=== PATIENT | male | born 1965 | race Caucasian/White ===

== ENCOUNTER 2016-11-16 10:47 | Inpatient (IN) | payer OTHER ==
[2016-11-16 11:33] VITALS: BMI 24.2
--- NOTE | 2016-11-16 14:17 | HP ---
COWS - Scale Resting Pulse: 0= OR 80 or Below Sweatin= Chills/Flushing Restless Observation: 3= Extraneous Movement Pupil Size: 2= Moderately Dilated Bone or Joint Aches: 4=Acute Joint/Muscle Pain Runny Nose/ Eye Tearin= Nasal Congestion GI Upset > 30mins: 1= Stomach Cramp Tremor Observation: 1= Tremor [place], Not Seen Yawning Observation: 1= 1-2x During Session Anxiety or Irritability: 2=Irritable/Anxious Goose Flesh Skin: 0=Smooth Skin COWS Score: 16 CIWA Score - CIWA Score Nausea/Vomitin Muscle Tremors: 3 Anxiety: 4-Mod. Anxious/Guarded Agitation: 3 Paroxysmal Sweats: 1-Minimal Palms Moist Orientation: 0-Oriented Tacttile Disturbances: 3-Moderate Itch/Numb/Burn Auditory Disturbances: 0-None Visual Disturbances: 0-None Headache: 0-None Present CIWA-Ar Total Score: 16 Admission ROS BHS - HPI Chief Complaint: DETOX TX FOR HEROIN,ALCOHOL AND COCAINE DEPENDENCE Allergies/Adverse Reactions: Allergies Allergy/AdvReac Type Severity Reaction Status Date / Time No Known Allergies Allergy Verified 11/16/16 12:56 History of Present Illness: 50 Y/O MALE WITH A HX OF HEROIN,COCAINE AND ALCOHOL DEPENDENCE SEEKING DETOX TX. Exam Limitations: No Limitations - Ebola screening Have you traveled outside of the country in the last 21 days: No Have you had contact with anyone from an Ebola affected area: No Have you been sick,other than usual withdrawal symptoms: No Do you have a fever: No - Review of Systems Constitutional: Chills, Loss of Appetite, Night Sweats, Changes in sleep, Unintentional Wgt. Loss EENT: reports: Blurred Vision (WEARS READING GLASSES), Tearing, Nose Congestion , Dental Problems (MISSING TEETH. FULL UPPER DENDTURES.) Respiratory: reports: No Symptoms reported Cardiac: reports: Lightheadedness GI: reports: Constipated, Diarrhea, Nausea, Poor Appetite, Poor Fluid Intake, Vomiting, Abdominal cramping : reports: Dysuria Musculoskeletal: reports: Back Pain, Joint Pain, Muscle Pain Integumentary: reports: Bruising (HEALED IVD INJ TRACKS.) Neuro: reports: Headache, Tremors, Unsteady Gait, Dizziness Endocrine: reports: No Symptoms Reported Hematology: reports: No Symptoms Reported Psychiatric: reports: Orientated x3, Anxious, Depressed (ON MEDS) Other Systems: Reviewed and Negative Patient History - Patient Medical History Hx Anemia: No Hx Asthma: No Hx Chronic Obstructive Pulmonary Disease (COPD): No Hx Cancer: No Hx Cardiac Disorders: No Hx Congestive Heart Failure: No Hx Hypertension: No Hx Hypercholesterolemia: No Hx Pacemaker: No HX Cerebrovascular Accident: No Hx Seizures: No Hx Dementia: No Hx Diabetes: No ("LOW BLOOD SUGAR") Hx Gastrointestinal Disorders: No Hx Liver Disease: No Hx Genitourinary Disorders: No Hx Sexually Transmitted Disorders: No (DENIES) Hx Renal Disease (ESRD): No Hx Thyroid Disease: No Hx Human Immunodeficiency Virus (HIV): No (NEGATIVE HX) Hx Hepatitis C: Yes (TREATED--"UNDETECTIVE") Hx Depression: Yes (ON MED) Hx Suicide Attempt: No (DENIES) Hx Bipolar Disorder: Yes Hx Schizophrenia: No - Patient Surgical History Past Surgical History: No Hx Neurologic Surgery: No Hx Cataract Extraction: No Hx Cardiac Surgery: No Hx Lung Surgery: No Hx Breast Surgery: No Hx Breast Biopsy: No Hx Abdominal Surgery: No Hx Appendectomy: No Hx Cholecystectomy: No Hx Genitourinary Surgery: No Hx Orthopedic Surgery: No Anesthesia Reaction: No - PPD History Previous Implant?: Yes Implanted On Prior [facility] Admission?: Yes Date: 02/24/15 Results: 0 mm PPD to be Administered?: Yes - Reproductive History Patient is a Female of Child Bearing Age (11 -55 yrs old): No (MALE) - Smoking Cessation Smoking history: Current every day smoker Have you smoked in the past 12 months: Yes Aproximately how many cigarettes per day: 10 Hx Chewing Tobacco Use: No Initiated information on smoking cessation: Yes 'Breaking Loose' booklet given: 11/16/16 - Substance & Tx. History Hx Alcohol Use: Yes (VODKA) Hx Substance Use: Yes (STREET METHADONE/HEROIN/COCAINE) Substance Use Type: Alcohol, Cocaine, Heroin, Opiates (STREET METHADONE) Hx Substance Use Treatment: Yes ([facility]-DETOX) - Substances Abused Heroin Route: Injection Frequency: Daily Amount used: 2 bags Age of first use: 13 Date of Last Use: 11/15/16 Cocaine Route: Injection Frequency: 1-3 times last 30 days Amount used: $30 Age of first use: 14 Date of Last Use: 11/05/16 Alcohol-vodka Route: Oral Frequency: 3-6 times per week Amount used: 4-5 shots(1 PT) Age of first use: 13 Date of Last Use: 11/14/16 street methadone Route: Oral Frequency: 1-3 times last 30 days Amount used: 20-30 mg. Age of first use: 49 Date of Last Use: 11/16/16 Family Disease History - Family Disease History Family History: Denies Admission Physical Exam [facility] - Vital Signs Vital Signs: Vital Signs - 24 hr 11/16/16 11:29 Temperature 96.2 F L Pulse Rate 65 Respiratory 18 Rate Blood Pressure 132/69 - Physical General Appearance: Yes: Moderate Distress, Irritable, Anxious HEENTM: Yes: EOMI, Normocephalic, DEYANIRA, Pharynx Normal Respiratory: Yes: Chest Non-Tender, Lungs Clear, Normal Breath Sounds, No Respiratory Distress Neck: Yes: Supple, Trachea in good position Breast: Yes: Breast Exam Deferred Cardiology: Yes: Regular Rhythm, Regular Rate, S1, S2 Abdominal: Yes: Normal Bowel Sounds, Non Tender, Soft Genitourinary: Yes: Other (N/C) Back: Yes: Within Normal Limits Musculoskeletal: Yes: full range of Motion, Gait Steady Extremities: Yes: Normal Range of Motion, Non-Tender 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: 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 ) Lymphatic: Yes: Within Normal Limits - Diagnostic (1) Hepatitis C Current Visit: Yes Status: Chronic Qualifiers: Viral hepatitis chronicity: unspecified Hepatic coma status: without hepatic coma Qualified Code(s): B19.20 - Unspecified viral hepatitis C without hepatic coma (2) Nicotine dependence Current Visit: Yes Status: Acute Qualifiers: Substance use status: in withdrawal (3) Abrasion, nose without infection Current Visit: No Status: Resolved (4) Rash of face Current Visit: No Status: Resolved (5) Alcohol dependence with uncomplicated withdrawal Current Visit: Yes Status: Acute (6) Opioid dependence with withdrawal Current Visit: Yes Status: Acute (7) Cocaine dependence, uncomplicated Current Visit: Yes Status: Acute Cleared for Admission [facility] - Detox or Rehab [facility] Level of Care: Medically Managed Detox Regimen/Protocol: Methadone/Librium BHS Breath Alcohol Content Breath Alcohol Content: 0 Urine Drug Screen - Results Drug Screen Negative: No Urine Drug Screen Results: SWAPNA-Cocaine, OPI-Opiates, MTD-Methadone
[2016-11-16] MEDS ORDERED: IBUPROFEN 400 MG TABLET (FP) PO PRN (14:45)
[2016-11-16] MEDS ORDERED: ACETAMINOPHEN 325 MG TABLET (FP) PO PRN (14:45)
[2016-11-16] MEDS ORDERED: LOPERAMIDE HCL 2 MG CAPSULE PO PRN (14:45)
[2016-11-16] MEDS ORDERED: MAG HYDROX/AL HYDROX/SIMETH 30 ML UNIT-DOSE CUP PO PRN (14:45)
[2016-11-16] MEDS ORDERED: MENTHOL/PHENOL 1 EACH UD MM PRN (14:45)
[2016-11-16] MEDS ORDERED: MAGNESIUM HYDROX 2400MG/30ML ORAL SUSPENSION 30 ML CUP PO PRN (14:45)
[2016-11-16] MEDS ORDERED: guaiFENesin/D-METHORPHAN HB 10 ML UNIT-DOSE CUPS PO PRN (14:45)
[2016-11-16] MEDS ORDERED: NICOTINE POLACRILEX 2 MG GUM BUC PRN (14:45)
[2016-11-16] MEDS ORDERED: P-EPHED 60MG/TRIPROLIDI 2.5MG TABLET PO PRN (14:45)
[2016-11-16] MEDS ORDERED: MAGNESIUM CITRATE 300 ML BOTTLE PO PRN (14:45)
[2016-11-16] MEDS ORDERED: METHADONE HCL 10 MG TABLET (FOR DETOX USE ONLY) PO ONE ×2 (15:52→23:00)
[2016-11-16] MEDS: NICOTINE 14 MG/24 HOURS TOPICAL PATCH TD SCH (16:07)
[2016-11-16] MEDS: chlordiazePOXIDE HCL 25 MG CAPSULE PO SCH ×2 (17:59→22:15)
[2016-11-16 18:39] LABS: URINE APPEARANCE CLEAR; URINE BILIRUBIN NEGATIVE (NEGATIVE); URINE BLOOD NEGATIVE (NEGATIVE); URINE COLOR YELLOW; URINE GLUCOSE (UA) NEGATIVE (NEGATIVE); URINE KETONE NEGATIVE (NEGATIVE); URINE LEUK ESTERASE NEGATIVE (NEGATIVE); URINE NITRITE NEGATIVE (NEGATIVE); URINE PROTEIN NEGATIVE (NEGATIVE); URINE UROBILINOGEN NEGATIVE E.U./dl (0.2-1.0)
[2016-11-16] MEDS: diphenhydrAMINE HCL 50 MG CAPSULE PO PRN (22:14)
[2016-11-16] MEDS: THIAMINE HCL 100 MG TABLET (FP) PO SCH (22:15)
[2016-11-17] MEDS: chlordiazePOXIDE HCL 25 MG CAPSULE PO SCH ×4 (05:50→22:14)
--- NOTE | 2016-11-17 08:57 | CONSULT ---
[facility] Psychiatric Consult - Data Date of interview: 11/17/16 Admission source: [facility] Identifying data: This is 50 years old male with history of Bipolar Disorder intoxiocated with: Alcohol, Cocaine, Opioids, Methadone and Nicotine Substance Abuse History: - Smoking Cessation. Smoking history: Current every day smoker. Have you smoked in the past 12 months: Yes. Aproximately how many cigarettes per day: 10. Hx Chewing Tobacco Use: No. Initiated information on smoking cessation: Yes. 'Breaking Loose' booklet given: 11/16/16. - Substance & Tx. History. Hx Alcohol Use: Yes (VODKA). Hx Substance Use: Yes (STREET METHADONE/HEROIN/COCAINE). Substance Use Type: Alcohol, Cocaine, Heroin, Opiates (STREET METHADONE). Hx Substance Use Treatment: Yes ([facility]DETOX). - Substances Abused. Heroin. Route: Injection. Frequency: Daily. Amount used: 2 bags. Age of first use: 13. Date of Last Use: 11/15/16. Cocaine. Route: Injection. Frequency: 1-3 times last 30 days. Amount used: $30. Age of first use: 14. Date of Last Use: 11/05/16. Alcohol-vodka. Route: Oral. Frequency: 3-6 times per week. Amount used: 4-5 shots(1 PT). Age of first use: 13. Date of Last Use: 11/14/16. street methadone. Route: Oral. Frequency: 1-3 times last 30 days. Amount used: 20-30 mg. Age of first use: 49. Date of Last Use: 11/16/16 Medical History: HepC+ Psychiatric History: Patient reports history of Bipoloar Disorder with most recent psychiatric admission on 2014 at [facility] reports currently taking: Remeron 30mg po qhs Physical/Sexual Abuse/Trauma History: Denies Additional Comment: Remeron 30mg po qhs Mental Status Exam - Mental Status Exam Alert and Oriented to: Person Cognitive Function: Fair Patient Appearance: Unkempt Mood: Sad Affect: Flat Patient Behavior: Sedated Speech Pattern: Delayed Voice Loudness: Mildly Soft/Quiet Thought Process: Circumstantial Thought Disorder: Being Controlled Hallucinations: Denies Suicidal Ideation: Denies Homicidal Ideation: Denies Insight/Judgement: Fair Sleep: Difficulty falling asleep Appetite: Fair Muscle strength/Tone: Mild Hypotonicity Gait/Station: Shuffling Additional Comments: Remeron 30mg po qhs Psychiatric Findings - Problem List ([place] 1, 2,3) (1) Alcohol dependence with uncomplicated withdrawal Current Visit: Yes Status: Acute (2) Cocaine dependence, uncomplicated Current Visit: Yes Status: Acute (3) Nicotine dependence Current Visit: Yes Status: Acute Qualifiers: Substance use status: in withdrawal (4) Opioid dependence with withdrawal Current Visit: Yes Status: Acute (5) Hepatitis C Current Visit: Yes Status: Chronic Qualifiers: Viral hepatitis chronicity: unspecified Hepatic coma status: without hepatic coma Qualified Code(s): B19.20 - Unspecified viral hepatitis C without hepatic coma (6) Bipolar II disorder Current Visit: No Status: Chronic (7) Drug-induced mood disorder Current Visit: Yes Status: Acute - Initial Treatment Plan Initial Treatment Plan: Remeron 30mg po qhs
[2016-11-17 09:58] LABS: MCH 30.9 pg (25.7-33.7); MCHC 33.3 g/dl (32.0-35.9); MEAN CELL VOLUME 92.9 fl (80-96); MEAN PLT VOLUME 8.3 fl (7.5-11.1); PLATELET COUNT 344 K/MM3 (134-434)
[2016-11-17] MEDS ORDERED: METHADONE HCL 10 MG TABLET (FOR DETOX USE ONLY) PO SCH (10:00)
[2016-11-17 10:02] LABS: ALBUMIN 3.9 g/dl (3.4-5.0); ANION GAP 4 (8-16); CO2 34 mmol/L (21-32); GLUCOSE,RANDOM 110 mg/dL (74-106)
[2016-11-17 10:06] LABS: ALK PHOS 100 U/L (45-117); BILIRUBIN,TOTAL 0.5 mg/dL (0.2-1.0); CALCIUM 9.5 mg/dL (8.5-10.1); CREATININE 0.7 mg/dL (0.7-1.3); SGOT/AST 28 U/L (15-37); SGPT/ALT 26 U/L (12-78)
[2016-11-17] MEDS: PRENATAL VITAMINS W/ FOLIC ACID TABLET (FP) PO SCH (10:15)
[2016-11-17] MEDS: NICOTINE 14 MG/24 HOURS TOPICAL PATCH TD SCH (10:16)
[2016-11-17 10:27] LABS: HIV 1 & 2 AB NEGATIVE; HIV 1 AGp24 NEGATIVE
--- NOTE | 2016-11-17 11:05 | PN ---
S CIWA - CIWA Score Nausea/Vomitin Muscle Tremors: 2 Anxiety: 3 Agitation: 3 Paroxysmal Sweats: 3 Orientation: 0-Oriented Tacttile Disturbances: 2-Mild Itch/Numbness/Burn Auditory Disturbances: 0-None Visual Disturbances: 0-None Headache: 0-None Present CIWA-Ar Total Score: 15 BHS COWS - Scale Resting Pulse: 0= [place] 80 or Below Sweatin=Flushed/Facial Moisture Restless Observation: 1= Difficult to Sit Still Pupil Size: 1= Pupils >than Normal Bone or Joint Aches: 2= Severe Diffuse Aches Runny Nose/ Eye Tearin= Nasal Congestion GI Upset > 30mins: 1= Stomach Cramp Tremor Observation of Outstretched Hands: 1= Tremor [place], Not Seen Yawning Observation: 0= None Anxiety or Irritability: 2=Irritable/Anxious Goose Flesh Skin: 0=Smooth Skin COWS Score: 11 S Progress Note (SOAP) Subjective: interrupted sleep, sweats, decreased appetite Objective: 11/17/16 11:03 Vital Signs Temperature 98.1 F 11/17/16 10:12 Pulse Rate 78 11/17/16 10:12 Respiratory Rate 18 11/17/16 10:12 Blood Pressure 122/57 11/17/16 10:12 O2 Sat by Pulse Oximetry (%) Laboratory Tests 11/16/16 11/16/16 11/17/16 06:00 17:45 06:00 WBC 7.0 D RBC 4.97 Hgb 15.4 Hct 46.2 MCV 92.9 MCHC 33.3 RDW 14.0 Plt Count 344 MPV 8.3 Sodium Potassium Chloride Carbon Dioxide Anion Gap BUN Creatinine Creat Clearance w eGFR Random Glucose Calcium Total Bilirubin AST ALT Alkaline Phosphatase Total Protein Albumin Urine Color Yellow Urine Appearance Clear Urine pH 5.0 Ur Specific [place] 1.025 Urine Protein Negative Urine Glucose (UA) Negative Urine Ketones Negative Urine Blood Negative Urine Nitrite Negative Urine Bilirubin Negative Urine Urobilinogen Negative Ur Leukocyte Esterase Negative HIV 1&2 Antibody Screen Negative HIV P24 Antigen Negative 11/17/16 06:00 WBC RBC Hgb Hct MCV MCHC RDW Plt Count MPV Sodium 137 Potassium 4.8 D Chloride 99 Carbon Dioxide 34 H D Anion Gap 4 L BUN 11 D Creatinine 0.7 Creat Clearance w eGFR > 60 Random Glucose 110 H Calcium 9.5 Total Bilirubin 0.5 D AST 28 ALT 26 Alkaline Phosphatase 100 Total Protein 7.0 Albumin 3.9 Urine Color Urine Appearance Urine pH Ur Specific [place] Urine Protein Urine Glucose (UA) Urine Ketones Urine Blood Urine Nitrite Urine Bilirubin Urine Urobilinogen Ur Leukocyte Esterase HIV 1&2 Antibody Screen HIV P24 Antigen pt aox3 in nad ambulating Assessment: 11/17/16 11:04 withdrawal sx;s Plan: cont. detox increase fluids ensure bid
--- NOTE | 2016-11-17 15:30 | EKG ---
Test Reason : Blood Pressure : / mmHG Vent. Rate : 062 BPM Atrial Rate : 062 BPM P-R Int : 132 ms QRS Dur : 090 ms QT Int : 416 ms P-R-T Axes : 021 083 075 degrees QTc Int : 422 ms POOR DATA QUALITY, INTERPRETATION MAY BE ADVERSELY AFFECTED NORMAL SINUS RHYTHM NORMAL ECG NO PREVIOUS ECGS AVAILABLE Confirmed by ADOLPH HOFFMAN MD ([id number]) on 11/17/2016 3:30:30 PM Referred By: Confirmed By:ADOLPH HOFFMAN MD
[2016-11-17] MEDS: MIRTAZAPINE 30 MG TABLET (FP) PO SCH (22:14)
[2016-11-17] MEDS: THIAMINE HCL 100 MG TABLET (FP) PO SCH (22:14)
[2016-11-17] MEDS: diphenhydrAMINE HCL 50 MG CAPSULE PO PRN (22:15)
[2016-11-18] MEDS: diphenhydrAMINE HCL 50 MG CAPSULE PO PRN ×2 (01:12→22:07)
[2016-11-18] MEDS: chlordiazePOXIDE HCL 25 MG CAPSULE PO PRN (01:13)
[2016-11-18] MEDS: hydrOXYzine PAMOATE 25 MG CAPSULE (FP) PO PRN (04:19)
[2016-11-18] MEDS: chlordiazePOXIDE HCL 25 MG CAPSULE PO SCH ×2 (05:56→09:59)
[2016-11-18] MEDS: PRENATAL VITAMINS W/ FOLIC ACID TABLET (FP) PO SCH (09:57)
[2016-11-18] MEDS: METHADONE HCL 5 MG TABLET (FOR DETOX USE ONLY) PO SCH (09:57)
--- NOTE | 2016-11-18 10:11 | PN ---
[facility] CIWA - CIWA Score Nausea/Vomitin-No Nausea/No Vomiting Muscle Tremors: 4-Moderate,w/Arms Extend Anxiety: 3 Agitation: 4-Moderately Restless Paroxysmal Sweats: 3 Orientation: 0-Oriented Tacttile Disturbances: 0-None Auditory Disturbances: 0-None Visual Disturbances: 0-None Headache: 0-None Present CIWA-Ar Total Score: 14 S COWS - Scale Resting Pulse: 1= [place] 81-100 Sweatin=Flushed/Facial Moisture Restless Observation: 1= Difficult to Sit Still Pupil Size: 0= Normal to Room Light Bone or Joint Aches: 2= Severe Diffuse Aches Runny Nose/ Eye Tearin= Nasal Congestion GI Upset > 30mins: 0= None Tremor Observation of Outstretched Hands: 2= Slight Tremor Visible Yawning Observation: 0= None Anxiety or Irritability: 2=Irritable/Anxious Goose Flesh Skin: 0=Smooth Skin COWS Score: 11 S Progress Note (SOAP) Subjective: sweats shakes interrupted sleep irritable agitation Objective: 11/18/16 10:09 Vital Signs Temperature 98.2 F 11/18/16 06:00 Pulse Rate 74 11/18/16 06:00 Respiratory Rate 16 11/18/16 06:00 Blood Pressure 90/62 11/18/16 06:00 O2 Sat by Pulse Oximetry (%) Laboratory Tests 11/16/16 11/16/16 11/16/16 06:00 06:00 17:45 WBC RBC Hgb Hct MCV MCHC RDW Plt Count MPV Sodium Potassium Chloride Carbon Dioxide Anion Gap BUN Creatinine Creat Clearance w eGFR Random Glucose Calcium Total Bilirubin AST ALT Alkaline Phosphatase Total Protein Albumin Urine Color Yellow Urine Appearance Clear Urine pH 5.0 Ur Specific [place] 1.025 Urine Protein Negative Urine Glucose (UA) Negative Urine Ketones Negative Urine Blood Negative Urine Nitrite Negative Urine Bilirubin Negative Urine Urobilinogen Negative Ur Leukocyte Esterase Negative RPR Titer Hepatitis C Antibody >11.0 H HIV 1&2 Antibody Screen Negative HIV P24 Antigen Negative 11/17/16 11/17/16 11/17/16 06:00 06:00 06:00 WBC 7.0 D RBC 4.97 Hgb 15.4 Hct 46.2 MCV 92.9 MCHC 33.3 RDW 14.0 Plt Count 344 MPV 8.3 Sodium 137 Potassium 4.8 D Chloride 99 Carbon Dioxide 34 H D Anion Gap 4 L BUN 11 D Creatinine 0.7 Creat Clearance w eGFR > 60 Random Glucose 110 H Calcium 9.5 Total Bilirubin 0.5 D AST 28 ALT 26 Alkaline Phosphatase 100 Total Protein 7.0 Albumin 3.9 Urine Color Urine Appearance Urine pH Ur Specific [place] Urine Protein Urine Glucose (UA) Urine Ketones Urine Blood Urine Nitrite Urine Bilirubin Urine Urobilinogen Ur Leukocyte Esterase RPR Titer Nonreactive Hepatitis C Antibody HIV 1&2 Antibody Screen HIV P24 Antigen awake/alert ambulating no acute distress Assessment: 11/18/16 10:14 withdrawal sx Plan: continue detox increase fluids
[2016-11-18] MEDS: NICOTINE 14 MG/24 HOURS TOPICAL PATCH TD SCH (11:00)
[2016-11-18] MEDS: chlordiazePOXIDE 5 MG CAPSULE PO SCH ×2 (18:00→22:06)
[2016-11-18] MEDS: THIAMINE HCL 100 MG TABLET (FP) PO SCH (22:06)
[2016-11-18] MEDS: MIRTAZAPINE 30 MG TABLET (FP) PO SCH (22:06)
[2016-11-19] MEDS: diphenhydrAMINE HCL 50 MG CAPSULE PO PRN ×2 (01:23→22:20)
[2016-11-19] MEDS: chlordiazePOXIDE HCL 25 MG CAPSULE PO PRN (01:25)
[2016-11-19] MEDS: chlordiazePOXIDE 5 MG CAPSULE PO SCH ×2 (05:46→10:42)
[2016-11-19] MEDS: METHADONE HCL 5 MG TABLET (FOR DETOX USE ONLY) PO SCH (10:41)
[2016-11-19] MEDS: PRENATAL VITAMINS W/ FOLIC ACID TABLET (FP) PO SCH (10:41)
[2016-11-19] MEDS: NICOTINE 14 MG/24 HOURS TOPICAL PATCH TD SCH (10:45)
--- NOTE | 2016-11-19 12:56 | PN ---
S Progress Note (SOAP) Subjective: ALERT,IRRITABLE,ANXIOUS,INTERRUPTED SLEEP, Objective: 11/19/16 12:54 11/19/16 12:55 Vital Signs Temperature 98.1 F 11/19/16 10:36 Pulse Rate 107 H 11/19/16 10:36 Respiratory Rate 18 11/19/16 10:36 Blood Pressure 120/64 11/19/16 10:36 O2 Sat by Pulse Oximetry (%) Assessment: 11/19/16 12:55 WITHDRAWAL SYMPTOM Plan: CONTINUE DETOX
[2016-11-19] MEDS: chlordiazePOXIDE HCL 10 MG CAPSULE PO SCH ×2 (18:23→22:20)
[2016-11-19] MEDS: THIAMINE HCL 100 MG TABLET (FP) PO SCH (22:19)
[2016-11-19] MEDS: MIRTAZAPINE 30 MG TABLET (FP) PO SCH (22:19)
[2016-11-20] MEDS: diphenhydrAMINE HCL 50 MG CAPSULE PO PRN (00:41)
[2016-11-20] MEDS: hydrOXYzine PAMOATE 25 MG CAPSULE (FP) PO PRN (01:40)
[2016-11-20] MEDS: chlordiazePOXIDE HCL 10 MG CAPSULE PO SCH (05:47)
[2016-11-20 09:58] VITALS: BP 99/58; PULSE 92; TEMP 97.7
[2016-11-20] MEDS ORDERED: METHADONE HCL 10 MG TABLET (FOR DETOX USE ONLY) PO SCH (10:00)
--- NOTE | 2016-11-20 10:07 | PN ---
S Progress Note (SOAP) Subjective: ALERT,NO COMPLAINT Objective: 11/20/16 10:06 Vital Signs Temperature 97.7 F 11/20/16 09:58 Pulse Rate 92 H 11/20/16 09:58 Respiratory Rate 18 11/20/16 09:58 Blood Pressure 99/58 11/20/16 09:58 O2 Sat by Pulse Oximetry (%) Assessment: 11/20/16 10:06 PATIENT IS STABLE FOR DISCHARGE Plan: DISCHARGE TODAY,FOLLOW UP WITH AFTER CARE PROGRAM ARRANGEMENT
--- NOTE | 2016-11-20 10:11 | DS ---
[facility] Detox Discharge Summary Admission Date: 11/16/16 Discharge Date: 11/27/16 - History Present History: Alcohol Dependence, Cocaine Dependence, Opioid Dependence Additional Comments: FOLLOW UP WITH AFTER CARE PROGRAM ARRANGEMENT Pertinent Past History: HEPATITIS C NICOTINE DEPENDENCE - Physical Exam Results Vital Signs: Vital Signs Temperature 97.7 F 11/20/16 09:58 Pulse Rate 92 H 11/20/16 09:58 Respiratory Rate 18 11/20/16 09:58 Blood Pressure 99/58 11/20/16 09:58 O2 Sat by Pulse Oximetry (%) Pertinent Admission Physical Exam Findings: WITHDRAWAL SYMPTOM - Treatment Hospital Course: Detox Protocol Followed, Detoxed Safely, Responded well, Discharged Condition Good Patient has Accepted a Rehab Referral to: DECLINED - Medication Discharge Medications: Ambulatory Orders Mirtazapine [Remeron -] 30 mg PO HS 02/22/15 Mirtazapine [Remeron -] 30 mg PO HS #30 tablet 11/17/16 - AMA Did Patient Leave Against Medical Advice: No
[2016-11-20] MEDS: NICOTINE 14 MG/24 HOURS TOPICAL PATCH TD SCH (10:53)
[2016-11-20] MEDS: PRENATAL VITAMINS W/ FOLIC ACID TABLET (FP) PO SCH (10:53)
[2016-11-21] MEDS ORDERED: METHADONE HCL 5 MG TABLET (FOR DETOX USE ONLY) PO SCH (06:00)
== END 2016-11-20 10:50 | disposition home or self-care (01) | DRG 773 ==
LOC: YASAS 10:47 → Y6N 14:09
PROVIDERS: ADMIT Internal Medicine Addiction Medicine; ATTEND Internal Medicine Addiction Medicine
PROC: HZ2ZZZZ Detoxification Services for Substance Abuse Treatment (ICD-10-PCS; principal; 2016-11-16)
DX: F11.23 Opioid dependence with withdrawal (principal); F10.230 Alcohol dependence with withdrawal, uncomplicated; F14.20 Cocaine dependence, uncomplicated; F17.210 Nicotine dependence, cigarettes, uncomplicated; F19.24 Other psychoactive substance dependence with psychoactive substance-induced mood disorder; F31.81 Bipolar II disorder; B19.20 Unspecified viral hepatitis C without hepatic coma; R21 Rash and other nonspecific skin eruption; S00.31XD Abrasion of nose, subsequent encounter; X58.XXXD Exposure to other specified factors, subsequent encounter
CPT/HCPCS: 36415; 80053; 81003; 85027; 86593; 87389; 87522; 93005; 93010

== ENCOUNTER 2016-12-30 11:04 | Inpatient (IN) | payer OTHER ==
[2016-12-30 11:40] VITALS: BMI 25.0
[2016-12-30] MEDS ORDERED: ACETAMINOPHEN 325 MG TABLET (FP) PO PRN (15:34)
[2016-12-30] MEDS ORDERED: MAG HYDROX/AL HYDROX/SIMETH 30 ML UNIT-DOSE CUP PO PRN (15:34)
[2016-12-30] MEDS ORDERED: MAGNESIUM CITRATE 300 ML BOTTLE PO PRN (15:34)
[2016-12-30] MEDS ORDERED: LOPERAMIDE HCL 2 MG CAPSULE PO PRN (15:34)
[2016-12-30] MEDS ORDERED: NICOTINE POLACRILEX 2 MG GUM BUC PRN (15:34)
[2016-12-30] MEDS ORDERED: MAGNESIUM HYDROX 2400MG/30ML ORAL SUSPENSION 30 ML CUP PO PRN (15:34)
[2016-12-30] MEDS ORDERED: IBUPROFEN 400 MG TABLET (FP) PO PRN (15:34)
[2016-12-30] MEDS ORDERED: MENTHOL/PHENOL 1 EACH UD MM PRN (15:34)
[2016-12-30] MEDS ORDERED: P-EPHED 60MG/TRIPROLIDI 2.5MG TABLET PO PRN (15:34)
[2016-12-30] MEDS ORDERED: guaiFENesin/D-METHORPHAN HB 10 ML UNIT-DOSE CUPS PO PRN (15:34)
[2016-12-30] MEDS ORDERED: chlordiazePOXIDE HCL 25 MG CAPSULE PO ONE (15:39)
[2016-12-30] MEDS ORDERED: METHADONE HCL 10 MG TABLET (FOR DETOX USE ONLY) PO ONE ×2 (15:39→23:00)
[2016-12-30] MEDS ORDERED: ALBUTEROL SO4 6.7 GM HFA INHALER IH PRN (15:41)
[2016-12-30] MEDS ORDERED: ONDANSETRON *ODT* 4 MG TABLET SL PRN (15:42)
[2016-12-30] MEDS: NICOTINE 21 MG/24 HOURS TOPICAL PATCH TD SCH (15:45)
--- NOTE | 2016-12-30 15:48 | HP ---
COWS - Scale Resting Pulse: 2= [place] 101-120 Sweatin=Flushed/Facial Moisture Restless Observation: 1= Difficult to Sit Still Pupil Size: 2= Moderately Dilated Bone or Joint Aches: 2= Severe Diffuse Aches Runny Nose/ Eye Tearin= Runny Nose/Eyes GI Upset > 30mins: 2= Nausea/Diarrhea Tremor Observation: 2= Slight Tremor Visible Yawning Observation: 1= 1-2x During Session Anxiety or Irritability: 2=Irritable/Anxious Goose Flesh Skin: 0=Smooth Skin COWS Score: 18 CIWA Score - CIWA Score Nausea/Vomitin Muscle Tremors: 4-Moderate,w/Arms Extend Anxiety: 4-Mod. Anxious/Guarded Agitation: 4-Moderately Restless Paroxysmal Sweats: 3 Orientation: 0-Oriented Tacttile Disturbances: 0-None Auditory Disturbances: 0-None Visual Disturbances: 0-None Headache: 0-None Present CIWA-Ar Total Score: 18 Admission ROS BHS - HPI Chief Complaint: Withdrawal sx. Allergies/Adverse Reactions: Allergies Allergy/AdvReac Type Severity Reaction Status Date / Time No Known Allergies Allergy Verified 12/30/16 13:15 History of Present Illness: 51 y/o man with a long hx. of drug and alcohol dependence is admitted for detox.Pt. has been in previous detox,denies significant period drug free. Exam Limitations: No Limitations - Ebola screening Have you traveled outside of the country in the last 21 days: No Have you had contact with anyone from an Ebola affected area: No Have you been sick,other than usual withdrawal symptoms: No Do you have a fever: No - Review of Systems Constitutional: Diaphoresis EENT: reports: Nose Congestion Respiratory: reports: No Symptoms reported Cardiac: reports: No Symptoms Reported GI: reports: Nausea, Abdominal cramping : reports: No Symptoms Reported Musculoskeletal: reports: Back Pain, Joint Pain, Muscle Pain Integumentary: reports: Sweating Neuro: reports: Tremors Endocrine: reports: No Symptoms Reported Hematology: reports: No Symptoms Reported Psychiatric: reports: No Sypmtoms Reported Other Systems: Reviewed and Negative Patient History - Patient Medical History Hx Anemia: No Hx Asthma: No Hx Chronic Obstructive Pulmonary Disease (COPD): No Hx Cancer: No Hx Cardiac Disorders: No Hx Congestive Heart Failure: No Hx Hypertension: No Hx Hypercholesterolemia: No Hx Pacemaker: No HX Cerebrovascular Accident: No Hx Seizures: No Hx Dementia: No Hx Diabetes: No Hx Gastrointestinal Disorders: No Hx Liver Disease: No Hx Genitourinary Disorders: No Hx Sexually Transmitted Disorders: No Hx Renal Disease (ESRD): No Hx Thyroid Disease: No Hx Human Immunodeficiency Virus (HIV): No (NEGATIVE HX) Hx Hepatitis C: Yes (TREATED--"UNDETECTABLE") Hx Depression: Yes Hx Suicide Attempt: No Hx Bipolar Disorder: Yes Hx Schizophrenia: No - Patient Surgical History Past Surgical History: No Hx Neurologic Surgery: No Hx Cataract Extraction: No Hx Cardiac Surgery: No Hx Lung Surgery: No Hx Breast Surgery: No Hx Breast Biopsy: No Hx Abdominal Surgery: No Hx Appendectomy: No Hx Cholecystectomy: No Hx Genitourinary Surgery: No Hx Section: No Hx Orthopedic Surgery: No Anesthesia Reaction: No - PPD History Previous Implant?: Yes Implanted On Prior R Admission?: Yes Date: 11/18/16 Results: 0 mm PPD to be Administered?: No - Smoking Cessation Smoking history: Current every day smoker Have you smoked in the past 12 months: Yes Aproximately how many cigarettes per day: 10 Hx Chewing Tobacco Use: No Initiated information on smoking cessation: Yes 'Breaking Loose' booklet given: 12/30/16 - Substance & Tx. History Hx Alcohol Use: Yes Hx Substance Use: Yes Substance Use Type: Alcohol, Heroin Hx Substance Use Treatment: Yes (detox) - Substances Abused Heroin Route: Injection Frequency: Daily Amount used: 15-20 bags Age of first use: 13 Date of Last Use: 12/30/16 Cocaine Route: Injection Frequency: Daily Amount used: $20-30 Age of first use: 13 Date of Last Use: 12/30/16 Alcohol-vodka Route: Oral Frequency: Daily Amount used: 2 pts. Age of first use: 13 Date of Last Use: 12/29/16 Family Disease History - Family Disease History Family Disease History: Other: Brother (Drug & Alcohol) Admission Physical Exam BHS - Vital Signs Vital Signs: Vital Signs - 24 hr 12/30/16 12/30/16 11:36 15:37 Temperature 95.8 F L 97.6 F Pulse Rate 103 H 111 H Respiratory 18 20 Rate Blood Pressure 116/74 110/67 - Physical General Appearance: Yes: Tremorous, Irritable, Sweating, Anxious HEENTM: Yes: Nasal Congestion, Rhinorrhea Respiratory: Yes: Chest Non-Tender, Lungs Clear, Normal Breath Sounds Neck: Yes: Supple Breast: Yes: Breast Exam Deferred Cardiology: Yes: Regular Rhythm, Regular Rate, S1, S2 Abdominal: Yes: Normal Bowel Sounds, Non Tender, Flat, Soft Genitourinary: Yes: Within Normal Limits Back: Yes: Within Normal Limits Musculoskeletal: Yes: Within Normal Limits Extremities: Yes: Tremors 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: Yes: Fully Oriented, Alert Integumentary: Yes: Diaphoresis Lymphatic: Yes: Within Normal Limits - Diagnostic (1) Alcohol dependence with uncomplicated withdrawal Current Visit: No Status: Acute (2) Cocaine dependence, uncomplicated Current Visit: No Status: Acute (3) Nicotine dependence Current Visit: No Status: Acute Qualifiers: Substance use status: in withdrawal (4) Opioid dependence with withdrawal Current Visit: No Status: Acute (5) Hepatitis C Current Visit: No Status: Chronic Qualifiers: Viral hepatitis chronicity: unspecified Hepatic coma status: without hepatic coma Qualified Code(s): B19.20 - Unspecified viral hepatitis C without hepatic coma Cleared for Admission [facility] - Detox or Rehab [facility] Level of Care: Medically Managed Detox Regimen/Protocol: Methadone/Librium [facility] Breath Alcohol Content Breath Alcohol Content: 0 Urine Drug Screen - Results Drug Screen Negative: No Urine Drug Screen Results: SWAPNA-Cocaine, OPI-Opiates
[2016-12-30] MEDS: chlordiazePOXIDE HCL 25 MG CAPSULE PO SCH ×2 (17:07→22:19)
[2016-12-30] MEDS: THIAMINE HCL 100 MG TABLET (FP) PO SCH (22:19)
[2016-12-30] MEDS: BACITRACIN 0.9 GM PACKET TP SCH (22:43)
[2016-12-30 23:13] LABS: URINE APPEARANCE CLEAR; URINE BILIRUBIN NEGATIVE (NEGATIVE); URINE BLOOD NEGATIVE (NEGATIVE); URINE COLOR YELLOW; URINE GLUCOSE (UA) NEGATIVE (NEGATIVE); URINE KETONE NEGATIVE (NEGATIVE); URINE LEUK ESTERASE NEGATIVE (NEGATIVE); URINE NITRITE NEGATIVE (NEGATIVE); URINE PROTEIN NEGATIVE (NEGATIVE); URINE UROBILINOGEN NEGATIVE E.U./dl (0.2-1.0)
[2016-12-30] MEDS: diphenhydrAMINE HCL 50 MG CAPSULE PO PRN (23:31)
[2016-12-31] MEDS: chlordiazePOXIDE HCL 25 MG CAPSULE PO PRN ×2 (00:52→13:38)
[2016-12-31] MEDS: diphenhydrAMINE HCL 50 MG CAPSULE PO PRN ×2 (00:53→22:20)
[2016-12-31] MEDS: chlordiazePOXIDE HCL 25 MG CAPSULE PO SCH ×4 (04:33→22:20)
[2016-12-31] MEDS ORDERED: METHADONE HCL 10 MG TABLET (FOR DETOX USE ONLY) PO SCH (10:00)
--- NOTE | 2016-12-31 10:26 | CONSULT ---
[facility] Psychiatric Consult - Data Date of interview: 12/31/16 Admission source: [facility] Identifying data: Readmission to [facility] for this 51 y/o Caucasin male seeking detox treatment,on ,for heroin,alcohol and cocaine dependence.Patient is ,a father of two,domiciled (lives with friends), unemployed and supported on Public Assistance. Substance Abuse History: - Smoking Cessation. Smoking history: Current every day smoker. Have you smoked in the past 12 months: Yes. Aproximately how many cigarettes per day: 10. Hx Chewing Tobacco Use: No. Initiated information on smoking cessation: Yes. 'Breaking Loose' booklet given: 12/30/16. - Substance & Tx. History. Hx Alcohol Use: Yes. Hx Substance Use: Yes. Substance Use Type : Alcohol, Heroin. Hx Substance Use Treatment: Yes (detox). - Substances Abused. Heroin. Route: Injection. Frequency: Daily. Amount used: 15-20 bags. Age of first use: 13. Date of Last Use: 12/30/16. Cocaine. Route: Injection. Frequency: Daily. Amount used: $20-30. Age of first use: 13. Date of Last Use: 12/30/16. Alcohol-vodka. Route: Oral. Frequency: Daily. Amount used: 2 pts. Age of first use: 13. Date of Last Use: 12/29/16. Confirmed by patient. Medical History: Hepatitis C. Psychiatric History: Diagnosed with Bipolar Disorder.Onset of psychiatric disturbances : early .History of multiple psychiatric hospitalizations, including one admission to [facility] (2013) for suicidal ideation/suicide attempt.Mr Thomas informs that he sees a psychiatrist at [facility] in the [place].Prescribed risperdal,remeron and clonazepam (doses not recalled).Patient is a poor and indifferent historian.He indicates that he last took his medications two days ago. Physical/Sexual Abuse/Trauma History: Patient denies. Additional Comment: Urine Drug Screen Results: SWAPNA-Cocaine, OPI-Opiates.Noted. Mental Status Exam - Mental Status Exam Alert and Oriented to: Time, Place, Person Cognitive Function: Good Patient Appearance: Unkempt, Disheveled Mood: Nervous, Withdrawn, Apprehensive Affect: Mood Congruent Patient Behavior: Fatigued, Cooperative (superficially cooperative) Speech Pattern: Clear Voice Loudness: Normal Thought Process: Goal Oriented Thought Disorder: Not Present Hallucinations: Denies Suicidal Ideation: Denies Homicidal Ideation: Denies Insight/Judgement: Poor Sleep: Poorly, Difficulty falling asleep Appetite: Good Muscle strength/Tone: Normal Gait/Station: Normal Psychiatric Findings - Problem List ([place] 1, 2,3) (1) Alcohol dependence with uncomplicated withdrawal Current Visit: Yes Status: Acute (2) Cocaine dependence, uncomplicated Current Visit: Yes Status: Acute (3) Opioid dependence with withdrawal Current Visit: Yes Status: Acute (4) Nicotine dependence Current Visit: Yes Status: Acute Qualifiers: Substance use status: in withdrawal (5) Drug-induced mood disorder Current Visit: Yes Status: Acute (6) Schizoaffective disorder Current Visit: Yes Status: Chronic Comment: Self-report. (7) Hepatitis C Current Visit: Yes Status: Chronic Qualifiers: Viral hepatitis chronicity: unspecified Hepatic coma status: without hepatic coma Qualified Code(s): B19.20 - Unspecified viral hepatitis C without hepatic coma (8) Insomnia Current Visit: Yes Status: Acute - Initial Treatment Plan Initial Treatment Plan: Psychoeducation.Detoxification.Review of pharmacy claims : unfilled script for remeron at [facility].Patient reports that he now gets scripts filled at a [facility]store in [facility].Will resume treatment with risperdal 1 mg po bid + remeron 30 mg po hs at patient's request.Side effects/benefits of both medications are discussed with the patient.Made aware of potential for sedation/hypotension (remeron), abnormal involuntary movements,EPS (dystonias,dyskinesias,akathisia,akinesia), endocrine complications (galactorrhea,gynecomastia,sexual impotence),metabolic syndrome,cardiac adverse events,NMS (neuroleptic malignant syndrome) from the utilization of risperidone.Patient is reporting good tolerability/no prior adverse effects from this combination.He is in agreement with this careplan.Observation.
[2016-12-31] MEDS: PRENATAL VITAMINS W/ FOLIC ACID TABLET (FP) PO SCH (10:29)
[2016-12-31] MEDS: BACITRACIN 0.9 GM PACKET TP SCH ×2 (10:30→22:19)
[2016-12-31] MEDS: NICOTINE 21 MG/24 HOURS TOPICAL PATCH TD SCH (10:30)
[2016-12-31 11:09] LABS: MCH 30.9 pg (25.7-33.7); MCHC 33.5 g/dl (32.0-35.9); MEAN CELL VOLUME 92.2 fl (80-96); PLATELET COUNT 310 K/MM3 (134-434); RDW 13.2 % (11.9-15.9); WHITE BLOOD COUNT 10.7 K/mm3 (4.0-10.0)
[2016-12-31 11:16] LABS: CALCIUM 9.2 mg/dL (8.5-10.1)
[2016-12-31 11:23] LABS: ALK PHOS 78 U/L (45-117); ANION GAP 11 (8-16); BILIRUBIN,TOTAL 1.3 mg/dL (0.2-1.0); CO2 26 mmol/L (21-32); COCKROFT - GAULT 96.56; CREATININE 0.9 mg/dL (0.7-1.3); GLUCOSE,RANDOM 101 mg/dL (74-106); SGOT/AST 114 U/L (15-37); SGPT/ALT 59 U/L (12-78); TOT PROT 7.2 g/dl (6.4-8.2)
--- NOTE | 2016-12-31 11:25 | EKG ---
Test Reason : Blood Pressure : / mmHG Vent. Rate : 098 BPM Atrial Rate : 098 BPM P-R Int : 160 ms QRS Dur : 088 ms QT Int : 354 ms P-R-T Axes : 049 089 068 degrees QTc Int : 451 ms POOR DATA QUALITY, INTERPRETATION MAY BE ADVERSELY AFFECTED NORMAL SINUS RHYTHM NORMAL ECG WHEN COMPARED WITH ECG OF 16-NOV-2016 15:14, VENT. RATE HAS INCREASED BY 36 BPM Confirmed by ADOLPH HOFFMAN MD ([id number]) on 12/31/2016 11:25:15 AM Referred By: Confirmed By:ADOLPH HOFFMAN MD
--- NOTE | 2016-12-31 16:00 | PN ---
S CIWA - CIWA Score Nausea/Vomitin-Mild Nausea/No Vomiting Muscle Tremors: 3 Anxiety: 3 Agitation: 2 Paroxysmal Sweats: 3 Orientation: 0-Oriented Tacttile Disturbances: 2-Mild Itch/Numbness/Burn Auditory Disturbances: 2-Mild Harshness/Frighten Visual Disturbances: 0-None Headache: 0-None Present CIWA-Ar Total Score: 16 BHS COWS - Scale Resting Pulse: 1= [place] 81-100 BHS Progress Note (SOAP) Subjective: Interrupted sleep, Tremors, Sweating, Body Aches, Diarrhea. Objective: PT. A & O X 3, OBSERVED AMBULATING ON UNIT. 12/31/16 15:59 Vital Signs Temperature 97.2 F L 12/31/16 13:46 Pulse Rate 82 12/31/16 13:46 Respiratory Rate 16 12/31/16 13:46 Blood Pressure 98/64 12/31/16 13:46 O2 Sat by Pulse Oximetry (%) Laboratory Last Values WBC 10.7 K/mm3 (4.0-10.0) H D 12/31/16 06:05 RBC 4.31 M/mm3 (4.00-5.60) 12/31/16 06:05 Hgb 13.3 GM/dL (11.7-16.9) D 12/31/16 06:05 Hct 39.8 % (35.4-49) 12/31/16 06:05 MCV 92.2 fl (80-96) 12/31/16 06:05 MCHC 33.5 g/dl (32.0-35.9) 12/31/16 06:05 RDW 13.2 % (11.9-15.9) 12/31/16 06:05 Plt Count 310 K/MM3 (134-434) 12/31/16 06:05 MPV 8.0 fl (7.5-11.1) 12/31/16 06:05 Sodium 138 mmol/L (136-145) 12/31/16 06:05 Potassium 3.7 mmol/L (3.5-5.1) D 12/31/16 06:05 Chloride 101 mmol/L (98-107) 12/31/16 06:05 Carbon Dioxide 26 mmol/L (21-32) D 12/31/16 06:05 Anion Gap 11 (8-16) 12/31/16 06:05 BUN 19 mg/dL (7-18) H D 12/31/16 06:05 Creatinine 0.9 mg/dL (0.7-1.3) D 12/31/16 06:05 Creat Clearance w eGFR > 60 (>60) 12/31/16 06:05 Random Glucose 101 mg/dL (74-106) 12/31/16 06:05 Calcium 9.2 mg/dL (8.5-10.1) 12/31/16 06:05 Total Bilirubin 1.3 mg/dL (0.2-1.0) H D 12/31/16 06:05 AST 114 U/L (15-37) H D 12/31/16 06:05 ALT 59 U/L (12-78) D 12/31/16 06:05 Alkaline Phosphatase 78 U/L (45-117) D 12/31/16 06:05 Total Protein 7.2 g/dl (6.4-8.2) 12/31/16 06:05 Albumin 4.0 g/dl (3.4-5.0) 12/31/16 06:05 Urine Color Yellow 12/30/16 14:00 Urine Appearance Clear 12/30/16 14:00 Urine pH 5.0 (5.0-8.0) 12/30/16 14:00 Ur Specific [place] 1.028 (1.001-1.035) 12/30/16 14:00 Urine Protein Negative (NEGATIVE) 12/30/16 14:00 Urine Glucose (UA) Negative (NEGATIVE) 12/30/16 14:00 Urine Ketones Negative (NEGATIVE) 12/30/16 14:00 Urine Blood Negative (NEGATIVE) 12/30/16 14:00 Urine Nitrite Negative (NEGATIVE) 12/30/16 14:00 Urine Bilirubin Negative (NEGATIVE) 12/30/16 14:00 Urine Urobilinogen Negative E.U./dl (0.2-1.0) 12/30/16 14:00 Ur Leukocyte Esterase Negative (NEGATIVE) 12/30/16 14:00 RPR Titer Nonreactive (NONREACTIVE) 12/31/16 06:05 LABS NOTED. Assessment: 12/31/16 16:00 WITHDRAWAL SYMPTOMS. Plan: CONTINUE DETOX. INCREASE PO FLUIDS. ADVISED PATIENT TO FOLLOW-UP WITH GRIEF COUNSELOR / REHAB MEDICAL PROVIDER AFTER DISCHARGE FROM DETOX FOR GENERAL MEDICAL ASSESSMENT AND FOR ABNORMAL ADMISSION LAB VALUES.
--- NOTE | 2016-12-31 16:02 | PN ---
BHS COWS - Scale Resting Pulse: 1= [place] 81-100 Sweatin= Chills/Flushing Restless Observation: 1= Difficult to Sit Still Pupil Size: 0= Normal to Room Light Bone or Joint Aches: 2= Severe Diffuse Aches Runny Nose/ Eye Tearin= Nasal Congestion GI Upset > 30mins: 2= Nausea/Diarrhea Tremor Observation of Outstretched Hands: 2= Slight Tremor Visible Yawning Observation: 1= 1-2x During Session Anxiety or Irritability: 2=Irritable/Anxious Goose Flesh Skin: 3=Piloerection COWS Score: 16
[2016-12-31] MEDS: THIAMINE HCL 100 MG TABLET (FP) PO SCH (22:19)
[2016-12-31] MEDS: MIRTAZAPINE 15 MG TABLET (FP) PO SCH (22:20)
[2016-12-31] MEDS: risperiDONE 1 MG TABLET (FP) PO SCH (22:20)
[2017-01-01] MEDS: chlordiazePOXIDE HCL 25 MG CAPSULE PO SCH ×2 (04:18→10:20)
[2017-01-01] MEDS: risperiDONE 1 MG TABLET (FP) PO SCH ×2 (10:20→22:31)
[2017-01-01] MEDS: BACITRACIN 0.9 GM PACKET TP SCH ×2 (10:20→22:31)
[2017-01-01] MEDS: PRENATAL VITAMINS W/ FOLIC ACID TABLET (FP) PO SCH (10:20)
[2017-01-01] MEDS: METHADONE HCL 5 MG TABLET (FOR DETOX USE ONLY) PO SCH (10:20)
[2017-01-01] MEDS: NICOTINE 21 MG/24 HOURS TOPICAL PATCH TD SCH (10:20)
--- NOTE | 2017-01-01 15:11 | PN ---
BHS Progress Note (SOAP) Subjective: Nausea, diarrhea, chills, sweating, interrupted sleep Objective: 01/01/17 15:10 Last Vital Signs Temp Pulse Resp BP Pulse Ox 97 F L 92 H 20 99/64 01/01/17 13:32 01/01/17 13:32 01/01/17 13:32 01/01/17 13:32 Laboratory Tests 12/30/16 12/31/16 12/31/16 14:00 06:05 06:05 WBC 10.7 H D RBC 4.31 Hgb 13.3 D Hct 39.8 MCV 92.2 MCHC 33.5 RDW 13.2 Plt Count 310 MPV 8.0 Sodium 138 Potassium 3.7 D Chloride 101 Carbon Dioxide 26 D Anion Gap 11 BUN 19 H D Creatinine 0.9 D Creat Clearance w eGFR > 60 Random Glucose 101 Calcium 9.2 Total Bilirubin 1.3 H D AST 114 H D ALT 59 D Alkaline Phosphatase 78 D Total Protein 7.2 Albumin 4.0 Urine Color Yellow Urine Appearance Clear Urine pH 5.0 Ur Specific [place] 1.028 Urine Protein Negative Urine Glucose (UA) Negative Urine Ketones Negative Urine Blood Negative Urine Nitrite Negative Urine Bilirubin Negative Urine Urobilinogen Negative Ur Leukocyte Esterase Negative RPR Titer 12/31/16 06:05 WBC RBC Hgb Hct MCV MCHC RDW Plt Count MPV Sodium Potassium Chloride Carbon Dioxide Anion Gap BUN Creatinine Creat Clearance w eGFR Random Glucose Calcium Total Bilirubin AST ALT Alkaline Phosphatase Total Protein Albumin Urine Color Urine Appearance Urine pH Ur Specific [place] Urine Protein Urine Glucose (UA) Urine Ketones Urine Blood Urine Nitrite Urine Bilirubin Urine Urobilinogen Ur Leukocyte Esterase RPR Titer Nonreactive Labs noted Assessment: 01/01/17 15:10 Withdrawal symptoms Plan: Continue detox
[2017-01-01] MEDS: chlordiazePOXIDE 5 MG CAPSULE PO SCH ×2 (17:05→22:31)
[2017-01-01] MEDS: THIAMINE HCL 100 MG TABLET (FP) PO SCH (22:31)
[2017-01-01] MEDS: diphenhydrAMINE HCL 50 MG CAPSULE PO PRN (22:31)
[2017-01-01] MEDS: MIRTAZAPINE 15 MG TABLET (FP) PO SCH (22:31)
[2017-01-02] MEDS: chlordiazePOXIDE HCL 25 MG CAPSULE PO PRN ×2 (03:03→15:14)
[2017-01-02] MEDS: hydrOXYzine PAMOATE 50 MG CAPSULE (FP) PO PRN (03:03)
[2017-01-02] MEDS: chlordiazePOXIDE 5 MG CAPSULE PO SCH ×2 (05:43→10:19)
[2017-01-02] MEDS: BACITRACIN 0.9 GM PACKET TP SCH ×2 (10:19→22:31)
[2017-01-02] MEDS: PRENATAL VITAMINS W/ FOLIC ACID TABLET (FP) PO SCH (10:19)
[2017-01-02] MEDS: NICOTINE 21 MG/24 HOURS TOPICAL PATCH TD SCH (10:20)
[2017-01-02] MEDS: METHADONE HCL 5 MG TABLET (FOR DETOX USE ONLY) PO SCH (10:20)
[2017-01-02] MEDS: risperiDONE 1 MG TABLET (FP) PO SCH ×2 (10:34→22:31)
--- NOTE | 2017-01-02 12:13 | PN ---
BHS Progress Note (SOAP) Subjective: SWeating,interrupted sleep,restless Objective: 01/02/17 12:11 Vital Signs - 8 hr 01/02/17 01/02/17 06:46 09:21 Temperature 96.1 F L 97.7 F Pulse Rate 86 91 H Respiratory 18 18 Rate Blood Pressure 106/70 108/69 Laboratory Tests 12/30/16 12/31/16 12/31/16 14:00 06:05 06:05 WBC 10.7 H D RBC 4.31 Hgb 13.3 D Hct 39.8 MCV 92.2 MCHC 33.5 RDW 13.2 Plt Count 310 MPV 8.0 Sodium 138 Potassium 3.7 D Chloride 101 Carbon Dioxide 26 D Anion Gap 11 BUN 19 H D Creatinine 0.9 D Creat Clearance w eGFR > 60 Random Glucose 101 Calcium 9.2 Total Bilirubin 1.3 H D AST 114 H D ALT 59 D Alkaline Phosphatase 78 D Total Protein 7.2 Albumin 4.0 Urine Color Yellow Urine Appearance Clear Urine pH 5.0 Ur Specific [place] 1.028 Urine Protein Negative Urine Glucose (UA) Negative Urine Ketones Negative Urine Blood Negative Urine Nitrite Negative Urine Bilirubin Negative Urine Urobilinogen Negative Ur Leukocyte Esterase Negative RPR Titer 12/31/16 06:05 WBC RBC Hgb Hct MCV MCHC RDW Plt Count MPV Sodium Potassium Chloride Carbon Dioxide Anion Gap BUN Creatinine Creat Clearance w eGFR Random Glucose Calcium Total Bilirubin AST ALT Alkaline Phosphatase Total Protein Albumin Urine Color Urine Appearance Urine pH Ur Specific [place] Urine Protein Urine Glucose (UA) Urine Ketones Urine Blood Urine Nitrite Urine Bilirubin Urine Urobilinogen Ur Leukocyte Esterase RPR Titer Nonreactive labs noted Assessment: 01/02/17 12:12 Withdrawal sx. Plan: Continue detox
[2017-01-02] MEDS: chlordiazePOXIDE HCL 10 MG CAPSULE PO SCH ×2 (18:01→22:32)
[2017-01-02] MEDS: THIAMINE HCL 100 MG TABLET (FP) PO SCH (22:31)
[2017-01-02] MEDS: diphenhydrAMINE HCL 50 MG CAPSULE PO PRN (22:31)
[2017-01-02] MEDS: MIRTAZAPINE 15 MG TABLET (FP) PO SCH (22:31)
[2017-01-03] MEDS: chlordiazePOXIDE HCL 10 MG CAPSULE PO SCH ×2 (05:40→10:20)
[2017-01-03] MEDS: PRENATAL VITAMINS W/ FOLIC ACID TABLET (FP) PO SCH (09:41)
[2017-01-03] MEDS: NICOTINE 21 MG/24 HOURS TOPICAL PATCH TD SCH (09:42)
[2017-01-03] MEDS: BACITRACIN 0.9 GM PACKET TP SCH ×2 (09:42→22:18)
[2017-01-03] MEDS: risperiDONE 1 MG TABLET (FP) PO SCH ×2 (09:42→22:19)
[2017-01-03] MEDS ORDERED: METHADONE HCL 10 MG TABLET (FOR DETOX USE ONLY) PO SCH (10:00)
--- NOTE | 2017-01-03 10:22 | PN ---
BHS Progress Note (SOAP) Subjective: DECREASED ANXIETY,SWEATS,TREMORS. Objective: 01/03/17 10:21 Vital Signs Temperature 98.1 F 01/03/17 09:56 Pulse Rate 106 H 01/03/17 09:56 Respiratory Rate 18 01/03/17 09:56 Blood Pressure 105/68 01/03/17 09:56 O2 Sat by Pulse Oximetry (%) Assessment: 01/03/17 10:21 DECREASED WITHDRAWAL SX Plan: CONTINUE DETOX
[2017-01-03] MEDS: hydrOXYzine PAMOATE 50 MG CAPSULE (FP) PO PRN (17:14)
[2017-01-03] MEDS: MIRTAZAPINE 15 MG TABLET (FP) PO SCH (22:19)
[2017-01-03] MEDS: diphenhydrAMINE HCL 50 MG CAPSULE PO PRN (22:19)
[2017-01-03] MEDS: THIAMINE HCL 100 MG TABLET (FP) PO SCH (22:19)
[2017-01-04] MEDS ORDERED: METHADONE HCL 5 MG TABLET (FOR DETOX USE ONLY) PO SCH (06:00)
[2017-01-04 06:40] VITALS: BP 122/79; PULSE 96; TEMP 96.1
--- NOTE | 2017-01-04 10:03 | DS ---
[facility] Detox Discharge Summary Admission Date: 12/30/16 Discharge Date: 01/04/17 - History Present History: Alcohol Dependence, Cocaine Dependence, Opioid Dependence Additional Comments: DETOX COMPLETED. D/C'D EARLIER IN THE MORNING. Pertinent Past History: HEP C - Physical Exam Results Vital Signs: Vital Signs Temperature 96.1 F L 01/04/17 06:40 Pulse Rate 96 H 01/04/17 06:40 Respiratory Rate 18 01/04/17 06:40 Blood Pressure 122/79 01/04/17 06:40 O2 Sat by Pulse Oximetry (%) Pertinent Admission Physical Exam Findings: WITHDRAWAL SX - Treatment Hospital Course: Detox Protocol Followed, Detoxed Safely, Responded well, Discharged Condition Good - Medication Discharge Medications: Ambulatory Orders Mirtazapine [Remeron -] 30 mg PO HS 02/22/15 Mirtazapine [Remeron -] 30 mg PO HS #30 tablet 12/31/16 Risperidone [Risperdal] 1 mg PO BID #30 tablet 12/31/16 - Diagnosis (1) Alcohol dependence with uncomplicated withdrawal Status: Acute (2) Cocaine dependence, uncomplicated Status: Acute (3) Nicotine dependence Status: Acute Qualifiers: Substance use status: in withdrawal (4) Opioid dependence with withdrawal Status: Acute (5) Hepatitis C Status: Chronic Qualifiers: Viral hepatitis chronicity: unspecified Hepatic coma status: without hepatic coma Qualified Code(s): B19.20 - Unspecified viral hepatitis C without hepatic coma (6) Drug-induced mood disorder Status: Acute (7) Insomnia Status: Acute (8) Schizoaffective disorder Status: Chronic - AMA Did Patient Leave Against Medical Advice: No
== END 2017-01-04 06:50 | disposition home or self-care (01) | DRG 773 ==
LOC: YASAS 11:04 → Y3N 13:56
PROVIDERS: ADMIT Internal Medicine; ATTEND Internal Medicine
PROC: HZ2ZZZZ Detoxification Services for Substance Abuse Treatment (ICD-10-PCS; principal; 2016-12-30)
DX: F11.23 Opioid dependence with withdrawal (principal); F10.230 Alcohol dependence with withdrawal, uncomplicated; F14.20 Cocaine dependence, uncomplicated; F17.210 Nicotine dependence, cigarettes, uncomplicated; F19.24 Other psychoactive substance dependence with psychoactive substance-induced mood disorder; F25.9 Schizoaffective disorder, unspecified; B19.20 Unspecified viral hepatitis C without hepatic coma; G47.00 Insomnia, unspecified
CPT/HCPCS: 36415; 80053; 81003; 85027; 86593; 93005; 93010; J2794

== ENCOUNTER 2017-01-11 13:05 | Inpatient (IN) | payer OTHER ==
[2017-01-11 15:24] VITALS: BMI 25.2
--- NOTE | 2017-01-11 17:29 | HP ---
[id number]: Allergies Allergy/AdvReac Type Severity Reaction Status Date / Time No Known Allergies Allergy Verified 01/11/17 17:15 History of Present Illness: 51 YEARS OLD MALE WITH LONG HISTORY OF ALCOHOL OPIOID NICOTINE DEPENDENCE, DENIES MEDICAL ISSUE HAS ANXIETY IS ADMITTED TO REHAB Exam Limitations: No Limitations - Ebola screening Have you traveled outside of the country in the last 21 days: No Have you had contact with anyone from an Ebola affected area: No Have you been sick,other than usual withdrawal symptoms: No Do you have a fever: No - Review of Systems Constitutional: Weight Stable EENT: reports: No Symptoms Reported Respiratory: reports: No Symptoms reported Cardiac: reports: No Symptoms Reported GI: reports: No Symptoms Reported : reports: No Symptoms Reported Musculoskeletal: reports: No Symptoms Reported Integumentary: reports: No Symptoms Reported Neuro: reports: No Symptoms reported Endocrine: reports: No Symptoms Reported Hematology: reports: No Symptoms Reported Psychiatric: reports: Judgement Intact, Orientated x3, Anxious Other Systems: Reviewed and Negative Patient History - Patient Medical History Hx Anemia: No Hx Asthma: No Hx Chronic Obstructive Pulmonary Disease (COPD): Yes Hx Cancer: No Hx Cardiac Disorders: No Hx Congestive Heart Failure: No Hx Hypertension: No Hx Hypercholesterolemia: No Hx Pacemaker: No HX Cerebrovascular Accident: No Hx Seizures: No Hx Dementia: No Hx Diabetes: No Hx Gastrointestinal Disorders: No Hx Liver Disease: No Hx Genitourinary Disorders: No Hx Sexually Transmitted Disorders: No Hx Renal Disease (ESRD): No Hx Thyroid Disease: No Hx Human Immunodeficiency Virus (HIV): No (NEGATIVE HX) Hx Hepatitis C: Yes (TREATED--"UNDETECTABLE") Hx Depression: No Hx Suicide Attempt: No Hx Bipolar Disorder: Yes Hx Schizophrenia: No - Patient Surgical History Past Surgical History: No Hx Neurologic Surgery: No Hx Cataract Extraction: No Hx Cardiac Surgery: No Hx Lung Surgery: No Hx Breast Surgery: No Hx Breast Biopsy: No Hx Abdominal Surgery: No Hx Appendectomy: No Hx Cholecystectomy: No Hx Genitourinary Surgery: No Hx Orthopedic Surgery: No - PPD History Previous Implant?: Yes Documented Results: Negative w/proof Implanted On Prior [facility] Admission?: Yes Date: 11/18/16 Results: 0 mm PPD to be Administered?: No - Smoking Cessation Smoking history: Current every day smoker Have you smoked in the past 12 months: Yes Aproximately how many cigarettes per day: 10 Cigars Per Day: 0 Hx Chewing Tobacco Use: No Initiated information on smoking cessation: Yes 'Breaking Loose' booklet given: 01/11/17 - Substance & Tx. History Hx Alcohol Use: Yes Hx Substance Use: Yes Substance Use Type: Alcohol, Opiates Hx Substance Use Treatment: Yes - Substances Abused Alcohol Route: Oral Frequency: Daily Amount used: 2 [place] Age of first use: 13 Date of Last Use: 12/28/16 Heroin Route: Injection Frequency: Daily Amount used: 3 BAGS Age of first use: 13 Date of Last Use: 12/28/16 Family Disease History - Family Disease History Family Disease History: CA: Father (), Mother (), Other: Brother (Drug & Alcohol) Admission Physical Exam S - Vital Signs Vital Signs: Vital Signs - 24 hr 01/11/17 15:22 Temperature 97.2 F L Pulse Rate 89 Respiratory 20 Rate Blood Pressure 119/75 - Physical General Appearance: Yes: Nourished, Appropriately Dressed HEENTM: Yes: Hearing grossly Normal, Normal ENT Inspection, Normocephalic, Normal Voice Respiratory: Yes: Chest Non-Tender, No Respiratory Distress, No Accessory Muscle Use, Hyperresonant, Inspiration Neck: Yes: Supple, Trachea in good position Breast: Yes: Breasts Symetrical Cardiology: Yes: Regular Rhythm, Regular Rate, S1, S2 Abdominal: Yes: Non Tender, Soft Genitourinary: Yes: Within Normal Limits Back: Yes: Normal Inspection Musculoskeletal: Yes: full range of Motion, Gait Steady Extremities: Yes: Normal Range of Motion, Non-Tender 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: Yes: Fully Oriented, Alert, Motor Strength 5/5, Normal Response Integumentary: Yes: Warm, Track M[place] (OLD) Lymphatic: Yes: Within Normal Limits - Diagnostic (1) Alcohol dependence with uncomplicated withdrawal Current Visit: Yes Status: Acute (2) Opioid dependence with withdrawal Current Visit: Yes Status: Acute (3) Bipolar II disorder Current Visit: Yes Status: Suspected (4) Hepatitis C Current Visit: Yes Status: Resolved Qualifiers: Viral hepatitis chronicity: unspecified Hepatic coma status: without hepatic coma Qualified Code(s): B19.20 - Unspecified viral hepatitis C without hepatic coma (5) COPD (chronic obstructive pulmonary disease) Current Visit: Yes Status: Chronic Qualifiers: COPD type: emphysema Emphysema type: other Qualified Code(s): J43.8 - Other emphysema Cleared for Admission [facility] - Detox or Rehab [facility] Level of Care: Observation Bed Detox Regimen/Protocol: Not Applicable Claeared for Rehab Admission: Yes [facility] Breath Alcohol Content Breath Alcohol Content: 0 Urine Drug Screen - Results Drug Screen Negative: No Urine Drug Screen Results: BZO-Benzodiazepines
[2017-01-11] MEDS ORDERED: guaiFENesin/D-METHORPHAN HB 10 ML UNIT-DOSE CUPS PO PRN (17:30)
[2017-01-11] MEDS ORDERED: ACETAMINOPHEN 325 MG TABLET (FP) PO PRN (17:30)
[2017-01-11] MEDS ORDERED: LOPERAMIDE HCL 2 MG CAPSULE PO PRN (17:30)
[2017-01-11] MEDS ORDERED: MENTHOL/PHENOL 1 EACH UD MM PRN (17:30)
[2017-01-11] MEDS ORDERED: P-EPHED 60MG/TRIPROLIDI 2.5MG TABLET PO PRN (17:30)
[2017-01-11] MEDS ORDERED: MAGNESIUM HYDROX 2400MG/30ML ORAL SUSPENSION 30 ML CUP PO PRN (17:30)
[2017-01-11] MEDS ORDERED: MAGNESIUM CITRATE 300 ML BOTTLE PO PRN (17:30)
[2017-01-11] MEDS ORDERED: ALBUTEROL SO4 6.7 GM HFA INHALER IH PRN (17:31)
[2017-01-11] MEDS: THIAMINE HCL 100 MG TABLET (FP) PO SCH (21:43)
[2017-01-11] MEDS: BUDESONIDE/FORMETEROL FUMARATE 80/4.5 mcg INHALER IH SCH (21:44)
[2017-01-11] MEDS: diphenhydrAMINE HCL 50 MG CAPSULE PO PRN (21:44)
[2017-01-12 03:02] LABS: URINE APPEARANCE CLEAR; URINE BILIRUBIN NEGATIVE (NEGATIVE); URINE BLOOD NEGATIVE (NEGATIVE); URINE COLOR COLORLESS; URINE GLUCOSE (UA) NEGATIVE (NEGATIVE); URINE KETONE NEGATIVE (NEGATIVE); URINE LEUK ESTERASE NEGATIVE (NEGATIVE); URINE NITRITE NEGATIVE (NEGATIVE); URINE PROTEIN NEGATIVE (NEGATIVE); URINE UROBILINOGEN NEGATIVE E.U./dl (0.2-1.0)
[2017-01-12] MEDS: BUDESONIDE/FORMETEROL FUMARATE 80/4.5 mcg INHALER IH SCH ×2 (10:49→21:55)
[2017-01-12] MEDS: NICOTINE 14 MG/24 HOURS TOPICAL PATCH TD SCH (10:49)
[2017-01-12] MEDS: PRENATAL VITAMINS W/ FOLIC ACID TABLET (FP) PO SCH (10:49)
--- NOTE | 2017-01-12 12:50 | EKG ---
Test Reason : Blood Pressure : / mmHG Vent. Rate : 091 BPM Atrial Rate : 091 BPM P-R Int : 146 ms QRS Dur : 090 ms QT Int : 374 ms P-R-T Axes : 029 100 073 degrees QTc Int : 460 ms NORMAL SINUS RHYTHM RIGHTWARD AXIS BORDERLINE ECG WHEN COMPARED WITH ECG OF 30-DEC-2016 14:55, NO SIGNIFICANT CHANGE WAS FOUND Confirmed by ADOLPH HOFFMAN MD ([id number]) on 01/12/2017 12:49:40 PM Referred By: Confirmed By:ADOLPH HOFFMAN MD
--- NOTE | 2017-01-12 14:34 | HP ---
Psychiatrist Admission - Data Date of interview: 01/12/17 Admission source: [facility] Identifying data: This is the first 5N inaptient rehabilitation admission for this 51 year old male father of 2, undomciled, unemployed and supported on PA. Medical History: Leonel Gupta Smokes cigarettes 10 a day. Psychiatric History: Patient was reluctant to provide information about his mental history, he reports that his psychiatric history will affect his aftercare. Then he admits he is currenlty on medications for bipolar disorder and sees the psychiatrist at [facility] in the [place]. Current medications: risperdal 1 mg po bid and remeron 30 mg po hs. He denies history of psychiatric hospitalizations, however as per medical record (psychiatric consult by ) patient was hospitalized several times in his life with last admission in 2013 at [facility]. Physical/Sexual Abuse/Trauma History: Denies history of abuse. Vital Signs: Vital Signs - 24 hr 01/11/17 01/12/17 01/12/17 15:22 00:30 03:30 Temperature 97.2 F L Pulse Rate 89 Respiratory 20 16 16 Rate Blood Pressure 119/75 01/12/17 06:42 Temperature 97.8 F Pulse Rate 86 Respiratory 16 Rate Blood Pressure 107/70 Allergies/Adverse Reactions: Allergies Allergy/AdvReac Type Severity Reaction Status Date / Time No Known Allergies Allergy Verified 01/11/17 17:15 Date of last physical exam: 01/11/17 Concur with the findings of this exam: Yes - Substance Abuse/Tx History Hx Alcohol Use: Yes (vodka 2 pints adily) Substance Use Type: Cocaine ($ 20-30), Heroin (7 bags daily) Hx Substance Use Treatment: Yes - Admission Criteria Previous failed treatment: Yes Poor recovery environment: Yes Comorbidities: Yes Lacks judgement: Yes Mental Status Exam - Mental Status Exam Alert and Oriented to: Time, Place, Person Cognitive Function: Fair Patient Appearance: Well Groomed Mood: Anxious Affect: Appropriate, Mood Congruent Patient Behavior: Guarded, Suspicious Speech Pattern: Clear Voice Loudness: Normal Thought Process: Goal Oriented Thought Disorder: Not Present Hallucinations: Denies Suicidal Ideation: Denies Homicidal Ideation: Denies Insight/Judgement: Fair Sleep: Fair Appetite: Fair Muscle strength/Tone: Normal Gait/Station: Normal Psychiatric Findings - Problem List ([place] 1, 2,3) (1) Nicotine dependence Current Visit: No Status: Acute Qualifiers: Substance use status: in withdrawal (2) Schizoaffective disorder Current Visit: No Status: Chronic Comment: Self-report. (3) Alcohol dependence in controlled environment Current Visit: Yes Status: Acute (4) Opioid dependence Current Visit: Yes Status: Acute (5) Cocaine dependence Current Visit: Yes Status: Acute - Initial Treatment Plan Initial Treatment Plan: continue current medicatiosn, monitor progress.
[2017-01-12] MEDS: THIAMINE HCL 100 MG TABLET (FP) PO SCH (21:42)
[2017-01-12] MEDS: MIRTAZAPINE 30 MG TABLET (FP) PO SCH (21:42)
[2017-01-12] MEDS: risperiDONE 1 MG TABLET (FP) PO SCH (21:42)
[2017-01-13] MEDS: PRENATAL VITAMINS W/ FOLIC ACID TABLET (FP) PO SCH (10:26)
[2017-01-13] MEDS: NICOTINE 14 MG/24 HOURS TOPICAL PATCH TD SCH (10:26)
[2017-01-13] MEDS: risperiDONE 1 MG TABLET (FP) PO SCH ×2 (10:26→21:45)
[2017-01-13] MEDS: BUDESONIDE/FORMETEROL FUMARATE 80/4.5 mcg INHALER IH SCH ×2 (10:27→21:46)
[2017-01-13] MEDS: hydrOXYzine PAMOATE 50 MG CAPSULE (FP) PO PRN (10:27)
[2017-01-13] MEDS ORDERED: COLLOIDAL OATMEAL 1 BAR EACH TP PRN (11:45)
[2017-01-13] MEDS: THIAMINE HCL 100 MG TABLET (FP) PO SCH (21:45)
[2017-01-13] MEDS: MIRTAZAPINE 30 MG TABLET (FP) PO SCH (21:46)
[2017-01-13] MEDS: diphenhydrAMINE HCL 50 MG CAPSULE PO PRN (21:47)
[2017-01-14] MEDS: NICOTINE 14 MG/24 HOURS TOPICAL PATCH TD SCH (10:37)
[2017-01-14] MEDS: PRENATAL VITAMINS W/ FOLIC ACID TABLET (FP) PO SCH (10:37)
[2017-01-14] MEDS: BUDESONIDE/FORMETEROL FUMARATE 80/4.5 mcg INHALER IH SCH ×2 (10:37→21:37)
[2017-01-14] MEDS: risperiDONE 1 MG TABLET (FP) PO SCH ×2 (10:37→21:37)
[2017-01-14] MEDS: hydrOXYzine PAMOATE 50 MG CAPSULE (FP) PO PRN ×2 (10:38→21:37)
[2017-01-14] MEDS: MIRTAZAPINE 30 MG TABLET (FP) PO SCH (21:37)
[2017-01-14] MEDS: THIAMINE HCL 100 MG TABLET (FP) PO SCH (21:37)
[2017-01-15] MEDS: PRENATAL VITAMINS W/ FOLIC ACID TABLET (FP) PO SCH (10:33)
[2017-01-15] MEDS: NICOTINE 14 MG/24 HOURS TOPICAL PATCH TD SCH (10:33)
[2017-01-15] MEDS: BUDESONIDE/FORMETEROL FUMARATE 80/4.5 mcg INHALER IH SCH ×2 (10:33→21:36)
[2017-01-15] MEDS: hydrOXYzine PAMOATE 50 MG CAPSULE (FP) PO PRN ×2 (10:33→21:37)
[2017-01-15] MEDS: risperiDONE 1 MG TABLET (FP) PO SCH ×2 (10:33→21:36)
[2017-01-15] MEDS: MIRTAZAPINE 30 MG TABLET (FP) PO SCH (21:36)
[2017-01-15] MEDS: THIAMINE HCL 100 MG TABLET (FP) PO SCH (21:36)
[2017-01-16] MEDS: risperiDONE 1 MG TABLET (FP) PO SCH (10:45)
[2017-01-16] MEDS: PRENATAL VITAMINS W/ FOLIC ACID TABLET (FP) PO SCH (10:45)
[2017-01-16] MEDS: hydrOXYzine PAMOATE 50 MG CAPSULE (FP) PO PRN (10:45)
[2017-01-16] MEDS: NICOTINE 14 MG/24 HOURS TOPICAL PATCH TD SCH (10:46)
[2017-01-16] MEDS: BUDESONIDE/FORMETEROL FUMARATE 80/4.5 mcg INHALER IH SCH ×2 (10:46→21:57)
[2017-01-16] MEDS ORDERED: LIDOCAINE 5% TOPICAL PATCH TP ONE (14:57)
--- NOTE | 2017-01-16 14:57 | PN ---
Psychiatric Progress Note Vital Signs: Vital Signs Period Temp Pulse Resp BP Sys/Hood Pulse Ox Last 24 Hr 98.2 F 84-97 16-18 125/80 Date of Session: 01/16/17 Chief Complaint:: "anxiety" HPI: Patient is addressing alcohol, cocaine, opioid, nicotine and dependence comorbid Schizoaffective disorder. ROS: WNL Current Medications: Active Medications Generic Name Dose Route Start Last Admin Trade Name Freq PRN Reason Stop Dose Admin Acetaminophen 650 mg 01/11/17 17:30 Tylenol - PO Q4H PRN PAIN Al Hydroxide/Mg Hydroxide 30 ml 01/11/17 17:30 Mylanta Oral Suspension - PO Q6H PRN DYSPEPSIA Albuterol Sulfate 2 puff 01/11/17 17:31 Ventolin Hfa Inhaler - IH Q4H PRN SHORT OF BREATH/WHEEZING Budesonide/Formoterol Fumarate 2 puff 01/11/17 22:00 01/16/17 10:46 Symbicort 80/4.5mcg - IH 2 puff BID SMITA Administration Colloidal Oatmeal 1 applic 01/13/17 11:45 Aveeno Soap - TP DAILY PRN HYGEINE Diphenhydramine HCl 50 mg 01/11/17 17:30 01/13/17 21:47 Benadryl - PO 50 mg HSMR1 PRN Administration INSOMNIA Eucalyptus/Menthol/Phenol/Sorbitol 1 each 01/11/17 17:30 Cepastat Lozenge - MM Q4H PRN SORE THROAT Gabapentin 100 mg 01/16/17 22:00 Neurontin - PO TID SMITA Guaifenesin 10 ml 01/11/17 17:30 Robitussin Dm - PO Q6H PRN COUGH Hydroxyzine Pamoate 50 mg 01/11/17 17:30 01/16/17 10:45 Vistaril - PO 50 mg Q4H PRN Administration AGITATION Ibuprofen 400 mg 01/11/17 17:30 Motrin - PO Q6H PRN SEVERE PAIN Loperamide HCl 4 mg 01/11/17 17:30 Imodium - PO Q6H PRN DIARRHEA Magnesium Citrate 300 ml 01/11/17 17:30 Citroma - PO Q48H PRN CONSTIPATION Magnesium Hydroxide 30 ml 01/11/17 17:30 Milk Of Magnesia - PO DAILY PRN CONSTIPATION Mirtazapine 30 mg 01/12/17 22:00 01/15/17 21:36 Remeron - PO 30 mg HS SMITA Administration Nicotine 14 mg 01/12/17 10:00 01/16/17 10:46 Nicoderm Patch - TD 14 mg DAILY SMITA Administration Nicotine Polacrilex 2 mg 01/11/17 17:30 Nicorette Gum - BC Q2H PRN NICOTINE REPLACEMENT RX Multivit/Folic Acid/Iron 1 tab 01/12/17 10:00 01/16/17 10:45 Vitamins (Sjr) - PO 1 tab DAILY SMITA Administration Pseudoephedrine/Triprolidine 1 combo 01/11/17 17:30 Actifed - PO TID PRN NASAL CONGESTION Risperidone 2 mg 01/16/17 22:00 Risperdal - PO HS SMITA Risperidone 1 mg 01/17/17 10:00 Risperdal - PO DAILY SMITA Thiamine HCl 100 mg 01/11/17 22:00 01/15/17 21:36 Vitamin B1 - PO 100 mg HS SMITA Administration Medication(s) Change(s): add Gabapentin 100 mg po tid, add Belsomra 10 mg po hs , increase Riaprdal 2 mg po hs , continue 1 mg po am Current Side Effect: No Lab tests ordered: No Lab tests reviewed: Yes Provider note:: Patient reports he is very anxious, restless and unable to sleep , mood swings, states was taking klonopin for anxiety, reviewed his past treatment (was on Zoloft, Zyprexa), discussed indications and propreties of Gabapentin and Belsomra, patient agreed to start medications, psychoeducation and supports provided, will continue to monitor progress. Total face to face time:: 30 Mental Status Exam - Mental Status Exam Alert and Oriented to: Time, Place, Person Cognitive Function: Grossly Intact Patient Appearance: Well Groomed Mood: Sad, Nervous, Anxious Affect: Appropriate, Mood Congruent Patient Behavior: Appropriate, Cooperative Speech Pattern: Clear, Appropriate Voice Loudness: Normal Thought Process: Intact, Goal Oriented Thought Disorder: Not Present Hallucinations: Denies Suicidal Ideation: Denies Homicidal Ideation: Denies Insight/Judgement: Fair Sleep: Poorly, Difficulty falling asleep Appetite: Fair Muscle strength/Tone: Normal Gait/Station: Normal Psychiatric Treatment Plan - Problem List (1) Nicotine dependence Current Visit: No Qualifiers: Substance use status: in withdrawal (2) Schizoaffective disorder Current Visit: No Comment: Self-report. (3) Alcohol dependence in controlled environment Current Visit: Yes (4) Opioid dependence Current Visit: Yes (5) Cocaine dependence Current Visit: Yes
[2017-01-16] MEDS: CYCLOBENZAPRINE HCL 10 MG TABLET (FP) PO PRN (15:53)
[2017-01-16] MEDS: GABAPENTIN 100 MG CAPSULE (FP) PO SCH (21:56)
[2017-01-16] MEDS: MIRTAZAPINE 30 MG TABLET (FP) PO SCH (21:56)
[2017-01-16] MEDS: risperiDONE 2 MG TABLET PO SCH (21:56)
[2017-01-16] MEDS: THIAMINE HCL 100 MG TABLET (FP) PO SCH (21:57)
[2017-01-17] MEDS: GABAPENTIN 100 MG CAPSULE (FP) PO SCH ×3 (05:44→21:34)
[2017-01-17] MEDS: BUDESONIDE/FORMETEROL FUMARATE 80/4.5 mcg INHALER IH SCH ×2 (10:27→21:34)
[2017-01-17] MEDS: PRENATAL VITAMINS W/ FOLIC ACID TABLET (FP) PO SCH (10:27)
[2017-01-17] MEDS: risperiDONE 1 MG TABLET (FP) PO SCH (10:27)
[2017-01-17] MEDS: CYCLOBENZAPRINE HCL 10 MG TABLET (FP) PO PRN (10:28)
[2017-01-17] MEDS: NICOTINE 14 MG/24 HOURS TOPICAL PATCH TD SCH (10:29)
[2017-01-17] MEDS: hydrOXYzine PAMOATE 50 MG CAPSULE (FP) PO PRN (10:29)
[2017-01-17] MEDS: LIDOCAINE 5% TOPICAL PATCH TP SCH (10:31)
[2017-01-17] MEDS: SUVOREXANT 10 MG TABLET PO PRN (21:33)
[2017-01-17] MEDS: MIRTAZAPINE 30 MG TABLET (FP) PO SCH (21:34)
[2017-01-17] MEDS: risperiDONE 2 MG TABLET PO SCH (21:34)
[2017-01-17] MEDS: THIAMINE HCL 100 MG TABLET (FP) PO SCH (21:34)
[2017-01-18] MEDS: GABAPENTIN 100 MG CAPSULE (FP) PO SCH (06:38)
--- NOTE | 2017-01-18 10:03 | PN ---
Psychiatric Progress Note Vital Signs: Vital Signs Period Temp Pulse Resp BP Sys/Hood Pulse Ox Last 24 Hr 98.0 F 105 18-18 125/90 Date of Session: 01/18/17 Chief Complaint:: "insomnia" HPI: PAtient is addressing opioid, alcohol, nicotine dependence comorbid Schizoaffective diosrdr. ROS: WNL Current Medications: Active Medications Generic Name Dose Route Start Last Admin Trade Name Freq PRN Reason Stop Dose Admin Acetaminophen 650 mg 01/11/17 17:30 Tylenol - PO Q4H PRN PAIN Al Hydroxide/Mg Hydroxide 30 ml 01/11/17 17:30 Mylanta Oral Suspension - PO Q6H PRN DYSPEPSIA Albuterol Sulfate 2 puff 01/11/17 17:31 Ventolin Hfa Inhaler - IH Q4H PRN SHORT OF BREATH/WHEEZING Budesonide/Formoterol Fumarate 2 puff 01/11/17 22:00 01/17/17 21:34 Symbicort 80/4.5mcg - IH 2 puff BID SMITA Administration Colloidal Oatmeal 1 applic 01/13/17 11:45 Aveeno Soap - TP DAILY PRN HYGEINE Cyclobenzaprine HCl 10 mg 01/16/17 14:56 01/17/17 10:28 Flexeril - PO 10 mg TID PRN Administration MUSCLE SPASMS Diphenhydramine HCl 50 mg 01/11/17 17:30 01/13/17 21:47 Benadryl - PO 50 mg HSMR1 PRN Administration INSOMNIA Eucalyptus/Menthol/Phenol/Sorbitol 1 each 01/11/17 17:30 Cepastat Lozenge - MM Q4H PRN SORE THROAT Guaifenesin 10 ml 01/11/17 17:30 Robitussin Dm - PO Q6H PRN COUGH Hydroxyzine Pamoate 50 mg 01/11/17 17:30 01/17/17 10:29 Vistaril - PO 50 mg Q4H PRN Administration AGITATION Ibuprofen 400 mg 01/11/17 17:30 Motrin - PO Q6H PRN SEVERE PAIN Lidocaine 1 patch 01/17/17 10:00 01/17/17 10:31 Lidoderm Patch - TP 1 patch DAILY SMITA Administration Loperamide HCl 4 mg 01/11/17 17:30 Imodium - PO Q6H PRN DIARRHEA Magnesium Citrate 300 ml 01/11/17 17:30 Citroma - PO Q48H PRN CONSTIPATION Magnesium Hydroxide 30 ml 01/11/17 17:30 Milk Of Magnesia - PO DAILY PRN CONSTIPATION Mirtazapine 30 mg 01/12/17 22:00 01/17/17 21:34 Remeron - PO 30 mg HS SMITA Administration Nicotine 21 mg 01/18/17 10:00 Nicoderm Patch - TD DAILY SMITA Nicotine Polacrilex 2 mg 01/11/17 17:30 Nicorette Gum - BC Q2H PRN NICOTINE REPLACEMENT RX Multivit/Folic Acid/Iron 1 tab 01/12/17 10:00 01/17/17 10:27 Vitamins (Sjr) - PO 1 tab DAILY SMITA Administration Pseudoephedrine/Triprolidine 1 combo 01/11/17 17:30 Actifed - PO TID PRN NASAL CONGESTION Risperidone 2 mg 01/16/17 22:00 01/17/17 21:34 Risperdal - PO 2 mg HS SMITA Administration Risperidone 1 mg 01/17/17 10:00 01/17/17 10:27 Risperdal - PO 1 mg DAILY SMITA Administration Thiamine HCl 100 mg 01/11/17 22:00 01/17/17 21:34 Vitamin B1 - PO 100 mg HS SMITA Administration Medication(s) Change(s): r/n Belsomra, increase Gabapentin 300 mg po tid. Current Side Effect: No Lab tests ordered: No Lab tests reviewed: Yes Provider note:: Patient is very anxious, unable to sleep, reports that Belsomra effective and he wants to r/n medication, he reports no side-effects from his current medications, discussed indications and propeties of his current medications, will increase Gabapentin, r/n Belsomra, sleeping hygiene discussed with the patient ,continue to monitor prohgress. Total face to face time:: 30 Mental Status Exam - Mental Status Exam Alert and Oriented to: Time, Place, Person Cognitive Function: Good Patient Appearance: Well Groomed Mood: Sad, Anxious Affect: Appropriate, Mood Congruent Patient Behavior: Appropriate, Cooperative Speech Pattern: Clear, Appropriate Voice Loudness: Normal Thought Process: Intact, Goal Oriented Thought Disorder: Not Present Hallucinations: Denies Suicidal Ideation: Denies Homicidal Ideation: Denies Insight/Judgement: Fair Sleep: Fair Appetite: Fair Muscle strength/Tone: Normal Gait/Station: Normal Psychiatric Treatment Plan - Problem List (1) Nicotine dependence Current Visit: No Qualifiers: Substance use status: in withdrawal (2) Schizoaffective disorder Current Visit: No Comment: Self-report. (3) Alcohol dependence in controlled environment Current Visit: Yes (4) Opioid dependence Current Visit: Yes (5) Cocaine dependence Current Visit: Yes
[2017-01-18] MEDS: BUDESONIDE/FORMETEROL FUMARATE 80/4.5 mcg INHALER IH SCH ×2 (10:27→23:18)
[2017-01-18] MEDS: risperiDONE 1 MG TABLET (FP) PO SCH (10:28)
[2017-01-18] MEDS: NICOTINE 21 MG/24 HOURS TOPICAL PATCH TD SCH (10:28)
[2017-01-18] MEDS: PRENATAL VITAMINS W/ FOLIC ACID TABLET (FP) PO SCH (10:28)
[2017-01-18] MEDS: LIDOCAINE 5% TOPICAL PATCH TP SCH (10:29)
[2017-01-18] MEDS: hydrOXYzine PAMOATE 50 MG CAPSULE (FP) PO PRN ×2 (10:30→14:34)
[2017-01-18] MEDS: CYCLOBENZAPRINE HCL 10 MG TABLET (FP) PO PRN (10:30)
[2017-01-18] MEDS: GABAPENTIN 300 MG CAPSULE (FP) PO SCH ×2 (14:33→23:18)
[2017-01-18] MEDS: THIAMINE HCL 100 MG TABLET (FP) PO SCH (23:18)
[2017-01-18] MEDS: risperiDONE 2 MG TABLET PO SCH (23:18)
[2017-01-18] MEDS: MIRTAZAPINE 30 MG TABLET (FP) PO SCH (23:18)
[2017-01-19] MEDS: GABAPENTIN 300 MG CAPSULE (FP) PO SCH ×3 (07:01→21:42)
[2017-01-19] MEDS: LIDOCAINE 5% TOPICAL PATCH TP SCH (10:38)
[2017-01-19] MEDS: PRENATAL VITAMINS W/ FOLIC ACID TABLET (FP) PO SCH (10:39)
[2017-01-19] MEDS: NICOTINE 21 MG/24 HOURS TOPICAL PATCH TD SCH (10:39)
[2017-01-19] MEDS: BUDESONIDE/FORMETEROL FUMARATE 80/4.5 mcg INHALER IH SCH ×2 (10:39→21:45)
[2017-01-19] MEDS: risperiDONE 1 MG TABLET (FP) PO SCH (10:39)
[2017-01-19] MEDS: CYCLOBENZAPRINE HCL 10 MG TABLET (FP) PO PRN (21:42)
[2017-01-19] MEDS: THIAMINE HCL 100 MG TABLET (FP) PO SCH (21:42)
[2017-01-19] MEDS: risperiDONE 2 MG TABLET PO SCH (21:42)
[2017-01-19] MEDS ORDERED: MIRTAZAPINE 15 MG TABLET (FP) ONE (21:43)
[2017-01-19] MEDS: SUVOREXANT 10 MG TABLET PO PRN (21:44)
[2017-01-19] MEDS: MIRTAZAPINE 30 MG TABLET (FP) PO SCH (21:45)
[2017-01-20] MEDS: GABAPENTIN 300 MG CAPSULE (FP) PO SCH ×3 (06:33→21:44)
[2017-01-20] MEDS: BUDESONIDE/FORMETEROL FUMARATE 80/4.5 mcg INHALER IH SCH ×2 (10:23→21:44)
[2017-01-20] MEDS: PRENATAL VITAMINS W/ FOLIC ACID TABLET (FP) PO SCH (10:23)
[2017-01-20] MEDS: risperiDONE 1 MG TABLET (FP) PO SCH (10:23)
[2017-01-20] MEDS: NICOTINE 21 MG/24 HOURS TOPICAL PATCH TD SCH (10:24)
[2017-01-20] MEDS: LIDOCAINE 5% TOPICAL PATCH TP SCH (10:24)
[2017-01-20] MEDS: NICOTINE POLACRILEX 2 MG GUM BC PRN ×2 (10:36→21:44)
[2017-01-20] MEDS ORDERED: COLLOIDAL OATMEAL 1 BAR EACH TP PRN (13:10)
[2017-01-20] MEDS: MIRTAZAPINE 30 MG TABLET (FP) PO SCH (21:44)
[2017-01-20] MEDS: risperiDONE 2 MG TABLET PO SCH (21:44)
[2017-01-20] MEDS: THIAMINE HCL 100 MG TABLET (FP) PO SCH (21:44)
[2017-01-20] MEDS: CYCLOBENZAPRINE HCL 10 MG TABLET (FP) PO PRN (21:45)
[2017-01-21] MEDS: GABAPENTIN 300 MG CAPSULE (FP) PO SCH ×3 (06:48→21:45)
[2017-01-21] MEDS: PRENATAL VITAMINS W/ FOLIC ACID TABLET (FP) PO SCH (10:16)
[2017-01-21] MEDS: risperiDONE 1 MG TABLET (FP) PO SCH (10:16)
[2017-01-21] MEDS: BUDESONIDE/FORMETEROL FUMARATE 80/4.5 mcg INHALER IH SCH ×2 (10:16→21:48)
[2017-01-21] MEDS: LIDOCAINE 5% TOPICAL PATCH TP SCH (10:16)
[2017-01-21] MEDS: NICOTINE 21 MG/24 HOURS TOPICAL PATCH TD SCH (10:17)
[2017-01-21] MEDS: CYCLOBENZAPRINE HCL 10 MG TABLET (FP) PO PRN (10:18)
[2017-01-21] MEDS: NICOTINE POLACRILEX 2 MG GUM BC PRN ×2 (10:42→21:49)
[2017-01-21] MEDS: hydrOXYzine PAMOATE 50 MG CAPSULE (FP) PO PRN ×2 (12:46→21:48)
[2017-01-21] MEDS: MIRTAZAPINE 30 MG TABLET (FP) PO SCH (21:45)
[2017-01-21] MEDS: risperiDONE 2 MG TABLET PO SCH (21:45)
[2017-01-21] MEDS: THIAMINE HCL 100 MG TABLET (FP) PO SCH (21:46)
[2017-01-22] MEDS: GABAPENTIN 300 MG CAPSULE (FP) PO SCH ×3 (06:46→21:41)
[2017-01-22] MEDS: NICOTINE POLACRILEX 2 MG GUM BC PRN ×2 (08:26→21:42)
[2017-01-22] MEDS: hydrOXYzine PAMOATE 50 MG CAPSULE (FP) PO PRN ×2 (10:26→21:42)
[2017-01-22] MEDS: PRENATAL VITAMINS W/ FOLIC ACID TABLET (FP) PO SCH (10:26)
[2017-01-22] MEDS: risperiDONE 1 MG TABLET (FP) PO SCH (10:26)
[2017-01-22] MEDS: CYCLOBENZAPRINE HCL 10 MG TABLET (FP) PO PRN ×2 (10:27→21:42)
[2017-01-22] MEDS: LIDOCAINE 5% TOPICAL PATCH TP SCH (10:27)
[2017-01-22] MEDS: NICOTINE 21 MG/24 HOURS TOPICAL PATCH TD SCH (10:27)
[2017-01-22] MEDS: BUDESONIDE/FORMETEROL FUMARATE 80/4.5 mcg INHALER IH SCH ×2 (10:28→21:43)
[2017-01-22] MEDS: IBUPROFEN 400 MG TABLET (FP) PO PRN ×2 (13:39→22:56)
[2017-01-22] MEDS: MIRTAZAPINE 30 MG TABLET (FP) PO SCH (21:41)
[2017-01-22] MEDS: risperiDONE 2 MG TABLET PO SCH (21:41)
[2017-01-22] MEDS: THIAMINE HCL 100 MG TABLET (FP) PO SCH (21:41)
[2017-01-23] MEDS: GABAPENTIN 300 MG CAPSULE (FP) PO SCH ×3 (06:34→21:51)
[2017-01-23] MEDS: LIDOCAINE 5% TOPICAL PATCH TP SCH (10:23)
[2017-01-23] MEDS: hydrOXYzine PAMOATE 50 MG CAPSULE (FP) PO PRN ×3 (10:24→21:52)
[2017-01-23] MEDS: PRENATAL VITAMINS W/ FOLIC ACID TABLET (FP) PO SCH (10:24)
[2017-01-23] MEDS: risperiDONE 1 MG TABLET (FP) PO SCH (10:24)
[2017-01-23] MEDS: NICOTINE 21 MG/24 HOURS TOPICAL PATCH TD SCH (10:24)
[2017-01-23] MEDS: BUDESONIDE/FORMETEROL FUMARATE 80/4.5 mcg INHALER IH SCH ×2 (10:24→21:52)
[2017-01-23] MEDS: CYCLOBENZAPRINE HCL 10 MG TABLET (FP) PO PRN ×2 (10:24→21:52)
[2017-01-23] MEDS: IBUPROFEN 400 MG TABLET (FP) PO PRN (10:25)
[2017-01-23] MEDS: THIAMINE HCL 100 MG TABLET (FP) PO SCH (21:51)
[2017-01-23] MEDS: risperiDONE 2 MG TABLET PO SCH (21:51)
[2017-01-23] MEDS: MIRTAZAPINE 30 MG TABLET (FP) PO SCH (21:51)
[2017-01-24] MEDS: GABAPENTIN 300 MG CAPSULE (FP) PO SCH ×3 (06:27→21:33)
[2017-01-24] MEDS: LIDOCAINE 5% TOPICAL PATCH TP SCH (10:25)
[2017-01-24] MEDS: risperiDONE 1 MG TABLET (FP) PO SCH (10:25)
[2017-01-24] MEDS: PRENATAL VITAMINS W/ FOLIC ACID TABLET (FP) PO SCH (10:25)
[2017-01-24] MEDS: NICOTINE 21 MG/24 HOURS TOPICAL PATCH TD SCH (10:26)
[2017-01-24] MEDS: BUDESONIDE/FORMETEROL FUMARATE 80/4.5 mcg INHALER IH SCH ×2 (10:55→21:33)
[2017-01-24] MEDS: MAG HYDROX/AL HYDROX/SIMETH 30 ML UNIT-DOSE CUP PO PRN (19:31)
[2017-01-24] MEDS: MIRTAZAPINE 30 MG TABLET (FP) PO SCH (21:33)
[2017-01-24] MEDS: risperiDONE 2 MG TABLET PO SCH (21:33)
[2017-01-24] MEDS: THIAMINE HCL 100 MG TABLET (FP) PO SCH (21:33)
[2017-01-24] MEDS: CYCLOBENZAPRINE HCL 10 MG TABLET (FP) PO PRN (21:34)
[2017-01-24] MEDS: hydrOXYzine PAMOATE 50 MG CAPSULE (FP) PO PRN (21:34)
[2017-01-25] MEDS: GABAPENTIN 300 MG CAPSULE (FP) PO SCH ×3 (06:37→21:35)
[2017-01-25] MEDS: MAG HYDROX/AL HYDROX/SIMETH 30 ML UNIT-DOSE CUP PO PRN ×3 (06:38→21:35)
[2017-01-25] MEDS: BUDESONIDE/FORMETEROL FUMARATE 80/4.5 mcg INHALER IH SCH ×2 (10:37→21:35)
[2017-01-25] MEDS: CYCLOBENZAPRINE HCL 10 MG TABLET (FP) PO PRN ×2 (10:38→21:35)
[2017-01-25] MEDS: PRENATAL VITAMINS W/ FOLIC ACID TABLET (FP) PO SCH (10:38)
[2017-01-25] MEDS: risperiDONE 1 MG TABLET (FP) PO SCH (10:38)
[2017-01-25] MEDS: hydrOXYzine PAMOATE 50 MG CAPSULE (FP) PO PRN ×2 (10:38→21:35)
[2017-01-25] MEDS: NICOTINE 21 MG/24 HOURS TOPICAL PATCH TD SCH (10:39)
[2017-01-25] MEDS: LIDOCAINE 5% TOPICAL PATCH TP SCH (10:39)
[2017-01-25] MEDS: risperiDONE 2 MG TABLET PO SCH (21:35)
[2017-01-25] MEDS: THIAMINE HCL 100 MG TABLET (FP) PO SCH (21:35)
[2017-01-25] MEDS: MIRTAZAPINE 30 MG TABLET (FP) PO SCH (21:35)
[2017-01-26] MEDS: GABAPENTIN 300 MG CAPSULE (FP) PO SCH ×3 (06:31→21:41)
[2017-01-26] MEDS: MAG HYDROX/AL HYDROX/SIMETH 30 ML UNIT-DOSE CUP PO PRN ×3 (06:32→21:43)
[2017-01-26] MEDS: BUDESONIDE/FORMETEROL FUMARATE 80/4.5 mcg INHALER IH SCH ×2 (10:15→21:44)
[2017-01-26] MEDS: LIDOCAINE 5% TOPICAL PATCH TP SCH (10:16)
[2017-01-26] MEDS: CYCLOBENZAPRINE HCL 10 MG TABLET (FP) PO PRN ×2 (10:16→21:43)
[2017-01-26] MEDS: NICOTINE 21 MG/24 HOURS TOPICAL PATCH TD SCH (10:16)
[2017-01-26] MEDS: hydrOXYzine PAMOATE 50 MG CAPSULE (FP) PO PRN ×2 (10:16→21:43)
[2017-01-26] MEDS: PRENATAL VITAMINS W/ FOLIC ACID TABLET (FP) PO SCH (10:16)
[2017-01-26] MEDS: risperiDONE 1 MG TABLET (FP) PO SCH (10:16)
--- NOTE | 2017-01-26 12:47 | PN ---
Psychiatric Progress Note Vital Signs: Vital Signs Period Temp Pulse Resp BP Sys/Hood Pulse Ox Last 24 Hr 97.5 F 100 18-18 113/63 Date of Session: 01/26/17 Chief Complaint:: Discharge Note HPI: Patient addressing Alcohol, Opoid and Cocaine Dependence comorbid with Nicotine Dependence and Schizoaffective Disorder ROS: COPD, Hep C treated Current Medications: Active Medications Generic Name Dose Route Start Last Admin Trade Name Freq PRN Reason Stop Dose Admin Acetaminophen 650 mg 01/11/17 17:30 01/23/17 14:13 Tylenol - PO 650 mg Q4H PRN Administration PAIN Al Hydroxide/Mg Hydroxide 30 ml 01/11/17 17:30 01/26/17 06:32 Mylanta Oral Suspension - PO 30 ml Q6H PRN Administration DYSPEPSIA Albuterol Sulfate 2 puff 01/11/17 17:31 01/21/17 15:50 Ventolin Hfa Inhaler - IH 2 puff Q4H PRN Administration SHORT OF BREATH/WHEEZING Budesonide/Formoterol Fumarate 2 puff 01/11/17 22:00 01/26/17 10:15 Symbicort 80/4.5mcg - IH 2 puff BID SMITA Administration Colloidal Oatmeal 1 applic 01/20/17 13:10 Aveeno Soap - TP DAILY PRN HYGEINE Cyclobenzaprine HCl 10 mg 01/16/17 14:56 01/26/17 10:16 Flexeril - PO 10 mg TID PRN Administration MUSCLE SPASMS Diphenhydramine HCl 50 mg 01/11/17 17:30 01/13/17 21:47 Benadryl - PO 50 mg HSMR1 PRN Administration INSOMNIA Eucalyptus/Menthol/Phenol/Sorbitol 1 each 01/11/17 17:30 Cepastat Lozenge - MM Q4H PRN SORE THROAT Gabapentin 300 mg 01/18/17 14:00 01/26/17 06:31 Neurontin - PO 300 mg TID SMITA Administration Guaifenesin 10 ml 01/11/17 17:30 Robitussin Dm - PO Q6H PRN COUGH Hydroxyzine Pamoate 50 mg 01/11/17 17:30 01/26/17 10:16 Vistaril - PO 50 mg Q4H PRN Administration AGITATION Ibuprofen 400 mg 01/11/17 17:30 01/23/17 10:25 Motrin - PO 400 mg Q6H PRN Administration SEVERE PAIN Lidocaine 1 patch 01/17/17 10:00 01/26/17 10:16 Lidoderm Patch - TP 1 patch DAILY SMITA Administration Loperamide HCl 4 mg 01/11/17 17:30 Imodium - PO Q6H PRN DIARRHEA Magnesium Citrate 300 ml 01/11/17 17:30 Citroma - PO Q48H PRN CONSTIPATION Magnesium Hydroxide 30 ml 01/11/17 17:30 Milk Of Magnesia - PO DAILY PRN CONSTIPATION Mirtazapine 30 mg 01/12/17 22:00 01/25/17 21:35 Remeron - PO 30 mg HS SMITA Administration Nicotine 21 mg 01/18/17 10:00 01/26/17 10:16 Nicoderm Patch - TD 21 mg DAILY SMITA Administration Nicotine Polacrilex 2 mg 01/11/17 17:30 01/22/17 21:42 Nicorette Gum - BC 2 mg Q2H PRN Administration NICOTINE REPLACEMENT RX Multivit/Folic Acid/Iron 1 tab 01/12/17 10:00 01/26/17 10:16 Vitamins (Sjr) - PO 1 tab DAILY SMITA Administration Pseudoephedrine/Triprolidine 1 combo 01/11/17 17:30 Actifed - PO TID PRN NASAL CONGESTION Risperidone 2 mg 01/16/17 22:00 01/25/17 21:35 Risperdal - PO 2 mg HS SMITA Administration Risperidone 1 mg 01/17/17 10:00 01/26/17 10:16 Risperdal - PO 1 mg DAILY SMITA Administration Thiamine HCl 100 mg 01/11/17 22:00 01/25/17 21:35 Vitamin B1 - PO 100 mg HS SMITA Administration Current Side Effect: No Lab tests ordered: Yes Lab tests reviewed: Yes Provider note:: Patient will complete this program on 01/27/17. He has met his treatment goals and will continue to address his issues in outpatient treatment at [facility] at [address] [place] [address]. Told blog writer that from his participation in this program, he has learned the skills necessarry to avoid the pitfalls of his addiction. He responded well to Risperdal 1 mg daily & 2 mg HS, Remeron 30 mg po HS, Gabapentin 300 mg po TID, Scripts for 30 days supply of these medications will be electronically transmitted to [facility] at [address] [place] [address]. He is stable for discharge on 01/27/17 Total face to face time:: 35 Psychiatric Treatment Plan - Problem List (1) Alcohol dependence in controlled environment Current Visit: Yes (2) Opioid dependence Current Visit: Yes (3) Cocaine dependence Current Visit: Yes (4) Nicotine dependence Current Visit: No Qualifiers: Substance use status: in withdrawal (5) Schizoaffective disorder Current Visit: No Comment: Self-report. (6) COPD (chronic obstructive pulmonary disease) Current Visit: Yes Qualifiers: COPD type: emphysema Emphysema type: other Qualified Code(s): J43.8 - Other emphysema (7) Hepatitis C Current Visit: Yes Qualifiers: Viral hepatitis chronicity: unspecified Hepatic coma status: without hepatic coma Qualified Code(s): B19.20 - Unspecified viral hepatitis C without hepatic coma Initial treatment plan: Patient will be discharged tomorrow and referred to [facility] for outpatient treatment
[2017-01-26] MEDS: THIAMINE HCL 100 MG TABLET (FP) PO SCH (21:41)
[2017-01-26] MEDS: risperiDONE 2 MG TABLET PO SCH (21:41)
[2017-01-26] MEDS: MIRTAZAPINE 30 MG TABLET (FP) PO SCH (23:35)
[2017-01-27] MEDS: GABAPENTIN 300 MG CAPSULE (FP) PO SCH (06:11)
[2017-01-27 06:49] VITALS: BP 127/82; PULSE 79; TEMP 97.8
== END 2017-01-27 08:45 | disposition home or self-care (01) | DRG 772 ==
LOC: YASAS 13:05 → Y5N 17:30
PROVIDERS: ADMIT Psychiatry & Neurology Psychiatry; ATTEND Psychiatry & Neurology Psychiatry
PROC: HZ42ZZZ Group Counseling for Substance Abuse Treatment, Cognitive-Behavioral (ICD-10-PCS; principal; 2017-01-27)
DX: F11.20 Opioid dependence, uncomplicated (principal); F10.20 Alcohol dependence, uncomplicated; F14.20 Cocaine dependence, uncomplicated; F17.210 Nicotine dependence, cigarettes, uncomplicated; F25.9 Schizoaffective disorder, unspecified; J43.8 Other emphysema; B19.20 Unspecified viral hepatitis C without hepatic coma
CPT/HCPCS: 81003; 93005; 93010; J2794

== ENCOUNTER 2017-03-25 11:36 | Inpatient (IN) | payer OTHER ==
[2017-03-25 12:07] VITALS: BMI 26.1
--- NOTE | 2017-03-25 13:40 | HP ---
COWS - Scale Resting Pulse: 0= [place] 80 or Below Sweatin= Chills/Flushing Restless Observation: 1= Difficult to Sit Still Pupil Size: 0= Normal to Room Light Bone or Joint Aches: 1= Mild Discomfort Runny Nose/ Eye Tearin= Nasal Congestion GI Upset > 30mins: 1= Stomach Cramp Tremor Observation: 2= Slight Tremor Visible Yawning Observation: 1= 1-2x During Session Anxiety or Irritability: 1=Feels Anxious/Irritable Goose Flesh Skin: 0=Smooth Skin COWS Score: 9 CIWA Score - CIWA Score Nausea/Vomitin-Mild Nausea/No Vomiting Muscle Tremors: 4-Moderate,w/Arms Extend Anxiety: 4-Mod. Anxious/Guarded Agitation: 1-Slight > Activity Paroxysmal Sweats: 1-Minimal Palms Moist Orientation: 0-Oriented Tacttile Disturbances: 1-Very Mild Itch/Numbness Auditory Disturbances: 1-Very Mild Visual Disturbances: 1-Very Mild Sensitivity Headache: 2-Mild CIWA-Ar Total Score: 16 Admission [facility] Allergies/Adverse Reactions: Allergies Allergy/AdvReac Type Severity Reaction Status Date / Time No Known Allergies Allergy Verified 01/11/17 17:15 Exam Limitations: Clinical Condition - Ebola screening Have you traveled outside of the country in the last 21 days: No Have you had contact with anyone from an Ebola affected area: No Have you been sick,other than usual withdrawal symptoms: No Do you have a fever: No - Review of Systems Constitutional: Loss of Appetite, Night Sweats, Changes in sleep EENT: reports: Nose Congestion Respiratory: reports: No Symptoms reported Cardiac: reports: No Symptoms Reported GI: reports: No Symptoms Reported : reports: No Symptoms Reported Musculoskeletal: reports: Back Pain, Muscle Pain Integumentary: reports: Rash (facial rash) Neuro: reports: Headache, Tremors Endocrine: reports: No Symptoms Reported Hematology: reports: No Symptoms Reported Psychiatric: reports: Judgement Intact, Mood/Affect Appropiate, Orientated x3, Anxious Other Systems: Reviewed and Negative Patient History - Patient Medical History Hx Anemia: No Hx Asthma: No Hx Chronic Obstructive Pulmonary Disease (COPD): Yes Hx Cancer: No Hx Cardiac Disorders: No Hx Congestive Heart Failure: No Hx Hypertension: No Hx Hypercholesterolemia: No Hx Pacemaker: No HX Cerebrovascular Accident: No Hx Seizures: No Hx Dementia: No Hx Diabetes: No Hx Gastrointestinal Disorders: No Hx Liver Disease: No Hx Genitourinary Disorders: No Hx Sexually Transmitted Disorders: No Hx Renal Disease (ESRD): No Hx Thyroid Disease: No Hx Human Immunodeficiency Virus (HIV): No (NEGATIVE HX) Hx Hepatitis C: Yes (TREATED--"UNDETECTABLE") Hx Depression: Yes Hx Suicide Attempt: No Hx Bipolar Disorder: No Hx Schizophrenia: Yes (thinks he was misdiagnosed) - Patient Surgical History Past Surgical History: No Hx Neurologic Surgery: No Hx Cataract Extraction: No Hx Cardiac Surgery: No Hx Lung Surgery: No Hx Breast Surgery: No Hx Breast Biopsy: No Hx Abdominal Surgery: No Hx Appendectomy: No Hx Cholecystectomy: No Hx Genitourinary Surgery: No Hx Section: No Hx Orthopedic Surgery: No Anesthesia Reaction: No - PPD History Previous Implant?: Yes Documented Results: Negative w/proof Implanted On Prior [facility] Admission?: No Date: 11/18/16 Results: 0 mm PPD to be Administered?: No - Reproductive History Patient is a Female of Child Bearing Age (11 -55 yrs old): No (male) - Smoking Cessation Smoking history: Current every day smoker Have you smoked in the past 12 months: Yes Aproximately how many cigarettes per day: 10 Cigars Per Day: 0 Hx Chewing Tobacco Use: No Initiated information on smoking cessation: Yes 'Breaking Loose' booklet given: 03/25/17 (give on floor) Family Disease History - Family Disease History Family Disease History: [place]: Father (, etoh), Mother (), Other: Brother (alive, hx Drug & Alcohol), Sister (one living, healthy), Son (age 20, healthy, ), Daughter (agd 16, healthy, ) Admission Physical Exam S - Vital Signs Vital Signs: Vital Signs - 24 hr 03/25/17 12:05 Temperature 95.9 F L Pulse Rate 77 Respiratory 18 Rate Blood Pressure 125/83 - Physical General Appearance: Yes: Nourished, Appropriately Dressed, Mild Distress, Tremorous, Anxious HEENTM: Yes: Hearing grossly Normal, Normal ENT Inspection, Normocephalic, Normal Voice, Rhinorrhea, Other (erythematous rash (chronic) over nose,cheeks) Respiratory: Yes: No Respiratory Distress, Rhonchi Neck: Yes: No masses,lesions,Nodules, Supple Breast: Yes: Breast Exam Deferred Cardiology: Yes: Regular Rhythm, Regular Rate Abdominal: Yes: Soft Genitourinary: Yes: Frequency Back: Yes: Normal Inspection Musculoskeletal: Yes: full range of Motion, Gait Steady Extremities: Yes: Normal Inspection, Non-Tender 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: Yes: Fully Oriented, Alert, Normal Mood/Affect, Normal Response Integumentary: Yes: Dry, Warm, Track [place] Lymphatic: Yes: Within Normal Limits - Diagnostic (1) Alcohol dependence with uncomplicated withdrawal Current Visit: Yes Status: Chronic (2) Cocaine dependence Current Visit: Yes Status: Chronic Qualifiers: Substance use status: uncomplicated Qualified Code(s): F14.20 - Cocaine dependence, uncomplicated (3) Nicotine dependence Current Visit: Yes Status: Chronic Qualifiers: Nicotine product type: cigarettes Substance use status: uncomplicated Qualified Code(s): F17.210 - Nicotine dependence, cigarettes, uncomplicated (4) Opioid dependence Current Visit: Yes Status: Chronic Qualifiers: Substance use status: uncomplicated Qualified Code(s): F11.20 - Opioid dependence, uncomplicated (5) COPD (chronic obstructive pulmonary disease) Current Visit: Yes Status: Chronic Qualifiers: COPD type: emphysema Emphysema type: other Qualified Code(s): J43.8 - Other emphysema (6) Rosacea Current Visit: Yes Status: Chronic Cleared for Admission S - Detox or Rehab S Level of Care: Medically Managed Detox Regimen/Protocol: Methadone/Librium BHS Breath Alcohol Content Breath Alcohol Content: 0 Urine Drug Screen - Results Drug Screen Negative: No Urine Drug Screen Results: SWAPNA-Cocaine, OPI-Opiates, BZO-Benzodiazepines
[2017-03-25] MEDS ORDERED: LOPERAMIDE HCL 2 MG CAPSULE PO PRN (13:50)
[2017-03-25] MEDS ORDERED: METHADONE HCL 10 MG TABLET (FOR DETOX USE ONLY) PO ONE ×2 (13:50→23:00)
[2017-03-25] MEDS ORDERED: chlordiazePOXIDE HCL 25 MG CAPSULE PO ONE (13:50)
[2017-03-25] MEDS ORDERED: MAGNESIUM HYDROX 2400MG/30ML ORAL SUSPENSION 30 ML CUP PO PRN (13:50)
[2017-03-25] MEDS ORDERED: chlordiazePOXIDE HCL 25 MG CAPSULE PO PRN (13:50)
[2017-03-25] MEDS ORDERED: guaiFENesin/D-METHORPHAN HB 10 ML UNIT-DOSE CUPS PO PRN (13:50)
[2017-03-25] MEDS ORDERED: hydrOXYzine PAMOATE 50 MG CAPSULE (FP) PO PRN (13:50)
[2017-03-25] MEDS ORDERED: MAGNESIUM CITRATE 300 ML BOTTLE PO PRN (13:50)
[2017-03-25] MEDS ORDERED: ACETAMINOPHEN 325 MG TABLET (FP) PO PRN (13:50)
[2017-03-25] MEDS ORDERED: MENTHOL/PHENOL 1 EACH UD MM PRN (13:50)
[2017-03-25] MEDS ORDERED: IBUPROFEN 400 MG TABLET (FP) PO PRN (13:50)
[2017-03-25] MEDS ORDERED: P-EPHED 60MG/TRIPROLIDI 2.5MG TABLET PO PRN (13:50)
[2017-03-25] MEDS ORDERED: MAG HYDROX/AL HYDROX/SIMETH 30 ML UNIT-DOSE CUP PO PRN (13:50)
[2017-03-25] MEDS ORDERED: ALBUTEROL SO4 6.7 GM HFA INHALER IH PRN (13:55)
[2017-03-25] MEDS: NICOTINE 21 MG/24 HOURS TOPICAL PATCH TD SCH (15:48)
[2017-03-25] MEDS: CLINDAMYCIN PHOSPHATE 1% TOPICAL GEL 30 GM TUBE TP SCH ×2 (16:08→22:59)
[2017-03-25] MEDS: chlordiazePOXIDE HCL 25 MG CAPSULE PO SCH ×2 (16:43→23:00)
[2017-03-25 18:40] LABS: URINE APPEARANCE CLEAR; URINE BILIRUBIN NEGATIVE (NEGATIVE); URINE BLOOD NEGATIVE (NEGATIVE); URINE COLOR DKYELLOW; URINE GLUCOSE (UA) NEGATIVE (NEGATIVE); URINE KETONE TRACE (NEGATIVE); URINE LEUK ESTERASE NEGATIVE (NEGATIVE); URINE NITRITE NEGATIVE (NEGATIVE); URINE PROTEIN NEGATIVE (NEGATIVE)
[2017-03-25] MEDS: THIAMINE HCL 100 MG TABLET (FP) PO SCH (22:59)
[2017-03-25] MEDS: diphenhydrAMINE HCL 50 MG CAPSULE PO PRN (23:00)
[2017-03-26] MEDS: chlordiazePOXIDE HCL 25 MG CAPSULE PO SCH ×4 (05:10→23:10)
[2017-03-26] MEDS ORDERED: METHADONE HCL 10 MG TABLET (FOR DETOX USE ONLY) PO SCH (10:00)
[2017-03-26 10:24] LABS: MCH 30.4 pg (25.7-33.7); MCHC 33.9 g/dl (32.0-35.9); MEAN CELL VOLUME 89.8 fl (80-96); MEAN PLT VOLUME 7.9 fl (7.5-11.1); PLATELET COUNT 266 K/MM3 (134-434); RDW 14.2 % (11.9-15.9); WHITE BLOOD COUNT 5.8 K/mm3 (4.0-10.0)
[2017-03-26] MEDS: CLINDAMYCIN PHOSPHATE 1% TOPICAL GEL 30 GM TUBE TP SCH ×2 (10:30→23:10)
[2017-03-26] MEDS: NICOTINE 21 MG/24 HOURS TOPICAL PATCH TD SCH (10:30)
[2017-03-26] MEDS: PRENATAL VITAMINS W/ FOLIC ACID TABLET (FP) PO SCH (10:30)
[2017-03-26 10:52] LABS: ALBUMIN 3.1 g/dl (3.4-5.0); ALK PHOS 69 U/L (45-117); ANION GAP 6 (8-16); BILIRUBIN,TOTAL 0.5 mg/dL (0.2-1.0); CO2 27 mmol/L (21-32); CREATININE 0.6 mg/dL (0.7-1.3); GLUCOSE,RANDOM 77 mg/dL (74-106); SGOT/AST 15 U/L (15-37); SGPT/ALT 27 U/L (12-78)
--- NOTE | 2017-03-26 16:28 | PN ---
S CIWA - CIWA Score Nausea/Vomitin Muscle Tremors: 4-Moderate,w/Arms Extend Anxiety: 3 Agitation: 3 Paroxysmal Sweats: No Perspiration Orientation: 0-Oriented Tacttile Disturbances: 1-Very Mild Itch/Numbness Auditory Disturbances: 0-None Visual Disturbances: 0-None Headache: 1-Very Mild CIWA-Ar Total Score: 15 BHS COWS - Scale Resting Pulse: 0= [place] 80 or Below Sweatin= Chills/Flushing Restless Observation: 3= Extraneous Movement Pupil Size: 0= Normal to Room Light Bone or Joint Aches: 2= Severe Diffuse Aches Runny Nose/ Eye Tearin= Runny Nose/Eyes GI Upset > 30mins: 3= Vomiting/Diarrhea Tremor Observation of Outstretched Hands: 2= Slight Tremor Visible Yawning Observation: 1= 1-2x During Session Anxiety or Irritability: 2=Irritable/Anxious Goose Flesh Skin: 0=Smooth Skin COWS Score: 16 [facility] Progress Note (SOAP) Subjective: Anxious, sweating, diarrhea, bones aching, chills, interrupted sleep Objective: 03/26/17 16:26 Last Vital Signs Temp Pulse Resp BP Pulse Ox 95.6 F L 76 18 95/64 03/26/17 14:40 03/26/17 14:40 03/26/17 14:40 03/26/17 14:40 Noted with hypotension Laboratory Tests 03/25/17 03/26/17 03/26/17 18:16 07:40 07:40 WBC 5.8 D RBC 4.04 Hgb 12.3 Hct 36.2 MCV 89.8 MCH 30.4 MCHC 33.9 RDW 14.2 Plt Count 266 MPV 7.9 Sodium 140 Potassium 4.2 Chloride 107 Carbon Dioxide 27 Anion Gap 6 L BUN 10 D Creatinine 0.6 L D Creat Clearance w eGFR > 60 Random Glucose 77 D Calcium 9.0 Total Bilirubin 0.5 D AST 15 D ALT 27 D Alkaline Phosphatase 69 Total Protein 6.0 L Albumin 3.1 L D Urine Color Dkyellow Urine Appearance Clear Urine pH 5.0 D Ur Specific [place] >= 1.030 H Urine Protein Negative Urine Glucose (UA) Negative Urine Ketones Trace H Urine Blood Negative Urine Nitrite Negative Urine Bilirubin Negative Urine Urobilinogen 2.0 Ur Leukocyte Esterase Negative RPR Titer 03/26/17 07:40 WBC RBC Hgb Hct MCV MCH MCHC RDW Plt Count MPV Sodium Potassium Chloride Carbon Dioxide Anion Gap BUN Creatinine Creat Clearance w eGFR Random Glucose Calcium Total Bilirubin AST ALT Alkaline Phosphatase Total Protein Albumin Urine Color Urine Appearance Urine pH Ur Specific [place] Urine Protein Urine Glucose (UA) Urine Ketones Urine Blood Urine Nitrite Urine Bilirubin Urine Urobilinogen Ur Leukocyte Esterase RPR Titer Nonreactive Labs noted Assessment: 03/26/17 16:27 Withdrawal symptoms Noted with hypotension Plan: Continue detox Hypotension: asymptomatic, encouraged to drink lots of water
[2017-03-26] MEDS: THIAMINE HCL 100 MG TABLET (FP) PO SCH (23:10)
[2017-03-26] MEDS: diphenhydrAMINE HCL 50 MG CAPSULE PO PRN (23:11)
[2017-03-27] MEDS: chlordiazePOXIDE HCL 25 MG CAPSULE PO SCH ×2 (05:28→10:20)
[2017-03-27] MEDS: METHADONE HCL 5 MG TABLET (FOR DETOX USE ONLY) PO SCH (10:20)
[2017-03-27] MEDS: CLINDAMYCIN PHOSPHATE 1% TOPICAL GEL 30 GM TUBE TP SCH ×2 (10:20→23:04)
[2017-03-27] MEDS: PRENATAL VITAMINS W/ FOLIC ACID TABLET (FP) PO SCH (10:20)
[2017-03-27] MEDS: NICOTINE 21 MG/24 HOURS TOPICAL PATCH TD SCH (10:20)
--- NOTE | 2017-03-27 10:49 | EKG ---
Test Reason : Blood Pressure : / mmHG Vent. Rate : 084 BPM Atrial Rate : 084 BPM P-R Int : 166 ms QRS Dur : 094 ms QT Int : 388 ms P-R-T Axes : 068 097 068 degrees QTc Int : 458 ms NORMAL SINUS RHYTHM RIGHTWARD AXIS INCOMPLETE RIGHT BUNDLE BRANCH BLOCK BORDERLINE ECG WHEN COMPARED WITH ECG OF 11-JAN-2017 21:31, INCOMPLETE RIGHT BUNDLE BRANCH BLOCK IS NOW PRESENT Confirmed by DALTON HEATH, ADOLPH ([id number]) on 03/27/2017 10:49:15 AM Referred By: Confirmed By:ADOLPH HOFFMAN MD
--- NOTE | 2017-03-27 11:02 | PN ---
[facility] CIWA - CIWA Score Nausea/Vomitin-Mild Nausea/No Vomiting Muscle Tremors: 4-Moderate,w/Arms Extend Anxiety: 4-Mod. Anxious/Guarded Agitation: 3 Paroxysmal Sweats: 3 Orientation: 0-Oriented Tacttile Disturbances: 0-None Auditory Disturbances: 0-None Visual Disturbances: 0-None Headache: 0-None Present CIWA-Ar Total Score: 15 S COWS - Scale Resting Pulse: 1= [place] 81-100 Sweatin=Flushed/Facial Moisture Restless Observation: 1= Difficult to Sit Still Pupil Size: 0= Normal to Room Light Bone or Joint Aches: 2= Severe Diffuse Aches Runny Nose/ Eye Tearin= Runny Nose/Eyes GI Upset > 30mins: 2= Nausea/Diarrhea Tremor Observation of Outstretched Hands: 2= Slight Tremor Visible Yawning Observation: 0= None Anxiety or Irritability: 2=Irritable/Anxious Goose Flesh Skin: 0=Smooth Skin COWS Score: 14 S Progress Note (SOAP) Subjective: Anxiety,sweating,interrupted sleep,diarrhea,nausea,tremors & body aches. Objective: 03/27/17 11:00 Last Vital Signs Temp Pulse Resp BP Pulse Ox 98.3 F 91 H 20 93/68 03/27/17 09:30 03/27/17 09:30 03/27/17 09:30 03/27/17 09:30 Laboratory Tests 03/25/17 03/26/17 03/26/17 18:16 07:40 07:40 WBC 5.8 D RBC 4.04 Hgb 12.3 Hct 36.2 MCV 89.8 MCH 30.4 MCHC 33.9 RDW 14.2 Plt Count 266 MPV 7.9 Sodium 140 Potassium 4.2 Chloride 107 Carbon Dioxide 27 Anion Gap 6 L BUN 10 D Creatinine 0.6 L D Creat Clearance w eGFR > 60 Random Glucose 77 D Calcium 9.0 Total Bilirubin 0.5 D AST 15 D ALT 27 D Alkaline Phosphatase 69 Total Protein 6.0 L Albumin 3.1 L D Urine Color Dkyellow Urine Appearance Clear Urine pH 5.0 D Ur Specific [place] >= 1.030 H Urine Protein Negative Urine Glucose (UA) Negative Urine Ketones Trace H Urine Blood Negative Urine Nitrite Negative Urine Bilirubin Negative Urine Urobilinogen 2.0 Ur Leukocyte Esterase Negative RPR Titer 03/26/17 07:40 WBC RBC Hgb Hct MCV MCH MCHC RDW Plt Count MPV Sodium Potassium Chloride Carbon Dioxide Anion Gap BUN Creatinine Creat Clearance w eGFR Random Glucose Calcium Total Bilirubin AST ALT Alkaline Phosphatase Total Protein Albumin Urine Color Urine Appearance Urine pH Ur Specific [place] Urine Protein Urine Glucose (UA) Urine Ketones Urine Blood Urine Nitrite Urine Bilirubin Urine Urobilinogen Ur Leukocyte Esterase RPR Titer Nonreactive labs noted Assessment: 03/27/17 11:01 Withdrawal sx. Plan: Continue detox
--- NOTE | 2017-03-27 12:31 | CONSULT ---
[facility] Psychiatric Consult - Data Date of interview: 03/27/17 Admission source: [facility] Identifying data: Readmission to [facility] for this 51 y/o Caucasin male seeking detox treatment,on ,for heroin,alcohol and cocaine dependence.Patient is ,a father of two,domiciled (lives with friends), unemployed and supported on Public Assistance. Substance Abuse History: Patient endorses current abuse of heroin (7-10 bags daily via intravenous route) since age 13,alcolhol since age 13 as well (2 pints of vaodka daily) and cocaine (spends 20-30 dollars a day).Smokes 3-5 cigarettes daily.Last used substances on 03/25/17. Medical History: COPD. Psychiatric History: Patient is reluctant to provide personal information.He is already known to this conventional underwriter and his background is consistent with the following (information is imported from this conventional underwriter's entry of 12/31/16) : diagnosed with Bipolar Disorder.Onset of psychiatric disturbances : early .History of multiple psychiatric hospitalizations,including one admission to [facility] (2013) for suicidal ideation/suicide attempt.End of qotation.Mr Thomas is still followed at [facility] in the [place].He " does not remember " the name of his medications but a review of Dr Langston's discharge note from [facility] (01/27/17) reveals that Mr Thomas was released with scripts for risperdal 2 mg/day + remeron 30 mg/hs + gabapentin 300 mg po tid.Denies history of suicide attempts. Physical/Sexual Abuse/Trauma History: Patient denies. Additional Comment: Urine Drug Screen Results: SWAPNA-Cocaine, OPI-Opiates, BZO- Benzodiazepines.Noted. Mental Status Exam - Mental Status Exam Alert and Oriented to: Time, Place, Person Cognitive Function: Good Patient Appearance: Well Groomed Mood: Withdrawn, Hopeful Affect: Normal Range Patient Behavior: Appropriate, Cooperative Speech Pattern: Clear Voice Loudness: Normal Thought Process: Goal Oriented Thought Disorder: Not Present Hallucinations: Denies Suicidal Ideation: Denies Homicidal Ideation: Denies Insight/Judgement: Poor Sleep: Poorly, Difficulty falling asleep Appetite: Good Muscle strength/Tone: Normal Gait/Station: Normal Psychiatric Findings - Problem List ([place] 1, 2,3) (1) Alcohol dependence with uncomplicated withdrawal Current Visit: Yes Status: Acute (2) Opioid dependence with withdrawal Current Visit: Yes Status: Acute (3) Cocaine dependence Current Visit: Yes Status: Acute Qualifiers: Substance use status: uncomplicated Qualified Code(s): F14.20 - Cocaine dependence, uncomplicated (4) Nicotine dependence Current Visit: Yes Status: Acute Qualifiers: Nicotine product type: cigarettes Substance use status: uncomplicated Qualified Code(s): F17.210 - Nicotine dependence, cigarettes, uncomplicated (5) Drug-induced mood disorder Current Visit: No Status: Acute (6) Schizoaffective disorder Current Visit: Yes Status: Chronic Comment: Self-report. (7) COPD (chronic obstructive pulmonary disease) Current Visit: Yes Status: Chronic Qualifiers: COPD type: emphysema Emphysema type: other Qualified Code(s): J43.8 - Other emphysema (8) Rosacea Current Visit: Yes Status: Chronic (9) Insomnia Current Visit: Yes Status: Acute - Initial Treatment Plan Initial Treatment Plan: Psychoeducation.Detoxification.Recent pharmacy claims are investigated : no activity since scripts issued on 01/27/17 from [facility] ( risperdal,gabapentin,remeron).Patient does admit to non-adherence to that regimen since leaving rehab at [facility].Mr Thomas declines to resume risperdal and remeron.Instead,he is requesting seroquel to address his insomnia.Will start seroquel at 100 mg po hs and observe response.Will titrate accordingly.Side effects/benefits discussed with the patient,including potential for oversedation /falls,metabolic syndrome,orthostasis,cardiac adverse events and abnormal involuntary movements.Patient is in agreement with this careplan.Observation.
[2017-03-27] MEDS: chlordiazePOXIDE 5 MG CAPSULE PO SCH ×2 (17:07→22:31)
[2017-03-27] MEDS: THIAMINE HCL 100 MG TABLET (FP) PO SCH (22:31)
[2017-03-27] MEDS: QUEtiapine FUMARATE 100 MG TABLET (FP) PO SCH (22:31)
[2017-03-27] MEDS: diphenhydrAMINE HCL 50 MG CAPSULE PO PRN (22:32)
[2017-03-28] MEDS: chlordiazePOXIDE 5 MG CAPSULE PO SCH ×2 (06:18→10:45)
[2017-03-28] MEDS: PRENATAL VITAMINS W/ FOLIC ACID TABLET (FP) PO SCH (10:45)
[2017-03-28] MEDS: METHADONE HCL 5 MG TABLET (FOR DETOX USE ONLY) PO SCH (10:45)
[2017-03-28] MEDS: CLINDAMYCIN PHOSPHATE 1% TOPICAL GEL 30 GM TUBE TP SCH ×2 (10:45→22:43)
[2017-03-28] MEDS: NICOTINE 21 MG/24 HOURS TOPICAL PATCH TD SCH (10:46)
--- NOTE | 2017-03-28 13:33 | PN ---
[facility] Progress Note (SOAP) Subjective: Sweating,interrupted sleep,restless. Objective: 03/28/17 13:32 Vital Signs - 8 hr 03/28/17 03/28/17 03/28/17 06:51 09:32 13:23 Temperature 97.2 F L 98.5 F 97.2 F L Pulse Rate 78 94 H 97 H Respiratory 16 20 18 Rate Blood Pressure 94/69 97/66 99/69 Laboratory Last Values WBC 5.8 K/mm3 (4.0-10.0) D 03/26/17 07:40 RBC 4.04 M/mm3 (4.00-5.60) 03/26/17 07:40 Hgb 12.3 GM/dL (11.7-16.9) 03/26/17 07:40 Hct 36.2 % (35.4-49) 03/26/17 07:40 MCV 89.8 fl (80-96) 03/26/17 07:40 MCH 30.4 pg (25.7-33.7) 03/26/17 07:40 MCHC 33.9 g/dl (32.0-35.9) 03/26/17 07:40 RDW 14.2 % (11.9-15.9) 03/26/17 07:40 Plt Count 266 K/MM3 (134-434) 03/26/17 07:40 MPV 7.9 fl (7.5-11.1) 03/26/17 07:40 Sodium 140 mmol/L (136-145) 03/26/17 07:40 Potassium 4.2 mmol/L (3.5-5.1) 03/26/17 07:40 Chloride 107 mmol/L (98-107) 03/26/17 07:40 Carbon Dioxide 27 mmol/L (21-32) 03/26/17 07:40 Anion Gap 6 (8-16) L 03/26/17 07:40 BUN 10 mg/dL (7-18) D 03/26/17 07:40 Creatinine 0.6 mg/dL (0.7-1.3) L D 03/26/17 07:40 Creat Clearance w eGFR > 60 (>60) 03/26/17 07:40 Random Glucose 77 mg/dL (74-106) D 03/26/17 07:40 Calcium 9.0 mg/dL (8.5-10.1) 03/26/17 07:40 Total Bilirubin 0.5 mg/dL (0.2-1.0) D 03/26/17 07:40 AST 15 U/L (15-37) D 03/26/17 07:40 ALT 27 U/L (12-78) D 03/26/17 07:40 Alkaline Phosphatase 69 U/L (45-117) 03/26/17 07:40 Total Protein 6.0 g/dl (6.4-8.2) L 03/26/17 07:40 Albumin 3.1 g/dl (3.4-5.0) L D 03/26/17 07:40 Urine Color Dkyellow 03/25/17 18:16 Urine Appearance Clear 03/25/17 18:16 Urine pH 5.0 (5.0-8.0) D 03/25/17 18:16 Ur Specific [place] >= 1.030 (1.005-1.025) H 03/25/17 18:16 Urine Protein Negative (NEGATIVE) 03/25/17 18:16 Urine Glucose (UA) Negative (NEGATIVE) 03/25/17 18:16 Urine Ketones Trace (NEGATIVE) H 03/25/17 18:16 Urine Blood Negative (NEGATIVE) 03/25/17 18:16 Urine Nitrite Negative (NEGATIVE) 03/25/17 18:16 Urine Bilirubin Negative (NEGATIVE) 03/25/17 18:16 Urine Urobilinogen 2.0 mg/dL (0.2-1.0) 03/25/17 18:16 Ur Leukocyte Esterase Negative (NEGATIVE) 03/25/17 18:16 RPR Titer Nonreactive (NONREACTIVE) 03/26/17 07:40 labs noted Assessment: 03/28/17 13:33 Withdrawal sx. Plan: Continue detox
[2017-03-28] MEDS: chlordiazePOXIDE HCL 10 MG CAPSULE PO SCH ×2 (17:20→22:43)
[2017-03-28] MEDS: THIAMINE HCL 100 MG TABLET (FP) PO SCH (22:43)
[2017-03-28] MEDS: QUEtiapine FUMARATE 100 MG TABLET (FP) PO SCH (22:43)
[2017-03-29] MEDS: chlordiazePOXIDE HCL 10 MG CAPSULE PO SCH ×2 (05:37→10:34)
[2017-03-29] MEDS ORDERED: METHADONE HCL 10 MG TABLET (FOR DETOX USE ONLY) PO SCH (10:00)
[2017-03-29] MEDS: PRENATAL VITAMINS W/ FOLIC ACID TABLET (FP) PO SCH (10:34)
[2017-03-29] MEDS: NICOTINE 21 MG/24 HOURS TOPICAL PATCH TD SCH (10:35)
[2017-03-29] MEDS: CLINDAMYCIN PHOSPHATE 1% TOPICAL GEL 30 GM TUBE TP SCH ×2 (10:35→23:11)
--- NOTE | 2017-03-29 15:33 | PN ---
[facility] Progress Note (SOAP) Subjective: Sweating,interrupted sleep,restless Objective: 03/29/17 15:32 Vital Signs - 8 hr 03/29/17 03/29/17 09:48 13:51 Temperature 98.2 F 97 F L Pulse Rate 109 H 83 Respiratory 18 20 Rate Blood Pressure 100/67 99/69 Assessment: 03/29/17 15:32 Withdrawal sx. Plan: Continue detox
[2017-03-29] MEDS: THIAMINE HCL 100 MG TABLET (FP) PO SCH (22:55)
[2017-03-29] MEDS: QUEtiapine FUMARATE 100 MG TABLET (FP) PO SCH (22:55)
[2017-03-29] MEDS: diphenhydrAMINE HCL 50 MG CAPSULE PO PRN (22:56)
[2017-03-30] MEDS ORDERED: METHADONE HCL 5 MG TABLET (FOR DETOX USE ONLY) PO SCH (06:00)
[2017-03-30 06:51] VITALS: BP 93/59; PULSE 94; TEMP 97.6
--- NOTE | 2017-03-30 14:11 | DS ---
[facility] Detox Discharge Summary Admission Date: 03/25/17 Discharge Date: 03/30/17 - History Present History: Alcohol Dependence, Cocaine Dependence, Opioid Dependence Pertinent Past History: COPD Hep C Schizo-affective disorder - Physical Exam Results Vital Signs: Vital Signs Temperature 97.6 F 03/30/17 06:50 Pulse Rate 94 H 03/30/17 06:50 Respiratory Rate 16 03/30/17 06:50 Blood Pressure 93/59 03/30/17 06:50 O2 Sat by Pulse Oximetry (%) Pertinent Admission Physical Exam Findings: Withdrawal sx. Laboratory Last Values WBC 5.8 K/mm3 (4.0-10.0) D 03/26/17 07:40 RBC 4.04 M/mm3 (4.00-5.60) 03/26/17 07:40 Hgb 12.3 GM/dL (11.7-16.9) 03/26/17 07:40 Hct 36.2 % (35.4-49) 03/26/17 07:40 MCV 89.8 fl (80-96) 03/26/17 07:40 MCH 30.4 pg (25.7-33.7) 03/26/17 07:40 MCHC 33.9 g/dl (32.0-35.9) 03/26/17 07:40 RDW 14.2 % (11.9-15.9) 03/26/17 07:40 Plt Count 266 K/MM3 (134-434) 03/26/17 07:40 MPV 7.9 fl (7.5-11.1) 03/26/17 07:40 Sodium 140 mmol/L (136-145) 03/26/17 07:40 Potassium 4.2 mmol/L (3.5-5.1) 03/26/17 07:40 Chloride 107 mmol/L (98-107) 03/26/17 07:40 Carbon Dioxide 27 mmol/L (21-32) 03/26/17 07:40 Anion Gap 6 (8-16) L 03/26/17 07:40 BUN 10 mg/dL (7-18) D 03/26/17 07:40 Creatinine 0.6 mg/dL (0.7-1.3) L D 03/26/17 07:40 Creat Clearance w eGFR > 60 (>60) 03/26/17 07:40 Random Glucose 77 mg/dL (74-106) D 03/26/17 07:40 Calcium 9.0 mg/dL (8.5-10.1) 03/26/17 07:40 Total Bilirubin 0.5 mg/dL (0.2-1.0) D 03/26/17 07:40 AST 15 U/L (15-37) D 03/26/17 07:40 ALT 27 U/L (12-78) D 03/26/17 07:40 Alkaline Phosphatase 69 U/L (45-117) 03/26/17 07:40 Total Protein 6.0 g/dl (6.4-8.2) L 03/26/17 07:40 Albumin 3.1 g/dl (3.4-5.0) L D 03/26/17 07:40 Urine Color Dkyellow 03/25/17 18:16 Urine Appearance Clear 03/25/17 18:16 Urine pH 5.0 (5.0-8.0) D 03/25/17 18:16 Ur Specific [place] >= 1.030 (1.005-1.025) H 03/25/17 18:16 Urine Protein Negative (NEGATIVE) 03/25/17 18:16 Urine Glucose (UA) Negative (NEGATIVE) 03/25/17 18:16 Urine Ketones Trace (NEGATIVE) H 03/25/17 18:16 Urine Blood Negative (NEGATIVE) 03/25/17 18:16 Urine Nitrite Negative (NEGATIVE) 03/25/17 18:16 Urine Bilirubin Negative (NEGATIVE) 03/25/17 18:16 Urine Urobilinogen 2.0 mg/dL (0.2-1.0) 03/25/17 18:16 Ur Leukocyte Esterase Negative (NEGATIVE) 03/25/17 18:16 RPR Titer Nonreactive (NONREACTIVE) 03/26/17 07:40 labs noted - Treatment Hospital Course: Detox Protocol Followed, Detoxed Safely, Responded well, Discharged Condition Good, Rehab Referral Accepted Patient has Accepted a Rehab Referral to: [facility] - Medication Discharge Medications: Ambulatory Orders Albuterol Sulfate Inhaler - [Ventolin HFA Inhaler -] 2 inh PO Q4H PRN 03/25/17 Mirtazapine [Remeron -] 30 mg PO HS 03/25/17 Quetiapine Fumarate [Seroquel] 100 mg PO HS #30 tablet 03/27/17 - Diagnosis (1) Alcohol dependence with uncomplicated withdrawal Status: Acute (2) Cocaine dependence, uncomplicated Status: Acute (3) Drug-induced mood disorder Status: Acute (4) Insomnia Status: Acute (5) Nicotine dependence Status: Acute Qualifiers: Nicotine product type: cigarettes Substance use status: uncomplicated Qualified Code(s): F17.210 - Nicotine dependence, cigarettes, uncomplicated (6) Opioid dependence with withdrawal Status: Acute (7) COPD (chronic obstructive pulmonary disease) Status: Chronic Qualifiers: COPD type: emphysema Emphysema type: other Qualified Code(s): J43.8 - Other emphysema (8) Rosacea Status: Chronic (9) Schizoaffective disorder Status: Chronic - AMA Did Patient Leave Against Medical Advice: No
== END 2017-03-30 08:51 | disposition home or self-care (01) | DRG 773 ==
LOC: YASAS 11:36 → Y3N 14:43
PROVIDERS: ADMIT Internal Medicine; ATTEND Internal Medicine
PROC: HZ2ZZZZ Detoxification Services for Substance Abuse Treatment (ICD-10-PCS; principal; 2017-03-25)
DX: F11.23 Opioid dependence with withdrawal (principal); F14.20 Cocaine dependence, uncomplicated; F10.230 Alcohol dependence with withdrawal, uncomplicated; F17.210 Nicotine dependence, cigarettes, uncomplicated; F19.24 Other psychoactive substance dependence with psychoactive substance-induced mood disorder; F25.9 Schizoaffective disorder, unspecified; G47.00 Insomnia, unspecified; J43.9 Emphysema, unspecified; L71.9 Rosacea, unspecified; I95.9 Hypotension, unspecified; Z86.19 Personal history of other infectious and parasitic diseases
CPT/HCPCS: 36415; 80053; 81003; 85027; 86593; 93005; 93010

== ENCOUNTER 2017-09-04 11:36 | Inpatient (IN) | payer OTHER ==
[2017-09-04 13:31] VITALS: BMI 25.2
--- NOTE | 2017-09-04 14:51 | HP ---
COWS - Scale Resting Pulse: 0= [place] 80 or Below Sweatin= Chills/Flushing Restless Observation: 3= Extraneous Movement Pupil Size: 2= Moderately Dilated Bone or Joint Aches: 4=Acute Joint/Muscle Pain Runny Nose/ Eye Tearin= Runny Nose/Eyes GI Upset > 30mins: 1= Stomach Cramp Tremor Observation: 1= Tremor [place], Not Seen Yawning Observation: 1= 1-2x During Session Anxiety or Irritability: 1=Feels Anxious/Irritable Goose Flesh Skin: 0=Smooth Skin COWS Score: 16 CIWA Score - CIWA Score Nausea/Vomitin-No Nausea/No Vomiting Muscle Tremors: 3 Anxiety: 5 Agitation: 3 Paroxysmal Sweats: 1-Minimal Palms Moist Orientation: 0-Oriented Tacttile Disturbances: 3-Moderate Itch/Numb/Burn Auditory Disturbances: 0-None Visual Disturbances: 0-None Headache: 0-None Present CIWA-Ar Total Score: 15 Admission ROS S - HPI Chief Complaint: WITHDRAWAL SX FROM HEROIN AND ALCOHOL Allergies/Adverse Reactions: Allergies Allergy/AdvReac Type Severity Reaction Status Date / Time No Known Allergies Allergy Verified 03/25/17 15:22 History of Present Illness: 51 Y/O MALE WITH A HX OF HEROIN AND ALCOHOL DEPENDENCE SEEKING DETOX [place]. Exam Limitations: No Limitations - Ebola screening Have you traveled outside of the country in the last 21 days: No Have you had contact with anyone from an Ebola affected area: No Have you been sick,other than usual withdrawal symptoms: No Do you have a fever: No - Review of Systems Constitutional: Chills, Night Sweats, Changes in sleep, Unintentional Wgt. Loss EENT: reports: Tearing, Nose Congestion, Dental Problems (BILATERAL DENTURES) Respiratory: reports: Shortness of Breath (HX COPD) Cardiac: reports: No Symptoms Reported GI: reports: Constipated, Diarrhea, Nausea, Poor Fluid Intake, Vomiting, Abdominal cramping : reports: No Symptoms Reported Musculoskeletal: reports: Back Pain, Joint Pain, Muscle Pain Integumentary: reports: Bruising (BOTH ELBOWS WITH TRACK CHICAS.) Neuro: reports: Unsteady Gait Endocrine: reports: No Symptoms Reported Hematology: reports: No Symptoms Reported Psychiatric: reports: Orientated x3, Anxious, Depressed Other Systems: Reviewed and Negative Patient History - Patient Medical History Hx Anemia: No Hx Asthma: No Hx Chronic Obstructive Pulmonary Disease (COPD): Yes (ON MDI) Hx Cancer: No Hx Cardiac Disorders: No Hx Congestive Heart Failure: No Hx Hypertension: No Hx Hypercholesterolemia: No Hx Pacemaker: No HX Cerebrovascular Accident: No Hx Seizures: No Hx Dementia: No Hx Diabetes: No Hx Gastrointestinal Disorders: No Hx Liver Disease: No Hx Genitourinary Disorders: No Hx Sexually Transmitted Disorders: No Hx Renal Disease (ESRD): No Hx Thyroid Disease: No Hx Human Immunodeficiency Virus (HIV): No (NEGATIVE HX) Hx Hepatitis C: Yes (TREATED--"UNDETECTABLE") Hx Depression: Yes (AND INSOMNIA--NO CURRENT MEDS) Hx Suicide Attempt: No (DENIES) Hx Bipolar Disorder: No Hx Schizophrenia: No - Patient Surgical History Past Surgical History: No Hx Neurologic Surgery: No Hx Cataract Extraction: No Hx Cardiac Surgery: No Hx Lung Surgery: No Hx Breast Surgery: No Hx Breast Biopsy: No Hx Abdominal Surgery: No Hx Appendectomy: No Hx Cholecystectomy: No Hx Genitourinary Surgery: No Hx Orthopedic Surgery: No Anesthesia Reaction: No - PPD History Previous Implant?: Yes Implanted On Prior [facility] Admission?: No Date: 11/18/16 Results: 0mm PPD to be Administered?: No - Reproductive History Patient is a Female of Child Bearing Age (11 -55 yrs old): No (MALE) - Smoking Cessation Smoking history: Current every day smoker Have you smoked in the past 12 months: Yes Aproximately how many cigarettes per day: 10 Cigars Per Day: 0 Hx Chewing Tobacco Use: No Initiated information on smoking cessation: Yes 'Breaking Loose' booklet given: 09/04/17 - Substance & Tx. History Hx Alcohol Use: Yes (VODKA) Hx Substance Use: Yes (HEROIN) Substance Use Type: Alcohol, Heroin Hx Substance Use Treatment: Yes (LAST TX AT [facility]) - Substances Abused Heroin Route: Injection Frequency: Daily Amount used: 6-7 bags Age of first use: 13 Date of Last Use: 09/04/17 Alcohol Route: Oral Frequency: Daily Amount used: Vodka 2 pints Age of first use: 13 Date of Last Use: 09/03/17 Family Disease History - Family Disease History Family Disease History: [place]: Father (, etoh), Mother (), Other: Brother (alive, hx Drug & Alcohol), Sister (one living, healthy), Son (age 20, healthy, ), Daughter (agd 16, healthy, ) Admission Physical Exam [facility] - Vital Signs Vital Signs: Vital Signs - 24 hr 09/04/17 13:19 Temperature 97 F L Pulse Rate 68 Respiratory 20 Rate Blood Pressure 120/72 - Physical General Appearance: Yes: Moderate Distress, Irritable, Anxious HEENTM: Yes: EOMI, Normocephalic, DEYANIRA, Pharynx Normal, Nasal Congestion, Rhinorrhea Respiratory: Yes: Chest Non-Tender, Lungs Clear, Normal Breath Sounds, No Respiratory Distress Neck: Yes: No masses,lesions,Nodules, Supple, Trachea in good position Breast: Yes: Breast Exam Deferred Cardiology: Yes: Regular Rhythm, Regular Rate, S1, S2 Abdominal: Yes: Normal Bowel Sounds, Non Tender, Flat Genitourinary: Yes: Other (N/C) Back: Yes: Within Normal Limits Musculoskeletal: Yes: full range of Motion, Gait Steady Extremities: Yes: Normal Range of Motion, Non-Tender 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 NML intact, Fully Oriented, Alert, Motor Strength 5/5 Integumentary: Yes: Dry, Warm, Track [place] (BOTH ELBOWS--NO SWELLING OR REDNESS) Lymphatic: Yes: Within Normal Limits - Diagnostic (1) Alcohol dependence with uncomplicated withdrawal Current Visit: Yes Status: Acute (2) Cocaine dependence Current Visit: Yes Status: Acute Qualifiers: Substance use status: uncomplicated Qualified Code(s): F14.20 - Cocaine dependence, uncomplicated (3) Cocaine dependence, uncomplicated Current Visit: Yes Status: Acute (4) Insomnia Current Visit: Yes Status: Chronic (5) Nicotine dependence Current Visit: Yes Status: Acute Qualifiers: Nicotine product type: cigarettes Substance use status: in withdrawal Qualified Code(s): F17.213 - Nicotine dependence, cigarettes, with withdrawal (6) Opioid dependence with withdrawal Current Visit: Yes Status: Acute (7) COPD (chronic obstructive pulmonary disease) Current Visit: Yes Status: Chronic Qualifiers: COPD type: emphysema Emphysema type: other Qualified Code(s): J43.8 - Other emphysema (8) History of hepatitis C Current Visit: Yes Status: Chronic Cleared for Admission [facility] - Detox or Rehab [facility] Level of Care: Medically Managed Detox Regimen/Protocol: Methadone/Librium S Breath Alcohol Content Breath Alcohol Content: 0 Urine Drug Screen - Results Urine Drug Screen Results: SWAPNA-Cocaine, OPI-Opiates
[2017-09-04] MEDS ORDERED: MAGNESIUM CITRATE 300 ML BOTTLE PO PRN (15:01)
[2017-09-04] MEDS ORDERED: guaiFENesin/D-METHORPHAN HB 10 ML UNIT-DOSE CUPS PO PRN (15:01)
[2017-09-04] MEDS ORDERED: chlordiazePOXIDE HCL 25 MG CAPSULE PO PRN (15:01)
[2017-09-04] MEDS ORDERED: MAGNESIUM HYDROX 2400MG/30ML ORAL SUSPENSION 30 ML CUP PO PRN (15:01)
[2017-09-04] MEDS ORDERED: hydrOXYzine PAMOATE 50 MG CAPSULE (FP) PO PRN (15:01)
[2017-09-04] MEDS ORDERED: LOPERAMIDE HCL 2 MG CAPSULE PO PRN (15:01)
[2017-09-04] MEDS ORDERED: IBUPROFEN 400 MG TABLET (FP) PO PRN (15:01)
[2017-09-04] MEDS ORDERED: MAG HYDROX/AL HYDROX/SIMETH 30 ML UNIT-DOSE CUP PO PRN (15:01)
[2017-09-04] MEDS ORDERED: ACETAMINOPHEN 325 MG TABLET (FP) PO PRN (15:01)
[2017-09-04] MEDS ORDERED: NICOTINE POLACRILEX 2 MG GUM BUC PRN (15:01)
[2017-09-04] MEDS ORDERED: P-EPHED 60MG/TRIPROLIDI 2.5MG TABLET PO PRN (15:01)
[2017-09-04] MEDS ORDERED: MENTHOL/PHENOL 1 EACH UD MM PRN (15:01)
[2017-09-04] MEDS ORDERED: chlordiazePOXIDE HCL 25 MG CAPSULE PO ONE (15:11)
[2017-09-04] MEDS ORDERED: METHADONE HCL 10 MG TABLET (FOR DETOX USE ONLY) PO ONE ×2 (15:13→23:00)
[2017-09-04] MEDS: NICOTINE 14 MG/24 HOURS TOPICAL PATCH TD SCH (15:27)
[2017-09-04 16:26] LABS: URINE APPEARANCE CLEAR; URINE BILIRUBIN NEGATIVE (NEGATIVE); URINE BLOOD NEGATIVE (NEGATIVE); URINE COLOR YELLOW; URINE GLUCOSE (UA) NEGATIVE (NEGATIVE); URINE KETONE TRACE (NEGATIVE); URINE LEUK ESTERASE NEGATIVE (NEGATIVE); URINE NITRITE NEGATIVE (NEGATIVE); URINE PROTEIN NEGATIVE (NEGATIVE)
[2017-09-04] MEDS: chlordiazePOXIDE HCL 25 MG CAPSULE PO SCH ×2 (17:18→22:22)
[2017-09-04] MEDS: THIAMINE HCL 100 MG TABLET (FP) PO SCH (22:22)
[2017-09-05] MEDS: chlordiazePOXIDE HCL 25 MG CAPSULE PO SCH ×4 (05:51→22:18)
[2017-09-05 09:59] LABS: MCH 30.2 pg (25.7-33.7); MCHC 32.6 g/dl (32.0-35.9); MEAN CELL VOLUME 92.7 fl (80-96); MEAN PLT VOLUME 7.6 fl (7.5-11.1); PLATELET COUNT 335 K/MM3 (134-434); RBC 4.96 M/mm3 (4.00-5.60); RDW 14.4 % (11.9-15.9); WHITE BLOOD COUNT 6.4 K/mm3 (4.0-10.0)
[2017-09-05] MEDS ORDERED: METHADONE HCL 10 MG TABLET (FOR DETOX USE ONLY) PO SCH (10:00)
[2017-09-05 10:13] LABS: CHLORIDE 103 mmol/L (98-107); POTASSIUM 4.6 mmol/L (3.5-5.1); SODIUM 137 mmol/L (136-145)
[2017-09-05] MEDS: PRENATAL VITAMINS W/ FOLIC ACID TABLET (FP) PO SCH (10:19)
[2017-09-05] MEDS: NICOTINE 14 MG/24 HOURS TOPICAL PATCH TD SCH (10:20)
[2017-09-05 10:25] LABS: ALBUMIN 3.5 g/dl (3.4-5.0); ALK PHOS 97 U/L (45-117); ANION GAP 6 (8-16); BILIRUBIN,TOTAL 0.9 mg/dL (0.2-1.0); BLOOD UREA NITROGEN 10 mg/dL (7-18); CALCIUM 8.8 mg/dL (8.5-10.1); CO2 28 mmol/L (21-32); CREATININE 0.8 mg/dL (0.7-1.3); GLUCOSE,RANDOM 93 mg/dL (74-106); SGOT/AST 17 U/L (15-37); SGPT/ALT 20 U/L (12-78); TOT PROT 6.7 g/dl (6.4-8.2)
--- NOTE | 2017-09-05 11:47 | PN ---
[facility] CIWA - CIWA Score Nausea/Vomitin-No Nausea/No Vomiting Muscle Tremors: 4-Moderate,w/Arms Extend Anxiety: 4-Mod. Anxious/Guarded Agitation: 4-Moderately Restless Paroxysmal Sweats: 1-Minimal Palms Moist Orientation: 0-Oriented Tacttile Disturbances: 3-Moderate Itch/Numb/Burn Auditory Disturbances: 0-None Visual Disturbances: 0-None Headache: 0-None Present CIWA-Ar Total Score: 16 S COWS - Scale Resting Pulse: 1= [place] 81-100 Sweatin= Chills/Flushing Restless Observation: 3= Extraneous Movement Pupil Size: 2= Moderately Dilated Bone or Joint Aches: 4=Acute Joint/Muscle Pain Runny Nose/ Eye Tearin= Nasal Congestion GI Upset > 30mins: 1= Stomach Cramp Tremor Observation of Outstretched Hands: 1= Tremor [place], Not Seen Yawning Observation: 2= >3x During Session Anxiety or Irritability: 2=Irritable/Anxious Goose Flesh Skin: 0=Smooth Skin COWS Score: 18 [facility] Progress Note (SOAP) Subjective: ANXIETY,SLIGHT TREMORS,SWEATS/CHILLS,FATIGUE. Objective: 09/05/17 11:46 Vital Signs Temperature 97.2 F L 09/05/17 09:55 Pulse Rate 95 H 09/05/17 09:55 Respiratory Rate 17 09/05/17 09:55 Blood Pressure 91/65 09/05/17 09:55 O2 Sat by Pulse Oximetry (%) Laboratory Last Values WBC 6.4 K/mm3 (4.0-10.0) 09/05/17 06:30 RBC 4.96 M/mm3 (4.00-5.60) D 09/05/17 06:30 Hgb 15.0 GM/dL (11.7-16.9) D 09/05/17 06:30 Hct 46.0 % (35.4-49) D 09/05/17 06:30 MCV 92.7 fl (80-96) 09/05/17 06:30 MCH 30.2 pg (25.7-33.7) 09/05/17 06:30 MCHC 32.6 g/dl (32.0-35.9) 09/05/17 06:30 RDW 14.4 % (11.9-15.9) 09/05/17 06:30 Plt Count 335 K/MM3 (134-434) D 09/05/17 06:30 MPV 7.6 fl (7.5-11.1) 09/05/17 06:30 Sodium 137 mmol/L (136-145) 09/05/17 06:30 Potassium 4.6 mmol/L (3.5-5.1) 09/05/17 06:30 Chloride 103 mmol/L (98-107) 09/05/17 06:30 Carbon Dioxide 28 mmol/L (21-32) 09/05/17 06:30 Anion Gap 6 (8-16) L 09/05/17 06:30 BUN 10 mg/dL (7-18) 09/05/17 06:30 Creatinine 0.8 mg/dL (0.7-1.3) D 09/05/17 06:30 Creat Clearance w eGFR > 60 (>60) 09/05/17 06:30 Random Glucose 93 mg/dL (74-106) D 09/05/17 06:30 Calcium 8.8 mg/dL (8.5-10.1) 09/05/17 06:30 Total Bilirubin 0.9 mg/dL (0.2-1.0) D 09/05/17 06:30 AST 17 U/L (15-37) 09/05/17 06:30 ALT 20 U/L (12-78) D 09/05/17 06:30 Alkaline Phosphatase 97 U/L (45-117) D 09/05/17 06:30 Total Protein 6.7 g/dl (6.4-8.2) 09/05/17 06:30 Albumin 3.5 g/dl (3.4-5.0) 09/05/17 06:30 Urine Color Yellow 09/04/17 15:15 Urine Appearance Clear 09/04/17 15:15 Urine pH 6.0 (5.0-8.0) 09/04/17 15:15 Ur Specific [place] 1.020 (1.001-1.035) 09/04/17 15:15 Urine Protein Negative (NEGATIVE) 09/04/17 15:15 Urine Glucose (UA) Negative (NEGATIVE) 09/04/17 15:15 Urine Ketones Trace (NEGATIVE) H 09/04/17 15:15 Urine Blood Negative (NEGATIVE) 09/04/17 15:15 Urine Nitrite Negative (NEGATIVE) 09/04/17 15:15 Urine Bilirubin Negative (NEGATIVE) 09/04/17 15:15 Urine Urobilinogen 2.0 mg/dL (0.2-1.0) 09/04/17 15:15 Ur Leukocyte Esterase Negative (NEGATIVE) 09/04/17 15:15 Assessment: 09/05/17 11:47 WITHDRAWAL SX Plan: CONTINUE DETOX
--- NOTE | 2017-09-05 17:01 | CONSULT ---
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 Substance Abuse History: Confirmed by patient.See current [facility] report for details : Smoking history: Current every day smoker. Have you smoked in the past 12 months: Yes. Aproximately how many cigarettes per day: 10. Cigars Per Day: 0. Hx Chewing Tobacco Use: No. Initiated information on smoking cessation : Yes. 'Breaking Loose' booklet given: 09/04/17. - Substance & Tx. History. Hx Alcohol Use: Yes (VODKA). Hx Substance Use: Yes (HEROIN). Substance Use Type: Alcohol, Heroin. Hx Substance Use Treatment: Yes (LAST TX AT [facility]). - Substances Abused. Heroin. Route: Injection. Frequency: Daily. Amount used: 6-7 bags. Age of first use: 13. Date of Last Use: 09/04/17. Alcohol. Route: Oral. Frequency: Daily. Amount used: Vodka 2 pints. Age of first use: 13. Date of Last Use: 09/03/17 Medical History: COPD and hepatitis C. Psychiatric History: Patient endorses the diagnosis of Bipolar Disorder.History of multiple psychiatric hospitalizations ([facility]).Mr Thomas used to be followed at [facility] in the [place].Off psychotropic medications (risperdal, remeron) for more than eight months as per self-report.Denies history of suicide attempts. Physical/Sexual Abuse/Trauma History: Patient denies. Additional Comment: Urine Drug Screen Results: SWAPNA-Cocaine, OPI-Opiates.Noted. Mental Status Exam - Mental Status Exam Alert and Oriented to: Time, Place, Person Cognitive Function: Good Patient Appearance: Well Groomed Mood: Hopeful, Euthymic Affect: Appropriate, Normal Range Patient Behavior: Fatigued, Cooperative Speech Pattern: Clear, Appropriate Voice Loudness: Normal Thought Process: Goal Oriented Thought Disorder: Not Present Hallucinations: Denies Suicidal Ideation: Denies Homicidal Ideation: Denies Insight/Judgement: Poor Sleep: Poorly, Difficulty falling asleep Appetite: Good Muscle strength/Tone: Normal Gait/Station: Normal Psychiatric Findings - Problem List ([place] 1, 2,3) (1) Alcohol dependence with uncomplicated withdrawal Current Visit: Yes Status: Acute (2) Opioid dependence with withdrawal Current Visit: Yes Status: Acute (3) Cocaine dependence, uncomplicated Current Visit: Yes Status: Acute (4) Nicotine dependence Current Visit: Yes Status: Acute Qualifiers: Nicotine product type: cigarettes Substance use status: in withdrawal Qualified Code(s): F17.213 - Nicotine dependence, cigarettes, with withdrawal (5) Drug-induced mood disorder Current Visit: Yes Status: Acute (6) Schizoaffective disorder Current Visit: No Status: Chronic Comment: As per records.Non compliant with medications and psychiatric OPD care for past 8 months. (7) Insomnia Current Visit: Yes Status: Acute - Initial Treatment Plan Initial Treatment Plan: Previous records are reviewed.Psychoeducation.Sleep hygiene.Detoxification in progress.Seroquel 100 mg po hs.Side effects/benefits discussed with patient.Mr Thomas has expressed his agreement to this careplan.Observation.
[2017-09-05] MEDS: QUEtiapine FUMARATE 100 MG TABLET (FP) PO SCH (22:18)
[2017-09-05] MEDS: THIAMINE HCL 100 MG TABLET (FP) PO SCH (22:18)
[2017-09-06] MEDS: chlordiazePOXIDE HCL 25 MG CAPSULE PO SCH ×2 (05:25→10:21)
[2017-09-06] MEDS: METHADONE HCL 5 MG TABLET (FOR DETOX USE ONLY) PO SCH (10:21)
[2017-09-06] MEDS: PRENATAL VITAMINS W/ FOLIC ACID TABLET (FP) PO SCH (10:21)
[2017-09-06] MEDS: NICOTINE 14 MG/24 HOURS TOPICAL PATCH TD SCH (10:22)
--- NOTE | 2017-09-06 10:22 | PN ---
[facility] CIWA - CIWA Score Nausea/Vomitin-No Nausea/No Vomiting Muscle Tremors: 3 Anxiety: 4-Mod. Anxious/Guarded Agitation: 4-Moderately Restless Paroxysmal Sweats: 1-Minimal Palms Moist Orientation: 0-Oriented Tacttile Disturbances: 3-Moderate Itch/Numb/Burn Auditory Disturbances: 0-None Visual Disturbances: 0-None Headache: 0-None Present CIWA-Ar Total Score: 15 BHS COWS - Scale Resting Pulse: 1= [place] 81-100 Sweatin= Chills/Flushing Restless Observation: 3= Extraneous Movement Pupil Size: 2= Moderately Dilated Bone or Joint Aches: 2= Severe Diffuse Aches Runny Nose/ Eye Tearin= Nasal Congestion GI Upset > 30mins: 0= None Tremor Observation of Outstretched Hands: 1= Tremor [place], Not Seen Yawning Observation: 1= 1-2x During Session Anxiety or Irritability: 1=Feels Anxious/Irritable Goose Flesh Skin: 0=Smooth Skin COWS Score: 13 S Progress Note (SOAP) Subjective: ANXIETY,SLIGHT TREMORS, SWEATS. Objective: 09/06/17 10:21 Vital Signs 09/06/17 09/06/17 09/06/17 03:30 06:14 09:18 Temperature 96.3 F L 97.7 F Pulse Rate 69 98 H Respiratory 18 16 20 Rate Blood Pressure 103/63 83/61 Laboratory Last Values WBC 6.4 K/mm3 (4.0-10.0) 09/05/17 06:30 RBC 4.96 M/mm3 (4.00-5.60) D 09/05/17 06:30 Hgb 15.0 GM/dL (11.7-16.9) D 09/05/17 06:30 Hct 46.0 % (35.4-49) D 09/05/17 06:30 MCV 92.7 fl (80-96) 09/05/17 06:30 MCH 30.2 pg (25.7-33.7) 09/05/17 06:30 MCHC 32.6 g/dl (32.0-35.9) 09/05/17 06:30 RDW 14.4 % (11.9-15.9) 09/05/17 06:30 Plt Count 335 K/MM3 (134-434) D 09/05/17 06:30 MPV 7.6 fl (7.5-11.1) 09/05/17 06:30 Sodium 137 mmol/L (136-145) 09/05/17 06:30 Potassium 4.6 mmol/L (3.5-5.1) 09/05/17 06:30 Chloride 103 mmol/L (98-107) 09/05/17 06:30 Carbon Dioxide 28 mmol/L (21-32) 09/05/17 06:30 Anion Gap 6 (8-16) L 09/05/17 06:30 BUN 10 mg/dL (7-18) 09/05/17 06:30 Creatinine 0.8 mg/dL (0.7-1.3) D 09/05/17 06:30 Creat Clearance w eGFR > 60 (>60) 09/05/17 06:30 Random Glucose 93 mg/dL (74-106) D 09/05/17 06:30 Calcium 8.8 mg/dL (8.5-10.1) 09/05/17 06:30 Total Bilirubin 0.9 mg/dL (0.2-1.0) D 09/05/17 06:30 AST 17 U/L (15-37) 09/05/17 06:30 ALT 20 U/L (12-78) D 09/05/17 06:30 Alkaline Phosphatase 97 U/L (45-117) D 09/05/17 06:30 Total Protein 6.7 g/dl (6.4-8.2) 09/05/17 06:30 Albumin 3.5 g/dl (3.4-5.0) 09/05/17 06:30 Urine Color Yellow 09/04/17 15:15 Urine Appearance Clear 09/04/17 15:15 Urine pH 6.0 (5.0-8.0) 09/04/17 15:15 Ur Specific [place] 1.020 (1.001-1.035) 09/04/17 15:15 Urine Protein Negative (NEGATIVE) 09/04/17 15:15 Urine Glucose (UA) Negative (NEGATIVE) 09/04/17 15:15 Urine Ketones Trace (NEGATIVE) H 09/04/17 15:15 Urine Blood Negative (NEGATIVE) 09/04/17 15:15 Urine Nitrite Negative (NEGATIVE) 09/04/17 15:15 Urine Bilirubin Negative (NEGATIVE) 09/04/17 15:15 Urine Urobilinogen 2.0 mg/dL (0.2-1.0) 09/04/17 15:15 Ur Leukocyte Esterase Negative (NEGATIVE) 09/04/17 15:15 RPR Titer Nonreactive (NONREACTIVE) 09/05/17 06:30 HIV 1&2 Antibody Screen Negative 09/05/17 06:30 HIV P24 Antigen Negative 09/05/17 06:30 Assessment: 09/06/17 10:22 WITHDRAWAL SX Plan: CONTINUE DETOX
--- NOTE | 2017-09-06 13:33 | EKG ---
Test Reason : Blood Pressure : / mmHG Vent. Rate : 063 BPM Atrial Rate : 063 BPM P-R Int : 148 ms QRS Dur : 088 ms QT Int : 396 ms P-R-T Axes : 054 083 076 degrees QTc Int : 405 ms NORMAL SINUS RHYTHM NORMAL ECG WHEN COMPARED WITH ECG OF 25-MAR-2017 16:00, INCOMPLETE RIGHT BUNDLE BRANCH BLOCK IS NO LONGER PRESENT Confirmed by DEANGELO HEATH, MAX ([id number]) on 09/06/2017 1:33:14 PM Referred By: Confirmed By:MAX BRIGHT MD
[2017-09-06] MEDS: chlordiazePOXIDE 5 MG CAPSULE PO SCH ×2 (17:24→22:19)
[2017-09-06] MEDS: THIAMINE HCL 100 MG TABLET (FP) PO SCH (22:19)
[2017-09-06] MEDS: QUEtiapine FUMARATE 100 MG TABLET (FP) PO SCH (22:19)
[2017-09-07] MEDS: chlordiazePOXIDE 5 MG CAPSULE PO SCH ×2 (05:54→10:31)
[2017-09-07] MEDS: PRENATAL VITAMINS W/ FOLIC ACID TABLET (FP) PO SCH (10:31)
[2017-09-07] MEDS: NICOTINE 14 MG/24 HOURS TOPICAL PATCH TD SCH (10:31)
[2017-09-07] MEDS: METHADONE HCL 5 MG TABLET (FOR DETOX USE ONLY) PO SCH (10:31)
--- NOTE | 2017-09-07 10:41 | PN ---
BHS Progress Note (SOAP) Subjective: SLIGHT ANXIETY,SWEATS,FATIGUE. ALERT O X 3. Objective: 09/07/17 10:40 Vital Signs Temperature 98.4 F 09/07/17 08:53 Pulse Rate 103 H 09/07/17 08:53 Respiratory Rate 20 09/07/17 08:53 Blood Pressure 95/67 09/07/17 08:53 O2 Sat by Pulse Oximetry (%) Laboratory Last Values WBC 6.4 K/mm3 (4.0-10.0) 09/05/17 06:30 RBC 4.96 M/mm3 (4.00-5.60) D 09/05/17 06:30 Hgb 15.0 GM/dL (11.7-16.9) D 09/05/17 06:30 Hct 46.0 % (35.4-49) D 09/05/17 06:30 MCV 92.7 fl (80-96) 09/05/17 06:30 MCH 30.2 pg (25.7-33.7) 09/05/17 06:30 MCHC 32.6 g/dl (32.0-35.9) 09/05/17 06:30 RDW 14.4 % (11.9-15.9) 09/05/17 06:30 Plt Count 335 K/MM3 (134-434) D 09/05/17 06:30 MPV 7.6 fl (7.5-11.1) 09/05/17 06:30 Sodium 137 mmol/L (136-145) 09/05/17 06:30 Potassium 4.6 mmol/L (3.5-5.1) 09/05/17 06:30 Chloride 103 mmol/L (98-107) 09/05/17 06:30 Carbon Dioxide 28 mmol/L (21-32) 09/05/17 06:30 Anion Gap 6 (8-16) L 09/05/17 06:30 BUN 10 mg/dL (7-18) 09/05/17 06:30 Creatinine 0.8 mg/dL (0.7-1.3) D 09/05/17 06:30 Creat Clearance w eGFR > 60 (>60) 09/05/17 06:30 Random Glucose 93 mg/dL (74-106) D 09/05/17 06:30 Calcium 8.8 mg/dL (8.5-10.1) 09/05/17 06:30 Total Bilirubin 0.9 mg/dL (0.2-1.0) D 09/05/17 06:30 AST 17 U/L (15-37) 09/05/17 06:30 ALT 20 U/L (12-78) D 09/05/17 06:30 Alkaline Phosphatase 97 U/L (45-117) D 09/05/17 06:30 Total Protein 6.7 g/dl (6.4-8.2) 09/05/17 06:30 Albumin 3.5 g/dl (3.4-5.0) 09/05/17 06:30 Urine Color Yellow 09/04/17 15:15 Urine Appearance Clear 09/04/17 15:15 Urine pH 6.0 (5.0-8.0) 09/04/17 15:15 Ur Specific [place] 1.020 (1.001-1.035) 09/04/17 15:15 Urine Protein Negative (NEGATIVE) 09/04/17 15:15 Urine Glucose (UA) Negative (NEGATIVE) 09/04/17 15:15 Urine Ketones Trace (NEGATIVE) H 09/04/17 15:15 Urine Blood Negative (NEGATIVE) 09/04/17 15:15 Urine Nitrite Negative (NEGATIVE) 09/04/17 15:15 Urine Bilirubin Negative (NEGATIVE) 09/04/17 15:15 Urine Urobilinogen 2.0 mg/dL (0.2-1.0) 09/04/17 15:15 Ur Leukocyte Esterase Negative (NEGATIVE) 09/04/17 15:15 RPR Titer Nonreactive (NONREACTIVE) 09/05/17 06:30 HIV 1&2 Antibody Screen Negative 09/05/17 06:30 HIV P24 Antigen Negative 09/05/17 06:30 Assessment: 09/07/17 10:40 WITHDRAWAL SX Plan: CONTINUE DETOX
[2017-09-07] MEDS: chlordiazePOXIDE HCL 10 MG CAPSULE PO SCH ×2 (17:18→22:16)
[2017-09-07] MEDS: THIAMINE HCL 100 MG TABLET (FP) PO SCH (22:16)
[2017-09-07] MEDS: QUEtiapine FUMARATE 100 MG TABLET (FP) PO SCH (22:16)
[2017-09-08] MEDS: chlordiazePOXIDE HCL 10 MG CAPSULE PO SCH ×2 (05:16→10:16)
[2017-09-08] MEDS ORDERED: METHADONE HCL 10 MG TABLET (FOR DETOX USE ONLY) PO SCH (10:00)
[2017-09-08] MEDS: NICOTINE 14 MG/24 HOURS TOPICAL PATCH TD SCH (10:16)
[2017-09-08] MEDS: PRENATAL VITAMINS W/ FOLIC ACID TABLET (FP) PO SCH (10:16)
--- NOTE | 2017-09-08 12:11 | PN ---
B[facility] Progress Note (SOAP) Subjective: ALERT O X 3. DECREASED ANXIETY, SWEATS. Objective: 09/08/17 12:10 Vital Signs Temperature 97.1 F L 09/08/17 09:27 Pulse Rate 96 H 09/08/17 09:27 Respiratory Rate 20 09/08/17 09:27 Blood Pressure 94/64 09/08/17 09:27 O2 Sat by Pulse Oximetry (%) Laboratory Last Values WBC 6.4 K/mm3 (4.0-10.0) 09/05/17 06:30 RBC 4.96 M/mm3 (4.00-5.60) D 09/05/17 06:30 Hgb 15.0 GM/dL (11.7-16.9) D 09/05/17 06:30 Hct 46.0 % (35.4-49) D 09/05/17 06:30 MCV 92.7 fl (80-96) 09/05/17 06:30 MCH 30.2 pg (25.7-33.7) 09/05/17 06:30 MCHC 32.6 g/dl (32.0-35.9) 09/05/17 06:30 RDW 14.4 % (11.9-15.9) 09/05/17 06:30 Plt Count 335 K/MM3 (134-434) D 09/05/17 06:30 MPV 7.6 fl (7.5-11.1) 09/05/17 06:30 Sodium 137 mmol/L (136-145) 09/05/17 06:30 Potassium 4.6 mmol/L (3.5-5.1) 09/05/17 06:30 Chloride 103 mmol/L (98-107) 09/05/17 06:30 Carbon Dioxide 28 mmol/L (21-32) 09/05/17 06:30 Anion Gap 6 (8-16) L 09/05/17 06:30 BUN 10 mg/dL (7-18) 09/05/17 06:30 Creatinine 0.8 mg/dL (0.7-1.3) D 09/05/17 06:30 Creat Clearance w eGFR > 60 (>60) 09/05/17 06:30 Random Glucose 93 mg/dL (74-106) D 09/05/17 06:30 Calcium 8.8 mg/dL (8.5-10.1) 09/05/17 06:30 Total Bilirubin 0.9 mg/dL (0.2-1.0) D 09/05/17 06:30 AST 17 U/L (15-37) 09/05/17 06:30 ALT 20 U/L (12-78) D 09/05/17 06:30 Alkaline Phosphatase 97 U/L (45-117) D 09/05/17 06:30 Total Protein 6.7 g/dl (6.4-8.2) 09/05/17 06:30 Albumin 3.5 g/dl (3.4-5.0) 09/05/17 06:30 Urine Color Yellow 09/04/17 15:15 Urine Appearance Clear 09/04/17 15:15 Urine pH 6.0 (5.0-8.0) 09/04/17 15:15 Ur Specific [place] 1.020 (1.001-1.035) 09/04/17 15:15 Urine Protein Negative (NEGATIVE) 09/04/17 15:15 Urine Glucose (UA) Negative (NEGATIVE) 09/04/17 15:15 Urine Ketones Trace (NEGATIVE) H 09/04/17 15:15 Urine Blood Negative (NEGATIVE) 09/04/17 15:15 Urine Nitrite Negative (NEGATIVE) 09/04/17 15:15 Urine Bilirubin Negative (NEGATIVE) 09/04/17 15:15 Urine Urobilinogen 2.0 mg/dL (0.2-1.0) 09/04/17 15:15 Ur Leukocyte Esterase Negative (NEGATIVE) 09/04/17 15:15 RPR Titer Nonreactive (NONREACTIVE) 09/05/17 06:30 HIV 1&2 Antibody Screen Negative 09/05/17 06:30 HIV P24 Antigen Negative 09/05/17 06:30 Assessment: 09/08/17 12:10 WITHDRAWAL SX Plan: CONTINUE DETOX INCREASE PO FLUIDS
[2017-09-08] MEDS ORDERED: ALBUTEROL SO4 18 GM HFA INHALER IH PRN (12:12)
[2017-09-08] MEDS: QUEtiapine FUMARATE 100 MG TABLET (FP) PO SCH (22:27)
[2017-09-08] MEDS: THIAMINE HCL 100 MG TABLET (FP) PO SCH (22:27)
[2017-09-09] MEDS ORDERED: METHADONE HCL 5 MG TABLET (FOR DETOX USE ONLY) PO SCH (06:00)
[2017-09-09 06:23] VITALS: BP 94/58; PULSE 78; TEMP 97.1
--- NOTE | 2017-09-09 16:32 | DS ---
[facility] Detox Discharge Summary Admission Date: 09/04/17 Discharge Date: 09/09/17 - History Present History: Alcohol Dependence, Cannabis Dependence, Cocaine Dependence, Opioid Dependence Pertinent Past History: COPD, Hep C, Asthma, Bipolar Disorder - Physical Exam Results Vital Signs: Vital Signs Temperature 97.1 F L 09/09/17 06:22 Pulse Rate 78 09/09/17 06:22 Respiratory Rate 18 09/09/17 06:22 Blood Pressure 94/58 09/09/17 06:22 O2 Sat by Pulse Oximetry (%) Pertinent Admission Physical Exam Findings: withdrawal sx Laboratory Last Values WBC 6.4 K/mm3 (4.0-10.0) 09/05/17 06:30 RBC 4.96 M/mm3 (4.00-5.60) D 09/05/17 06:30 Hgb 15.0 GM/dL (11.7-16.9) D 09/05/17 06:30 Hct 46.0 % (35.4-49) D 09/05/17 06:30 MCV 92.7 fl (80-96) 09/05/17 06:30 MCH 30.2 pg (25.7-33.7) 09/05/17 06:30 MCHC 32.6 g/dl (32.0-35.9) 09/05/17 06:30 RDW 14.4 % (11.9-15.9) 09/05/17 06:30 Plt Count 335 K/MM3 (134-434) D 09/05/17 06:30 MPV 7.6 fl (7.5-11.1) 09/05/17 06:30 Sodium 137 mmol/L (136-145) 09/05/17 06:30 Potassium 4.6 mmol/L (3.5-5.1) 09/05/17 06:30 Chloride 103 mmol/L (98-107) 09/05/17 06:30 Carbon Dioxide 28 mmol/L (21-32) 09/05/17 06:30 Anion Gap 6 (8-16) L 09/05/17 06:30 BUN 10 mg/dL (7-18) 09/05/17 06:30 Creatinine 0.8 mg/dL (0.7-1.3) D 09/05/17 06:30 Creat Clearance w eGFR > 60 (>60) 09/05/17 06:30 Random Glucose 93 mg/dL (74-106) D 09/05/17 06:30 Calcium 8.8 mg/dL (8.5-10.1) 09/05/17 06:30 Total Bilirubin 0.9 mg/dL (0.2-1.0) D 09/05/17 06:30 AST 17 U/L (15-37) 09/05/17 06:30 ALT 20 U/L (12-78) D 09/05/17 06:30 Alkaline Phosphatase 97 U/L (45-117) D 09/05/17 06:30 Total Protein 6.7 g/dl (6.4-8.2) 09/05/17 06:30 Albumin 3.5 g/dl (3.4-5.0) 09/05/17 06:30 Urine Color Yellow 09/04/17 15:15 Urine Appearance Clear 09/04/17 15:15 Urine pH 6.0 (5.0-8.0) 09/04/17 15:15 Ur Specific [place] 1.020 (1.001-1.035) 09/04/17 15:15 Urine Protein Negative (NEGATIVE) 09/04/17 15:15 Urine Glucose (UA) Negative (NEGATIVE) 09/04/17 15:15 Urine Ketones Trace (NEGATIVE) H 09/04/17 15:15 Urine Blood Negative (NEGATIVE) 09/04/17 15:15 Urine Nitrite Negative (NEGATIVE) 09/04/17 15:15 Urine Bilirubin Negative (NEGATIVE) 09/04/17 15:15 Urine Urobilinogen 2.0 mg/dL (0.2-1.0) 09/04/17 15:15 Ur Leukocyte Esterase Negative (NEGATIVE) 09/04/17 15:15 RPR Titer Nonreactive (NONREACTIVE) 09/05/17 06:30 HIV 1&2 Antibody Screen Negative 09/05/17 06:30 HIV P24 Antigen Negative 09/05/17 06:30 Labs noted - Treatment Hospital Course: Detox Protocol Followed, Detoxed Safely, Responded well, Discharged Condition Good - Medication Discharge Medications: Ambulatory Orders Albuterol Sulfate Inhaler - [Ventolin HFA Inhaler -] 2 inh PO Q4H PRN 03/25/17 Mirtazapine [Remeron -] 30 mg PO HS 03/25/17 Quetiapine Fumarate [Seroquel] 100 mg PO HS #30 tablet 03/27/17 Quetiapine Fumarate [Seroquel] 100 mg PO HS #30 tablet 09/05/17 - Diagnosis (1) Alcohol dependence with uncomplicated withdrawal Status: Acute (2) Cocaine dependence, uncomplicated Status: Acute (3) Nicotine dependence Status: Acute Qualifiers: Nicotine product type: cigarettes Substance use status: in withdrawal Qualified Code(s): F17.213 - Nicotine dependence, cigarettes, with withdrawal (4) Opioid dependence with withdrawal Status: Acute (5) COPD (chronic obstructive pulmonary disease) Status: Chronic Qualifiers: COPD type: emphysema Emphysema type: other Qualified Code(s): J43.8 - Other emphysema (6) Schizoaffective disorder Status: Chronic (7) Bipolar II disorder Status: Suspected - AMA Did Patient Leave Against Medical Advice: No
== END 2017-09-09 07:18 | disposition home or self-care (01) | DRG 773 ==
LOC: YASAS 11:36 → Y3N 14:06
PROVIDERS: ADMIT Internal Medicine; ATTEND Internal Medicine
PROC: HZ2ZZZZ Detoxification Services for Substance Abuse Treatment (ICD-10-PCS; principal; 2017-09-04)
DX: F11.23 Opioid dependence with withdrawal (principal); F10.230 Alcohol dependence with withdrawal, uncomplicated; F14.20 Cocaine dependence, uncomplicated; F12.20 Cannabis dependence, uncomplicated; F25.9 Schizoaffective disorder, unspecified; F31.9 Bipolar disorder, unspecified; F19.24 Other psychoactive substance dependence with psychoactive substance-induced mood disorder; G47.00 Insomnia, unspecified; B18.2 Chronic viral hepatitis C; J45.909 Unspecified asthma, uncomplicated; J43.8 Other emphysema
CPT/HCPCS: 36415; 80053; 81003; 85027; 86593; 87389; 93005; 93010

== ENCOUNTER 2017-11-09 11:50 | Inpatient (IN) | payer BC ==
[2017-11-09 14:27] VITALS: BMI 24.2
--- NOTE | 2017-11-09 15:09 | HP ---
COWS - Scale Resting Pulse: 0= [place] 80 or Below Sweatin=Flushed/Facial Moisture Restless Observation: 3= Extraneous Movement Pupil Size: 2= Moderately Dilated Bone or Joint Aches: 2= Severe Diffuse Aches Runny Nose/ Eye Tearin= Runny Nose/Eyes GI Upset > 30mins: 3= Vomiting/Diarrhea Tremor Observation: 2= Slight Tremor Visible Yawning Observation: 2= >3x During Session Anxiety or Irritability: 2=Irritable/Anxious Goose Flesh Skin: 0=Smooth Skin COWS Score: 20 CIWA Score - CIWA Score Nausea/Vomitin Muscle Tremors: 3 Anxiety: 3 Agitation: 3 Paroxysmal Sweats: 2 Orientation: 0-Oriented Tacttile Disturbances: 2-Mild Itch/Numbness/Burn Auditory Disturbances: 2-Mild Harshness/Frighten Visual Disturbances: 2-Mild Sensitivity Headache: 2-Mild CIWA-Ar Total Score: 22 Admission ROS BHS - HPI Chief Complaint: I NEED HELP TO STOP USING HEROIN,ALCOHOL,,AND COCAINE DEPENDENCE Allergies/Adverse Reactions: Allergies Allergy/AdvReac Type Severity Reaction Status Date / Time No Known Allergies Allergy Verified 11/09/17 15:04 History of Present Illness: THIS 51YEARS OLD MALE WITH HEROIN,ALCOHOL,COCAINE DEPENDENCE,SEEKING DETOX, WITHDRAWAL SYMPTOM,LAST DETOX 09/04/17 TO 09/09/17 NICOTINE DEPENDENCE BIPOLAR DISORDER HEPATITIS C TREATED WEIGHT LOSS LONGEST PERIOD OF SOBRIETY 18 YEARS - Ebola screening Have you traveled outside of the country in the last 21 days: No (N) Have you had contact with anyone from an Ebola affected area: No Have you been sick,other than usual withdrawal symptoms: No Do you have a fever: No - Review of Systems Constitutional: Loss of Appetite, Malaise, Night Sweats, Changes in sleep, Weakness, Unintentional Wgt. Loss EENT: reports: Tearing, Nose Congestion Respiratory: reports: No Symptoms reported Cardiac: reports: No Symptoms Reported GI: reports: Diarrhea, Nausea, Vomiting, Abdominal cramping : reports: No Symptoms Reported Musculoskeletal: reports: Back Pain, Joint Pain, Muscle Pain, Joint Stiffness Integumentary: reports: Dryness Neuro: reports: Headache, Tremors Endocrine: reports: No Symptoms Reported Hematology: reports: No Symptoms Reported Psychiatric: reports: No Sypmtoms Reported, Mood/Affect Appropiate, Orientated x3, Agitated, Anxious Patient History - Patient Medical History Hx Anemia: No Hx Asthma: No Hx Chronic Obstructive Pulmonary Disease (COPD): Yes (ON MDI) Hx Cancer: No Hx Cardiac Disorders: No Hx Congestive Heart Failure: No Hx Hypertension: No Hx Hypercholesterolemia: No Hx Pacemaker: No HX Cerebrovascular Accident: No Hx Seizures: No Hx Dementia: No Hx Diabetes: No Hx Gastrointestinal Disorders: No Hx Liver Disease: No Hx Genitourinary Disorders: No Hx Sexually Transmitted Disorders: No Hx Renal Disease (ESRD): No Hx Thyroid Disease: No Hx Human Immunodeficiency Virus (HIV): No (NEGATIVE HX) Hx Hepatitis C: Yes (TREATED--"UNDETECTABLE") Hx Depression: Yes (AND INSOMNIA--NO CURRENT MEDS) Hx Suicide Attempt: No (DENIES) Hx Bipolar Disorder: Yes Hx Schizophrenia: No Other Medical History: NO SUICIDAL,NO HOMICIDAL - Patient Surgical History Past Surgical History: No Hx Neurologic Surgery: No Hx Cataract Extraction: No Hx Cardiac Surgery: No Hx Lung Surgery: No Hx Breast Surgery: No Hx Breast Biopsy: No Hx Abdominal Surgery: No Hx Appendectomy: No Hx Cholecystectomy: No Hx Genitourinary Surgery: No Hx Section: No Hx Orthopedic Surgery: No Anesthesia Reaction: No - PPD History Previous Implant?: Yes Documented Results: Negative w/o proof Date: 11/18/16 Results: 0mm PPD to be Administered?: Yes - Smoking Cessation Smoking history: Current every day smoker Have you smoked in the past 12 months: Yes Aproximately how many cigarettes per day: 10 Cigars Per Day: 0 Hx Chewing Tobacco Use: No Initiated information on smoking cessation: Yes 'Breaking Loose' booklet given: 11/09/17 - Substance & Tx. History Hx Alcohol Use: Yes Hx Substance Use: Yes Substance Use Type: Alcohol, Cocaine, Heroin Hx Substance Use Treatment: Yes (09/04/17 TO 09/09/17) - Substances Abused Heroin Route: Injection Frequency: Daily Amount used: 8-9 BAGS Age of first use: 13 Date of Last Use: 11/08/17 Alcohol Route: Oral Frequency: Daily Amount used: 2 PINTS VODKA Age of first use: 13 Date of Last Use: 11/08/17 Cocaine Route: Injection Frequency: Daily Amount used: $20 Age of first use: 14 Date of Last Use: 11/08/17 Family Disease History - Family Disease History Family Disease History: [place]: Father (, etoh), Mother (), Other: Brother (alive, hx Drug & Alcohol), Sister (one living, healthy), Son (age 20, healthy, ), Daughter (agd 16, healthy, ) Admission Physical Exam S - Vital Signs Vital Signs: Vital Signs - 24 hr 11/09/17 14:25 Temperature 96 F L Pulse Rate 78 Respiratory 20 Rate Blood Pressure 130/69 - Physical General Appearance: Yes: Moderate Distress, Tremorous, Irritable, Sweating, Anxious HEENTM: Yes: Normal ENT Inspection, Normocephalic, DEYANIRA, Pharynx Normal Respiratory: Yes: Within Normal Limits, Normal Breath Sounds, No Respiratory Distress Neck: Yes: Within Normal Limits, Supple, Trachea in good position Breast: Yes: Within Normal Limits Cardiology: Yes: Within Normal Limits, Regular Rhythm, Regular Rate, S1, S2 Abdominal: Yes: Within Normal Limits, Normal Bowel Sounds, Non Tender, Flat, Soft Genitourinary: Yes: Within Normal Limits Back: Yes: Within Normal Limits, Normal Inspection, Muscle Spasm Musculoskeletal: Yes: Within Normal Limits, full range of Motion, Back pain, Joint Stiffness, Muscle Pain Extremities: Yes: Within Normal Limits, Normal Range of Motion, Tremors 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: Yes: 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 II-XII NML intact, Fully Oriented, Alert, Motor Strength 5/5 Integumentary: Yes: Dry Lymphatic: Yes: Within Normal Limits - Diagnostic (1) Opioid dependence with withdrawal Current Visit: No Status: Acute (2) Alcohol dependence with uncomplicated withdrawal Current Visit: No Status: Acute (3) Cocaine dependence Current Visit: No Status: Acute Qualifiers: Substance use status: uncomplicated Qualified Code(s): F14.20 - Cocaine dependence, uncomplicated (4) Drug-induced mood disorder Current Visit: No Status: Acute (5) Insomnia Current Visit: No Status: Acute (6) Nicotine dependence Current Visit: No Status: Acute Qualifiers: Nicotine product type: cigarettes Substance use status: in withdrawal Qualified Code(s): F17.213 - Nicotine dependence, cigarettes, with withdrawal (7) History of hepatitis C Current Visit: No Status: Chronic (8) Insomnia Current Visit: Yes Status: Acute (9) Anxiety and depression Current Visit: Yes Status: Acute (10) Insomnia Current Visit: Yes Status: Acute (11) Weight loss Current Visit: Yes Status: Acute (12) COPD (chronic obstructive pulmonary disease) Current Visit: No Status: Chronic Qualifiers: COPD type: emphysema Emphysema type: other Qualified Code(s): J43.8 - Other emphysema Cleared for Admission BHS - Detox or Rehab BHS Level of Care: Medically Managed Detox Regimen/Protocol: Methadone/Librium BHS Breath Alcohol Content Breath Alcohol Content: 0 Urine Drug Screen - Results Drug Screen Negative: No Urine Drug Screen Results: SWAPNA-Cocaine, OPI-Opiates
[2017-11-09] MEDS ORDERED: P-EPHED 60MG/TRIPROLIDI 2.5MG TABLET PO PRN (15:37)
[2017-11-09] MEDS ORDERED: guaiFENesin/D-METHORPHAN HB 10 ML UNIT-DOSE CUPS PO PRN (15:37)
[2017-11-09] MEDS ORDERED: ACETAMINOPHEN 325 MG TABLET (FP) PO PRN (15:37)
[2017-11-09] MEDS ORDERED: MAGNESIUM HYDROX 2400MG/30ML ORAL SUSPENSION 30 ML CUP PO PRN (15:37)
[2017-11-09] MEDS ORDERED: IBUPROFEN 400 MG TABLET (FP) PO PRN (15:37)
[2017-11-09] MEDS ORDERED: LOPERAMIDE HCL 2 MG CAPSULE PO PRN (15:37)
[2017-11-09] MEDS ORDERED: MAGNESIUM CITRATE 300 ML BOTTLE PO PRN (15:37)
[2017-11-09] MEDS ORDERED: MENTHOL/PHENOL 1 EACH UD MM PRN (15:37)
[2017-11-09] MEDS ORDERED: chlordiazePOXIDE HCL 25 MG CAPSULE PO ONE (15:37)
[2017-11-09] MEDS ORDERED: chlordiazePOXIDE HCL 25 MG CAPSULE PO PRN (15:37)
[2017-11-09] MEDS ORDERED: NICOTINE POLACRILEX 2 MG GUM BC PRN (15:37)
[2017-11-09] MEDS ORDERED: hydrOXYzine PAMOATE 50 MG CAPSULE (FP) PO PRN (15:37)
[2017-11-09] MEDS ORDERED: ALBUTEROL SO4 18 GM HFA INHALER IH PRN (15:42)
[2017-11-09] MEDS ORDERED: METHADONE HCL 10 MG TABLET (FOR DETOX USE ONLY) PO ONE ×2 (17:00→23:00)
[2017-11-09] MEDS: chlordiazePOXIDE HCL 25 MG CAPSULE PO SCH ×2 (18:28→22:41)
[2017-11-09] MEDS: MAG HYDROX/AL HYDROX/SIMETH 30 ML UNIT-DOSE CUP PO PRN (18:32)
[2017-11-09] MEDS: NICOTINE 21 MG/24 HOURS TOPICAL PATCH TD SCH (18:39)
[2017-11-09 21:05] LABS: URINE APPEARANCE SLCLOUDY; URINE BILIRUBIN NEGATIVE (NEGATIVE); URINE BLOOD NEGATIVE (NEGATIVE); URINE COLOR YELLOW; URINE GLUCOSE (UA) NEGATIVE (NEGATIVE); URINE KETONE NEGATIVE (NEGATIVE); URINE LEUK ESTERASE NEGATIVE (NEGATIVE); URINE NITRITE NEGATIVE (NEGATIVE); URINE PROTEIN NEGATIVE (NEGATIVE); URINE UROBILINOGEN NEGATIVE mg/dL (0.2-1.0)
--- NOTE | 2017-11-09 21:26 | PN ---
S Progress Note Note: Patient with abnormal EKG. Patient evaluated : Patient AOx3 self directing, in no apparent distress, patient denies SOB, chest pain, dizziness, dyspnea, or paresthesia. HR, rythim within normal limits No adventitious breath sounds Negative neuro symptoms Repeat EKG Increase fluids Continue to monitor
[2017-11-09] MEDS: cloNIDine HCL 0.1 MG TABLET PO SCH (22:40)
[2017-11-09] MEDS: THIAMINE HCL 100 MG TABLET (FP) PO SCH (22:40)
[2017-11-10] MEDS: chlordiazePOXIDE HCL 25 MG CAPSULE PO SCH ×4 (05:17→22:23)
--- NOTE | 2017-11-10 08:43 | EKG ---
Test Reason : Blood Pressure : / mmHG Vent. Rate : 074 BPM Atrial Rate : 074 BPM P-R Int : 160 ms QRS Dur : 084 ms QT Int : 384 ms P-R-T Axes : 076 086 074 degrees QTc Int : 426 ms NORMAL SINUS RHYTHM ABNORMAL ECG WHEN COMPARED WITH ECG OF 04-SEP-2017 16:33, NO SIGNIFICANT CHANGE WAS FOUND Confirmed by QIANA BETANCUR MD ([id number]) on 11/10/2017 8:43:19 AM Referred By: Confirmed By:QIANA BETANCUR MD
[2017-11-10] MEDS ORDERED: METHADONE HCL 10 MG TABLET (FOR DETOX USE ONLY) PO SCH (10:00)
[2017-11-10] MEDS: PRENATAL VITAMINS W/ FOLIC ACID TABLET (FP) PO SCH (10:14)
[2017-11-10] MEDS: CYCLOBENZAPRINE HCL 10 MG TABLET (FP) PO PRN ×2 (10:14→22:23)
[2017-11-10] MEDS: cloNIDine HCL 0.1 MG TABLET PO SCH ×2 (10:14→22:23)
[2017-11-10] MEDS: NICOTINE 21 MG/24 HOURS TOPICAL PATCH TD SCH (10:15)
[2017-11-10 10:30] LABS: ALBUMIN 3.6 g/dl (3.4-5.0); ANION GAP 10 (8-16); BILIRUBIN,TOTAL 0.8 mg/dL (0.2-1.0); BLOOD UREA NITROGEN 16 mg/dL (7-18); CALCIUM 8.9 mg/dL (8.5-10.1); CHLORIDE 98 mmol/L (98-107); CO2 29 mmol/L (21-32); CREATININE 0.8 mg/dL (0.7-1.3); GLUCOSE,RANDOM 70 mg/dL (74-106); POTASSIUM 4.3 mmol/L (3.5-5.1); SGOT/AST 25 U/L (15-37); SGPT/ALT 28 U/L (12-78); SODIUM 137 mmol/L (136-145); TOT PROT 6.8 g/dl (6.4-8.2)
[2017-11-10 10:31] LABS: ALK PHOS 107 U/L (45-117)
[2017-11-10 10:38] LABS: HEMATOCRIT 37.8 % (35.4-49); MCH 31.6 pg (25.7-33.7); MCHC 34.3 g/dl (32.0-35.9); MEAN CELL VOLUME 92.2 fl (80-96); MEAN PLT VOLUME 8.2 fl (7.5-11.1); PLATELET COUNT 318 K/MM3 (134-434); RDW 14.1 % (11.9-15.9); WHITE BLOOD COUNT 8.1 K/mm3 (4.0-10.0)
--- NOTE | 2017-11-10 10:40 | CONSULT ---
[facility] Psychiatric Consult - Data Date of interview: 11/10/17 Admission source: [facility] Identifying data: Pt. is a 51 year old single male, without kids, recently laid off, and living alone. This is one of multiple admissions for patient. Pt. admitted to for alcohol, cocaine, opiate dependence. Substance Abuse History: Following information confirmed with Mr. Thomas: Smoking Cessation. Smoking history: Current every day smoker. Have you smoked in the past 12 months: Yes. Aproximately how many cigarettes per day: 10. Cigars Per Day: 0. Hx Chewing Tobacco Use: No. Initiated information on smoking cessation: Yes. 'Breaking Loose' booklet given: 11/09/17. - Substance & Tx. History. Hx Alcohol Use: Yes. Hx Substance Use: Yes. Substance Use Type : Alcohol, Cocaine, Heroin. Hx Substance Use Treatment: Yes (09/04/17 TO ). - Substances Abused. Heroin. Route: Injection. Frequency: Daily. Amount used: 8-9 BAGS. Age of first use: 13. Date of Last Use: 11/08/17. Alcohol. Route: Oral. Frequency: Daily. Amount used: 2 PINTS VODKA. Age of first use: 13. Date of Last Use: 11/08/17. Cocaine. Route: Injection. Frequency: Daily. Amount used: $20. Age of first use: 14. Date of Last Use: 11/08/17 Medical History: COPD Psychiatric History: Pt. reports three psychiatric hospitalizations. Pt. was most recently hospitalized at [facility] 6 months ago for depression. Pt. has also been hospitalized [facility]. Diagnosis of MDD. Pt. is nonadherent to medications and outpatient care. Pt. states he has been prescribed seroquel + Mirtzapine in the past. No medications taken in over six months. Pt. reports suicidal ideation of jumping off the roof 2 years ago but was stopped by friend. Pt. currently denies suicidal and homicidal ideation. Physical/Sexual Abuse/Trauma History: Denies. Mental Status Exam - Mental Status Exam Alert and Oriented to: Time, Place, Person Cognitive Function: Good Patient Appearance: Well Groomed Mood: Euthymic Affect: Appropriate Patient Behavior: Cooperative Speech Pattern: Appropriate Voice Loudness: Normal Thought Process: Goal Oriented Thought Disorder: Not Present Hallucinations: Denies Suicidal Ideation: Denies Homicidal Ideation: Denies Insight/Judgement: Poor Sleep: Poorly Appetite: Fair Muscle strength/Tone: Normal Gait/Station: Normal Psychiatric Findings - Problem List ([place] 1, 2,3) (1) Substance induced mood disorder Current Visit: Yes Status: Acute (2) Alcohol dependence with uncomplicated withdrawal Current Visit: Yes Status: Acute (3) Cocaine dependence, uncomplicated Current Visit: Yes Status: Acute (4) Nicotine dependence Current Visit: Yes Status: Acute Qualifiers: Nicotine product type: cigarettes Substance use status: in withdrawal Qualified Code(s): F17.213 - Nicotine dependence, cigarettes, with withdrawal (5) Opioid dependence with withdrawal Current Visit: Yes Status: Acute - Initial Treatment Plan Initial Treatment Plan: Psychoeducation provided. Detoxification in progress. Seroquel 50mg qhs ordered. Benefits and side effects discussed. Verbal consent given. Will continue to monitor.
--- NOTE | 2017-11-10 12:09 | PN ---
S CIWA - CIWA Score Nausea/Vomitin Muscle Tremors: 2 Anxiety: 3 Agitation: 3 Paroxysmal Sweats: 3 Orientation: 0-Oriented Tacttile Disturbances: 3-Moderate Itch/Numb/Burn Auditory Disturbances: 0-None Visual Disturbances: 0-None Headache: 0-None Present CIWA-Ar Total Score: 17 BHS COWS - Scale Resting Pulse: 2= [place] 101-120 Sweatin=Flushed/Facial Moisture Restless Observation: 1= Difficult to Sit Still Pupil Size: 1= Pupils >than Normal Bone or Joint Aches: 2= Severe Diffuse Aches Runny Nose/ Eye Tearin= Nasal Congestion GI Upset > 30mins: 2= Nausea/Diarrhea Tremor Observation of Outstretched Hands: 2= Slight Tremor Visible Yawning Observation: 1= 1-2x During Session Anxiety or Irritability: 2=Irritable/Anxious Goose Flesh Skin: 0=Smooth Skin COWS Score: 16 BHS Progress Note (SOAP) Subjective: interrupted sleep, sweats, diarrhea, achy Objective: 11/10/17 12:06 Vital Signs Temperature 97.9 F 11/10/17 09:41 Pulse Rate 103 H 11/10/17 09:41 Respiratory Rate 18 11/10/17 09:41 Blood Pressure 138/79 11/10/17 09:41 O2 Sat by Pulse Oximetry (%) Laboratory Tests 11/09/17 11/09/17 11/10/17 16:00 18:31 05:50 WBC 8.1 RBC 4.10 Hgb 13.0 D Hct 37.8 D MCV 92.2 MCH 31.6 MCHC 34.3 RDW 14.1 Plt Count 318 MPV 8.2 Sodium Potassium Chloride Carbon Dioxide Anion Gap BUN Creatinine Creat Clearance w eGFR Random Glucose Calcium Total Bilirubin AST ALT Alkaline Phosphatase Total Protein Albumin Urine Color Yellow Urine Appearance Slcloudy Urine pH 6.0 Ur Specific [place] 1.024 Urine Protein Negative Urine Glucose (UA) Negative Urine Ketones Negative Urine Blood Negative Urine Nitrite Negative Urine Bilirubin Negative Urine Urobilinogen Negative Ur Leukocyte Esterase Negative RPR Titer HIV 1&2 Antibody Screen Negative HIV P24 Antigen Negative 11/10/17 11/10/17 05:50 05:50 WBC RBC Hgb Hct MCV MCH MCHC RDW Plt Count MPV Sodium 137 Potassium 4.3 Chloride 98 Carbon Dioxide 29 Anion Gap 10 BUN 16 D Creatinine 0.8 Creat Clearance w eGFR > 60 Random Glucose 70 L D Calcium 8.9 Total Bilirubin 0.8 AST 25 D ALT 28 D Alkaline Phosphatase 107 Total Protein 6.8 Albumin 3.6 Urine Color Urine Appearance Urine pH Ur Specific [place] Urine Protein Urine Glucose (UA) Urine Ketones Urine Blood Urine Nitrite Urine Bilirubin Urine Urobilinogen Ur Leukocyte Esterase RPR Titer Nonreactive HIV 1&2 Antibody Screen HIV P24 Antigen pt aox3 ,uncomfortable , sitting up in bed Assessment: 11/10/17 12:07 withdrawal sx's Plan: cont. detox increase fluids motrin prn
--- NOTE | 2017-11-10 15:38 | EKG ---
Test Reason : Blood Pressure : / mmHG Vent. Rate : 078 BPM Atrial Rate : 078 BPM P-R Int : 152 ms QRS Dur : 084 ms QT Int : 384 ms P-R-T Axes : 059 088 076 degrees QTc Int : 437 ms NORMAL SINUS RHYTHM NORMAL ECG WHEN COMPARED WITH ECG OF 09-NOV-2017 18:41, NON-SPECIFIC CHANGE IN ST SEGMENT IN ANTERIOR LEADS Confirmed by PIPE HEATH, QIANA ([id number]) on 11/10/2017 3:38:05 PM Referred By: Confirmed By:QIANA BETANCUR MD
[2017-11-10] MEDS: THIAMINE HCL 100 MG TABLET (FP) PO SCH (22:23)
[2017-11-10] MEDS: QUEtiapine FUMARATE 50 MG TABLET PO SCH (22:23)
[2017-11-11] MEDS: chlordiazePOXIDE HCL 25 MG CAPSULE PO SCH ×2 (06:04→10:27)
[2017-11-11] MEDS: PRENATAL VITAMINS W/ FOLIC ACID TABLET (FP) PO SCH (10:27)
[2017-11-11] MEDS: METHADONE HCL 5 MG TABLET (FOR DETOX USE ONLY) PO SCH (10:27)
[2017-11-11] MEDS: cloNIDine HCL 0.1 MG TABLET PO SCH ×2 (10:27→22:14)
[2017-11-11] MEDS: NICOTINE 21 MG/24 HOURS TOPICAL PATCH TD SCH (10:27)
--- NOTE | 2017-11-11 15:50 | PN ---
[facility] CIWA - CIWA Score Nausea/Vomitin-Mild Nausea/No Vomiting Muscle Tremors: 4-Moderate,w/Arms Extend Anxiety: 4-Mod. Anxious/Guarded Agitation: 5 Paroxysmal Sweats: 3 Orientation: 0-Oriented Tacttile Disturbances: 0-None Auditory Disturbances: 0-None Visual Disturbances: 0-None Headache: 0-None Present CIWA-Ar Total Score: 17 S COWS - Scale Resting Pulse: 1= [place] 81-100 Sweatin=Flushed/Facial Moisture Restless Observation: 3= Extraneous Movement Pupil Size: 0= Normal to Room Light Bone or Joint Aches: 1= Mild Discomfort Runny Nose/ Eye Tearin= Nasal Congestion GI Upset > 30mins: 0= None Tremor Observation of Outstretched Hands: 2= Slight Tremor Visible Yawning Observation: 1= 1-2x During Session Anxiety or Irritability: 4=Extreme Anxiety Goose Flesh Skin: 0=Smooth Skin COWS Score: 15 [facility] Progress Note (SOAP) Subjective: sweats shakes anxious Objective: 11/11/17 15:48 a & O x 3 irritable Vital Signs Temperature 98.1 F 11/11/17 14:29 Pulse Rate 88 11/11/17 14:29 Respiratory Rate 18 11/11/17 14:29 Blood Pressure 100/61 11/11/17 14:29 O2 Sat by Pulse Oximetry (%) Laboratory Last Values WBC 8.1 K/mm3 (4.0-10.0) 11/10/17 05:50 RBC 4.10 M/mm3 (4.00-5.60) 11/10/17 05:50 Hgb 13.0 GM/dL (11.7-16.9) D 11/10/17 05:50 Hct 37.8 % (35.4-49) D 11/10/17 05:50 MCV 92.2 fl (80-96) 11/10/17 05:50 MCH 31.6 pg (25.7-33.7) 11/10/17 05:50 MCHC 34.3 g/dl (32.0-35.9) 11/10/17 05:50 RDW 14.1 % (11.9-15.9) 11/10/17 05:50 Plt Count 318 K/MM3 (134-434) 11/10/17 05:50 MPV 8.2 fl (7.5-11.1) 11/10/17 05:50 Sodium 137 mmol/L (136-145) 11/10/17 05:50 Potassium 4.3 mmol/L (3.5-5.1) 11/10/17 05:50 Chloride 98 mmol/L (98-107) 11/10/17 05:50 Carbon Dioxide 29 mmol/L (21-32) 11/10/17 05:50 Anion Gap 10 (8-16) 11/10/17 05:50 BUN 16 mg/dL (7-18) D 11/10/17 05:50 Creatinine 0.8 mg/dL (0.7-1.3) 11/10/17 05:50 Creat Clearance w eGFR > 60 (>60) 11/10/17 05:50 Random Glucose 70 mg/dL (74-106) L D 11/10/17 05:50 Calcium 8.9 mg/dL (8.5-10.1) 11/10/17 05:50 Total Bilirubin 0.8 mg/dL (0.2-1.0) 11/10/17 05:50 AST 25 U/L (15-37) D 11/10/17 05:50 ALT 28 U/L (12-78) D 11/10/17 05:50 Alkaline Phosphatase 107 U/L (45-117) 11/10/17 05:50 Total Protein 6.8 g/dl (6.4-8.2) 11/10/17 05:50 Albumin 3.6 g/dl (3.4-5.0) 11/10/17 05:50 Urine Color Yellow 11/09/17 18:31 Urine Appearance Slcloudy 11/09/17 18:31 Urine pH 6.0 (5.0-8.0) 11/09/17 18:31 Ur Specific [place] 1.024 (1.001-1.035) 11/09/17 18:31 Urine Protein Negative (NEGATIVE) 11/09/17 18:31 Urine Glucose (UA) Negative (NEGATIVE) 11/09/17 18:31 Urine Ketones Negative (NEGATIVE) 11/09/17 18:31 Urine Blood Negative (NEGATIVE) 11/09/17 18:31 Urine Nitrite Negative (NEGATIVE) 11/09/17 18:31 Urine Bilirubin Negative (NEGATIVE) 11/09/17 18:31 Urine Urobilinogen Negative mg/dL (0.2-1.0) 11/09/17 18:31 Ur Leukocyte Esterase Negative (NEGATIVE) 11/09/17 18:31 RPR Titer Nonreactive (NONREACTIVE) 11/10/17 05:50 HIV 1&2 Antibody Screen Negative 11/09/17 16:00 HIV P24 Antigen Negative 11/09/17 16:00 labs noted Assessment: 11/11/17 15:49 withdrawal sx Plan: continue detox PRN vistaril for anxiety increase hydration
[2017-11-11] MEDS: chlordiazePOXIDE 5 MG CAPSULE PO SCH ×2 (17:23→22:14)
[2017-11-11] MEDS: QUEtiapine FUMARATE 50 MG TABLET PO SCH (22:14)
[2017-11-11] MEDS: THIAMINE HCL 100 MG TABLET (FP) PO SCH (22:14)
[2017-11-12] MEDS: chlordiazePOXIDE 5 MG CAPSULE PO SCH ×2 (06:00→10:34)
[2017-11-12] MEDS: cloNIDine HCL 0.1 MG TABLET PO SCH ×2 (10:33→22:39)
[2017-11-12] MEDS: NICOTINE 21 MG/24 HOURS TOPICAL PATCH TD SCH (10:34)
[2017-11-12] MEDS: METHADONE HCL 5 MG TABLET (FOR DETOX USE ONLY) PO SCH (10:34)
[2017-11-12] MEDS: PRENATAL VITAMINS W/ FOLIC ACID TABLET (FP) PO SCH (10:34)
[2017-11-12] MEDS: MAG HYDROX/AL HYDROX/SIMETH 30 ML UNIT-DOSE CUP PO PRN ×2 (15:49→22:39)
[2017-11-12] MEDS: chlordiazePOXIDE HCL 10 MG CAPSULE PO SCH ×2 (17:28→22:39)
[2017-11-12] MEDS: QUEtiapine FUMARATE 50 MG TABLET PO SCH (22:39)
[2017-11-12] MEDS: THIAMINE HCL 100 MG TABLET (FP) PO SCH (22:39)
[2017-11-13] MEDS: chlordiazePOXIDE HCL 10 MG CAPSULE PO SCH ×2 (06:01→10:22)
[2017-11-13] MEDS: MAG HYDROX/AL HYDROX/SIMETH 30 ML UNIT-DOSE CUP PO PRN (07:02)
[2017-11-13] MEDS ORDERED: METHADONE HCL 10 MG TABLET (FOR DETOX USE ONLY) PO SCH (10:00)
--- NOTE | 2017-11-13 10:10 | PN ---
BHS Progress Note (SOAP) Subjective: alert oriented x 3 less sweat no tremor denies body ache Objective: 11/13/17 10:10 Vital Signs Temperature 97.5 F L 11/13/17 06:24 Pulse Rate 94 H 11/13/17 06:24 Respiratory Rate 18 11/13/17 06:24 Blood Pressure 93/58 11/13/17 06:24 O2 Sat by Pulse Oximetry (%) Laboratory Last Values WBC 8.1 K/mm3 (4.0-10.0) 11/10/17 05:50 RBC 4.10 M/mm3 (4.00-5.60) 11/10/17 05:50 Hgb 13.0 GM/dL (11.7-16.9) D 11/10/17 05:50 Hct 37.8 % (35.4-49) D 11/10/17 05:50 MCV 92.2 fl (80-96) 11/10/17 05:50 MCH 31.6 pg (25.7-33.7) 11/10/17 05:50 MCHC 34.3 g/dl (32.0-35.9) 11/10/17 05:50 RDW 14.1 % (11.9-15.9) 11/10/17 05:50 Plt Count 318 K/MM3 (134-434) 11/10/17 05:50 MPV 8.2 fl (7.5-11.1) 11/10/17 05:50 Sodium 137 mmol/L (136-145) 11/10/17 05:50 Potassium 4.3 mmol/L (3.5-5.1) 11/10/17 05:50 Chloride 98 mmol/L (98-107) 11/10/17 05:50 Carbon Dioxide 29 mmol/L (21-32) 11/10/17 05:50 Anion Gap 10 (8-16) 11/10/17 05:50 BUN 16 mg/dL (7-18) D 11/10/17 05:50 Creatinine 0.8 mg/dL (0.7-1.3) 11/10/17 05:50 Creat Clearance w eGFR > 60 (>60) 11/10/17 05:50 Random Glucose 70 mg/dL (74-106) L D 11/10/17 05:50 Calcium 8.9 mg/dL (8.5-10.1) 11/10/17 05:50 Total Bilirubin 0.8 mg/dL (0.2-1.0) 11/10/17 05:50 AST 25 U/L (15-37) D 11/10/17 05:50 ALT 28 U/L (12-78) D 11/10/17 05:50 Alkaline Phosphatase 107 U/L (45-117) 11/10/17 05:50 Total Protein 6.8 g/dl (6.4-8.2) 11/10/17 05:50 Albumin 3.6 g/dl (3.4-5.0) 11/10/17 05:50 Urine Color Yellow 11/09/17 18:31 Urine Appearance Slcloudy 11/09/17 18:31 Urine pH 6.0 (5.0-8.0) 03 18:31 Ur Specific [place] 1.024 (1.001-1.035) 03 18:31 Urine Protein Negative (NEGATIVE) 11/09/17 18:31 Urine Glucose (UA) Negative (NEGATIVE) 03 18:31 Urine Ketones Negative (NEGATIVE) 11/09/17 18:31 Urine Blood Negative (NEGATIVE) 11/09/17 18:31 Urine Nitrite Negative (NEGATIVE) 11/09/17 18:31 Urine Bilirubin Negative (NEGATIVE) 03 18:31 Urine Urobilinogen Negative mg/dL (0.2-1.0) 0308 18:31 Ur Leukocyte Esterase Negative (NEGATIVE) 11/09/17 18:31 RPR Titer Nonreactive (NONREACTIVE) 11/10/17 05:50 HIV 1&2 Antibody Screen Negative 11/09/17 16:00 HIV P24 Antigen Negative 11/09/17 16:00 lab noted Assessment: 11/13/17 10:10 mild withdrawal sx Plan: medically supervised detox
--- NOTE | 2017-11-13 10:13 | PN ---
[facility] Progress Note (SOAP) Subjective: late entry for 11/12/17 sweat, tremor, anxiety, restlessness, irritable, body ache, GI distress Objective: 11/13/17 10:12 Vital Signs Temperature 97.5 F L 11/13/17 06:24 Pulse Rate 94 H 11/13/17 06:24 Respiratory Rate 18 11/13/17 06:24 Blood Pressure 93/58 11/13/17 06:24 O2 Sat by Pulse Oximetry (%) Laboratory Last Values WBC 8.1 K/mm3 (4.0-10.0) 11/10/17 05:50 RBC 4.10 M/mm3 (4.00-5.60) 11/10/17 05:50 Hgb 13.0 GM/dL (11.7-16.9) D 11/10/17 05:50 Hct 37.8 % (35.4-49) D 11/10/17 05:50 MCV 92.2 fl (80-96) 11/10/17 05:50 MCH 31.6 pg (25.7-33.7) 11/10/17 05:50 MCHC 34.3 g/dl (32.0-35.9) 11/10/17 05:50 RDW 14.1 % (11.9-15.9) 11/10/17 05:50 Plt Count 318 K/MM3 (134-434) 11/10/17 05:50 MPV 8.2 fl (7.5-11.1) 11/10/17 05:50 Sodium 137 mmol/L (136-145) 11/10/17 05:50 Potassium 4.3 mmol/L (3.5-5.1) 11/10/17 05:50 Chloride 98 mmol/L (98-107) 11/10/17 05:50 Carbon Dioxide 29 mmol/L (21-32) 11/10/17 05:50 Anion Gap 10 (8-16) 11/10/17 05:50 BUN 16 mg/dL (7-18) D 11/10/17 05:50 Creatinine 0.8 mg/dL (0.7-1.3) 11/10/17 05:50 Creat Clearance w eGFR > 60 (>60) 11/10/17 05:50 Random Glucose 70 mg/dL (74-106) L D 11/10/17 05:50 Calcium 8.9 mg/dL (8.5-10.1) 11/10/17 05:50 Total Bilirubin 0.8 mg/dL (0.2-1.0) 11/10/17 05:50 AST 25 U/L (15-37) D 11/10/17 05:50 ALT 28 U/L (12-78) D 11/10/17 05:50 Alkaline Phosphatase 107 U/L (45-117) 11/10/17 05:50 Total Protein 6.8 g/dl (6.4-8.2) 11/10/17 05:50 Albumin 3.6 g/dl (3.4-5.0) 11/10/17 05:50 Urine Color Yellow 11/09/17 18:31 Urine Appearance Slcloudy 11/09/17 18:31 Urine pH 6.0 (5.0-8.0) 03 18:31 Ur Specific [place] 1.024 (1.001-1.035) 11/09/17 18:31 Urine Protein Negative (NEGATIVE) 03 18:31 Urine Glucose (UA) Negative (NEGATIVE) 03 18:31 Urine Ketones Negative (NEGATIVE) 11/09/17 18:31 Urine Blood Negative (NEGATIVE) 11/09/17 18:31 Urine Nitrite Negative (NEGATIVE) 11/09/17 18:31 Urine Bilirubin Negative (NEGATIVE) 11/09/17 18:31 Urine Urobilinogen Negative mg/dL (0.2-1.0) 03 18:31 Ur Leukocyte Esterase Negative (NEGATIVE) 11/09/17 18:31 RPR Titer Nonreactive (NONREACTIVE) 11/10/17 05:50 HIV 1&2 Antibody Screen Negative 11/09/17 16:00 HIV P24 Antigen Negative 11/09/17 16:00 lab noted Assessment: 11/13/17 10:12 withdrawal sx Plan: continue detox
[2017-11-13] MEDS: cloNIDine HCL 0.1 MG TABLET PO SCH (10:21)
[2017-11-13] MEDS: PRENATAL VITAMINS W/ FOLIC ACID TABLET (FP) PO SCH (10:22)
[2017-11-13] MEDS: NICOTINE 21 MG/24 HOURS TOPICAL PATCH TD SCH (10:23)
--- NOTE | 2017-11-13 13:13 | DS ---
[facility] Detox Discharge Summary Admission Date: 11/09/17 Discharge Date: 11/06/17 - History Present History: Alcohol Dependence, Opioid Dependence Additional Comments: after lunch that the patient reported feeling much better and look forward aftercare program patient wants to return home and prepares for upcoming treatment patient denies withdrawal sx patient is alert oriented x 3 no acute distress cardiac S1S2 lung clear bilaterally abdomen soft none tenderness - Physical Exam Results Vital Signs: Vital Signs Temperature 95.3 F L 11/13/17 10:38 Pulse Rate 88 11/13/17 10:38 Respiratory Rate 18 11/13/17 10:38 Blood Pressure 94/69 11/13/17 10:38 O2 Sat by Pulse Oximetry (%) Pertinent Admission Physical Exam Findings: withdrawal sx Vital Signs Temperature 95.3 F L 11/13/17 10:38 Pulse Rate 88 11/13/17 10:38 Respiratory Rate 18 11/13/17 10:38 Blood Pressure 94/69 11/13/17 10:38 O2 Sat by Pulse Oximetry (%) Laboratory Last Values WBC 8.1 K/mm3 (4.0-10.0) 11/10/17 05:50 RBC 4.10 M/mm3 (4.00-5.60) 11/10/17 05:50 Hgb 13.0 GM/dL (11.7-16.9) D 11/10/17 05:50 Hct 37.8 % (35.4-49) D 11/10/17 05:50 MCV 92.2 fl (80-96) 11/10/17 05:50 MCH 31.6 pg (25.7-33.7) 11/10/17 05:50 MCHC 34.3 g/dl (32.0-35.9) 11/10/17 05:50 RDW 14.1 % (11.9-15.9) 11/10/17 05:50 Plt Count 318 K/MM3 (134-434) 11/10/17 05:50 MPV 8.2 fl (7.5-11.1) 11/10/17 05:50 Sodium 137 mmol/L (136-145) 11/10/17 05:50 Potassium 4.3 mmol/L (3.5-5.1) 11/10/17 05:50 Chloride 98 mmol/L (98-107) 11/10/17 05:50 Carbon Dioxide 29 mmol/L (21-32) 11/10/17 05:50 Anion Gap 10 (8-16) 11/10/17 05:50 BUN 16 mg/dL (7-18) D 11/10/17 05:50 Creatinine 0.8 mg/dL (0.7-1.3) 11/10/17 05:50 Creat Clearance w eGFR > 60 (>60) 11/10/17 05:50 Random Glucose 70 mg/dL (74-106) L D 11/10/17 05:50 Calcium 8.9 mg/dL (8.5-10.1) 11/10/17 05:50 Total Bilirubin 0.8 mg/dL (0.2-1.0) 11/10/17 05:50 AST 25 U/L (15-37) D 11/10/17 05:50 ALT 28 U/L (12-78) D 11/10/17 05:50 Alkaline Phosphatase 107 U/L (45-117) 11/10/17 05:50 Total Protein 6.8 g/dl (6.4-8.2) 11/10/17 05:50 Albumin 3.6 g/dl (3.4-5.0) 11/10/17 05:50 Urine Color Yellow 11/09/17 18:31 Urine Appearance Slcloudy 11/09/17 18:31 Urine pH 6.0 (5.0-8.0) 11/09/17 18:31 Ur Specific [place] 1.024 (1.001-1.035) 11/09/17 18:31 Urine Protein Negative (NEGATIVE) 11/09/17 18:31 Urine Glucose (UA) Negative (NEGATIVE) 11/09/17 18:31 Urine Ketones Negative (NEGATIVE) 11/09/17 18:31 Urine Blood Negative (NEGATIVE) 11/09/17 18:31 Urine Nitrite Negative (NEGATIVE) 11/09/17 18:31 Urine Bilirubin Negative (NEGATIVE) 11/09/17 18:31 Urine Urobilinogen Negative mg/dL (0.2-1.0) 03 18:31 Ur Leukocyte Esterase Negative (NEGATIVE) 11/09/17 18:31 RPR Titer Nonreactive (NONREACTIVE) 11/10/17 05:50 HIV 1&2 Antibody Screen Negative 11/09/17 16:00 HIV P24 Antigen Negative 11/09/17 16:00 lab noted - Treatment Hospital Course: Detox Protocol Followed, Detoxed Safely, Responded well, Discharged Condition Good, Rehab Referral Accepted - Medication Discharge Medications: Ambulatory Orders Mirtazapine [Remeron -] 30 mg PO HS 03/25/17 Quetiapine Fumarate [Seroquel] 100 mg PO HS #30 tablet 03/27/17 Albuterol Sulfate Inhaler - [Ventolin HFA Inhaler -] 2 inh PO Q4H PRN #1 inhaler 11/13/17 - Diagnosis (1) Opioid abuse with intoxication, uncomplicated Current Visit: Yes Status: Acute (2) Alcohol dependence with uncomplicated withdrawal Current Visit: Yes Status: Acute - AMA Did Patient Leave Against Medical Advice: No
[2017-11-13 14:52] VITALS: BP 99/59; PULSE 96; TEMP 97.5
[2017-11-14] MEDS ORDERED: METHADONE HCL 5 MG TABLET (FOR DETOX USE ONLY) PO SCH (06:00)
== END 2017-11-13 13:09 | disposition home or self-care (01) | DRG 773 ==
LOC: YASAS 11:50 → Y6N 16:21
PROVIDERS: ADMIT Internal Medicine; ATTEND Internal Medicine
PROC: HZ2ZZZZ Detoxification Services for Substance Abuse Treatment (ICD-10-PCS; principal; 2017-11-09)
DX: F11.23 Opioid dependence with withdrawal (principal); F10.230 Alcohol dependence with withdrawal, uncomplicated; F14.20 Cocaine dependence, uncomplicated; F17.213 Nicotine dependence, cigarettes, with withdrawal; F41.8 Other specified anxiety disorders; F19.24 Other psychoactive substance dependence with psychoactive substance-induced mood disorder; J43.8 Other emphysema; B18.2 Chronic viral hepatitis C; R94.31 Abnormal electrocardiogram [ECG] [EKG]; G47.00 Insomnia, unspecified; Z87.898 Personal history of other specified conditions
CPT/HCPCS: 36415; 80053; 81003; 85027; 86593; 87389; 93005; 93010; J0735

== ENCOUNTER 2018-01-20 09:39 | Inpatient (IN) | payer BC ==
[2018-01-20 10:06] VITALS: BMI 22.8
--- NOTE | 2018-01-20 18:51 | HP ---
COWS - Scale Resting Pulse: 0= [place] 80 or Below Sweatin=Flushed/Facial Moisture Restless Observation: 1= Difficult to Sit Still Pupil Size: 0= Normal to Room Light Bone or Joint Aches: 1= Mild Discomfort Runny Nose/ Eye Tearin= Nasal Congestion GI Upset > 30mins: 1= Stomach Cramp Tremor Observation: 2= Slight Tremor Visible Yawning Observation: 1= 1-2x During Session Anxiety or Irritability: 2=Irritable/Anxious Goose Flesh Skin: 0=Smooth Skin COWS Score: 11 CIWA Score - CIWA Score Nausea/Vomitin Muscle Tremors: 3 Anxiety: 3 Agitation: 3 Paroxysmal Sweats: 2 Orientation: 1-Uncertain about Date Tacttile Disturbances: 0-None Auditory Disturbances: 0-None Visual Disturbances: 0-None Headache: 0-None Present CIWA-Ar Total Score: 15 Admission ROS BHS - HPI Chief Complaint: " I want to stop drinking and using" Allergies/Adverse Reactions: Allergies Allergy/AdvReac Type Severity Reaction Status Date / Time No Known Allergies Allergy Verified 01/20/18 17:00 History of Present Illness: 52 y/o male with a long hx of alcohol and heroin addiction presents today requesting detox. Admits to using his last drink and drug this morning. Hx of COPD (Albuterol), denies SI/HI Exam Limitations: Other (Agitated, Irritable) - Ebola screening Have you traveled outside of the country in the last 21 days: No (N) Have you had contact with anyone from an Ebola affected area: No Have you been sick,other than usual withdrawal symptoms: No Do you have a fever: No - Review of Systems Constitutional: Loss of Appetite, Unintentional Wgt. Loss EENT: reports: No Symptoms Reported Respiratory: reports: Cough (yellow phlegm) Cardiac: reports: No Symptoms Reported GI: reports: Nausea : reports: No Symptoms Reported Musculoskeletal: reports: Other (Chronic L sciatic pain) Integumentary: reports: No Symptoms Reported Neuro: reports: No Symptoms reported Endocrine: reports: Flushing Hematology: reports: No Symptoms Reported Psychiatric: reports: Agitated, Anxious Other Systems: Reviewed and Negative Patient History - Patient Medical History Hx Anemia: No Hx Asthma: No Hx Chronic Obstructive Pulmonary Disease (COPD): Yes Hx Cancer: No Hx Cardiac Disorders: No Hx Congestive Heart Failure: No Hx Hypertension: No Hx Hypercholesterolemia: No Hx Pacemaker: No HX Cerebrovascular Accident: No Hx Seizures: No Hx Dementia: No Hx Diabetes: No Hx Gastrointestinal Disorders: No Hx Liver Disease: No Hx Genitourinary Disorders: No Hx Sexually Transmitted Disorders: No Hx Renal Disease (ESRD): No Hx Thyroid Disease: No Hx Human Immunodeficiency Virus (HIV): No (NEGATIVE HX) Hx Hepatitis C: Yes (TREATED--"UNDETECTABLE") Hx Depression: Yes Hx Suicide Attempt: No Hx Bipolar Disorder: Yes Hx Schizophrenia: No - Patient Surgical History Past Surgical History: No Hx Neurologic Surgery: No Hx Cataract Extraction: No Hx Cardiac Surgery: No Hx Lung Surgery: No Hx Breast Surgery: No Hx Breast Biopsy: No Hx Abdominal Surgery: No Hx Appendectomy: No Hx Cholecystectomy: No Hx Genitourinary Surgery: No Hx Section: No Hx Orthopedic Surgery: No Anesthesia Reaction: No - PPD History Documented Results: Negative w/proof Implanted On Prior [facility] Admission?: Yes Date: 11/11/17 Results: 0.0 MM - Reproductive History Patient is a Female of Child Bearing Age (11 -55 yrs old): No - Smoking Cessation Smoking history: Current every day smoker Have you smoked in the past 12 months: Yes Aproximately how many cigarettes per day: 10 Cigars Per Day: 0 Hx Chewing Tobacco Use: No Initiated information on smoking cessation: Yes 'Breaking Loose' booklet given: 01/20/18 - Substance & Tx. History Hx Alcohol Use: Yes Hx Substance Use: Yes Substance Use Type: Alcohol, Cocaine, Heroin Hx Substance Use Treatment: Yes - Substances Abused Heroin Route: Injection Frequency: Daily Amount used: 8-10 BAGS Age of first use: 13 Date of Last Use: 01/19/18 Alcohol Route: Oral Frequency: Daily Amount used: 2 pints of Vodka Age of first use: 13 Date of Last Use: 01/19/18 Cocaine Route: Injection Frequency: 1-2 times per week Amount used: 1 - 2 bags ($20) Age of first use: 13 Date of Last Use: 01/19/18 Family Disease History - Family Disease History Family Disease History: [place]: Father (, etoh), Mother (), Other: Brother (alive, hx Drug & Alcohol), Sister (one living, healthy), Son (age 20, healthy, ), Daughter (agd 16, healthy, ) Admission Physical Exam [facility] - Vital Signs Vital Signs: Vital Signs - 24 hr 01/20/18 10:04 Temperature 97 F L Pulse Rate 87 Respiratory 18 Rate Blood Pressure 160/76 - Physical General Appearance: Yes: Mild Distress, Irritable, Anxious HEENTM: Yes: Within Normal Limits Respiratory: Yes: Lungs Clear, Normal Breath Sounds, No Accessory Muscle Use Neck: Yes: No masses,lesions,Nodules, Trachea in good position Breast: Yes: Breast Exam Deferred Cardiology: Yes: Regular Rate Abdominal: Yes: Normal Bowel Sounds, Non Tender Genitourinary: Yes: Within Normal Limits Back: Yes: Normal Inspection Musculoskeletal: Yes: full range of Motion Extremities: Yes: Normal Inspection 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: Yes: Fully Oriented, Alert, Motor Strength 5/5 Integumentary: Yes: Warm, Track [place] (L and R antecubital, no s/s of infection) - Diagnostic (1) Opioid abuse with intoxication, uncomplicated Current Visit: Yes Status: Acute (2) Alcohol dependence with uncomplicated withdrawal Current Visit: Yes Status: Acute (3) Nicotine dependence Current Visit: Yes Status: Chronic Qualifiers: Nicotine product type: cigarettes Substance use status: in withdrawal Qualified Code(s): F17.213 - Nicotine dependence, cigarettes, with withdrawal (4) COPD (chronic obstructive pulmonary disease) Current Visit: No Status: Chronic Qualifiers: COPD type: emphysema Emphysema type: other Qualified Code(s): J43.8 - Other emphysema (5) Cocaine dependence, uncomplicated Current Visit: No Status: Chronic (6) History of hepatitis C Current Visit: No Status: Chronic (7) Track [place] due to intravenous drug abuse Current Visit: Yes Status: Acute Cleared for Admission [facility] - Detox or Rehab [facility] Level of Care: Medically Managed Detox Regimen/Protocol: Methadone/Librium [facility] Breath Alcohol Content Breath Alcohol Content: 0 Urine Drug Screen - Results Drug Screen Negative: No Urine Drug Screen Results: SWAPNA-Cocaine, OPI-Opiates, MTD-Methadone
[2018-01-20] MEDS ORDERED: hydrOXYzine PAMOATE 50 MG CAPSULE (FP) PO PRN (19:08)
[2018-01-20] MEDS ORDERED: P-EPHED 60MG/TRIPROLIDI 2.5MG TABLET PO PRN (19:08)
[2018-01-20] MEDS ORDERED: MAG HYDROX/AL HYDROX/SIMETH 30 ML UNIT-DOSE CUP PO PRN (19:08)
[2018-01-20] MEDS ORDERED: LOPERAMIDE HCL 2 MG CAPSULE PO PRN (19:08)
[2018-01-20] MEDS ORDERED: MAGNESIUM HYDROX 2400MG/30ML ORAL SUSPENSION 30 ML CUP PO PRN (19:08)
[2018-01-20] MEDS ORDERED: chlordiazePOXIDE HCL 25 MG CAPSULE PO PRN (19:08)
[2018-01-20] MEDS ORDERED: chlordiazePOXIDE HCL 25 MG CAPSULE PO ONE (19:08)
[2018-01-20] MEDS ORDERED: NICOTINE POLACRILEX 2 MG GUM BC PRN (19:08)
[2018-01-20] MEDS ORDERED: METHADONE HCL 10 MG TABLET (FOR DETOX USE ONLY) PO ONE ×2 (19:08→23:00)
[2018-01-20] MEDS ORDERED: MENTHOL/PHENOL 1 EACH UD MM PRN (19:08)
[2018-01-20] MEDS ORDERED: guaiFENesin/D-METHORPHAN HB 10 ML UNIT-DOSE CUPS PO PRN (19:08)
[2018-01-20] MEDS ORDERED: MAGNESIUM CITRATE 300 ML BOTTLE PO PRN (19:08)
[2018-01-20] MEDS ORDERED: IBUPROFEN 400 MG TABLET (FP) PO PRN (19:08)
[2018-01-20] MEDS ORDERED: ACETAMINOPHEN 325 MG TABLET (FP) PO PRN (19:08)
[2018-01-20] MEDS ORDERED: ALBUTEROL SO4 18 GM HFA INHALER IH PRN (19:13)
[2018-01-20] MEDS: NICOTINE 14 MG/24 HOURS TOPICAL PATCH TD SCH (19:32)
[2018-01-20] MEDS ORDERED: MELATONIN 5 MG TABLETS PO PRN (22:00)
[2018-01-20] MEDS ORDERED: THIAMINE HCL 100 MG TABLET (FP) PO SCH (22:00)
[2018-01-20] MEDS: chlordiazePOXIDE HCL 25 MG CAPSULE PO SCH (23:14)
[2018-01-21] MEDS: chlordiazePOXIDE HCL 25 MG CAPSULE PO SCH ×2 (05:12→10:28)
[2018-01-21 09:12] VITALS: BP 121/74; TEMP 98
--- NOTE | 2018-01-21 09:23 | HP ---
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 Refer to [facility] drug counselor note for more detailed information Medical History: Medical history is signoificant for COPD, chronic sciatica Psychiatric History: He denies prior psychiatric history Physical/Sexual Abuse/Trauma History: No past abuse or trauma Additional Comment: Patient is in no distress Vital Signs: Vital Signs - 24 hr 01/20/18 01/20/18 01/20/18 10:04 19:31 20:00 Temperature 97 F L 96.7 F L Pulse Rate 87 66 97 H Respiratory 18 18 18 Rate Blood Pressure 160/76 101/67 01/20/18 01/20/18 01/20/18 20:30 21:00 21:30 Temperature Pulse Rate 102 H 94 H 85 Respiratory Rate Blood Pressure 01/20/18 01/20/18 01/20/18 22:00 22:30 23:00 Temperature 96.6 F L Pulse Rate 85 86 83 Respiratory 18 19 18 Rate Blood Pressure 91/59 18 18 01/21/18 23:30 00:00 00:30 Temperature Pulse Rate 80 93 H 69 Respiratory 18 18 18 Rate Blood Pressure 18 18 01/21/18 01:00 01:30 02:00 Temperature Pulse Rate 89 85 82 Respiratory 18 18 18 Rate Blood Pressure 20/18 20/18 01/21/18 02:30 03:00 03:30 Temperature Pulse Rate 79 77 77 Respiratory 18 Rate Blood Pressure 2018 20/18 01/21/18 03:41 04:00 04:27 Temperature Pulse Rate 77 77 Respiratory 18 Rate Blood Pressure 20/18 2018 01/21/18 05:00 05:30 06:00 Temperature Pulse Rate 72 70 70 Respiratory 18 18 18 Rate Blood Pressure 2018 20/18 2018 06:30 06:34 07:00 Temperature 97.7 F Pulse Rate 70 70 70 Respiratory 18 18 18 Rate Blood Pressure 119/62 20/18 /20/18 01/21/18 07:30 08:00 08:30 Temperature Pulse Rate 70 68 87 Respiratory 18 18 Rate Blood Pressure 01/21/18 09:12 Temperature 98.0 F Pulse Rate 75 Respiratory 18 Rate Blood Pressure 121/74 Allergies/Adverse Reactions: Allergies Allergy/AdvReac Type Severity Reaction Status Date / Time No Known Allergies Allergy Verified 01/20/18 17:00 Mental Status Exam - Mental Status Exam Alert and Oriented to: Time, Place, Person Cognitive Function: Grossly Intact Patient Appearance: Well Groomed Mood: Euthymic Affect: Appropriate Patient Behavior: Cooperative Speech Pattern: Clear Voice Loudness: Normal Thought Disorder: Not Present Hallucinations: None Suicidal Ideation: None Homicidal Ideation: None Insight/Judgement: Poor Sleep: Well Appetite: Good Muscle strength/Tone: Normal Gait/Station: Normal Psychiatric Findings - Problem List ([place] 1, 2,3) (1) Alcohol dependence with uncomplicated withdrawal Current Visit: Yes Status: Acute (2) Opioid abuse with intoxication, uncomplicated Current Visit: Yes Status: Acute (3) Nicotine dependence Current Visit: Yes Status: Chronic Qualifiers: Nicotine product type: cigarettes Substance use status: in withdrawal Qualified Code(s): F17.213 - Nicotine dependence, cigarettes, with withdrawal (4) Cocaine dependence Current Visit: No Status: Acute Qualifiers: Substance use status: uncomplicated Qualified Code(s): F14.20 - Cocaine dependence, uncomplicated - Initial Treatment Plan Initial Treatment Plan: Continue inpatient Detox treatment
[2018-01-21] MEDS ORDERED: METHADONE HCL 10 MG TABLET (FOR DETOX USE ONLY) PO SCH (10:00)
[2018-01-21] MEDS ORDERED: PRENATAL VITAMINS W/ FOLIC ACID TABLET (FP) PO SCH (10:00)
[2018-01-21] MEDS: NICOTINE 14 MG/24 HOURS TOPICAL PATCH TD SCH (10:29)
[2018-01-21 10:36] LABS: HEMATOCRIT 43.2 % (35.4-49); HEMOGLOBIN 14.4 GM/dL (11.7-16.9); MCH 30.9 pg (25.7-33.7); MCHC 33.5 g/dl (32.0-35.9); MEAN CELL VOLUME 92.3 fl (80-96); MEAN PLT VOLUME 8.3 fl (7.5-11.1); PLATELET COUNT 303 K/MM3 (134-434); RBC 4.68 M/mm3 (4.00-5.60); WHITE BLOOD COUNT 5.2 K/mm3 (4.0-10.0)
[2018-01-21 10:37] LABS: ALBUMIN 3.7 g/dl (3.4-5.0); ANION GAP 3 (8-16); BILIRUBIN,TOTAL 0.9 mg/dL (0.2-1.0); BLOOD UREA NITROGEN 11 mg/dL (7-18); CALCIUM 8.5 mg/dL (8.5-10.1); CHLORIDE 108 mmol/L (98-107); CO2 31 mmol/L (21-32); CREATININE 0.8 mg/dL (0.7-1.3); GLUCOSE,RANDOM 84 mg/dL (74-106); POTASSIUM 4.6 mmol/L (3.5-5.1); SGOT/AST 44 U/L (15-37); SGPT/ALT 37 U/L (12-78); SODIUM 142 mmol/L (136-145); TOT PROT 6.9 g/dl (6.4-8.2)
[2018-01-21 10:38] LABS: ALK PHOS 70 U/L (45-117)
[2018-01-21 11:55] LABS: URINE APPEARANCE TURBID; URINE BILIRUBIN NEGATIVE (<2.0 mg/dL); URINE BLOOD NEGATIVE (NEGATIVE); URINE COLOR AMBER; URINE GLUCOSE (UA) NEGATIVE (NEGATIVE); URINE KETONE TRACE (NEGATIVE); URINE LEUK ESTERASE NEGATIVE (NEGATIVE); URINE NITRITE NEGATIVE (NEGATIVE); URINE PROTEIN NEGATIVE (NEGATIVE)
[2018-01-21 14:13] VITALS: PULSE 92
--- NOTE | 2018-01-21 14:41 | CONSULT ---
Psychiatric Findings - Problem List ([place] 1, 2,3) (1) Alcohol dependence with uncomplicated withdrawal Current Visit: Yes Status: Acute (2) Opioid abuse with intoxication, uncomplicated Current Visit: Yes Status: Acute (3) Nicotine dependence Current Visit: Yes Status: Chronic Qualifiers: Nicotine product type: cigarettes Substance use status: in withdrawal Qualified Code(s): F17.213 - Nicotine dependence, cigarettes, with withdrawal (4) Cocaine dependence Current Visit: No Status: Acute Qualifiers: Substance use status: uncomplicated Qualified Code(s): F14.20 - Cocaine dependence, uncomplicated
--- NOTE | 2018-01-21 15:41 | DS ---
[facility] Detox Discharge Summary Admission Date: 01/20/18 Discharge Date: 01/21/18 - History Present History: Alcohol Dependence, Cocaine Dependence, Opioid Dependence Pertinent Past History: COPD Hepatitis C - Physical Exam Results Vital Signs: Vital Signs Temperature 98.0 F 01/21/18 09:12 Pulse Rate 92 H 01/21/18 13:30 Respiratory Rate 20 01/21/18 13:30 Blood Pressure 121/74 01/21/18 09:12 O2 Sat by Pulse Oximetry (%) Pertinent Admission Physical Exam Findings: Withdrawal symptoms Laboratory Tests 01/21/18 01/21/18 01/21/18 08:00 08:00 08:00 WBC 5.2 D RBC 4.68 Hgb 14.4 D Hct 43.2 MCV 92.3 MCH 30.9 MCHC 33.5 RDW 14.0 Plt Count 303 MPV 8.3 Sodium 142 Potassium 4.6 Chloride 108 H D Carbon Dioxide 31 Anion Gap 3 L BUN 11 D Creatinine 0.8 Creat Clearance w eGFR > 60 Random Glucose 84 Calcium 8.5 Total Bilirubin 0.9 AST 44 H D ALT 37 D Alkaline Phosphatase 70 D Total Protein 6.9 Albumin 3.7 Urine Color Urine Appearance Urine pH Ur Specific [place] Urine Protein Urine Glucose (UA) Urine Ketones Urine Blood Urine Nitrite Urine Bilirubin Urine Urobilinogen Ur Leukocyte Esterase RPR Titer HIV 1&2 Antibody Screen Negative HIV P24 Antigen Negative 01/21/18 01/21/18 08:00 09:20 WBC RBC Hgb Hct MCV MCH MCHC RDW Plt Count MPV Sodium Potassium Chloride Carbon Dioxide Anion Gap BUN Creatinine Creat Clearance w eGFR Random Glucose Calcium Total Bilirubin AST ALT Alkaline Phosphatase Total Protein Albumin Urine Color [place] Urine Appearance Turbid Urine pH 6.0 Ur Specific [place] 1.025 Urine Protein Negative Urine Glucose (UA) Negative Urine Ketones Trace H Urine Blood Negative Urine Nitrite Negative Urine Bilirubin Negative Urine Urobilinogen 2.0 Ur Leukocyte Esterase Negative RPR Titer Nonreactive HIV 1&2 Antibody Screen HIV P24 Antigen Labs noted - Medication Discharge Medications: Ambulatory Orders Mirtazapine [Remeron -] 30 mg PO HS 03/25/17 Quetiapine Fumarate [Seroquel] 100 mg PO HS #30 tablet 03/27/17 Albuterol Sulfate Inhaler - [Ventolin HFA Inhaler -] 2 inh PO Q4H PRN #1 inhaler 11/13/17 - Diagnosis (1) Alcohol dependence with uncomplicated withdrawal Status: Acute (2) Opioid abuse with intoxication, uncomplicated Status: Acute (3) COPD (chronic obstructive pulmonary disease) Status: Chronic Qualifiers: COPD type: emphysema Emphysema type: other Qualified Code(s): J43.8 - Other emphysema (4) Cocaine dependence, uncomplicated Status: Chronic (5) History of hepatitis C Status: Chronic (6) Nicotine dependence Status: Chronic Qualifiers: Nicotine product type: cigarettes Substance use status: in withdrawal Qualified Code(s): F17.213 - Nicotine dependence, cigarettes, with withdrawal - AMA Did Patient Leave Against Medical Advice: Yes (F/U with your PCP within 3 days)
[2018-01-21] MEDS ORDERED: chlordiazePOXIDE HCL 25 MG CAPSULE PO SCH (23:00)
[2018-01-22] MEDS ORDERED: METHADONE HCL 5 MG TABLET (FOR DETOX USE ONLY) PO SCH (10:00)
[2018-01-22] MEDS ORDERED: chlordiazePOXIDE 5 MG CAPSULE PO SCH (23:00)
--- NOTE | 2018-01-23 00:50 | EKG ---
Test Reason : Blood Pressure : / mmHG Vent. Rate : 060 BPM Atrial Rate : 060 BPM P-R Int : 142 ms QRS Dur : 090 ms QT Int : 418 ms P-R-T Axes : 027 086 077 degrees QTc Int : 418 ms NORMAL SINUS RHYTHM NORMAL ECG WHEN COMPARED WITH ECG OF 10-NOV-2017 09:24, NO SIGNIFICANT CHANGE WAS FOUND Confirmed by MARSHAL GREEN MD ([id number]) on 01/23/2018 12:50:37 AM Referred By: Confirmed By:MARSHAL GREEN MD
[2018-01-23] MEDS ORDERED: chlordiazePOXIDE HCL 10 MG CAPSULE PO SCH (23:00)
[2018-01-24] MEDS ORDERED: METHADONE HCL 10 MG TABLET (FOR DETOX USE ONLY) PO SCH (10:00)
[2018-01-25] MEDS ORDERED: METHADONE HCL 5 MG TABLET (FOR DETOX USE ONLY) PO SCH (06:00)
== END 2018-01-21 13:48 | disposition left against medical advice (07) | DRG 770 ==
LOC: YASAS 09:39 → Y3N 17:19
PROVIDERS: ADMIT Internal Medicine; ATTEND Internal Medicine
PROC: HZ2ZZZZ Detoxification Services for Substance Abuse Treatment (ICD-10-PCS; principal; 2018-01-20)
DX: F11.23 Opioid dependence with withdrawal (principal); F10.230 Alcohol dependence with withdrawal, uncomplicated; F14.20 Cocaine dependence, uncomplicated; F17.210 Nicotine dependence, cigarettes, uncomplicated; F32.9 Major depressive disorder, single episode, unspecified; J43.8 Other emphysema; Z86.19 Personal history of other infectious and parasitic diseases
CPT/HCPCS: 36415; 80053; 81003; 85027; 86593; 87389; 93005; 93010

== ENCOUNTER 2018-06-07 08:18 | Inpatient (IN) | payer BC ==
[2018-06-07 08:46] VITALS: BMI 21.4
--- NOTE | 2018-06-07 08:50 | HP ---
COWS - Scale Resting Pulse: 0= [place] 80 or Below Sweatin= Chills/Flushing Restless Observation: 3= Extraneous Movement Pupil Size: 1= Pupils >than Normal Bone or Joint Aches: 2= Severe Diffuse Aches Runny Nose/ Eye Tearin= Runny Nose/Eyes GI Upset > 30mins: 3= Vomiting/Diarrhea Tremor Observation: 2= Slight Tremor Visible Yawning Observation: 1= 1-2x During Session Anxiety or Irritability: 2=Irritable/Anxious Goose Flesh Skin: 0=Smooth Skin COWS Score: 17 CIWA Score - CIWA Score Nausea/Vomitin Muscle Tremors: 3 Anxiety: 3 Agitation: 2 Paroxysmal Sweats: 1-Minimal Palms Moist Orientation: 0-Oriented Tacttile Disturbances: 1-Very Mild Itch/Numbness Auditory Disturbances: 1-Very Mild Visual Disturbances: 1-Very Mild Sensitivity Headache: 2-Mild CIWA-Ar Total Score: 16 Admission ROS BHS - HPI Chief Complaint: i need help to stop using heroin,alcohol,cocaine Allergies/Adverse Reactions: Allergies Allergy/AdvReac Type Severity Reaction Status Date / Time No Known Allergies Allergy Verified 06/07/18 08:58 History of Present Illness: this 52 years old male with heroin,cocaine,alcohol dependence seeking detox, withdrawal symptom,last detox [facility] 04/21 completed multiple admissions in detox but relapsing copd ,hepatitis c treated nicotine dependence insomnia weight loss 30 lbs longest period of sobriety 16 years Exam Limitations: No Limitations - Ebola screening Have you traveled outside of the country in the last 21 days: No (N) Have you had contact with anyone from an Ebola affected area: No Do you have a fever: No - Review of Systems Constitutional: Chills, Loss of Appetite, Malaise, Night Sweats, Changes in sleep, Weakness, Unintentional Wgt. Loss EENT: reports: Tearing, Nose Congestion Respiratory: reports: No Symptoms reported, Other (copd) Cardiac: reports: No Symptoms Reported GI: reports: Diarrhea, Nausea, Vomiting, Abdominal cramping : reports: No Symptoms Reported Musculoskeletal: reports: Back Pain, Joint Pain, Muscle Pain, Joint Stiffness Integumentary: reports: Dryness Neuro: reports: Headache, Tremors Endocrine: reports: No Symptoms Reported Hematology: reports: No Symptoms Reported Psychiatric: reports: No Sypmtoms Reported, Judgement Intact, Mood/Affect Appropiate, Orientated x3 (insomnia) Patient History - Patient Medical History Hx Anemia: No Hx Asthma: No Hx Chronic Obstructive Pulmonary Disease (COPD): Yes Hx Cancer: No Hx Cardiac Disorders: No Hx Congestive Heart Failure: No Hx Hypertension: No Hx Hypercholesterolemia: No Hx Pacemaker: No HX Cerebrovascular Accident: No Hx Seizures: No Hx Dementia: No Hx Diabetes: No Hx Gastrointestinal Disorders: No Hx Liver Disease: No Hx Genitourinary Disorders: No Hx Sexually Transmitted Disorders: No Hx Renal Disease (ESRD): No Hx Thyroid Disease: No Hx Human Immunodeficiency Virus (HIV): No (NEGATIVE HX 2016) Hx Hepatitis C: Yes (TREATED--"UNDETECTABLE") Hx Depression: Yes Hx Suicide Attempt: No Hx Bipolar Disorder: Yes (no med) Hx Schizophrenia: No Other Medical History: no suicidal,no homicidal - Patient Surgical History Past Surgical History: No Hx Neurologic Surgery: No Hx Cataract Extraction: No Hx Cardiac Surgery: No Hx Lung Surgery: No Hx Breast Surgery: No Hx Breast Biopsy: No Hx Abdominal Surgery: No Hx Appendectomy: No Hx Cholecystectomy: No Hx Genitourinary Surgery: No Hx Section: No Hx Orthopedic Surgery: No Anesthesia Reaction: No - PPD History Previous Implant?: Yes Documented Results: Negative w/proof Implanted On Prior R Admission?: Yes Date: 11/11/17 Results: 0.0 MM PPD to be Administered?: No - Smoking Cessation Smoking history: Current every day smoker Have you smoked in the past 12 months: Yes Aproximately how many cigarettes per day: 10 Cigars Per Day: 0 Hx Chewing Tobacco Use: No Initiated information on smoking cessation: Yes 'Breaking Loose' booklet given: 06/07/18 - Substance & Tx. History Hx Alcohol Use: Yes Hx Substance Use: Yes Substance Use Type: Alcohol, Cocaine, Heroin Hx Substance Use Treatment: Yes ([facility] 04/21 completed) - Substances Abused Heroin Route: Inhalation Frequency: Daily Amount used: 10 bags Age of first use: 13 Date of Last Use: 06/07/18 Alcohol Route: Oral Frequency: Daily Amount used: 1pint of vodka Age of first use: 13 Date of Last Use: 06/06/18 Cocaine Route: Inhalation Frequency: 1-2 times per week Amount used: 40$ Age of first use: 14 Date of Last Use: 06/06/18 Family Disease History - Family Disease History Family Disease History: [place]: Father (, etoh), Mother (), Other: Brother (alive, hx Drug & Alcohol), Sister (one living, healthy), Son (age 20, healthy, ), Daughter (agd 16, healthy, ) Admission Physical Exam S - Vital Signs Vital Signs: Vital Signs Temperature 96.7 F L 06/07/18 08:43 Pulse Rate 75 06/07/18 08:43 Respiratory Rate 16 06/07/18 08:43 Blood Pressure 99/80 06/07/18 08:43 O2 Sat by Pulse Oximetry (%) - Physical General Appearance: Yes: Moderate Distress, Tremorous, Irritable, Sweating, Anxious HEENTM: Yes: Normal ENT Inspection, DEYANIRA, Pharynx Normal Respiratory: Yes: Lungs Clear, Normal Breath Sounds, No Respiratory Distress Neck: Yes: Within Normal Limits, Supple, Trachea in good position Breast: Yes: Within Normal Limits Cardiology: Yes: Within Normal Limits, Regular Rhythm, Regular Rate, S1, S2 Abdominal: Yes: Within Normal Limits, Normal Bowel Sounds, Flat, Soft Genitourinary: Yes: Within Normal Limits Musculoskeletal: Yes: Back pain, Joint Stiffness, Muscle Pain Extremities: Yes: Within Normal Limits, Normal Range of Motion, Tremors 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: 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 NML intact, Fully Oriented, Alert, Motor Strength 5/5 Integumentary: Yes: Dry, Track [place], Other (dry lip and mucosa) Lymphatic: Yes: Within Normal Limits - Diagnostic (1) Opioid dependence with withdrawal Current Visit: Yes Status: Acute (2) Alcohol dependence in controlled environment Current Visit: No Status: Acute (3) Anxiety and depression Current Visit: No Status: Acute (4) Cocaine dependence Current Visit: No Status: Acute Qualifiers: Substance use status: uncomplicated Qualified Code(s): F14.20 - Cocaine dependence, uncomplicated (5) Insomnia Current Visit: No Status: Acute (6) Track [place]wood due to intravenous drug abuse Current Visit: No Status: Acute (7) Weight loss Current Visit: No Status: Acute (8) COPD (chronic obstructive pulmonary disease) Current Visit: No Status: Chronic Qualifiers: COPD type: emphysema Emphysema type: other Qualified Code(s): J43.8 - Other emphysema (9) Nicotine dependence Current Visit: No Status: Chronic Qualifiers: Nicotine product type: cigarettes Substance use status: in withdrawal Qualified Code(s): F17.213 - Nicotine dependence, cigarettes, with withdrawal (10) Dehydration Current Visit: Yes Status: Acute Cleared for Admission BHS - Detox or Rehab Detox Regimen/Protocol: Methadone/Librium BHS Breath Alcohol Content Breath Alcohol Content: 0.144
[2018-06-07] MEDS ORDERED: MENTHOL/PHENOL 1 EACH UD MM PRN (09:09)
[2018-06-07] MEDS ORDERED: guaiFENesin/D-METHORPHAN HB 10 ML UNIT-DOSE CUPS PO PRN (09:09)
[2018-06-07] MEDS ORDERED: LOPERAMIDE HCL 2 MG CAPSULE PO PRN (09:09)
[2018-06-07] MEDS ORDERED: MAGNESIUM CITRATE 300 ML BOTTLE PO PRN (09:09)
[2018-06-07] MEDS ORDERED: IBUPROFEN 400 MG TABLET (FP) PO PRN (09:09)
[2018-06-07] MEDS ORDERED: P-EPHED 60MG/TRIPROLIDI 2.5MG TABLET PO PRN (09:09)
[2018-06-07] MEDS ORDERED: MAGNESIUM HYDROX 2400MG/30ML ORAL SUSPENSION 30 ML CUP PO PRN (09:09)
[2018-06-07] MEDS ORDERED: ACETAMINOPHEN 325 MG TABLET (FP) PO PRN (09:09)
[2018-06-07] MEDS ORDERED: ALBUTEROL SO4 8 GM HFA INHALER IH PRN (09:12)
[2018-06-07] MEDS ORDERED: CYCLOBENZAPRINE HCL 10 MG TABLET (FP) PO PRN (09:13)
[2018-06-07] MEDS ORDERED: METHADONE HCL 10 MG TABLET (FOR DETOX USE ONLY) PO ONE ×2 (10:10→23:00)
[2018-06-07] MEDS: chlordiazePOXIDE HCL 25 MG CAPSULE PO SCH ×3 (10:50→22:16)
[2018-06-07] MEDS: cloNIDine HCL 0.1 MG TABLET PO SCH ×2 (10:50→22:17)
[2018-06-07] MEDS: BUDESONIDE/FORMETEROL FUMARATE 160/4.5 mcg INHALER IH SCH ×2 (10:51→22:17)
[2018-06-07] MEDS: NICOTINE 21 MG/24 HOURS TOPICAL PATCH TD SCH (10:51)
[2018-06-07] MEDS: PRENATAL VITAMINS W/ FOLIC ACID TABLET (FP) PO SCH (10:51)
--- NOTE | 2018-06-07 16:50 | CONSULT ---
[facility] Psychiatric Consult - Data Date of interview: 06/07/18 Admission source: [facility] Identifying data: Patient is a 52 year old single male, father of two, employed , and is currently homeless. This is one of multiple admissions for patient. Patient admitted to for alcohol and opiate dependence. Substance Abuse History: - Smoking Cessation. Smoking history: Current every day smoker. Have you smoked in the past 12 months: Yes. Aproximately how many cigarettes per day: 10. Cigars Per Day: 0. Hx Chewing Tobacco Use: No. Initiated information on smoking cessation: Yes. 'Breaking Loose' booklet given : 06/07/18. - Substance & Tx. History. Hx Alcohol Use: Yes. Hx Substance Use : Yes. Substance Use Type: Alcohol, Cocaine, Heroin. Hx Substance Use Treatment: Yes ([facility] 04/21 completed). - Substances Abused. Heroin. Route: Inhalation. Frequency: Daily. Amount used: 10 bags. Age of first use: 13. Date of Last Use: 06/07/18. Alcohol. Route: Oral. Frequency: Daily. Amount used: 1pint of vodka. Age of first use: 13. Date of Last Use: . Cocaine. Route: Inhalation. Frequency: 1-2 times per week. Amount used: 40$. Age of first use: 14. Date of Last Use: 06/06/18 Medical History: denies. Psychiatric History: Patient denies h/o psychiatric hospitalization, outpatient care, and suicide attempt. Patient is an unrelaible historian. Patient has been seen by [facility] in the past. As per chart, patient has reported multiple psychiatric hospitalizations. He once reported being psychiatrically hospitalized at [facility] and was diagnosed with MDD. In the past he reported h/o accepting seroquel + mirtzapine. Patient's current information contradicts previous entry by [facility]. Currently, patient reports poor sleep. Physical/Sexual Abuse/Trauma History: denies. Mental Status Exam - Mental Status Exam Alert and Oriented to: Time, Place, Person Cognitive Function: Good Patient Appearance: Well Groomed Mood: Withdrawn Affect: Mood Congruent Patient Behavior: Fatigued, Guarded, Cooperative Speech Pattern: Appropriate Voice Loudness: Moderately Soft/Quiet Thought Process: Intact, Goal Oriented Thought Disorder: Not Present Hallucinations: Denies Suicidal Ideation: Denies Homicidal Ideation: Denies Insight/Judgement: Poor Sleep: Poorly Appetite: Fair Muscle strength/Tone: Normal Gait/Station: Normal Psychiatric Findings - Problem List ([place] 1, 2,3) (1) Alcohol dependence with uncomplicated withdrawal Current Visit: Yes Status: Acute (2) Opioid dependence with withdrawal Current Visit: Yes Status: Acute (3) Insomnia Current Visit: Yes Status: Acute - Initial Treatment Plan Initial Treatment Plan: Psychoeducation provided. Detoxification in progress. Patient informed that melatonin 5mg qhs is ordered for insomnia. Verbal consent given.
[2018-06-07 17:28] LABS: URINE APPEARANCE CLEAR; URINE BILIRUBIN NEGATIVE (<2.0 mg/dL); URINE COLOR DKYELLOW; URINE GLUCOSE (UA) NEGATIVE (NEGATIVE); URINE KETONE NEGATIVE (NEGATIVE); URINE LEUK ESTERASE NEGATIVE (NEGATIVE); URINE NITRITE NEGATIVE (NEGATIVE); URINE PROTEIN NEGATIVE (NEGATIVE); URINE UROBILINOGEN NEGATIVE mg/dL (0.2-1.0)
[2018-06-07] MEDS ORDERED: MELATONIN 5 MG TABLETS PO PRN (22:00)
[2018-06-07] MEDS: THIAMINE HCL 100 MG TABLET (FP) PO SCH (22:17)
--- NOTE | 2018-06-07 22:17 | EKG ---
Test Reason : Blood Pressure : / mmHG Vent. Rate : 059 BPM Atrial Rate : 059 BPM P-R Int : 142 ms QRS Dur : 094 ms QT Int : 420 ms P-R-T Axes : 010 079 073 degrees QTc Int : 415 ms SINUS BRADYCARDIA NORMAL ECG WHEN COMPARED WITH ECG OF 20-JAN-2018 19:40, NO SIGNIFICANT CHANGE WAS FOUND Confirmed by CYNDI BROOKS MD ([id number]) on 06/07/2018 10:17:36 PM Referred By: Confirmed By:CYNDI BROOKS MD
[2018-06-08] MEDS: chlordiazePOXIDE HCL 25 MG CAPSULE PO SCH ×4 (06:15→22:23)
[2018-06-08] MEDS ORDERED: METHADONE HCL 10 MG TABLET (FOR DETOX USE ONLY) PO SCH (10:00)
[2018-06-08] MEDS: BUDESONIDE/FORMETEROL FUMARATE 160/4.5 mcg INHALER IH SCH ×2 (10:12→22:25)
[2018-06-08] MEDS: cloNIDine HCL 0.1 MG TABLET PO SCH ×2 (10:12→22:23)
[2018-06-08] MEDS: PRENATAL VITAMINS W/ FOLIC ACID TABLET (FP) PO SCH (10:12)
[2018-06-08] MEDS: NICOTINE 21 MG/24 HOURS TOPICAL PATCH TD SCH (10:13)
[2018-06-08 11:06] LABS: HEMATOCRIT 42.2 % (35.4-49); HEMOGLOBIN 14.1 GM/dL (11.7-16.9); MCH 30.5 pg (25.7-33.7); MCHC 33.5 g/dl (32.0-35.9); MEAN CELL VOLUME 91.1 fl (80-96); MEAN PLT VOLUME 8.4 fl (7.5-11.1); PLATELET COUNT 323 K/MM3 (134-434); RBC 4.63 M/mm3 (4.00-5.60); RDW 13.7 % (11.9-15.9); WHITE BLOOD COUNT 7.4 K/mm3 (4.0-10.0)
[2018-06-08 11:35] LABS: ALK PHOS 91 U/L (45-117); ANION GAP 10 MMOL/L (8-16); BILIRUBIN,TOTAL 0.9 mg/dL (0.2-1); BLOOD UREA NITROGEN 10 mg/dL (7-18); CALCIUM 9.5 mg/dL (8.5-10.1); CHLORIDE 101 mmol/L (98-107); CO2 27 mmol/L (21-32); CREATININE 0.8 mg/dL (0.55-1.3); GLUCOSE,RANDOM 118 mg/dL (74-106); POTASSIUM 4.9 mmol/L (3.5-5.1); SGOT/AST 28 U/L (15-37); SGPT/ALT 27 U/L (13-61); SODIUM 138 mmol/L (136-145); TOT PROT 7.6 g/dl (6.4-8.2)
[2018-06-08] MEDS: chlordiazePOXIDE HCL 25 MG CAPSULE PO PRN (15:08)
--- NOTE | 2018-06-08 15:23 | PN ---
[facility] CIWA - CIWA Score Nausea/Vomitin Muscle Tremors: 4-Moderate,w/Arms Extend Anxiety: 4-Mod. Anxious/Guarded Agitation: 3 Paroxysmal Sweats: 3 Orientation: 0-Oriented Tacttile Disturbances: 1-Very Mild Itch/Numbness Auditory Disturbances: 0-None Visual Disturbances: 0-None Headache: 0-None Present CIWA-Ar Total Score: 18 S COWS - Scale Resting Pulse: 4= [place] > 121 Sweatin= Chills/Flushing Restless Observation: 3= Extraneous Movement Pupil Size: 0= Normal to Room Light Bone or Joint Aches: 2= Severe Diffuse Aches Runny Nose/ Eye Tearin= Runny Nose/Eyes GI Upset > 30mins: 1= Stomach Cramp Tremor Observation of Outstretched Hands: 2= Slight Tremor Visible Yawning Observation: 1= 1-2x During Session Anxiety or Irritability: 2=Irritable/Anxious Goose Flesh Skin: 0=Smooth Skin COWS Score: 18 [facility] Progress Note (SOAP) Subjective: Interrupted sleep, agitated Objective: 06/08/18 15:23 Last Vital Signs Temp Pulse Resp BP Pulse Ox 98.1 F 135 H 20 132/93 06/08/18 09:46 06/08/18 09:46 06/08/18 09:46 06/08/18 09:46 Laboratory Tests 06/07/18 06/08/18 06/08/18 14:30 06:00 06:00 WBC 7.4 RBC 4.63 Hgb 14.1 Hct 42.2 MCV 91.1 MCH 30.5 MCHC 33.5 RDW 13.7 Plt Count 323 MPV 8.4 Sodium 138 Potassium 4.9 Chloride 101 Carbon Dioxide 27 Anion Gap 10 BUN 10 Creatinine 0.8 Creat Clearance w eGFR > 60 Random Glucose 118 H Calcium 9.5 Total Bilirubin 0.9 AST 28 ALT 27 Alkaline Phosphatase 91 Total Protein 7.6 Albumin 4.0 Urine Color [place]ky[place] Urine Appearance Clear Urine pH 5.0 Ur Specific [place] 1.020 Urine Protein Negative Urine Glucose (UA) Negative Urine Ketones Negative Urine Blood Negative Urine Nitrite Negative Urine Bilirubin Negative Urine Urobilinogen Negative Ur Leukocyte Esterase Negative RPR Titer 06/08/18 06:00 WBC RBC Hgb Hct MCV MCH MCHC RDW Plt Count MPV Sodium Potassium Chloride Carbon Dioxide Anion Gap BUN Creatinine Creat Clearance w eGFR Random Glucose Calcium Total Bilirubin AST ALT Alkaline Phosphatase Total Protein Albumin Urine Color Urine Appearance Urine pH Ur Specific [place] Urine Protein Urine Glucose (UA) Urine Ketones Urine Blood Urine Nitrite Urine Bilirubin Urine Urobilinogen Ur Leukocyte Esterase RPR Titer Nonreactive Labs reviewed Assessment: 06/08/18 15:24 Withdrawal symptoms Plan: Continue detox Monitor pulse, increased due to agitation
[2018-06-08] MEDS: THIAMINE HCL 100 MG TABLET (FP) PO SCH (22:23)
[2018-06-09] MEDS: chlordiazePOXIDE HCL 25 MG CAPSULE PO SCH (05:11)
[2018-06-09] MEDS ORDERED: METHADONE HCL 5 MG TABLET (FOR DETOX USE ONLY) PO SCH (10:00)
[2018-06-09] MEDS: chlordiazePOXIDE 5 MG CAPSULE PO SCH ×3 (10:14→22:18)
[2018-06-09] MEDS: BUDESONIDE/FORMETEROL FUMARATE 160/4.5 mcg INHALER IH SCH ×2 (10:15→22:19)
[2018-06-09] MEDS: NICOTINE 21 MG/24 HOURS TOPICAL PATCH TD SCH (10:15)
[2018-06-09] MEDS: cloNIDine HCL 0.1 MG TABLET PO SCH ×2 (10:15→22:18)
[2018-06-09] MEDS: PRENATAL VITAMINS W/ FOLIC ACID TABLET (FP) PO SCH (10:15)
[2018-06-09] MEDS: chlordiazePOXIDE HCL 25 MG CAPSULE PO PRN (13:41)
--- NOTE | 2018-06-09 15:15 | PN ---
[facility] CIWA - CIWA Score Nausea/Vomitin-Mild Nausea/No Vomiting Muscle Tremors: 3 Anxiety: 4-Mod. Anxious/Guarded Agitation: 3 Paroxysmal Sweats: 2 Orientation: 0-Oriented Tacttile Disturbances: 0-None Auditory Disturbances: 0-None Visual Disturbances: 1-Very Mild Sensitivity Headache: 0-None Present CIWA-Ar Total Score: 14 S Progress Note (SOAP) Subjective: fatigue, interrupted sleep, chills , sweats, constipation last BM two days ago Objective: 06/09/18 15:13 Vital Signs Temperature 96 F L 06/09/18 09:22 Pulse Rate 72 06/09/18 13:33 Respiratory Rate 18 06/09/18 13:33 Blood Pressure 130/76 06/09/18 13:33 O2 Sat by Pulse Oximetry (%) Laboratory Last Values WBC 7.4 K/mm3 (4.0-10.0) 06/08/18 06:00 RBC 4.63 M/mm3 (4.00-5.60) 06/08/18 06:00 Hgb 14.1 GM/dL (11.7-16.9) 06/08/18 06:00 Hct 42.2 % (35.4-49) 06/08/18 06:00 MCV 91.1 fl (80-96) 06/08/18 06:00 MCH 30.5 pg (25.7-33.7) 06/08/18 06:00 MCHC 33.5 g/dl (32.0-35.9) 06/08/18 06:00 RDW 13.7 % (11.9-15.9) 06/08/18 06:00 Plt Count 323 K/MM3 (134-434) 06/08/18 06:00 MPV 8.4 fl (7.5-11.1) 06/08/18 06:00 Sodium 138 mmol/L (136-145) 06/08/18 06:00 Potassium 4.9 mmol/L (3.5-5.1) 06/08/18 06:00 Chloride 101 mmol/L (98-107) 06/08/18 06:00 Carbon Dioxide 27 mmol/L (21-32) 06/08/18 06:00 Anion Gap 10 MMOL/L (8-16) 06/08/18 06:00 BUN 10 mg/dL (7-18) 06/08/18 06:00 Creatinine 0.8 mg/dL (0.55-1.3) 06/08/18 06:00 Creat Clearance w eGFR > 60 (>60) 06/08/18 06:00 Random Glucose 118 mg/dL (74-106) H 06/08/18 06:00 Calcium 9.5 mg/dL (8.5-10.1) 06/08/18 06:00 Total Bilirubin 0.9 mg/dL (0.2-1) 06/08/18 06:00 AST 28 U/L (15-37) 06/08/18 06:00 ALT 27 U/L (13-61) 06/08/18 06:00 Alkaline Phosphatase 91 U/L (45-117) 06/08/18 06:00 Total Protein 7.6 g/dl (6.4-8.2) 06/08/18 06:00 Albumin 4.0 g/dl (3.4-5.0) 06/08/18 06:00 Urine Color Dkyellow 06/07/18 14:30 Urine Appearance Clear 06/07/18 14:30 Urine pH 5.0 (5.0-8.0) 06/07/18 14:30 Ur Specific [place] 1.020 (1.004-1.035) 06/07/18 14:30 Urine Protein Negative (NEGATIVE) 06/07/18 14:30 Urine Glucose (UA) Negative (NEGATIVE) 06/07/18 14:30 Urine Ketones Negative (NEGATIVE) 06/07/18 14:30 Urine Blood Negative (NEGATIVE) 06/07/18 14:30 Urine Nitrite Negative (NEGATIVE) 06/07/18 14:30 Urine Bilirubin Negative (<2.0 mg/dL) 06/07/18 14:30 Urine Urobilinogen Negative mg/dL (0.2-1.0) 06/07/18 14:30 Ur Leukocyte Esterase Negative (NEGATIVE) 06/07/18 14:30 RPR Titer Nonreactive (NONREACTIVE) 06/08/18 06:00 AOx3 no distress full ROM ambulating in the unit Assessment: 06/09/18 15:14 withdrawal sx Plan: increase fluids continue detox continue to monitor
--- NOTE | 2018-06-09 15:53 | PN ---
S Progress Note Note: Patient requested to leave a day earlier from detox d/c to need to follow up with personal manners upon discharge. detox regimen adjusted, if medically stable, patient to be discharge 06/11/18
[2018-06-09] MEDS: MAG HYDROX/AL HYDROX/SIMETH 30 ML UNIT-DOSE CUP PO PRN ×2 (19:37→22:19)
[2018-06-09] MEDS: THIAMINE HCL 100 MG TABLET (FP) PO SCH (22:18)
[2018-06-10] MEDS: chlordiazePOXIDE 5 MG CAPSULE PO SCH (05:12)
[2018-06-10 09:21] VITALS: BP 83/56; PULSE 96; TEMP 96.6
[2018-06-10] MEDS: cloNIDine HCL 0.1 MG TABLET PO SCH (09:44)
[2018-06-10] MEDS ORDERED: METHADONE HCL 10 MG TABLET (FOR DETOX USE ONLY) PO SCH (10:00)
[2018-06-10] MEDS: BUDESONIDE/FORMETEROL FUMARATE 160/4.5 mcg INHALER IH SCH (10:04)
[2018-06-10] MEDS: NICOTINE 21 MG/24 HOURS TOPICAL PATCH TD SCH (10:04)
[2018-06-10] MEDS: PRENATAL VITAMINS W/ FOLIC ACID TABLET (FP) PO SCH (10:04)
--- NOTE | 2018-06-10 10:44 | DS ---
[facility] Detox Discharge Summary Admission Date: 06/07/18 Discharge Date: 06/10/18 - History Present History: Alcohol Dependence, Cocaine Dependence, Opioid Dependence Pertinent Past History: Hep C, COPD, Anxiety disorder and depression - Physical Exam Results Vital Signs: Vital Signs Temperature 96.6 F L 06/10/18 09:21 Pulse Rate 96 H 06/10/18 09:21 Respiratory Rate 20 06/10/18 09:21 Blood Pressure 83/56 L 06/10/18 09:21 O2 Sat by Pulse Oximetry (%) Pertinent Admission Physical Exam Findings: Withdrawal sx Laboratory Last Values WBC 7.4 K/mm3 (4.0-10.0) 06/08/18 06:00 RBC 4.63 M/mm3 (4.00-5.60) 06/08/18 06:00 Hgb 14.1 GM/dL (11.7-16.9) 06/08/18 06:00 Hct 42.2 % (35.4-49) 06/08/18 06:00 MCV 91.1 fl (80-96) 06/08/18 06:00 MCH 30.5 pg (25.7-33.7) 06/08/18 06:00 MCHC 33.5 g/dl (32.0-35.9) 06/08/18 06:00 RDW 13.7 % (11.9-15.9) 06/08/18 06:00 Plt Count 323 K/MM3 (134-434) 06/08/18 06:00 MPV 8.4 fl (7.5-11.1) 06/08/18 06:00 Sodium 138 mmol/L (136-145) 06/08/18 06:00 Potassium 4.9 mmol/L (3.5-5.1) 06/08/18 06:00 Chloride 101 mmol/L (98-107) 06/08/18 06:00 Carbon Dioxide 27 mmol/L (21-32) 06/08/18 06:00 Anion Gap 10 MMOL/L (8-16) 06/08/18 06:00 BUN 10 mg/dL (7-18) 06/08/18 06:00 Creatinine 0.8 mg/dL (0.55-1.3) 06/08/18 06:00 Creat Clearance w eGFR > 60 (>60) 06/08/18 06:00 Random Glucose 118 mg/dL (74-106) H 06/08/18 06:00 Calcium 9.5 mg/dL (8.5-10.1) 06/08/18 06:00 Total Bilirubin 0.9 mg/dL (0.2-1) 06/08/18 06:00 AST 28 U/L (15-37) 06/08/18 06:00 ALT 27 U/L (13-61) 06/08/18 06:00 Alkaline Phosphatase 91 U/L (45-117) 06/08/18 06:00 Total Protein 7.6 g/dl (6.4-8.2) 06/08/18 06:00 Albumin 4.0 g/dl (3.4-5.0) 06/08/18 06:00 Urine Color Dkyellow 06/07/18 14:30 Urine Appearance Clear 06/07/18 14:30 Urine pH 5.0 (5.0-8.0) 06/07/18 14:30 Ur Specific [place] 1.020 (1.004-1.035) 06/07/18 14:30 Urine Protein Negative (NEGATIVE) 06/07/18 14:30 Urine Glucose (UA) Negative (NEGATIVE) 06/07/18 14:30 Urine Ketones Negative (NEGATIVE) 06/07/18 14:30 Urine Blood Negative (NEGATIVE) 06/07/18 14:30 Urine Nitrite Negative (NEGATIVE) 06/07/18 14:30 Urine Bilirubin Negative (<2.0 mg/dL) 06/07/18 14:30 Urine Urobilinogen Negative mg/dL (0.2-1.0) 06/07/18 14:30 Ur Leukocyte Esterase Negative (NEGATIVE) 06/07/18 14:30 RPR Titer Nonreactive (NONREACTIVE) 06/08/18 06:00 Labs noted - Medication Discharge Medications: Ambulatory Orders Albuterol Sulfate Inhaler - [Ventolin HFA Inhaler -] 2 inh PO Q4H PRN #1 inhaler 11/13/17 Budesonide/Formeterol Fumarate [SYMBICORT 160/4.5mcg -] 1 puff PO BID 06/07/18 - Diagnosis (1) Alcohol dependence with uncomplicated withdrawal Current Visit: Yes Status: Acute (2) Insomnia Current Visit: Yes Status: Acute (3) Opioid dependence with withdrawal Current Visit: Yes Status: Acute (4) COPD (chronic obstructive pulmonary disease) Current Visit: Yes Status: Chronic Qualifiers: COPD type: emphysema Emphysema type: other Qualified Code(s): J43.8 - Other emphysema (5) Cocaine dependence, uncomplicated Current Visit: Yes Status: Chronic (6) Nicotine dependence Current Visit: Yes Status: Chronic Qualifiers: Nicotine product type: cigarettes Substance use status: uncomplicated Qualified Code(s): F17.210 - Nicotine dependence, cigarettes, uncomplicated (7) Anxiety and depression Current Visit: No Status: Chronic (8) History of hepatitis C Current Visit: No Status: Chronic - AMA Did Patient Leave Against Medical Advice: Yes (Patient very irritable and adamant on leaving)
[2018-06-10] MEDS ORDERED: chlordiazePOXIDE HCL 10 MG CAPSULE PO SCH (11:00)
[2018-06-11] MEDS ORDERED: METHADONE HCL 5 MG TABLET (FOR DETOX USE ONLY) PO SCH (06:00)
[2018-06-11] MEDS ORDERED: METHADONE HCL 10 MG TABLET (FOR DETOX USE ONLY) PO SCH (10:00)
[2018-06-12] MEDS ORDERED: METHADONE HCL 5 MG TABLET (FOR DETOX USE ONLY) PO SCH (06:00)
== END 2018-06-10 10:38 | disposition left against medical advice (07) | DRG 770 ==
LOC: YASAS 08:18 → Y3N 09:44
PROC: HZ2ZZZZ Detoxification Services for Substance Abuse Treatment (ICD-10-PCS; principal; 2018-06-07)
DX: F11.23 Opioid dependence with withdrawal (principal); F10.230 Alcohol dependence with withdrawal, uncomplicated; F14.20 Cocaine dependence, uncomplicated; F17.210 Nicotine dependence, cigarettes, uncomplicated; F31.9 Bipolar disorder, unspecified; F41.8 Other specified anxiety disorders; F32.9 Major depressive disorder, single episode, unspecified; J43.8 Other emphysema; G47.00 Insomnia, unspecified; B18.2 Chronic viral hepatitis C; E86.0 Dehydration; Z68.21 Body mass index [BMI] 21.0-21.9, adult
CPT/HCPCS: 36415; 80053; 81003; 85027; 86593; 93005; 93010; J0735

== ENCOUNTER 2018-12-08 09:00 | Inpatient (IN) | payer OTHER ==
[2018-12-08 09:45] VITALS: BMI 23.2
--- NOTE | 2018-12-08 10:20 | HP ---
COWS - Scale Resting Pulse: 1= [place] 81-100 Sweatin= Chills/Flushing Restless Observation: 0= Sits Still Pupil Size: 0= Normal to Room Light Bone or Joint Aches: 1= Mild Discomfort Runny Nose/ Eye Tearin= Nasal Congestion GI Upset > 30mins: 1= Stomach Cramp Tremor Observation: 2= Slight Tremor Visible Yawning Observation: 0= None Anxiety or Irritability: 1=Feels Anxious/Irritable Goose Flesh Skin: 0=Smooth Skin COWS Score: 8 CIWA Score Nausea/Vomitin Muscle Tremors: 3 Anxiety: 4-Mod. Anxious/Guarded Agitation: 1-Slight > Activity Paroxysmal Sweats: 1-Minimal Palms Moist Orientation: 2-Disoriented Date<2 days Tacttile Disturbances: 0-None Auditory Disturbances: 1-Very Mild Visual Disturbances: 2-Mild Sensitivity Headache: 1-Very Mild CIWA-Ar Total Score: 17 - Admission Criteria OASAS Guidelines: Admission for Medically Managed Detox: Requires at least one of the followin. CIWA greater than 12 2. Seizures within the past 24 hours 3. Delirium tremens within the past 24 hours 4. Hallucinations within the past 24 hours 5. Acute intervention needed for co occurring medical disorder 6. Acute intervention needed for co occurring psychiatric disorder 7. Severe withdrawal that cannot be handled at a lower level of care (continued vomiting, continued diarrhea, abnormal vital signs) requiring intravenous medication and/or fluids 8. Patient presents the following: CIWA greater than 12 Admission Criteria Met: Admission criteria met Admission ROS S - HPI Chief Complaint: I need to stop, I want to - it's out of control, I can't function. Allergies/Adverse Reactions: Allergies Allergy/AdvReac Type Severity Reaction Status Date / Time No Known Allergies Allergy Verified 12/08/18 09:40 History of Present Illness: 52 yo gentleman here for detox from alcohol and opiates. Patient was last here 06/07/18 - never followed up in rehab. Tried methadone program once but didn't like it. Did try suboxone but started drinking and did not go back. Likely a good candidate for Vivitrol. Patient states he gets 'violently ill if I try to stop on my own'.l No seizures but has had black outs and overdoses. 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 States he was in recovery for fifteen years while but relapsed after he was 2004. This report was requested by: Neva Medrano | Reference #: [id number] Others' Prescriptions Patient Name: Charanjit Thomas Date: 1965 Address: [address] to [facility] [place] [address] Sex: Male Rx Written Rx Dispensed Drug Quantity Days Supply Prescriber Name Payment Method Dispenser 05/30/2018 05/30/2018 suboxone 8 mg-2 mg sl film 14 14 Niko Plasencia MD Insurance Exam Limitations: No Limitations - Ebola screening Have you traveled outside of the country in the last 21 days: No (N) Have you had contact with anyone from an Ebola affected area: No Do you have a fever: No - Review of Systems Constitutional: Loss of Appetite, Changes in sleep EENT: reports: Blurred Vision Respiratory: reports: No Symptoms reported Cardiac: reports: No Symptoms Reported GI: reports: Poor Appetite : reports: Frequency Musculoskeletal: reports: Back Pain, Muscle Pain Integumentary: reports: No Symptoms Reported Neuro: reports: Headache, Tremors Endocrine: reports: No Symptoms Reported Hematology: reports: No Symptoms Reported Psychiatric: reports: Mood/Affect Appropiate, Anxious Other Systems: Reviewed and Negative Patient History - Patient Medical History Hx Anemia: No Hx Asthma: No Hx Chronic Obstructive Pulmonary Disease (COPD): No Hx Cancer: No Hx Cardiac Disorders: No Hx Congestive Heart Failure: No Hx Hypertension: No Hx Hypercholesterolemia: No Hx Pacemaker: No HX Cerebrovascular Accident: No Hx Seizures: No Hx Dementia: No Hx Diabetes: No Hx Gastrointestinal Disorders: No Hx Liver Disease: No Hx Genitourinary Disorders: No Hx Sexually Transmitted Disorders: No Hx Renal Disease (ESRD): No Hx Thyroid Disease: No Hx Human Immunodeficiency Virus (HIV): No (NEGATIVE HX 2016) Hx Hepatitis C: Yes (TREATED-interferon years ago -"UNDETECTABLE") Hx Depression: Yes (drug related - no meds, never hospitalized) Hx Suicide Attempt: No (denies) Hx Bipolar Disorder: No Hx Schizophrenia: No - Patient Surgical History Past Surgical History: No Hx Neurologic Surgery: No Hx Cataract Extraction: No Hx Cardiac Surgery: No Hx Lung Surgery: No Hx Breast Surgery: No Hx Breast Biopsy: No Hx Abdominal Surgery: No Hx Appendectomy: No Hx Cholecystectomy: No Hx Genitourinary Surgery: No Hx Section: No Hx Orthopedic Surgery: No Anesthesia Reaction: No - PPD History Previous Implant?: Yes Documented Results: Negative w/proof Implanted On Prior R Admission?: Yes Date: 11/11/17 Results: 0.0 MM PPD to be Administered?: Yes - Reproductive History Patient is a Female of Child Bearing Age (11 -55 yrs old): No (male) - Smoking Cessation Smoking history: Current every day smoker Have you smoked in the past 12 months: Yes Aproximately how many cigarettes per day: 10 Cigars Per Day: 0 Hx Chewing Tobacco Use: No Initiated information on smoking cessation: Yes 'Breaking Loose' booklet given: 12/08/18 (give on floor) - Substance & Tx. History Hx Alcohol Use: Yes Hx Substance Use: Yes Substance Use Type: Alcohol, Heroin Hx Substance Use Treatment: Yes (detox, rehab, methadone program for 3 days) - Substances abused Heroin Substance route: Injection Frequency: Daily Amount used: 1 bundle Age of first use: 13 Date of last use: 12/08/18 Alcohol Substance route: Oral Frequency: Daily Amount used: 2 pt. vodka Age of first use: 13 Date of last use: 12/07/18 Cocaine Substance route: Injection Frequency: 1-2 times per week Amount used: $10 Age of first use: 15 Date of last use: 12/07/18 Family Disease History - Family Disease History Family Disease History: [place]: Father (, etoh), Mother (), Other: Brother (alive, hx Drug & Alcohol), Sister (one living, healthy), Son (age 20, healthy, ), Daughter (agd 16, healthy, ) Admission Physical Exam [facility] - Vital Signs Vital Signs: Vital Signs - 24 hr 12/08/18 09:40 Temperature 98.2 F Pulse Rate 82 Respiratory 18 Rate Blood Pressure 112/70 - Physical General Appearance: Yes: Nourished, Appropriately Dressed, Mild Distress HEENTM: Yes: Hearing grossly Normal, Normocephalic, Normal Voice, Pharynx Normal , Other (dentures) Respiratory: Yes: Normal Breath Sounds, No Respiratory Distress Neck: Yes: No masses,lesions,Nodules, Supple Breast: Yes: Breast Exam Deferred Cardiology: Yes: Regular Rhythm, Regular Rate Abdominal: Yes: Soft Genitourinary: Yes: Hesitency Back: Yes: Normal Inspection Musculoskeletal: Yes: full range of Motion, Gait Steady Extremities: Yes: Normal Inspection, Non-Tender 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: Yes: Alert, Normal Mood/Affect, Normal Response Integumentary: Yes: Normal Color, Warm, Track Mendoza (both arms - no abscess noted) Lymphatic: Yes: Within Normal Limits - Diagnostic (1) Alcohol dependence with uncomplicated withdrawal Current Visit: Yes Status: Acute (2) Opioid abuse with intoxication, uncomplicated Current Visit: Yes Status: Acute (3) History of hepatitis C Current Visit: Yes Status: Resolved (4) Nicotine dependence Current Visit: Yes Status: Chronic Qualifiers: Nicotine product type: cigarettes Substance use status: uncomplicated Qualified Code(s): F17.210 - Nicotine dependence, cigarettes, uncomplicated (5) Cocaine use Current Visit: Yes Status: Acute Cleared for Admission S - Detox or Rehab [facility] Level of Care: Medically Managed Detox Regimen/Protocol: Methadone/Librium Breathalyzer - Breathalyzer Breathalyzer: 0 Urine Drug Screen - Test Device Lot number: [id number] Expiration date: 08/03/20 - Control Is test valid?: Yes - Results Drug screen NEGATIVE: No Urine drug screen results: SWAPNA-Cocaine, FEN-Fentanyl, MOP-Opiates Inpatient Rehab Admission - Rehab Decision to Admit Inpatient rehab admission?: No
[2018-12-08] MEDS ORDERED: IBUPROFEN 400 MG TABLET (FP) PO PRN (10:34)
[2018-12-08] MEDS ORDERED: ACETAMINOPHEN 325 MG TABLET (FP) PO PRN (10:34)
[2018-12-08] MEDS ORDERED: MAGNESIUM CITRATE 300 ML BOTTLE PO PRN (10:34)
[2018-12-08] MEDS ORDERED: cloNIDine HCL 0.1 MG TABLET PO PRN (10:34)
[2018-12-08] MEDS ORDERED: MENTHOL/PHENOL 1 EACH UD MM PRN (10:34)
[2018-12-08] MEDS ORDERED: MAG HYDROX/AL HYDROX/SIMETH 30 ML UNIT-DOSE CUP PO PRN (10:34)
[2018-12-08] MEDS ORDERED: BISMUTH SUBSALICYLATE 524 MG/30 ML UD PO PRN (10:34)
[2018-12-08] MEDS ORDERED: chlordiazePOXIDE HCL 25 MG CAPSULE PO PRN (10:34)
[2018-12-08] MEDS ORDERED: MELATONIN 5 MG TABLETS PO PRN (10:34)
[2018-12-08] MEDS ORDERED: MAGNESIUM HYDROX 2400MG/30ML ORAL SUSPENSION 30 ML CUP PO PRN (10:34)
[2018-12-08] MEDS ORDERED: METHOCARBAMOL 500 MG TABLET PO PRN (10:34)
[2018-12-08] MEDS ORDERED: chlordiazePOXIDE HCL 25 MG CAPSULE PO ONE (12:00)
[2018-12-08] MEDS ORDERED: METHADONE HCL 10 MG TABLET (FOR DETOX USE ONLY) PO ONE (13:00)
[2018-12-08] MEDS: NICOTINE 21 MG/24 HOURS TOPICAL PATCH TD SCH (14:03)
[2018-12-08] MEDS: chlordiazePOXIDE HCL 25 MG CAPSULE PO SCH ×2 (18:08→23:04)
[2018-12-08] MEDS: THIAMINE HCL 100 MG TABLET (FP) PO SCH (21:34)
[2018-12-08] MEDS ORDERED: METHADONE HCL 5 MG TABLET (FOR DETOX USE ONLY) PO ONE (22:00)
[2018-12-09] MEDS: chlordiazePOXIDE HCL 25 MG CAPSULE PO SCH ×4 (06:15→23:37)
[2018-12-09 09:56] LABS: ALBUMIN 3.6 g/dl (3.4-5.0); ALK PHOS 71 U/L (45-117); ANION GAP 6 MMOL/L (8-16); BILIRUBIN,TOTAL 0.6 mg/dL (0.2-1); BLOOD UREA NITROGEN 11 mg/dL (7-18); CALCIUM 8.4 mg/dL (8.5-10.1); CHLORIDE 106 mmol/L (98-107); CO2 30 mmol/L (21-32); CREATININE 0.7 mg/dL (0.55-1.3); GLUCOSE,RANDOM 76 mg/dL (74-106); POTASSIUM 4.3 mmol/L (3.5-5.1); SGOT/AST 17 U/L (15-37); SGPT/ALT 18 U/L (13-61); SODIUM 141 mmol/L (136-145); TOT PROT 6.7 g/dl (6.4-8.2)
[2018-12-09 09:59] LABS: HEMATOCRIT 41.2 % (35.4-49); MCH 30.9 pg (25.7-33.7); MEAN CELL VOLUME 90.7 fl (80-96); MEAN PLT VOLUME 7.9 fl (7.5-11.1); PLATELET COUNT 288 K/MM3 (134-434); RBC 4.54 M/mm3 (4.00-5.60); RDW 13.2 % (11.9-15.9); WHITE BLOOD COUNT 6.4 K/mm3 (4.0-10.0)
[2018-12-09] MEDS ORDERED: METHADONE HCL 10 MG TABLET (FOR DETOX USE ONLY) PO ONE (10:00)
[2018-12-09] MEDS: PRENATAL VITAMINS W/ FOLIC ACID TABLET (FP) PO SCH (10:14)
[2018-12-09] MEDS: NICOTINE 21 MG/24 HOURS TOPICAL PATCH TD SCH (10:15)
--- NOTE | 2018-12-09 15:14 | PN ---
[facility] CIWA - CIWA Score Nausea/Vomitin Muscle Tremors: 4-Moderate,w/Arms Extend Anxiety: 4-Mod. Anxious/Guarded Agitation: 4-Moderately Restless Paroxysmal Sweats: 3 Orientation: 0-Oriented Tacttile Disturbances: 0-None Auditory Disturbances: 0-None Visual Disturbances: 0-None Headache: 0-None Present CIWA-Ar Total Score: 17 S COWS - Scale Resting Pulse: 0= [place] 80 or Below Sweatin= Chills/Flushing Restless Observation: 3= Extraneous Movement Pupil Size: 0= Normal to Room Light Bone or Joint Aches: 2= Severe Diffuse Aches Runny Nose/ Eye Tearin= Runny Nose/Eyes GI Upset > 30mins: 3= Vomiting/Diarrhea Tremor Observation of Outstretched Hands: 2= Slight Tremor Visible Yawning Observation: 0= None Anxiety or Irritability: 2=Irritable/Anxious Goose Flesh Skin: 0=Smooth Skin COWS Score: 15 S Progress Note (SOAP) Subjective: Stomachache Objective: 12/09/18 15:11 Last Vital Signs Temp Pulse Resp BP Pulse Ox 97.0 F L 75 18 114/64 12/09/18 09:24 12/09/18 09:24 12/09/18 09:24 12/09/18 09:24 Laboratory Tests 12/09/18 12/09/18 12/09/18 07:50 07:50 07:50 WBC 6.4 RBC 4.54 Hgb 14.0 Hct 41.2 MCV 90.7 MCH 30.9 MCHC 34.0 RDW 13.2 Plt Count 288 MPV 7.9 Sodium 141 Potassium 4.3 Chloride 106 Carbon Dioxide 30 Anion Gap 6 L BUN 11 Creatinine 0.7 Creat Clearance w eGFR 118.43 Random Glucose 76 Calcium 8.4 L Total Bilirubin 0.6 AST 17 ALT 18 Alkaline Phosphatase 71 Total Protein 6.7 Albumin 3.6 RPR Titer Nonreactive HIV 1&2 Antibody Screen HIV P24 Antigen 12/09/18 07:50 WBC RBC Hgb Hct MCV MCH MCHC RDW Plt Count MPV Sodium Potassium Chloride Carbon Dioxide Anion Gap BUN Creatinine Creat Clearance w eGFR Random Glucose Calcium Total Bilirubin AST ALT Alkaline Phosphatase Total Protein Albumin RPR Titer HIV 1&2 Antibody Screen Negative HIV P24 Antigen Negative Labs reviewed Assessment: 12/09/18 15:11 Withdrawal symptoms Plan: Continue detox Encouraged PO water hydration
[2018-12-09] MEDS: THIAMINE HCL 100 MG TABLET (FP) PO SCH (23:37)
[2018-12-10] MEDS: chlordiazePOXIDE HCL 25 MG CAPSULE PO SCH ×2 (05:49→10:13)
[2018-12-10 09:23] VITALS: BP 120/61; PULSE 95; TEMP 98.6
[2018-12-10] MEDS ORDERED: METHADONE HCL 5 MG TABLET (FOR DETOX USE ONLY) PO ONE (10:00)
[2018-12-10] MEDS ORDERED: METHADONE HCL 10 MG TABLET (FOR DETOX USE ONLY) PO ONE (10:00)
[2018-12-10] MEDS: NICOTINE 21 MG/24 HOURS TOPICAL PATCH TD SCH (10:13)
[2018-12-10] MEDS: PRENATAL VITAMINS W/ FOLIC ACID TABLET (FP) PO SCH (10:13)
--- NOTE | 2018-12-10 11:15 | PN ---
[facility] Progress Note Note: pt states he needs to go to work. No one at his job can do his job and his boss needs him. Pt spoke with all disciplines and pt was advised not to leave and complete his detox and perhaps his boss will understand the importance of completing detox and his recovery as well as the chance of relapse; however, pt insisted he needs to leave and signed out AMA.
--- NOTE | 2018-12-10 11:17 | DS ---
[facility] Detox Discharge Summary Admission Date: 12/08/18 - History Present History: Alcohol Dependence, Cocaine Dependence, Opioid Dependence - Physical Exam Results Vital Signs: Vital Signs Temperature 98.6 F 12/10/18 09:22 Pulse Rate 95 H 12/10/18 09:22 Respiratory Rate 18 12/10/18 09:22 Blood Pressure 120/61 12/10/18 09:22 O2 Sat by Pulse Oximetry (%) - Treatment Hospital Course: Discharged Condition Good - Medication Discharge Medications: Ambulatory Orders NK [No Known Home Medication] 12/08/18 - Diagnosis (1) Alcohol dependence with uncomplicated withdrawal Current Visit: Yes Status: Chronic (2) Cocaine use Current Visit: Yes Status: Chronic (3) Nicotine dependence Current Visit: Yes Status: Chronic Qualifiers: Nicotine product type: cigarettes Substance use status: uncomplicated Qualified Code(s): F17.210 - Nicotine dependence, cigarettes, uncomplicated (4) History of hepatitis C Current Visit: Yes Status: Resolved (5) Dehydration Current Visit: No Status: Acute (6) Drug-induced mood disorder Current Visit: No Status: Acute (7) Opioid dependence with withdrawal Current Visit: Yes Status: Chronic (8) Substance induced mood disorder Current Visit: No Status: Acute (9) Track sherwood due to intravenous drug abuse Current Visit: Yes Status: Chronic (10) Weight loss Current Visit: No Status: Acute (11) Anxiety and depression Current Visit: No Status: Chronic (12) COPD (chronic obstructive pulmonary disease) Current Visit: Yes Status: Chronic Qualifiers: Emphysema type: unspecified (13) Schizoaffective disorder Current Visit: No Status: Chronic (14) Bipolar II disorder Current Visit: No Status: Suspected - AMA Did Patient Leave Against Medical Advice: Yes (going home then work.)
[2018-12-10] MEDS ORDERED: chlordiazePOXIDE HCL 10 MG CAPSULE PO SCH (17:00)
[2018-12-10] MEDS ORDERED: chlordiazePOXIDE HCL 10 MG CAPSULE PO PRN (17:00)
[2018-12-11] MEDS ORDERED: METHADONE HCL 10 MG TABLET (FOR DETOX USE ONLY) PO ONE (10:00)
[2018-12-11] MEDS ORDERED: chlordiazePOXIDE HCL 10 MG CAPSULE PO SCH (17:00)
[2018-12-12] MEDS ORDERED: METHADONE HCL 5 MG TABLET (FOR DETOX USE ONLY) PO ONE (06:00)
== END 2018-12-10 09:40 | disposition left against medical advice (07) | DRG 770 ==
LOC: YASAS 09:00 → Y6N 11:43
PROVIDERS: ADMIT Surgery; ATTEND Surgery
PROC: HZ2ZZZZ Detoxification Services for Substance Abuse Treatment (ICD-10-PCS; principal; 2018-12-08)
DX: F11.23 Opioid dependence with withdrawal (principal); F10.230 Alcohol dependence with withdrawal, uncomplicated; F14.90 Cocaine use, unspecified, uncomplicated; F17.210 Nicotine dependence, cigarettes, uncomplicated; F19.24 Other psychoactive substance dependence with psychoactive substance-induced mood disorder; F25.9 Schizoaffective disorder, unspecified; F31.81 Bipolar II disorder; E86.0 Dehydration; L90.5 Scar conditions and fibrosis of skin; J44.9 Chronic obstructive pulmonary disease, unspecified; Z86.19 Personal history of other infectious and parasitic diseases
CPT/HCPCS: 36415; 80053; 85027; 86593; 87389

== ENCOUNTER 2019-07-23 12:25 | Inpatient (IN) | payer BC ==
[2019-07-23 12:50] VITALS: BMI 24.3
--- NOTE | 2019-07-23 15:19 | HP ---
COWS - Scale Resting Pulse: 0= [place] 80 or Below Sweatin= Chills/Flushing Restless Observation: 1= Difficult to Sit Still Bone or Joint Aches: 0= None Runny Nose/ Eye Tearin= Runny Nose/Eyes GI Upset > 30mins: 2= Nausea/Diarrhea Tremor Observation: 0= None Yawning Observation: 1= 1-2x During Session Anxiety or Irritability: 2=Irritable/Anxious Goose Flesh Skin: 0=Smooth Skin CIWA Score Nausea/Vomitin-Mild Nausea/No Vomiting Muscle Tremors: None Anxiety: 1-Mildly Anxious Agitation: 1-Slight > Activity Paroxysmal Sweats: No Perspiration Orientation: 0-Oriented Tacttile Disturbances: 0-None Auditory Disturbances: 0-None Visual Disturbances: 0-None Headache: 0-None Present CIWA-Ar Total Score: 3 - Admission Criteria OASAS Guidelines: Admission for Medically Managed Detox: Requires at least one of the followin. CIWA greater than 12 2. Seizures within the past 24 hours 3. Delirium tremens within the past 24 hours 4. Hallucinations within the past 24 hours 5. Acute intervention needed for co occurring medical disorder 6. Acute intervention needed for co occurring psychiatric disorder 7. Severe withdrawal that cannot be handled at a lower level of care (continued vomiting, continued diarrhea, abnormal vital signs) requiring intravenous medication and/or fluids 8. Admitting History and Physical - Smoking History Smoking history: Current every day smoker Have you smoked in the past 12 months: Yes Aproximately how many cigarettes per day: 10 - Alcohol/Substance Use Hx Alcohol Use: Yes Admission [facility] Allergies/Adverse Reactions: Allergies Allergy/AdvReac Type Severity Reaction Status Date / Time No Known Allergies Allergy Verified 07/23/19 12:46 History of Present Illness: 53 y/o M presenting to [facility] for detox from cocaine, heroin and alcohol with Heroin being his Drug of choice. Pt started using each substance on and off since the age of 13 ( from family stressors). Cocaine 20$ worth (2 bags) every other day with last use 07/23/19 after midnight (via injection which is his preference). Pt endorsed the use of clean needles that he purchases from [facility]. For heroin, he uses about 8-10 bags a day with last use being around 3 am this morning also via injection in his arms. Lastly for his alcohol abuse, he drinks about 1 pint of vodka a daily with his last drink last night 07/22/19. Pt endorses feelings of anxiety, nausea, vomiting, diarrhea 3 hours ago x2, denies any palpitations, blackouts, falls, or seizures with withdrawals.Pt admits to going to about 4 detox centers in the past and 2 [facility] as well. Last detox about 5 months ago at [facility] and last [facility] in 2008. His last relapse was due to his divorce and missing his children. most recent relapse in the last 2-3 months. PMH: none Psych HX: depressive episode years ago PSH: none Social Hx: 1/2 PPD for 30 yrs PE: in [facility]EX . unremarkable. CIWA 3 COWS 9 Plan: Alcohol detox : valium protocol Opiod withdrawal : methadone detoxification protocol Smoking : counseled on cessation and nicotine patch - Ebola screening Have you traveled outside of the country in the last 21 days: No Have you had contact with anyone from an Ebola affected area: No Do you have a fever: No Patient History - Patient Medical History Hx Anemia: No Hx Asthma: No Hx Chronic Obstructive Pulmonary Disease (COPD): No Hx Cancer: No Hx Cardiac Disorders: No Hx Congestive Heart Failure: No Hx Hypertension: No Hx Hypercholesterolemia: No Hx Pacemaker: No HX Cerebrovascular Accident: No Hx Seizures: No Hx Dementia: No Hx Diabetes: No Hx Gastrointestinal Disorders: No Hx Liver Disease: No Hx Genitourinary Disorders: No Hx Sexually Transmitted Disorders: No Hx Renal Disease (ESRD): No Hx Thyroid Disease: No Hx Human Immunodeficiency Virus (HIV): No (NEGATIVE HX 2016) Hx Hepatitis C: Yes (TREATED-interferon years ago -"UNDETECTABLE") Hx Depression: No Hx Suicide Attempt: No Hx Bipolar Disorder: No Hx Schizophrenia: No - Patient Surgical History Past Surgical History: No Hx Neurologic Surgery: No Hx Cataract Extraction: No Hx Cardiac Surgery: No Hx Lung Surgery: No Hx Breast Surgery: No Hx Breast Biopsy: No Hx Abdominal Surgery: No Hx Appendectomy: No Hx Cholecystectomy: No Hx Genitourinary Surgery: No Hx Section: No Hx Orthopedic Surgery: No Anesthesia Reaction: No - PPD History Date: 11/11/17 Results: 0.0 MM - Smoking Cessation Smoking history: Current every day smoker Have you smoked in the past 12 months: Yes Aproximately how many cigarettes per day: 10 Cigars Per Day: 0 Hx Chewing Tobacco Use: No Initiated information on smoking cessation: Yes 'Breaking Loose' booklet given: 07/23/19 - Substances abused Heroin Substance route: Injection Frequency: Daily Amount used: 8-10 BAGS Age of first use: 13 Date of last use: 07/23/19 Alcohol Substance route: Oral Frequency: Daily Amount used: 2 pt. vodka Age of first use: 13 Date of last use: 07/22/19 Cocaine Substance route: Injection Frequency: 1-2 times per week Amount used: $10 Age of first use: 15 Date of last use: 07/23/19 Admission Physical Exam [facility] - Vital Signs Vital Signs: Vital Signs - 24 hr 07/23/19 12:43 Temperature 97.1 F L Pulse Rate 68 Respiratory 18 Rate Blood Pressure 123/78 - Physical General Appearance: Yes: Within Normal Limits HEENTM: Yes: Within Normal Limits Respiratory: Yes: Within Normal Limits Neck: Yes: Within Normal Limits Breast: Yes: Breast Exam Deferred Cardiology: Yes: Within Normal Limits Abdominal: Yes: Within Normal Limits Extremities: Yes: Within Normal Limits (injection site scars on b/l upper extremities) 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: Yes: Within Normal Limits - Diagnostic (1) Alcohol withdrawal Current Visit: Yes Status: Acute (2) Opioid withdrawal Current Visit: Yes Status: Acute Cleared for Admission [facility] - Detox or Rehab [facility] Level of Care: Medically Supervised Breathalyzer - Breathalyzer Breathalyzer: 0 Urine Drug Screen - Test Device Lot number: [id number] Expiration date: 08/03/20 - Control Is test valid?: Yes - Results Drug screen NEGATIVE: No Urine drug screen results: SWAPNA-Cocaine, FEN-Fentanyl, MOP-Opiates Inpatient Rehab Admission - Rehab Decision to Admit Inpatient rehab admission?: No
--- NOTE | 2019-07-23 15:36 | PN ---
"Teaching Attending Note Name of Resident: Amber Read ATTENDING PHYSICIAN STATEMENT I saw and evaluated the patient. I reviewed the resident's note and discussed the case with the resident. I agree with the resident's findings and plan as documented. SUBJECTIVE: 53 y.o. male w/ opioid dependence , reports 8-10 bags ivdu , relapsed after stopping Buiprenorphine program @ [facility] 1 mo ago , latest use this morning , needles from pharmacy , denies sharing . etoh : 1 pint / day x 5 d/week , denies blackouts, seizures or tremors . cocaine : 20 $ every other day IV tobacco : 1/2 PPD x 30 yrs OBJECTIVE: wnwd , mild discomfort CIWA 3 COWS 9 EKG 06/07/2018 QTc 415 ms Vital Signs - 24 hr 07/23/19 12:43 Temperature 97.1 F L Pulse Rate 68 Respiratory 18 Rate Blood Pressure 123/78 This report was requested by: Mónica Garcia | Reference #: [id number] Others' Prescriptions Patient Name: Charanjit Thomas Date: 1965 Address: [address] [place] [address] Sex: Male Rx Written Rx Dispensed Drug Quantity Days Supply Prescriber Name 05/22/2019 05/23/2019 buprenorphine-naloxone 2-0.5 mg sl film 30 30 Simon Lee MD 05/10/2019 05/10/2019 buprenorphine-naloxone 2-0.5 mg sl film 14 14 Simon Lee MD Patient Name: Charanjit Thomas Date: 1965 Address: [address] [address] Sex: Male Rx Written Rx Dispensed Drug Quantity Days Supply Prescriber Name 03/19/2019 03/19/2019 buprenorphine-naloxone 2-0.5 mg sl film 15 15 Brent Lundy 03/12/2019 03/12/2019 buprenorphine-naloxone 4-1 mg sl film 15 15 Brent Lundy 02/22/2019 02/22/2019 buprenorphine-naloxone 2-0.5 mg sl film 2 1 Brent Lundy 02/22/2019 02/22/2019 buprenorphine-naloxone 4-1 mg sl film 15 15 Brent Lundy skin : track sherwood mike UE . ASSESSMENT AND PLAN: OUD - Methadone detox Alcohol use - Valium detox Nicotine dependence - smoking cessation counseling cocaine use d/o"
[2019-07-23] MEDS ORDERED: METHOCARBAMOL 500 MG TABLET PO PRN (15:44)
[2019-07-23] MEDS ORDERED: BISMUTH SUBSALICYLATE 524 MG/30 ML UD PO PRN (15:44)
[2019-07-23] MEDS ORDERED: MAGNESIUM CITRATE 300 ML BOTTLE PO PRN (15:44)
[2019-07-23] MEDS ORDERED: IBUPROFEN 400 MG TABLET (FP) PO PRN (15:44)
[2019-07-23] MEDS ORDERED: MENTHOL/PHENOL 1 EACH UD MM PRN (15:44)
[2019-07-23] MEDS ORDERED: MAG HYDROX/AL HYDROX/SIMETH 30 ML UNIT-DOSE CUP PO PRN (15:44)
[2019-07-23] MEDS ORDERED: ACETAMINOPHEN 325 MG TABLET (FP) PO PRN ×2 (15:44)
[2019-07-23] MEDS ORDERED: hydrOXYzine PAMOATE 25 MG CAPSULE (FP) PO PRN (15:44)
[2019-07-23] MEDS ORDERED: MAGNESIUM HYDROX 2400MG/30ML ORAL SUSPENSION 30 ML CUP PO PRN (15:44)
[2019-07-23] MEDS ORDERED: cloNIDine HCL 0.1 MG TABLET PO PRN (15:47)
[2019-07-23] MEDS ORDERED: diazePAM 5 MG TABLET PO PRN (15:48)
[2019-07-23] MEDS ORDERED: METHADONE HCL 10 MG TABLET (FOR DETOX USE ONLY) PO ONE (17:00)
[2019-07-23] MEDS: THIAMINE HCL 100 MG TABLET (FP) PO SCH (22:12)
[2019-07-23] MEDS: diazePAM 5 MG TABLET PO SCH (22:12)
[2019-07-23] MEDS: MELATONIN 5 MG TABLETS PO PRN (22:14)
[2019-07-24] MEDS: diazePAM 5 MG TABLET PO SCH ×3 (05:26→22:06)
[2019-07-24] MEDS ORDERED: METHADONE HCL 5 MG TABLET (FOR DETOX USE ONLY) ONE (08:50)
[2019-07-24] MEDS ORDERED: METHADONE HCL 10 MG TABLET (FOR DETOX USE ONLY) ONE (08:50)
[2019-07-24] MEDS ORDERED: METHADONE (DETOX) 20 MG, METHADONE (DETOX) 5 MG PO ONE (10:00)
[2019-07-24 10:16] LABS: HEMATOCRIT 42.7 % (35.4-49); HEMOGLOBIN 14.3 GM/dL (11.7-16.9); MCH 30.5 pg (25.7-33.7); MCHC 33.5 g/dl (32.0-35.9); MEAN CELL VOLUME 91.1 fl (80-96); MEAN PLT VOLUME 7.9 fl (7.5-11.1); PLATELET COUNT 366 K/MM3 (134-434); RBC 4.69 M/mm3 (4.00-5.60); RDW 13.2 % (11.9-15.9)
[2019-07-24] MEDS: PRENATAL VITAMINS W/ FOLIC ACID TABLET (FP) PO SCH (10:18)
[2019-07-24] MEDS: NICOTINE 14 MG/24 HOURS TOPICAL PATCH TD SCH (10:18)
[2019-07-24 10:37] LABS: ALBUMIN 3.6 g/dl (3.4-5.0); BILIRUBIN,TOTAL 0.8 mg/dL (0.2-1); BLOOD UREA NITROGEN 10.4 mg/dL (7-18); CREATININE 0.7 mg/dL (0.55-1.3); POTASSIUM 4.6 mmol/L (3.5-5.1); TOT PROT 6.3 g/dl (6.4-8.2)
[2019-07-24] MEDS ORDERED: FLU VACCINE QUAD 60 MCG/0.5 ML (MDV 19-20) IM ONE (12:00)
--- NOTE | 2019-07-24 13:54 | PN ---
[facility] CIWA - CIWA Score Nausea/Vomitin-Mild Nausea/No Vomiting Muscle Tremors: 4-Moderate,w/Arms Extend Anxiety: 2 Agitation: 2 Paroxysmal Sweats: 2 Orientation: 0-Oriented Tacttile Disturbances: 1-Very Mild Itch/Numbness Auditory Disturbances: 1-Very Mild Visual Disturbances: 0-None Headache: 0-None Present CIWA-Ar Total Score: 13 S COWS - Scale Resting Pulse: 0= [place] 80 or Below Sweatin= Chills/Flushing Restless Observation: 0= Sits Still Pupil Size: 0= Normal to Room Light Bone or Joint Aches: 1= Mild Discomfort Runny Nose/ Eye Tearin= None GI Upset > 30mins: 2= Nausea/Diarrhea (NO DIARRHEA) Tremor Observation of Outstretched Hands: 2= Slight Tremor Visible Yawning Observation: 0= None Anxiety or Irritability: 1=Feels Anxious/Irritable Goose Flesh Skin: 3=Piloerection COWS Score: 10 S Progress Note (SOAP) Subjective: 53 YEARS OLD MALE ADMITTED ON 07/23/19 FOR ALCOHOL AND OPIATE WITHDRAWAL SX MANAGEMENT TREATED WTIH VALIUM AND METHADONE DETOX REGIMEN ATE BREAKFAST RESTONG ON BED FEELING TIRED PREFERS TO STAY IN BED TODAY Objective: 07/24/19 13:53 Vital Signs Temperature 96.7 F L 07/24/19 13:11 Pulse Rate 70 07/24/19 13:11 Respiratory Rate 18 07/24/19 13:11 Blood Pressure 101/60 07/24/19 13:11 O2 Sat by Pulse Oximetry (%) Laboratory Last Values WBC 7.0 K/mm3 (4.0-10.0) 07/24/19 08:15 RBC 4.69 M/mm3 (4.00-5.60) 07/24/19 08:15 Hgb 14.3 GM/dL (11.7-16.9) 07/24/19 08:15 Hct 42.7 % (35.4-49) 07/24/19 08:15 MCV 91.1 fl (80-96) 07/24/19 08:15 MCH 30.5 pg (25.7-33.7) 07/24/19 08:15 MCHC 33.5 g/dl (32.0-35.9) 07/24/19 08:15 RDW 13.2 % (11.9-15.9) 07/24/19 08:15 Plt Count 366 K/MM3 (134-434) D 07/24/19 08:15 MPV 7.9 fl (7.5-11.1) 07/24/19 08:15 Sodium 138 mmol/L (136-145) 07/24/19 08:15 Potassium 4.6 mmol/L (3.5-5.1) 07/24/19 08:15 Chloride 102 mmol/L (98-107) 07/24/19 08:15 Carbon Dioxide 31 mmol/L (21-32) 07/24/19 08:15 Anion Gap 4 MMOL/L (8-16) L 07/24/19 08:15 BUN 10.4 mg/dL (7-18) 07/24/19 08:15 Creatinine 0.7 mg/dL (0.55-1.3) 07/24/19 08:15 Est GFR (CKD-EPI)AfAm 124.87 07/24/19 08:15 Est GFR (CKD-EPI)NonAf 107.74 07/24/19 08:15 Random Glucose 77 mg/dL (74-106) 07/24/19 08:15 Calcium 9.0 mg/dL (8.5-10.1) 07/24/19 08:15 Total Bilirubin 0.8 mg/dL (0.2-1) 07/24/19 08:15 AST 15 U/L (15-37) 07/24/19 08:15 ALT 19 U/L (13-61) 07/24/19 08:15 Alkaline Phosphatase 71 U/L (45-117) 07/24/19 08:15 Total Protein 6.3 g/dl (6.4-8.2) L 07/24/19 08:15 Albumin 3.6 g/dl (3.4-5.0) 07/24/19 08:15 RPR Titer Nonreactive (NONREACTIVE) 07/24/19 08:15 LAB NOTED Assessment: 07/24/19 13:53 ALCOHOL AND OPIATE WITHDRAWAL SX Plan: CONTINUE VALIUM AND METHADONE DETOX REGIMEN
[2019-07-24] MEDS: THIAMINE HCL 100 MG TABLET (FP) PO SCH (22:06)
[2019-07-24] MEDS: MELATONIN 5 MG TABLETS PO PRN (22:06)
[2019-07-25] MEDS: diazePAM 5 MG TABLET PO SCH ×2 (06:36→17:33)
[2019-07-25] MEDS ORDERED: METHADONE HCL 10 MG TABLET (FOR DETOX USE ONLY) PO ONE (10:00)
[2019-07-25] MEDS: PRENATAL VITAMINS W/ FOLIC ACID TABLET (FP) PO SCH (10:52)
[2019-07-25] MEDS: NICOTINE 14 MG/24 HOURS TOPICAL PATCH TD SCH (10:53)
--- NOTE | 2019-07-25 13:09 | PN ---
S CIWA - CIWA Score Nausea/Vomitin-Mild Nausea/No Vomiting Muscle Tremors: 4-Moderate,w/Arms Extend Anxiety: 3 Agitation: 2 Paroxysmal Sweats: 1-Minimal Palms Moist Orientation: 0-Oriented Tacttile Disturbances: 0-None Auditory Disturbances: 0-None Visual Disturbances: 0-None Headache: 0-None Present CIWA-Ar Total Score: 11 S COWS - Scale Resting Pulse: 1= [place] 81-100 Sweatin= Chills/Flushing Restless Observation: 0= Sits Still Pupil Size: 1= Pupils >than Normal Bone or Joint Aches: 1= Mild Discomfort Runny Nose/ Eye Tearin= Nasal Congestion GI Upset > 30mins: 1= Stomach Cramp Tremor Observation of Outstretched Hands: 1= Tremor [place], Not Seen Yawning Observation: 0= None Anxiety or Irritability: 1=Feels Anxious/Irritable Goose Flesh Skin: 0=Smooth Skin COWS Score: 8 S Progress Note (SOAP) Subjective: 53 YEARS OLD MALE ADMITTED ON 07/23/19 FOR ALCOHOL AND OPIATE WITHDRAWAL SX MANAGEMENT TREATED WITH VALIUM AND METHADONE DETOX REIGMEN SLEEP BETTER AT NIGHT MILD BODY ACHE Objective: 07/25/19 13:08 Vital Signs Temperature 98.4 F 07/25/19 13:02 Pulse Rate 83 07/25/19 13:02 Respiratory Rate 18 07/25/19 13:02 Blood Pressure 96/61 07/25/19 13:02 O2 Sat by Pulse Oximetry (%) Laboratory Last Values WBC 7.0 K/mm3 (4.0-10.0) 07/24/19 08:15 RBC 4.69 M/mm3 (4.00-5.60) 07/24/19 08:15 Hgb 14.3 GM/dL (11.7-16.9) 07/24/19 08:15 Hct 42.7 % (35.4-49) 07/24/19 08:15 MCV 91.1 fl (80-96) 07/24/19 08:15 MCH 30.5 pg (25.7-33.7) 07/24/19 08:15 MCHC 33.5 g/dl (32.0-35.9) 07/24/19 08:15 RDW 13.2 % (11.9-15.9) 07/24/19 08:15 Plt Count 366 K/MM3 (134-434) D 07/24/19 08:15 MPV 7.9 fl (7.5-11.1) 07/24/19 08:15 Sodium 138 mmol/L (136-145) 07/24/19 08:15 Potassium 4.6 mmol/L (3.5-5.1) 07/24/19 08:15 Chloride 102 mmol/L (98-107) 07/24/19 08:15 Carbon Dioxide 31 mmol/L (21-32) 07/24/19 08:15 Anion Gap 4 MMOL/L (8-16) L 07/24/19 08:15 BUN 10.4 mg/dL (7-18) 07/24/19 08:15 Creatinine 0.7 mg/dL (0.55-1.3) 07/24/19 08:15 Est GFR (CKD-EPI)AfAm 124.87 07/24/19 08:15 Est GFR (CKD-EPI)NonAf 107.74 07/24/19 08:15 Random Glucose 77 mg/dL (74-106) 07/24/19 08:15 Calcium 9.0 mg/dL (8.5-10.1) 07/24/19 08:15 Total Bilirubin 0.8 mg/dL (0.2-1) 07/24/19 08:15 AST 15 U/L (15-37) 07/24/19 08:15 ALT 19 U/L (13-61) 07/24/19 08:15 Alkaline Phosphatase 71 U/L (45-117) 07/24/19 08:15 Total Protein 6.3 g/dl (6.4-8.2) L 07/24/19 08:15 Albumin 3.6 g/dl (3.4-5.0) 07/24/19 08:15 RPR Titer Nonreactive (NONREACTIVE) 07/24/19 08:15 LAB NOTED 07/25/19 13:08 Assessment: 07/25/19 13:08 ALCOHOL AND OPIATE WITHDRAWAL SX Plan: CONTINUE VALIUM AND METHADONE DETOX REGIMEN
[2019-07-25] MEDS: THIAMINE HCL 100 MG TABLET (FP) PO SCH (22:05)
[2019-07-26] MEDS ORDERED: diazePAM 5 MG TABLET PO ONE (06:00)
[2019-07-26 09:09] VITALS: BP 98/60; PULSE 71; TEMP 97.1
[2019-07-26] MEDS ORDERED: METHADONE HCL 10 MG TABLET (FOR DETOX USE ONLY) ONE (09:09)
[2019-07-26] MEDS ORDERED: METHADONE HCL 5 MG TABLET (FOR DETOX USE ONLY) ONE (09:09)
[2019-07-26] MEDS: NICOTINE 14 MG/24 HOURS TOPICAL PATCH TD SCH (09:54)
[2019-07-26] MEDS: PRENATAL VITAMINS W/ FOLIC ACID TABLET (FP) PO SCH (09:54)
[2019-07-26] MEDS ORDERED: METHADONE (DETOX) 10 MG, METHADONE (DETOX) 5 MG PO ONE (10:00)
--- NOTE | 2019-07-26 10:11 | PN ---
[facility] CIWA - CIWA Score Nausea/Vomitin-Mild Nausea/No Vomiting Muscle Tremors: 2 Anxiety: 2 Agitation: 2 Paroxysmal Sweats: No Perspiration Orientation: 0-Oriented Tacttile Disturbances: 0-None Auditory Disturbances: 0-None Visual Disturbances: 0-None Headache: 1-Very Mild CIWA-Ar Total Score: 8 BHS COWS - Scale Resting Pulse: 0= [place] 80 or Below Sweatin= No chills or Flushing Restless Observation: 1= Difficult to Sit Still Pupil Size: 0= Normal to Room Light Bone or Joint Aches: 1= Mild Discomfort Runny Nose/ Eye Tearin= Nasal Congestion GI Upset > 30mins: 1= Stomach Cramp Tremor Observation of Outstretched Hands: 1= Tremor [place], Not Seen Yawning Observation: 1= 1-2x During Session Anxiety or Irritability: 2=Irritable/Anxious Goose Flesh Skin: 0=Smooth Skin COWS Score: 8 S Progress Note (SOAP) Subjective: alert,irritable,anxious,interrupted sleep,pain in the body and back Objective: 07/26/19 10:15 alert,irritable,anxious,pain in the body and back,interrupted sleep Assessment: 07/26/19 10:16 Vital Signs Temperature 97.1 F L 07/26/19 09:08 Pulse Rate 71 07/26/19 09:08 Respiratory Rate 18 07/26/19 09:08 Blood Pressure 98/60 07/26/19 09:08 O2 Sat by Pulse Oximetry (%) 07/26/19 10:16 Laboratory Last Values WBC 7.0 K/mm3 (4.0-10.0) 07/24/19 08:15 RBC 4.69 M/mm3 (4.00-5.60) 07/24/19 08:15 Hgb 14.3 GM/dL (11.7-16.9) 07/24/19 08:15 Hct 42.7 % (35.4-49) 07/24/19 08:15 MCV 91.1 fl (80-96) 07/24/19 08:15 MCH 30.5 pg (25.7-33.7) 07/24/19 08:15 MCHC 33.5 g/dl (32.0-35.9) 07/24/19 08:15 RDW 13.2 % (11.9-15.9) 07/24/19 08:15 Plt Count 366 K/MM3 (134-434) D 07/24/19 08:15 MPV 7.9 fl (7.5-11.1) 07/24/19 08:15 Sodium 138 mmol/L (136-145) 07/24/19 08:15 Potassium 4.6 mmol/L (3.5-5.1) 07/24/19 08:15 Chloride 102 mmol/L (98-107) 07/24/19 08:15 Carbon Dioxide 31 mmol/L (21-32) 07/24/19 08:15 Anion Gap 4 MMOL/L (8-16) L 07/24/19 08:15 BUN 10.4 mg/dL (7-18) 07/24/19 08:15 Creatinine 0.7 mg/dL (0.55-1.3) 07/24/19 08:15 Est GFR (CKD-EPI)AfAm 124.87 07/24/19 08:15 Est GFR (CKD-EPI)NonAf 107.74 07/24/19 08:15 Random Glucose 77 mg/dL (74-106) 07/24/19 08:15 Calcium 9.0 mg/dL (8.5-10.1) 07/24/19 08:15 Total Bilirubin 0.8 mg/dL (0.2-1) 07/24/19 08:15 AST 15 U/L (15-37) 07/24/19 08:15 ALT 19 U/L (13-61) 07/24/19 08:15 Alkaline Phosphatase 71 U/L (45-117) 07/24/19 08:15 Total Protein 6.3 g/dl (6.4-8.2) L 07/24/19 08:15 Albumin 3.6 g/dl (3.4-5.0) 07/24/19 08:15 RPR Titer Nonreactive (NONREACTIVE) 07/24/19 08:15 Plan: withdrawal symptom methadone regimen with valium
--- NOTE | 2019-07-26 10:22 | PN ---
[facility] Progress Note Note: patient did not want to complete treatment due to family emergency,high risk of relapsing explained,patient understood, all attempts to convince patient to stay with no avail,signed release ama, advise to call 911 if not feeling well
--- NOTE | 2019-07-26 10:24 | DS ---
[facility] Detox Discharge Summary Admission Date: 07/23/19 Discharge Date: 07/26/19 - History Present History: Alcohol Dependence, Cocaine Dependence, Opioid Dependence Additional Comments: patient left ama - Physical Exam Results Vital Signs: Vital Signs Temperature 97.1 F L 07/26/19 09:08 Pulse Rate 71 07/26/19 09:08 Respiratory Rate 18 07/26/19 09:08 Blood Pressure 98/60 07/26/19 09:08 O2 Sat by Pulse Oximetry (%) Pertinent Admission Physical Exam Findings: withdrawal signs and symptom Laboratory Last Values WBC 7.0 K/mm3 (4.0-10.0) 07/24/19 08:15 RBC 4.69 M/mm3 (4.00-5.60) 07/24/19 08:15 Hgb 14.3 GM/dL (11.7-16.9) 07/24/19 08:15 Hct 42.7 % (35.4-49) 07/24/19 08:15 MCV 91.1 fl (80-96) 07/24/19 08:15 MCH 30.5 pg (25.7-33.7) 07/24/19 08:15 MCHC 33.5 g/dl (32.0-35.9) 07/24/19 08:15 RDW 13.2 % (11.9-15.9) 07/24/19 08:15 Plt Count 366 K/MM3 (134-434) D 07/24/19 08:15 MPV 7.9 fl (7.5-11.1) 07/24/19 08:15 Sodium 138 mmol/L (136-145) 07/24/19 08:15 Potassium 4.6 mmol/L (3.5-5.1) 07/24/19 08:15 Chloride 102 mmol/L (98-107) 07/24/19 08:15 Carbon Dioxide 31 mmol/L (21-32) 07/24/19 08:15 Anion Gap 4 MMOL/L (8-16) L 07/24/19 08:15 BUN 10.4 mg/dL (7-18) 07/24/19 08:15 Creatinine 0.7 mg/dL (0.55-1.3) 07/24/19 08:15 Est GFR (CKD-EPI)AfAm 124.87 07/24/19 08:15 Est GFR (CKD-EPI)NonAf 107.74 07/24/19 08:15 Random Glucose 77 mg/dL (74-106) 07/24/19 08:15 Calcium 9.0 mg/dL (8.5-10.1) 07/24/19 08:15 Total Bilirubin 0.8 mg/dL (0.2-1) 07/24/19 08:15 AST 15 U/L (15-37) 07/24/19 08:15 ALT 19 U/L (13-61) 07/24/19 08:15 Alkaline Phosphatase 71 U/L (45-117) 07/24/19 08:15 Total Protein 6.3 g/dl (6.4-8.2) L 07/24/19 08:15 Albumin 3.6 g/dl (3.4-5.0) 07/24/19 08:15 RPR Titer Nonreactive (NONREACTIVE) 07/24/19 08:15 - Medication Discharge Medications: Ambulatory Orders NK [No Known Home Medication] 12/08/18 - Diagnosis (1) Alcohol dependence with uncomplicated withdrawal Current Visit: No Status: Chronic (2) Opioid dependence with withdrawal Current Visit: No Status: Chronic (3) Track sherwood due to intravenous drug abuse Current Visit: No Status: Chronic (4) History of hepatitis C Current Visit: No Status: Resolved - AMA Did Patient Leave Against Medical Advice: Yes
[2019-07-27] MEDS ORDERED: METHADONE HCL 10 MG TABLET (FOR DETOX USE ONLY) PO ONE (10:00)
[2019-07-28] MEDS ORDERED: METHADONE HCL 5 MG TABLET (FOR DETOX USE ONLY) PO ONE (06:00)
== END 2019-07-26 11:15 | disposition left against medical advice (07) | DRG 770 ==
LOC: YASAS 12:25 → Y3N 16:13
PROVIDERS: ADMIT Allergy & Immunology; ATTEND Allergy & Immunology
PROC: HZ2ZZZZ Detoxification Services for Substance Abuse Treatment (ICD-10-PCS; principal; 2019-07-23)
DX: F10.230 Alcohol dependence with withdrawal, uncomplicated (principal); F11.23 Opioid dependence with withdrawal; F14.20 Cocaine dependence, uncomplicated; F17.210 Nicotine dependence, cigarettes, uncomplicated; Z86.19 Personal history of other infectious and parasitic diseases
CPT/HCPCS: 36415; 80053; 85027; 86593

== ENCOUNTER 2019-09-11 09:04 | Inpatient (IN) | payer BC ==
[2019-09-11 09:25] VITALS: BMI 21.6
--- NOTE | 2019-09-11 10:13 | HP ---
COWS - Scale Resting Pulse: 1= [place] 81-100 Sweatin= Chills/Flushing Restless Observation: 1= Difficult to Sit Still Pupil Size: 0= Normal to Room Light Bone or Joint Aches: 1= Mild Discomfort Runny Nose/ Eye Tearin= Nasal Congestion GI Upset > 30mins: 1= Stomach Cramp Tremor Observation: 1= Tremor [place], Not Seen Yawning Observation: 1= 1-2x During Session Anxiety or Irritability: 2=Irritable/Anxious Goose Flesh Skin: 0=Smooth Skin COWS Score: 10 CIWA Score Nausea/Vomitin-Mild Nausea/No Vomiting Muscle Tremors: 3 Anxiety: 4-Mod. Anxious/Guarded Agitation: 2 Paroxysmal Sweats: 1-Minimal Palms Moist Orientation: 0-Oriented Tacttile Disturbances: 0-None Auditory Disturbances: 0-None Visual Disturbances: 0-None Headache: 0-None Present CIWA-Ar Total Score: 11 - Admission Criteria OASAS Guidelines: Admission for Medically Managed Detox: Requires at least one of the followin. CIWA greater than 12 2. Seizures within the past 24 hours 3. Delirium tremens within the past 24 hours 4. Hallucinations within the past 24 hours 5. Acute intervention needed for co occurring medical disorder 6. Acute intervention needed for co occurring psychiatric disorder 7. Severe withdrawal that cannot be handled at a lower level of care (continued vomiting, continued diarrhea, abnormal vital signs) requiring intravenous medication and/or fluids 8. Admitting History and Physical - Admission Chief Complaint: "I can't even stick a needle in my arm anymore. I can't keep doing this anymore. I want to start a suboxone." History of Present Illness: 53 y/o M presenting [facility] for detox from cocaine, heroin and alcohol with Heroin being his Drug of choice. Last used heroin last night and overdosed 3 times and does not carry narcan. Last overdose 4 years ago. Pt started using each substance on and off since the age of 13 ( from family stressors). Cocaine 20$ worth (2 bags) every other day with last use 09/11/19 intravenously. Pt endorsed the use of clean needles from needle exchange program in the [place]. For heroin, he uses about 8-10 bags a day with last use being around 12 am this morning also via injection in his arms. Lastly for his alcohol abuse, he drinks about 2 pint of vodka a daily with his last drink last night 09/10/19 noon time. Pt endorses feelings of anxiety, nausea, vomiting, diarrhea 3 hours ago x2, denies any palpitations, blackouts, falls, or seizures with withdrawals.Pt admits to going to about 4 detox centers in the past and 2 [facility] rehab as well. Last detox about 5 months ago at [facility] and last detention [facility] in 2008. His last relapse was due to his divorce and missing his children. most recent relapse in the last 2-3 months. PMH: COPD Psych HX: depressive episode years ago PSH: none Social Hx: < 1/2 PPD for 30 yrs PE: in [place] . unremarkable. Plan: Alcohol detox : valium protocol Opioid withdrawal : methadone detoxification protocol History Source: Patient Limitations to Obtaining History: No Limitations - Past Medical History Pulmonary: Yes: COPD - Past Surgical History Past Surgical History: Yes: None - Smoking History Smoking history: Current every day smoker Have you smoked in the past 12 months: Yes Aproximately how many cigarettes per day: 10 - Alcohol/Substance Use Hx Alcohol Use: Yes History of Substance Use: reports: Cocaine, Heroin - Social History Usual Living Arrangement: Yes: Alone Do you think of yourself as: Straight/Heterosexual 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 Chief Complaint: "I can't even stick a needle in my arm anymore. I can't keep doing this anymore. I want to start a suboxone." Allergies/Adverse Reactions: Allergies Allergy/AdvReac Type Severity Reaction Status Date / Time No Known Allergies Allergy Verified 09/11/19 09:21 - Ebola screening Have you traveled outside of the country in the last 21 days: No (N) Have you had contact with anyone from an Ebola affected area: No Have you been sick,other than usual withdrawal symptoms: No Do you have a fever: No - Review of Systems Constitutional: No Symptoms Reported EENT: reports: No Symptoms Reported Respiratory: reports: No Symptoms reported Cardiac: reports: No Symptoms Reported GI: reports: No Symptoms Reported, Nausea : reports: No Symptoms Reported Musculoskeletal: reports: Muscle Pain Integumentary: reports: No Symptoms Reported Neuro: reports: No Symptoms reported Patient History - Patient Medical History Hx Anemia: No Hx Asthma: No Hx Chronic Obstructive Pulmonary Disease (COPD): No Hx Cancer: No Hx Cardiac Disorders: No Hx Congestive Heart Failure: No Hx Hypertension: No Hx Hypercholesterolemia: No Hx Pacemaker: No HX Cerebrovascular Accident: No Hx Seizures: No Hx Dementia: No Hx Diabetes: No Hx Gastrointestinal Disorders: No Hx Liver Disease: No Hx Genitourinary Disorders: No Hx Sexually Transmitted Disorders: No Hx Renal Disease (ESRD): No Hx Thyroid Disease: No Hx Human Immunodeficiency Virus (HIV): No (NEGATIVE HX 2016) Hx Hepatitis C: Yes (TREATED-interferon years ago -"UNDETECTABLE") Hx Depression: No Hx Suicide Attempt: No Hx Bipolar Disorder: No Hx Schizophrenia: No - Patient Surgical History Past Surgical History: No Hx Neurologic Surgery: No Hx Cataract Extraction: No Hx Cardiac Surgery: No Hx Lung Surgery: No Hx Breast Surgery: No Hx Breast Biopsy: No Hx Abdominal Surgery: No Hx Appendectomy: No Hx Cholecystectomy: No Hx Genitourinary Surgery: No Hx Section: No Hx Orthopedic Surgery: No Anesthesia Reaction: No - PPD History Date: 11/11/17 Results: 0.0 MM - Smoking Cessation Smoking history: Current every day smoker Have you smoked in the past 12 months: Yes Aproximately how many cigarettes per day: 10 Cigars Per Day: 0 Hx Chewing Tobacco Use: No Initiated information on smoking cessation: Yes 'Breaking Loose' booklet given: 09/11/19 - Substances abused Heroin Substance route: Injection Frequency: Daily Amount used: 10 bags Age of first use: 13 Date of last use: 09/10/19 Alcohol Substance route: Oral Frequency: Daily Amount used: 2 pt. vodka Age of first use: 13 Date of last use: 09/10/19 Cocaine Substance route: Injection Frequency: 1-2 times per week Amount used: $30 Age of first use: 13 Date of last use: 09/10/19 Admission Physical Exam BHS - Vital Signs Vital Signs: Vital Signs - 24 hr 09/11/19 09:22 Temperature 97.4 F L Pulse Rate 79 Respiratory 16 Rate Blood Pressure 105/68 - Physical Respiratory: Yes: Chest Non-Tender, No Respiratory Distress, No Accessory Muscle Use, Wheezing (right base) Neck: Yes: No masses,lesions,Nodules, Supple, Trachea in good position Breast: Yes: Within Normal Limits Cardiology: Yes: Regular Rhythm, Regular Rate, S1, S2 Abdominal: Yes: Normal Bowel Sounds, Non Tender, Flat, Soft Genitourinary: Yes: Within Normal Limits Back: Yes: Normal Inspection Musculoskeletal: Yes: full range of Motion, Gait Steady, Pelvis Stable Extremities: Yes: Normal Capillary Refill, Normal Inspection 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: Yes: organizational development manager II-XII NML intact, Fully Oriented, Alert, Motor Strength 5/5, Normal Mood/Affect, Normal Response Integumentary: Yes: Normal Color, Warm Lymphatic: Yes: Within Normal Limits - Diagnostic (1) Alcohol dependence with uncomplicated withdrawal Current Visit: Yes Status: Chronic (2) COPD (chronic obstructive pulmonary disease) Current Visit: Yes Status: Chronic Qualifiers: Emphysema type: unspecified (3) Cocaine use Current Visit: Yes Status: Chronic (4) Nicotine dependence Current Visit: Yes Status: Chronic Qualifiers: Nicotine product type: cigarettes Substance use status: uncomplicated Qualified Code(s): F17.210 - Nicotine dependence, cigarettes, uncomplicated (5) Opioid dependence with withdrawal Current Visit: Yes Status: Chronic (6) Track sherwood due to intravenous drug abuse Current Visit: Yes Status: Chronic (7) History of hepatitis C Current Visit: Yes Status: Resolved Cleared for Admission [facility] - Detox or Rehab [facility] Level of Care: Medically Managed Detox Regimen/Protocol: Methadone/Valium Claeared for Rehab Admission: No Breathalyzer - Breathalyzer Breathalyzer: 0 (last used yesterday noon) Urine Drug Screen - Test Device Lot number: [id number] Expiration date: 04/03/21 - Control Is test valid?: Yes - Results Drug screen NEGATIVE: No Urine drug screen results: SWAPNA-Cocaine, FEN-Fentanyl, BZO-Benzodiazepines, BUP- Suboxone Inpatient Rehab Admission - Rehab Decision to Admit Inpatient rehab admission?: No
[2019-09-11] MEDS ORDERED: MAG HYDROX/AL HYDROX/SIMETH 30 ML UNIT-DOSE CUP PO PRN (10:21)
[2019-09-11] MEDS ORDERED: diazePAM 5 MG TABLET PO PRN (10:21)
[2019-09-11] MEDS ORDERED: BISMUTH SUBSALICYLATE 262 MG/15 ML BTL PO PRN (10:21)
[2019-09-11] MEDS ORDERED: MENTHOL/PHENOL 1 EACH UD MM PRN (10:21)
[2019-09-11] MEDS ORDERED: MAGNESIUM HYDROX 2400MG/30ML ORAL SUSPENSION 30 ML CUP PO PRN (10:21)
[2019-09-11] MEDS ORDERED: ACETAMINOPHEN 325 MG TABLET (FP) PO PRN ×2 (10:21)
[2019-09-11] MEDS ORDERED: IBUPROFEN 400 MG TABLET (FP) PO PRN (10:21)
[2019-09-11] MEDS ORDERED: cloNIDine HCL 0.1 MG TABLET PO PRN (10:21)
[2019-09-11] MEDS ORDERED: MAGNESIUM CITRATE 300 ML BOTTLE PO PRN (10:21)
[2019-09-11] MEDS ORDERED: METHOCARBAMOL 500 MG TABLET PO PRN (10:21)
[2019-09-11] MEDS ORDERED: ALBUTEROL SO4 8 GM HFA INHALER IH PRN (10:22)
[2019-09-11] MEDS ORDERED: METHADONE HCL 10 MG TABLET (FOR DETOX USE ONLY) PO ONE (10:40)
[2019-09-11] MEDS: diazePAM 5 MG TABLET PO SCH ×2 (13:51→22:17)
[2019-09-11 15:44] LABS: HEMATOCRIT 42.8 % (35.4-49); HEMOGLOBIN 14.3 GM/dL (11.7-16.9); MCH 30.4 pg (25.7-33.7); MCHC 33.5 g/dl (32.0-35.9); MEAN CELL VOLUME 90.8 fl (80-96); PLATELET COUNT 404 K/MM3 (134-434); RBC 4.71 M/mm3 (4.00-5.60); RDW 13.3 % (11.9-15.9); WHITE BLOOD COUNT 10.6 K/mm3 (4.0-10.0)
[2019-09-11 15:59] LABS: ALBUMIN 3.9 g/dl (3.4-5.0); BILIRUBIN,TOTAL 0.6 mg/dL (0.2-1); BLOOD UREA NITROGEN 11.5 mg/dL (7-18); CALCIUM 9.3 mg/dL (8.5-10.1); CREATININE 0.7 mg/dL (0.55-1.3); POTASSIUM 4.3 mmol/L (3.5-5.1)
[2019-09-11] MEDS: THIAMINE HCL 100 MG TABLET (FP) PO SCH (22:17)
[2019-09-11] MEDS: MELATONIN 5 MG TABLETS PO PRN (22:18)
[2019-09-12] MEDS: diazePAM 5 MG TABLET PO SCH ×3 (05:30→22:04)
[2019-09-12] MEDS ORDERED: METHADONE HCL 10 MG TABLET (FOR DETOX USE ONLY) ONE (08:45)
[2019-09-12] MEDS ORDERED: METHADONE HCL 5 MG TABLET (FOR DETOX USE ONLY) ONE (08:45)
[2019-09-12] MEDS: NICOTINE 14 MG/24 HOURS TOPICAL PATCH TD SCH (09:17)
[2019-09-12] MEDS: PRENATAL VITAMINS W/ FOLIC ACID TABLET (FP) PO SCH (09:17)
--- NOTE | 2019-09-12 09:45 | PN ---
S CIWA - CIWA Score Nausea/Vomitin Muscle Tremors: 2 Anxiety: 2 Agitation: 0-Normal Activity Paroxysmal Sweats: 2 Orientation: 0-Oriented Tacttile Disturbances: 1-Very Mild Itch/Numbness Auditory Disturbances: 0-None Visual Disturbances: 1-Very Mild Sensitivity Headache: 1-Very Mild CIWA-Ar Total Score: 12 BHS COWS - Scale Resting Pulse: 1= [place] 81-100 Sweatin= Chills/Flushing Restless Observation: 1= Difficult to Sit Still Pupil Size: 0= Normal to Room Light Bone or Joint Aches: 2= Severe Diffuse Aches Runny Nose/ Eye Tearin= Nasal Congestion GI Upset > 30mins: 2= Nausea/Diarrhea Tremor Observation of Outstretched Hands: 1= Tremor [place], Not Seen Yawning Observation: 0= None Anxiety or Irritability: 2=Irritable/Anxious Goose Flesh Skin: 0=Smooth Skin COWS Score: 11 S Progress Note (SOAP) Subjective: c/o of abdominal cramps, chills, nausea, sweats Objective: 09/12/19 09:43 Vital Signs Temperature 98.1 F 09/12/19 09:20 Pulse Rate 84 09/12/19 09:20 Respiratory Rate 18 09/12/19 09:20 Blood Pressure 97/65 09/12/19 09:20 O2 Sat by Pulse Oximetry (%) Laboratory Last Values WBC 10.6 K/mm3 (4.0-10.0) H 09/11/19 10:20 RBC 4.71 M/mm3 (4.00-5.60) 09/11/19 10:20 Hgb 14.3 GM/dL (11.7-16.9) 09/11/19 10:20 Hct 42.8 % (35.4-49) 09/11/19 10:20 MCV 90.8 fl (80-96) 09/11/19 10:20 MCH 30.4 pg (25.7-33.7) 09/11/19 10:20 MCHC 33.5 g/dl (32.0-35.9) 09/11/19 10:20 RDW 13.3 % (11.9-15.9) 09/11/19 10:20 Plt Count 404 K/MM3 (134-434) 09/11/19 10:20 MPV 8.0 fl (7.5-11.1) 09/11/19 10:20 Sodium 138 mmol/L (136-145) 09/11/19 10:20 Potassium 4.3 mmol/L (3.5-5.1) 09/11/19 10:20 Chloride 104 mmol/L (98-107) 09/11/19 10:20 Carbon Dioxide 27 mmol/L (21-32) 09/11/19 10:20 Anion Gap 7 MMOL/L (8-16) L 09/11/19 10:20 BUN 11.5 mg/dL (7-18) 09/11/19 10:20 Creatinine 0.7 mg/dL (0.55-1.3) 09/11/19 10:20 Est GFR (CKD-EPI)AfAm 124.87 09/11/19 10:20 Est GFR (CKD-EPI)NonAf 107.74 09/11/19 10:20 Random Glucose 97 mg/dL (74-106) 09/11/19 10:20 Calcium 9.3 mg/dL (8.5-10.1) 09/11/19 10:20 Total Bilirubin 0.6 mg/dL (0.2-1) 09/11/19 10:20 AST 15 U/L (15-37) 09/11/19 10:20 ALT 21 U/L (13-61) 09/11/19 10:20 Alkaline Phosphatase 71 U/L (45-117) 09/11/19 10:20 Total Protein 7.0 g/dl (6.4-8.2) 09/11/19 10:20 Albumin 3.9 g/dl (3.4-5.0) 09/11/19 10:20 RPR Titer Nonreactive (NONREACTIVE) 09/11/19 10:20 HIV 1&2 Antibody Screen Negative 09/11/19 10:20 HIV P24 Antigen Negative 09/11/19 10:20 repeat cbc Assessment: Aox3 no acute distress no adventitious breath sounds no abdominal tenderness full ROM ambulating in the unit withdrawal sx Plan: increase fluids continue detox continue to monitor
[2019-09-12] MEDS ORDERED: METHADONE (DETOX) 20 MG, METHADONE (DETOX) 5 MG PO ONE (10:00)
[2019-09-12] MEDS: MELATONIN 5 MG TABLETS PO PRN (22:04)
[2019-09-12] MEDS: THIAMINE HCL 100 MG TABLET (FP) PO SCH (22:04)
[2019-09-13] MEDS: diazePAM 5 MG TABLET PO SCH ×2 (05:43→17:26)
[2019-09-13] MEDS: NICOTINE 14 MG/24 HOURS TOPICAL PATCH TD SCH (09:52)
[2019-09-13] MEDS: PRENATAL VITAMINS W/ FOLIC ACID TABLET (FP) PO SCH (09:52)
[2019-09-13] MEDS ORDERED: METHADONE HCL 10 MG TABLET (FOR DETOX USE ONLY) PO ONE (10:00)
[2019-09-13 10:47] LABS: HEMATOCRIT 40.1 % (35.4-49); HEMOGLOBIN 13.3 GM/dL (11.7-16.9); MCH 30.1 pg (25.7-33.7); MCHC 33.3 g/dl (32.0-35.9); MEAN CELL VOLUME 90.5 fl (80-96); MEAN PLT VOLUME 7.8 fl (7.5-11.1); PLATELET COUNT 406 K/MM3 (134-434); RBC 4.43 M/mm3 (4.00-5.60); RDW 13.5 % (11.9-15.9); WHITE BLOOD COUNT 6.4 K/mm3 (4.0-10.0)
--- NOTE | 2019-09-13 11:20 | PN ---
S CIWA - CIWA Score Nausea/Vomitin Muscle Tremors: 1-None Visible, but [place] Anxiety: 3 Agitation: 3 Paroxysmal Sweats: 1-Minimal Palms Moist Orientation: 0-Oriented Tacttile Disturbances: 1-Very Mild Itch/Numbness Auditory Disturbances: 0-None Visual Disturbances: 0-None Headache: 1-Very Mild CIWA-Ar Total Score: 13 BHS COWS - Scale Resting Pulse: 0= [place] 80 or Below Sweatin= Chills/Flushing Restless Observation: 1= Difficult to Sit Still Pupil Size: 0= Normal to Room Light Bone or Joint Aches: 1= Mild Discomfort Runny Nose/ Eye Tearin= Nasal Congestion GI Upset > 30mins: 2= Nausea/Diarrhea Tremor Observation of Outstretched Hands: 1= Tremor [place], Not Seen Yawning Observation: 1= 1-2x During Session Anxiety or Irritability: 2=Irritable/Anxious Goose Flesh Skin: 0=Smooth Skin COWS Score: 10 [facility] Progress Note (SOAP) Subjective: c/o of interrupted sleep, nausea, body aches, chills Objective: 09/13/19 11:19 Vital Signs Temperature 98.3 F 09/13/19 10:06 Pulse Rate 65 09/13/19 10:06 Respiratory Rate 18 09/13/19 10:06 Blood Pressure 98/64 09/13/19 10:06 O2 Sat by Pulse Oximetry (%) Laboratory Last Values WBC 6.4 K/mm3 (4.0-10.0) 09/13/19 07:45 RBC 4.43 M/mm3 (4.00-5.60) 09/13/19 07:45 Hgb 13.3 GM/dL (11.7-16.9) 09/13/19 07:45 Hct 40.1 % (35.4-49) 09/13/19 07:45 MCV 90.5 fl (80-96) 09/13/19 07:45 MCH 30.1 pg (25.7-33.7) 09/13/19 07:45 MCHC 33.3 g/dl (32.0-35.9) 09/13/19 07:45 RDW 13.5 % (11.9-15.9) 09/13/19 07:45 Plt Count 406 K/MM3 (134-434) 09/13/19 07:45 MPV 7.8 fl (7.5-11.1) 09/13/19 07:45 Sodium 138 mmol/L (136-145) 09/11/19 10:20 Potassium 4.3 mmol/L (3.5-5.1) 09/11/19 10:20 Chloride 104 mmol/L (98-107) 09/11/19 10:20 Carbon Dioxide 27 mmol/L (21-32) 09/11/19 10:20 Anion Gap 7 MMOL/L (8-16) L 09/11/19 10:20 BUN 11.5 mg/dL (7-18) 09/11/19 10:20 Creatinine 0.7 mg/dL (0.55-1.3) 09/11/19 10:20 Est GFR (CKD-EPI)AfAm 124.87 09/11/19 10:20 Est GFR (CKD-EPI)NonAf 107.74 09/11/19 10:20 Random Glucose 97 mg/dL (74-106) 09/11/19 10:20 Calcium 9.3 mg/dL (8.5-10.1) 09/11/19 10:20 Total Bilirubin 0.6 mg/dL (0.2-1) 09/11/19 10:20 AST 15 U/L (15-37) 09/11/19 10:20 ALT 21 U/L (13-61) 09/11/19 10:20 Alkaline Phosphatase 71 U/L (45-117) 09/11/19 10:20 Total Protein 7.0 g/dl (6.4-8.2) 09/11/19 10:20 Albumin 3.9 g/dl (3.4-5.0) 09/11/19 10:20 RPR Titer Nonreactive (NONREACTIVE) 09/11/19 10:20 HIV 1&2 Antibody Screen Negative 09/11/19 10:20 HIV P24 Antigen Negative 09/11/19 10:20 labs reviewed Assessment: 09/13/19 11:20 Patient AOx3 no acute distress anxious, pacing in the unit, no gait disturbance withdrawal sx Plan: hx of bipolar d/o psych consult increase fluids continue detox continue to monitor
[2019-09-13] MEDS: hydrOXYzine PAMOATE 25 MG CAPSULE (FP) PO PRN (15:19)
[2019-09-13] MEDS: THIAMINE HCL 100 MG TABLET (FP) PO SCH (22:03)
[2019-09-14] MEDS ORDERED: diazePAM 5 MG TABLET PO ONE (06:00)
[2019-09-14] MEDS ORDERED: METHADONE HCL 5 MG TABLET (FOR DETOX USE ONLY) ONE (08:36)
[2019-09-14] MEDS ORDERED: METHADONE HCL 10 MG TABLET (FOR DETOX USE ONLY) ONE (08:37)
[2019-09-14] MEDS: NICOTINE 14 MG/24 HOURS TOPICAL PATCH TD SCH (09:44)
[2019-09-14] MEDS: PRENATAL VITAMINS W/ FOLIC ACID TABLET (FP) PO SCH (09:44)
[2019-09-14] MEDS ORDERED: METHADONE (DETOX) 10 MG, METHADONE (DETOX) 5 MG PO ONE (10:00)
--- NOTE | 2019-09-14 10:32 | CONSULT ---
[facility] Psychiatric Consult - Data Date of interview: 09/14/19 Admission source: [facility] Identifying data: Revisit to [facility] and admission to [address] [place] [address] for this 53 y/o male self-referred for detoxification treatment. SANDRINE issues : heroin, alcohol, cocaine, nicotine. 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 Substance Abuse History: Discussed with patient. Details in current [facility] report as follows : Smoking history: Current every day smoker. Have you smoked in the past 12 months: Yes. Aproximately how many cigarettes per day: 10. Cigars Per Day: 0. Hx Chewing Tobacco Use: No. Initiated information on smoking cessation : Yes. 'Breaking Loose' booklet given: 09/11/19. - Substances abused. Heroin. Substance route: Injection. Frequency: Daily. Amount used: 10 bags. Age of first use: 13. Date of last use: 09/10/19. Alcohol. Substance route : Oral. Frequency: Daily. Amount used: 2 pt. vodka. Age of first use: 13. Date of last use: 09/10/19. Cocaine. Substance route: Injection. Frequency : 1-2 times per week. Amount used: $30. Age of first use: 13. Date of last use: 09/10/19 Medical History: Medical profile is remarkable for COPD and hepatitis C. Psychiatric History: Patient presents as a hostile and irritable historian. Marginally cooperative. Mr Thomas endorses the diagnosis of Bipolar Disorder concordant with a history of multiple psychiatric hospitalizations ([facility], [facility] [place], [facility]). Patient has dropped out of psychiatric OPD care. He used to be followed at [facility] in the [place]. Reports total non-adherence to psychotropic medications for several months. Patient denies history of suicide attempts. Physical/Sexual Abuse/Trauma History: Not discussed. Patient declines. Additional Comment: Urine drug screen results: SWAPNA-Cocaine, FEN-Fentanyl, BZO- Benzodiazepines, BUP-Suboxone. Noted. Mental Status Exam - Mental Status Exam Alert and Oriented to: Time, Place, Person Cognitive Function: Good Patient Appearance: Well Groomed Mood: Angry, Hostile, Anxious, Irritable Affect: Mood Congruent, Constricted Patient Behavior: Fatigued, Cooperative (superficially cooperative) Speech Pattern: Clear Voice Loudness: Normal Thought Process: Intact, Goal Oriented Thought Disorder: Not Present Hallucinations: Denies Suicidal Ideation: Denies Insight/Judgement: Poor Sleep: Poorly, Difficulty falling asleep (patient requested seroquel) Appetite: Good Gait/Station: Normal Psychiatric Findings - Problem List ([place] 1, 2,3) (1) Alcohol dependence with uncomplicated withdrawal Current Visit: Yes Status: Acute (2) Opioid dependence with withdrawal Current Visit: Yes Status: Acute (3) Cocaine use disorder Current Visit: Yes Status: Chronic (4) Nicotine dependence Current Visit: Yes Status: Chronic Qualifiers: Nicotine product type: cigarettes Substance use status: uncomplicated Qualified Code(s): F17.210 - Nicotine dependence, cigarettes, uncomplicated (5) Substance induced mood disorder Current Visit: Yes Status: Chronic (6) Schizoaffective disorder Current Visit: Yes Status: Chronic Comment: As per records. Non compliant with medications and psychiatric OPD care for months. (7) Insomnia Current Visit: Yes Status: Chronic (8) Non-compliance Current Visit: Yes Status: Chronic - Initial Treatment Plan Initial Treatment Plan: Psychoeducation. Sleep hygiene. Detoxification. Support. AA/NA meetings. Psychopharmacotherapy discussed in this session. Patient requested treatment with quetiapine. Intervention : seroquel 50 mg po daily (one dose now) + 100 mg po hs. Side effects/benefits discussed with the patient. Mr Thomas is in agreement with this plan of care. Observation. Banana Expert has contacted pharmacist at [facility] ([phone]) : no activity since 2018.
[2019-09-14] MEDS ORDERED: QUEtiapine FUMARATE 50 MG TABLET PO ONE (12:30)
--- NOTE | 2019-09-14 13:43 | PN ---
BHS COWS - Scale Resting Pulse: 1= [place] 81-100 Sweatin= Chills/Flushing Restless Observation: 5= Unable to Sit Still Pupil Size: 0= Normal to Room Light Bone or Joint Aches: 2= Severe Diffuse Aches Runny Nose/ Eye Tearin= None GI Upset > 30mins: 0= None Tremor Observation of Outstretched Hands: 1= Tremor [place], Not Seen Yawning Observation: 0= None Anxiety or Irritability: 2=Irritable/Anxious Goose Flesh Skin: 0=Smooth Skin COWS Score: 12 BHS Progress Note (SOAP) Subjective: Anxiety, restless and irritable Objective: 09/14/19 13:40 Vital Signs Temperature 98.2 F 09/14/19 13:09 Pulse Rate 77 09/14/19 13:09 Respiratory Rate 16 09/14/19 13:09 Blood Pressure 99/64 09/14/19 13:09 O2 Sat by Pulse Oximetry (%) Laboratory Tests 09/11/19 09/11/19 09/11/19 10:20 10:20 10:20 WBC 10.6 H RBC 4.71 Hgb 14.3 Hct 42.8 MCV 90.8 MCH 30.4 MCHC 33.5 RDW 13.3 Plt Count 404 MPV 8.0 Sodium 138 Potassium 4.3 Chloride 104 Carbon Dioxide 27 Anion Gap 7 L BUN 11.5 Creatinine 0.7 Est GFR (CKD-EPI)AfAm 124.87 Est GFR (CKD-EPI)NonAf 107.74 Random Glucose 97 Calcium 9.3 Total Bilirubin 0.6 AST 15 ALT 21 Alkaline Phosphatase 71 Total Protein 7.0 Albumin 3.9 RPR Titer Nonreactive HIV 1&2 Antibody Screen HIV P24 Antigen 09/11/19 09/13/19 10:20 07:45 WBC 6.4 RBC 4.43 Hgb 13.3 Hct 40.1 MCV 90.5 MCH 30.1 MCHC 33.3 RDW 13.5 Plt Count 406 MPV 7.8 Sodium Potassium Chloride Carbon Dioxide Anion Gap BUN Creatinine Est GFR (CKD-EPI)AfAm Est GFR (CKD-EPI)NonAf Random Glucose Calcium Total Bilirubin AST ALT Alkaline Phosphatase Total Protein Albumin RPR Titer HIV 1&2 Antibody Screen Negative HIV P24 Antigen Negative Labs noted Aaox3 Ambulating No acute distress noted Assessment: 09/14/19 13:41 Withdrawals present Plan: Seen by Dr. Hadley gregorio ordered Encouraged hydration Continue with detox
[2019-09-14] MEDS: THIAMINE HCL 100 MG TABLET (FP) PO SCH (23:02)
[2019-09-14] MEDS: QUEtiapine FUMARATE 100 MG TABLET (FP) PO SCH (23:02)
[2019-09-15] MEDS ORDERED: METHADONE HCL 10 MG TABLET (FOR DETOX USE ONLY) PO ONE (10:00)
[2019-09-15] MEDS: NICOTINE 14 MG/24 HOURS TOPICAL PATCH TD SCH (10:48)
[2019-09-15] MEDS: PRENATAL VITAMINS W/ FOLIC ACID TABLET (FP) PO SCH (10:48)
[2019-09-15] MEDS: hydrOXYzine PAMOATE 25 MG CAPSULE (FP) PO PRN (12:44)
--- NOTE | 2019-09-15 14:09 | PN ---
BHS COWS - Scale Resting Pulse: 1= [place] 81-100 Sweatin= Chills/Flushing Restless Observation: 0= Sits Still Pupil Size: 0= Normal to Room Light Bone or Joint Aches: 1= Mild Discomfort Runny Nose/ Eye Tearin= None GI Upset > 30mins: 1= Stomach Cramp Tremor Observation of Outstretched Hands: 0= None Yawning Observation: 0= None Anxiety or Irritability: 1=Feels Anxious/Irritable Goose Flesh Skin: 0=Smooth Skin COWS Score: 5 BHS Progress Note (SOAP) Subjective: Interrupted sleep Objective: 09/15/19 14:08 Last Vital Signs Temp Pulse Resp BP Pulse Ox 97.2 F L 88 18 99/63 09/15/19 09:28 09/15/19 09:28 09/15/19 09:28 09/15/19 09:28 Laboratory Tests 09/11/19 09/11/19 09/11/19 10:20 10:20 10:20 WBC 10.6 H RBC 4.71 Hgb 14.3 Hct 42.8 MCV 90.8 MCH 30.4 MCHC 33.5 RDW 13.3 Plt Count 404 MPV 8.0 Sodium 138 Potassium 4.3 Chloride 104 Carbon Dioxide 27 Anion Gap 7 L BUN 11.5 Creatinine 0.7 Est GFR (CKD-EPI)AfAm 124.87 Est GFR (CKD-EPI)NonAf 107.74 Random Glucose 97 Calcium 9.3 Total Bilirubin 0.6 AST 15 ALT 21 Alkaline Phosphatase 71 Total Protein 7.0 Albumin 3.9 RPR Titer Nonreactive HIV 1&2 Antibody Screen HIV P24 Antigen 09/11/19 09/13/19 10:20 07:45 WBC 6.4 RBC 4.43 Hgb 13.3 Hct 40.1 MCV 90.5 MCH 30.1 MCHC 33.3 RDW 13.5 Plt Count 406 MPV 7.8 Sodium Potassium Chloride Carbon Dioxide Anion Gap BUN Creatinine Est GFR (CKD-EPI)AfAm Est GFR (CKD-EPI)NonAf Random Glucose Calcium Total Bilirubin AST ALT Alkaline Phosphatase Total Protein Albumin RPR Titer HIV 1&2 Antibody Screen Negative HIV P24 Antigen Negative Labs reviewed Assessment: 09/15/19 14:08 Withdrawal sxs Plan: Continue detox Encouraged PO water intake Patient scheduled for discharge tomorrow
[2019-09-15] MEDS ORDERED: hydrOXYzine PAMOATE 50 MG CAPSULE (FP) PO ONE (17:30)
[2019-09-15] MEDS: QUEtiapine FUMARATE 100 MG TABLET (FP) PO SCH (22:33)
[2019-09-15] MEDS: THIAMINE HCL 100 MG TABLET (FP) PO SCH (22:33)
[2019-09-16] MEDS ORDERED: METHADONE HCL 5 MG TABLET (FOR DETOX USE ONLY) PO ONE (06:00)
[2019-09-16 08:45] VITALS: BP 106/59; PULSE 77; TEMP 97.7
--- NOTE | 2019-09-16 10:04 | DS ---
[facility] Detox Discharge Summary Admission Date: 09/11/19 Discharge Date: 09/16/19 - History Present History: Alcohol Dependence, Cocaine Dependence, Opioid Dependence - Physical Exam Results Vital Signs: Vital Signs Temperature 97.7 F 09/16/19 05:00 Pulse Rate 77 09/16/19 05:00 Respiratory Rate 18 09/16/19 05:00 Blood Pressure 106/59 L 09/16/19 05:00 O2 Sat by Pulse Oximetry (%) Pertinent Admission Physical Exam Findings: Vital Signs Temperature 97.7 F 09/16/19 05:00 Pulse Rate 77 09/16/19 05:00 Respiratory Rate 18 09/16/19 05:00 Blood Pressure 106/59 L 09/16/19 05:00 O2 Sat by Pulse Oximetry (%) Laboratory Tests 09/11/19 09/11/19 09/11/19 10:20 10:20 10:20 WBC 10.6 H RBC 4.71 Hgb 14.3 Hct 42.8 MCV 90.8 MCH 30.4 MCHC 33.5 RDW 13.3 Plt Count 404 MPV 8.0 Sodium 138 Potassium 4.3 Chloride 104 Carbon Dioxide 27 Anion Gap 7 L BUN 11.5 Creatinine 0.7 Est GFR (CKD-EPI)AfAm 124.87 Est GFR (CKD-EPI)NonAf 107.74 Random Glucose 97 Calcium 9.3 Total Bilirubin 0.6 AST 15 ALT 21 Alkaline Phosphatase 71 Total Protein 7.0 Albumin 3.9 RPR Titer Nonreactive HIV 1&2 Antibody Screen HIV P24 Antigen 09/11/19 09/13/19 10:20 07:45 WBC 6.4 RBC 4.43 Hgb 13.3 Hct 40.1 MCV 90.5 MCH 30.1 MCHC 33.3 RDW 13.5 Plt Count 406 MPV 7.8 Sodium Potassium Chloride Carbon Dioxide Anion Gap BUN Creatinine Est GFR (CKD-EPI)AfAm Est GFR (CKD-EPI)NonAf Random Glucose Calcium Total Bilirubin AST ALT Alkaline Phosphatase Total Protein Albumin RPR Titer HIV 1&2 Antibody Screen Negative HIV P24 Antigen Negative aaox3 ambulating no acute distress - Treatment Hospital Course: Detox Protocol Followed, Detoxed Safely, Responded well, Discharged Condition Good, Rehab Referral Accepted Patient has Accepted a Rehab Referral to: referral provided - Medication Discharge Medications: Ambulatory Orders Albuterol Sulfate Inhaler - [Ventolin Hfa Inhaler -] 2 inh PO Q4H PRN 09/11/19 - Diagnosis (1) Alcohol dependence with uncomplicated withdrawal Current Visit: Yes Status: Chronic (2) Opioid dependence with withdrawal Current Visit: Yes Status: Chronic (3) COPD (chronic obstructive pulmonary disease) Current Visit: Yes Status: Chronic Qualifiers: Emphysema type: unspecified (4) Insomnia Current Visit: Yes Status: Chronic (5) Nicotine dependence Current Visit: Yes Status: Chronic Qualifiers: Nicotine product type: cigarettes Substance use status: uncomplicated Qualified Code(s): F17.210 - Nicotine dependence, cigarettes, uncomplicated (6) Non-compliance Current Visit: Yes Status: Chronic (7) Schizoaffective disorder Current Visit: Yes Status: Chronic (8) Substance induced mood disorder Current Visit: Yes Status: Chronic (9) Track sherwood due to intravenous drug abuse Current Visit: Yes Status: Chronic (10) History of hepatitis C Current Visit: Yes Status: Resolved (11) Dehydration Current Visit: No Status: Acute (12) Drug-induced mood disorder Current Visit: No Status: Acute (13) Weight loss Current Visit: No Status: Acute (14) Anxiety and depression Current Visit: No Status: Chronic (15) Bipolar II disorder Current Visit: No Status: Suspected - AMA Did Patient Leave Against Medical Advice: No
== END 2019-09-16 08:29 | disposition home or self-care (01) | DRG 773 ==
LOC: YASAS 09:04 → Y6N 10:26
PROVIDERS: ADMIT Allergy & Immunology; ATTEND Allergy & Immunology
PROC: HZ2ZZZZ Detoxification Services for Substance Abuse Treatment (ICD-10-PCS; principal; 2019-09-11)
DX: F11.23 Opioid dependence with withdrawal (principal); F10.230 Alcohol dependence with withdrawal, uncomplicated; F14.20 Cocaine dependence, uncomplicated; F17.210 Nicotine dependence, cigarettes, uncomplicated; F25.9 Schizoaffective disorder, unspecified; F19.24 Other psychoactive substance dependence with psychoactive substance-induced mood disorder; F41.9 Anxiety disorder, unspecified; F32.9 Major depressive disorder, single episode, unspecified; J44.9 Chronic obstructive pulmonary disease, unspecified; G47.00 Insomnia, unspecified; L90.5 Scar conditions and fibrosis of skin; E86.0 Dehydration; R63.4 Abnormal weight loss; Z86.19 Personal history of other infectious and parasitic diseases; Z91.14 Patient's other noncompliance with medication regimen
CPT/HCPCS: 36415; 80053; 85027; 86593; 87389

== ENCOUNTER 2020-05-02 08:32 | Inpatient (IN) | payer OTHER ==
--- NOTE | 2020-05-02 10:02 | BHS.RME ---
Substance Use & Tx History - Substance Use History Heroin Substance amount: 12 bags Frequency of use: Daily Substance route: Inhalation (ex: sniffing or snorting) Date of Last Use: 05/01/20 Alcohol Substance amount: 2 pints of vodka Frequency of use: Daily Substance route: Oral Date of Last Use: 05/01/20 - Last Treatment Date of last treatment: [facility] 09/11/19 to 09/16/19 Where was last treatment: Detox Physical/Psych/Mental Status - Behavior Eye Contact: Normal - Cooperativeness Cooperativeness: Cooperative - Thinking Thought Processes: Logical Thought content: Future oriented - Physical Health Problems Is patient presently having any pain?: No Does patient presently have any injuries (include location): No Does patient currently have a fever: No COWS - Scale Resting Pulse: 1= [place] 81-100 Sweatin= Chills/Flushing Restless Observation: 1= Difficult to Sit Still Pupil Size: 1= Pupils >than Normal Bone or Joint Aches: 2= Severe Diffuse Aches Runny Nose/ Eye Tearin= Runny Nose/Eyes GI Upset > 30mins: 2= Nausea/Diarrhea Tremor Observation: 2= Slight Tremor Visible Yawning Observation: 2= >3x During Session Anxiety or Irritability: 2=Irritable/Anxious Goose Flesh Skin: 3=Piloerection COWS Score: 19 CIWA Nausea/Vomitin Muscle Tremors: 3 Anxiety: 2 Agitation: 3 Paroxysmal Sweats: 1-Minimal Palms Moist Orientation: 0-Oriented Tacttile Disturbances: 0-None Auditory Disturbances: 0-None Visual Disturbances: 0-None Headache: 2-Mild CIWA-Ar Total Score: 13
--- NOTE | 2020-05-02 10:12 | HP ---
COWS - Scale Resting Pulse: 1= [place] 81-100 Sweatin= Chills/Flushing Restless Observation: 1= Difficult to Sit Still Pupil Size: 1= Pupils >than Normal Bone or Joint Aches: 2= Severe Diffuse Aches Runny Nose/ Eye Tearin= Runny Nose/Eyes GI Upset > 30mins: 2= Nausea/Diarrhea Tremor Observation: 2= Slight Tremor Visible Yawning Observation: 2= >3x During Session Anxiety or Irritability: 2=Irritable/Anxious Goose Flesh Skin: 3=Piloerection COWS Score: 19 CIWA Score Nausea/Vomitin Muscle Tremors: 3 Anxiety: 2 Agitation: 3 Paroxysmal Sweats: 1-Minimal Palms Moist Orientation: 0-Oriented Tacttile Disturbances: 0-None Auditory Disturbances: 0-None Visual Disturbances: 0-None Headache: 2-Mild CIWA-Ar Total Score: 13 - Admission Criteria OASAS Guidelines: Admission for Medically Managed Detox: Requires at least one of the followin. CIWA greater than 12 2. Seizures within the past 24 hours 3. Delirium tremens within the past 24 hours 4. Hallucinations within the past 24 hours 5. Acute intervention needed for co occurring medical disorder 6. Acute intervention needed for co occurring psychiatric disorder 7. Severe withdrawal that cannot be handled at a lower level of care (continued vomiting, continued diarrhea, abnormal vital signs) requiring intravenous medication and/or fluids 8. 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 Loss EENT: reports: Tearing, Nose Congestion Respiratory: reports: No Symptoms reported, Other (copd) Cardiac: reports: No Symptoms Reported GI: reports: Nausea, Poor Appetite, Vomiting, Abdominal cramping : reports: No Symptoms Reported Musculoskeletal: reports: Back Pain, Joint Pain, Muscle Pain, Muscle Weakness Integumentary: reports: Dryness Neuro: reports: Headache, Tremors Endocrine: reports: No Symptoms Reported Hematology: reports: No Symptoms Reported Psychiatric: reports: No Sypmtoms Reported, Judgement Intact, Mood/Affect Appropiate, Orientated x3, other (insomnia) Patient History - Patient Medical History Hx Anemia: No Hx Asthma: No Hx Chronic Obstructive Pulmonary Disease (COPD): Yes (on albuterol and symbicort) Hx Cancer: No Hx Cardiac Disorders: No Hx Congestive Heart Failure: No Hx Hypertension: No Hx Hypercholesterolemia: No Hx Pacemaker: No HX Cerebrovascular Accident: No Hx Seizures: No Hx Dementia: No Hx Diabetes: No Hx Gastrointestinal Disorders: No Hx Liver Disease: No Hx Genitourinary Disorders: No Hx Sexually Transmitted Disorders: No Hx Renal Disease (ESRD): No Hx Thyroid Disease: No Hx Human Immunodeficiency Virus (HIV): No (02/21 negative) Hx Hepatitis C: Yes (TREATED-interferon years ago -"UNDETECTABLE") Hx Depression: Yes (insomnia) Hx Suicide Attempt: No Hx Bipolar Disorder: No Hx Schizophrenia: No Other Medical History: no suicidal,no homicidal - Patient Surgical History Past Surgical History: No Hx Neurologic Surgery: No Hx Cataract Extraction: No Hx Cardiac Surgery: No Hx Lung Surgery: No Hx Breast Surgery: No Hx Breast Biopsy: No Hx Abdominal Surgery: No Hx Appendectomy: No Hx Cholecystectomy: No Hx Genitourinary Surgery: No Hx Section: No Hx Orthopedic Surgery: No Anesthesia Reaction: No - PPD History Previous Implant?: Yes Documented Results: Negative w/proof Date: 09/13/19 Results: 0.0 MM PPD to be Administered?: No - Smoking Cessation Smoking history: Current every day smoker Have you smoked in the past 12 months: Yes Aproximately how many cigarettes per day: 10 Cigars Per Day: 0 Hx Chewing Tobacco Use: No Initiated information on smoking cessation: Yes 'Breaking Loose' booklet given: 05/02/20 - Substance & Tx. History Hx Alcohol Use: Yes Hx Substance Use: Yes Substance Use Type: Alcohol, Heroin Hx Substance Use Treatment: Yes ([facility] 09/11/19 to 09/16/19) - Substances abused Heroin Substance route: Injection Frequency: Daily Amount used: 12 bags Age of first use: 13 Date of last use: 05/01/20 Alcohol Substance route: Oral Frequency: Daily Amount used: 2pints of vodka Age of first use: 13 Date of last use: 05/01/20 Admission Physical Exam [facility] - Vital Signs Vital Signs: t07.0,p103,r18,bp 108/63,pulse ox 97%,leah 0.000 - Physical General Appearance: Yes: Moderate Distress, Tremorous, Irritable, Sweating, Anxious HEENTM: Yes: Normal ENT Inspection, DEYANIRA Respiratory: Yes: Lungs Clear, Normal Breath Sounds, No Respiratory Distress Neck: Yes: Within Normal Limits, No masses,lesions,Nodules, Supple Breast: Yes: Within Normal Limits Cardiology: Yes: Within Normal Limits, Regular Rhythm, Regular Rate, S1, S2 Abdominal: Yes: Within Normal Limits, Normal Bowel Sounds, Non Tender, Soft Genitourinary: Yes: Within Normal Limits Back: Yes: Muscle Spasm Musculoskeletal: Yes: full range of Motion, Back pain, Joint Stiffness, Muscle Pain Extremities: Yes: Tremors 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: Yes: Within Normal Limits, manuscripts archivist II-XII NML intact, Fully Oriented, Alert Integumentary: Yes: Dry Lymphatic: Yes: Within Normal Limits - Diagnostic (1) Opioid dependence with withdrawal Current Visit: No Status: Chronic (2) Weight loss Current Visit: No Status: Acute (3) Alcohol dependence with uncomplicated withdrawal Current Visit: No Status: Chronic (4) COPD (chronic obstructive pulmonary disease) Current Visit: No Status: Chronic Qualifiers: Emphysema type: unspecified (5) Insomnia Current Visit: No Status: Chronic (6) Nicotine dependence Current Visit: No Status: Chronic Qualifiers: Nicotine product type: cigarettes Substance use status: uncomplicated Qualified Code(s): F17.210 - Nicotine dependence, cigarettes, uncomplicated (7) Track sherwood due to intravenous drug abuse Current Visit: No Status: Chronic (8) History of hepatitis C Current Visit: No Status: Resolved Cleared for Admission S - Detox or Rehab [facility] Level of Care: Medically Managed Detox Regimen/Protocol: Methadone/Librium Breathalyzer - Breathalyzer Breathalyzer: 0 (last used yesterday noon) Urine Drug Screen - Test Device Lot number: [id number] Expiration date: 04/03/21 - Control Is test valid?: Yes - Results Drug screen NEGATIVE: No Urine drug screen results: SWAPNA-Cocaine, FEN-Fentanyl, BZO-Benzodiazepines, BUP- Suboxone Inpatient Rehab Admission - Rehab Decision to Admit Inpatient rehab admission?: No
[2020-05-02] MEDS ORDERED: METHOCARBAMOL 500 MG TABLET PO PRN (10:26)
[2020-05-02] MEDS ORDERED: ONDANSETRON *ODT* 4 MG TABLET SL ONE (10:26)
[2020-05-02] MEDS ORDERED: MAGNESIUM CITRATE 300 ML BOTTLE PO PRN (10:26)
[2020-05-02] MEDS ORDERED: NICOTINE POLACRILEX 2 MG GUM BUC PRN (10:26)
[2020-05-02] MEDS ORDERED: METHADONE HCL 10 MG TABLET (FOR DETOX USE ONLY) PO ONE (10:26)
[2020-05-02] MEDS ORDERED: ACETAMINOPHEN 325 MG TABLET (FP) PO PRN ×2 (10:26)
[2020-05-02] MEDS ORDERED: MAG HYDROX/AL HYDROX/SIMETH 30 ML UNIT-DOSE CUP PO PRN (10:26)
[2020-05-02] MEDS ORDERED: cloNIDine HCL 0.1 MG TABLET PO PRN (10:26)
[2020-05-02] MEDS ORDERED: MAGNESIUM HYDROX 2400MG/30ML ORAL SUSPENSION 30 ML CUP PO PRN (10:26)
[2020-05-02] MEDS ORDERED: IBUPROFEN 400 MG TABLET (FP) PO PRN (10:26)
[2020-05-02] MEDS ORDERED: MENTHOL/PHENOL 1 EACH UD MM PRN (10:26)
[2020-05-02] MEDS ORDERED: BISMUTH SUBSALICYLATE 524 MG/30 ML UD PO PRN (10:26)
[2020-05-02] MEDS ORDERED: chlordiazePOXIDE HCL 25 MG CAPSULE PO PRN (10:26)
[2020-05-02 11:28] VITALS: BMI 21.1
[2020-05-02] MEDS ORDERED: ALBUTEROL SO4 HFA INHALER IH PRN (12:41)
[2020-05-02] MEDS: NICOTINE 21 MG/24 HOURS TOPICAL PATCH TD SCH (13:10)
[2020-05-02] MEDS: hydrOXYzine PAMOATE 25 MG CAPSULE (FP) PO SCH ×3 (13:10→22:20)
[2020-05-02] MEDS: PRENATAL VITAMINS W/ FOLIC ACID TABLET (FP) PO SCH (13:10)
[2020-05-02] MEDS: chlordiazePOXIDE HCL 25 MG CAPSULE PO SCH ×2 (18:02→22:19)
[2020-05-02] MEDS: THIAMINE HCL 100 MG TABLET (FP) PO SCH (22:20)
[2020-05-02] MEDS: MELATONIN 5 MG TABLETS PO SCH (22:20)
[2020-05-02] MEDS: BUDESONIDE/FORMETEROL FUMARATE 80/4.5 mcg INHALER IH SCH (22:25)
[2020-05-03] MEDS: hydrOXYzine PAMOATE 25 MG CAPSULE (FP) PO SCH ×5 (06:12→22:43)
[2020-05-03] MEDS: chlordiazePOXIDE HCL 25 MG CAPSULE PO SCH ×4 (06:12→22:43)
[2020-05-03] MEDS ORDERED: METHADONE HCL 5 MG TABLET (FOR DETOX USE ONLY) ONE (09:15)
[2020-05-03] MEDS ORDERED: METHADONE HCL 10 MG TABLET (FOR DETOX USE ONLY) ONE (09:16)
--- NOTE | 2020-05-03 09:55 | CONSULT ---
[facility] Psychiatric Consult - Data Date of interview: 05/03/20 Admission source: [facility] Identifying data: Director Of Admissions approached patient for psychiatric consultation. Patient stated, "I'm too sick to talk today. Sorry. Its nothing against you i just feel really sick." Psychiatric consultation refused. Please order another consultation if requested by patient.
[2020-05-03] MEDS ORDERED: METHADONE (DETOX) 20 MG, METHADONE (DETOX) 5 MG PO ONE (10:00)
[2020-05-03] MEDS: PRENATAL VITAMINS W/ FOLIC ACID TABLET (FP) PO SCH (10:08)
[2020-05-03] MEDS: BUDESONIDE/FORMETEROL FUMARATE 80/4.5 mcg INHALER IH SCH ×2 (10:08→22:43)
[2020-05-03 10:10] LABS: HEMATOCRIT 42.6 % (35.4-49); MCH 29.1 pg (25.7-33.7); MCHC 32.9 g/dl (32.0-35.9); MEAN CELL VOLUME 88.4 fl (80-96); MEAN PLT VOLUME 7.9 fl (7.5-11.1); PLATELET COUNT 393 K/MM3 (134-434); RBC 4.82 M/mm3 (4.00-5.60); RDW 13.8 % (11.9-15.9); WHITE BLOOD COUNT 15.1 K/mm3 (4.0-10.0)
[2020-05-03 10:11] LABS: ALBUMIN 3.6 g/dl (3.4-5.0); BILIRUBIN,TOTAL 0.8 mg/dL (0.2-1); BLOOD UREA NITROGEN 11.4 mg/dL (7-18); CREATININE 0.8 mg/dL (0.55-1.3); POTASSIUM 4.4 mmol/L (3.5-5.1); TOT PROT 7.4 g/dl (6.4-8.2)
[2020-05-03] MEDS: NICOTINE 21 MG/24 HOURS TOPICAL PATCH TD SCH (10:13)
--- NOTE | 2020-05-03 12:03 | PN ---
[facility] CIWA - CIWA Score Nausea/Vomitin-Mild Nausea/No Vomiting Muscle Tremors: 2 Anxiety: 2 Agitation: 3 Paroxysmal Sweats: 3 Orientation: 0-Oriented Tacttile Disturbances: 1-Very Mild Itch/Numbness Auditory Disturbances: 0-None Visual Disturbances: 0-None Headache: 0-None Present CIWA-Ar Total Score: 12 BHS COWS - Scale Resting Pulse: 2= [place] 101-120 Sweatin= Chills/Flushing Restless Observation: 0= Sits Still Pupil Size: 0= Normal to Room Light Bone or Joint Aches: 1= Mild Discomfort Runny Nose/ Eye Tearin= Runny Nose/Eyes GI Upset > 30mins: 2= Nausea/Diarrhea Tremor Observation of Outstretched Hands: 2= Slight Tremor Visible Yawning Observation: 0= None Anxiety or Irritability: 2=Irritable/Anxious Goose Flesh Skin: 0=Smooth Skin COWS Score: 12 [facility] Progress Note (SOAP) Subjective: Nausea, stomachache, sweating, tremor, chills, interrupted sleep Objective: 05/03/20 12:00 Last Vital Signs Temp Pulse Resp BP Pulse Ox 98.6 F 102 H 18 125/64 96 05/03/20 08:37 05/03/20 08:37 05/03/20 08:37 05/03/20 08:37 05/02/20 20:59 Laboratory Tests 05/03/20 05/03/20 05/03/20 07:34 07:34 07:34 WBC 15.1 H RBC 4.82 Hgb 14.0 Hct 42.6 MCV 88.4 MCH 29.1 MCHC 32.9 RDW 13.8 Plt Count 393 MPV 7.9 Sodium 137 Potassium 4.4 Chloride 103 Carbon Dioxide 29 Anion Gap 6 L BUN 11.4 Creatinine 0.8 Est GFR (CKD-EPI)AfAm 117.38 Est GFR (CKD-EPI)NonAf 101.27 Random Glucose 137 H Calcium 9.0 Total Bilirubin 0.8 AST 15 ALT 19 Alkaline Phosphatase 80 Total Protein 7.4 Albumin 3.6 Syphilis Serology Non-reactive Labs reviewed: WBC 15.1 (high), serum glucose 137 (high) Assessment: 05/03/20 12:01 Withdrawal sxs Noted with leukocytosis and hyperglycemia Plan: Continue detox Encourage PO water intake Leukocytosis: asymptomatic, repeat CBC, follow up on UA Hyperglycemia: repeat fasting glucose, check A1c
[2020-05-03] MEDS: THIAMINE HCL 100 MG TABLET (FP) PO SCH (22:43)
[2020-05-03] MEDS: MELATONIN 5 MG TABLETS PO SCH (22:43)
[2020-05-04] MEDS: hydrOXYzine PAMOATE 25 MG CAPSULE (FP) PO SCH ×2 (06:46→11:00)
[2020-05-04] MEDS: chlordiazePOXIDE HCL 25 MG CAPSULE PO SCH ×2 (06:46→10:05)
[2020-05-04 09:49] VITALS: BP 99/62; PULSE 113; TEMP 97.7
[2020-05-04] MEDS ORDERED: METHADONE HCL 10 MG TABLET (FOR DETOX USE ONLY) PO ONE (10:00)
[2020-05-04] MEDS ORDERED: SULFAMETHOXAZOLE/TRIMETHOPRIM 800MG/160MG D.S. TABLET PO SCH (10:00)
[2020-05-04] MEDS ORDERED: METHADONE HCL 5 MG TABLET (FOR DETOX USE ONLY) PO ONE (10:00)
[2020-05-04] MEDS: NICOTINE 21 MG/24 HOURS TOPICAL PATCH TD SCH (10:02)
[2020-05-04] MEDS: BUDESONIDE/FORMETEROL FUMARATE 80/4.5 mcg INHALER IH SCH (10:05)
[2020-05-04] MEDS: PRENATAL VITAMINS W/ FOLIC ACID TABLET (FP) PO SCH (10:06)
--- NOTE | 2020-05-04 11:38 | PN ---
[facility] Progress Note Note: patient misbehave,disruptive,threatening staff,threatening to break the locker,securities present on the unit,patient left against medical advice escorted the unit by securities,advise to call 911 if not feeling well,
--- NOTE | 2020-05-04 11:40 | DS ---
[facility] Detox Discharge Summary Admission Date: 05/02/20 Discharge Date: 05/04/20 - History Present History: Alcohol Dependence, Opioid Dependence Additional Comments: patient is aggressive ,disruptive the unit,threatening the staffs and threatening to break the lockers, securities present on the unit,left against medical advise,escorted off the unit by securities, advise to call 911 if any problem, e prescription of bactrim ds 1 tab po bid to patient pharmacist for 7 days continue albuterol and symbicort to see his medical provider for medical problem Pertinent Past History: history of hepatitis c copd bronchitis ivdu - Physical Exam Results Vital Signs: Vital Signs Temperature 97.7 F 05/04/20 08:51 Pulse Rate 113 H 05/04/20 08:51 Respiratory Rate 18 05/04/20 08:51 Blood Pressure 99/62 05/04/20 08:51 O2 Sat by Pulse Oximetry (%) 99 05/04/20 08:51 Pertinent Admission Physical Exam Findings: withdrawal symptom Laboratory Last Values WBC 15.1 K/mm3 (4.0-10.0) H 05/03/20 07:34 RBC 4.82 M/mm3 (4.00-5.60) 05/03/20 07:34 Hgb 14.0 GM/dL (11.7-16.9) 05/03/20 07:34 Hct 42.6 % (35.4-49) 05/03/20 07:34 MCV 88.4 fl (80-96) 05/03/20 07:34 MCH 29.1 pg (25.7-33.7) 05/03/20 07:34 MCHC 32.9 g/dl (32.0-35.9) 05/03/20 07:34 RDW 13.8 % (11.9-15.9) 05/03/20 07:34 Plt Count 393 K/MM3 (134-434) 05/03/20 07:34 MPV 7.9 fl (7.5-11.1) 05/03/20 07:34 Sodium 137 mmol/L (136-145) 05/03/20 07:34 Potassium 4.4 mmol/L (3.5-5.1) 05/03/20 07:34 Chloride 103 mmol/L (98-107) 05/03/20 07:34 Carbon Dioxide 29 mmol/L (21-32) 05/03/20 07:34 Anion Gap 6 MMOL/L (8-16) L 05/03/20 07:34 BUN 11.4 mg/dL (7-18) 05/03/20 07:34 Creatinine 0.8 mg/dL (0.55-1.3) 05/03/20 07:34 Est GFR (CKD-EPI)AfAm 117.38 05/03/20 07:34 Est GFR (CKD-EPI)NonAf 101.27 05/03/20 07:34 Random Glucose 137 mg/dL (74-106) H 05/03/20 07:34 Calcium 9.0 mg/dL (8.5-10.1) 05/03/20 07:34 Total Bilirubin 0.8 mg/dL (0.2-1) 05/03/20 07:34 AST 15 U/L (15-37) 05/03/20 07:34 ALT 19 U/L (13-61) 05/03/20 07:34 Alkaline Phosphatase 80 U/L (45-117) 05/03/20 07:34 Total Protein 7.4 g/dl (6.4-8.2) 05/03/20 07:34 Albumin 3.6 g/dl (3.4-5.0) 05/03/20 07:34 Syphilis Serology Non-reactive (NONREACTIVE) 05/03/20 07:34 COVID-19 (ANDRE) Not detected (Not Detected) 05/02/20 11:55 Vital Signs Temperature 97.7 F 05/04/20 08:51 Pulse Rate 113 H 05/04/20 08:51 Respiratory Rate 18 05/04/20 08:51 Blood Pressure 99/62 05/04/20 08:51 O2 Sat by Pulse Oximetry (%) 99 05/04/20 08:51 - Medication Discharge Medications: Ambulatory Orders Albuterol Sulfate Inhaler - [Ventolin Hfa Inhaler -] 2 inh PO Q4H PRN 09/11/19 Budesonide/Formeterol Fumarate [SYMBICORT 80/4.5mcg -] 1 inh PO BID 05/02/20 - Diagnosis (1) Opioid dependence with withdrawal Current Visit: No Status: Chronic (2) Weight loss Current Visit: No Status: Acute (3) Alcohol dependence with uncomplicated withdrawal Current Visit: No Status: Chronic (4) COPD (chronic obstructive pulmonary disease) Current Visit: No Status: Chronic Qualifiers: Emphysema type: unspecified (5) Insomnia Current Visit: No Status: Chronic (6) Nicotine dependence Current Visit: No Status: Chronic Qualifiers: Nicotine product type: cigarettes Substance use status: uncomplicated Qualified Code(s): F17.210 - Nicotine dependence, cigarettes, uncomplicated (7) Track [place]wood due to intravenous drug abuse Current Visit: No Status: Chronic (8) History of hepatitis C Current Visit: No Status: Resolved (9) Bronchitis Current Visit: Yes Status: Acute (10) Anxiety and depression Current Visit: Yes Status: Acute - AMA Did Patient Leave Against Medical Advice: Yes
[2020-05-04 13:02] LABS: EOS % 2.1 % (0-4.5); HEMATOCRIT 41.7 % (35.4-49); HEMOGLOBIN 13.6 GM/dL (11.7-16.9); LYMPH % 18.5 % (8-40); MCHC 32.5 g/dl (32.0-35.9); MEAN CELL VOLUME 89.3 fl (80-96); MEAN PLT VOLUME 8.8 fl (7.5-11.1); MONO % 7.7 % (3.8-10.2); NEUT % 70.7 % (42.8-82.8); PLATELET COUNT 379 K/MM3 (134-434); RBC 4.67 M/mm3 (4.00-5.60); RDW 13.9 % (11.9-15.9); WHITE BLOOD COUNT 12.8 K/mm3 (4.0-10.0)
[2020-05-04 13:52] LABS: ANISOCYTOSIS 1+; MACROCYTOSIS 0; PLATELET ESTIMATE NORMAL
[2020-05-05] MEDS ORDERED: chlordiazePOXIDE HCL 10 MG CAPSULE PO PRN
[2020-05-05] MEDS ORDERED: chlordiazePOXIDE HCL 10 MG CAPSULE PO SCH (05:00)
[2020-05-05] MEDS ORDERED: METHADONE (DETOX) 10 MG, METHADONE (DETOX) 5 MG PO ONE (10:00)
[2020-05-05] MEDS ORDERED: METHADONE HCL 10 MG TABLET (FOR DETOX USE ONLY) PO ONE (10:00)
[2020-05-06] MEDS ORDERED: chlordiazePOXIDE HCL 10 MG CAPSULE PO SCH (05:00)
[2020-05-06] MEDS ORDERED: METHADONE HCL 5 MG TABLET (FOR DETOX USE ONLY) PO ONE (06:00)
[2020-05-06] MEDS ORDERED: METHADONE HCL 10 MG TABLET (FOR DETOX USE ONLY) PO ONE (10:00)
[2020-05-07] MEDS ORDERED: chlordiazePOXIDE HCL 10 MG CAPSULE PO ONE (05:00)
[2020-05-07] MEDS ORDERED: METHADONE HCL 5 MG TABLET (FOR DETOX USE ONLY) PO ONE (06:00)
== END 2020-05-04 11:25 | disposition left against medical advice (07) | DRG 770 ==
LOC: YASAS 08:32 → Y6N 11:17
PROVIDERS: ADMIT Allergy & Immunology; ATTEND Allergy & Immunology
PROC: HZ2ZZZZ Detoxification Services for Substance Abuse Treatment (ICD-10-PCS; principal; 2020-05-02)
DX: F11.23 Opioid dependence with withdrawal (principal); F10.230 Alcohol dependence with withdrawal, uncomplicated; F17.210 Nicotine dependence, cigarettes, uncomplicated; F41.8 Other specified anxiety disorders; F32.9 Major depressive disorder, single episode, unspecified; J43.9 Emphysema, unspecified; G47.00 Insomnia, unspecified; D72.829 Elevated white blood cell count, unspecified; R73.9 Hyperglycemia, unspecified; R63.4 Abnormal weight loss; Z68.21 Body mass index [BMI] 21.0-21.9, adult
CPT/HCPCS: 36415; 80053; 82947; 83036; 85025; 85027; 86780; Q0162; U0003

== ENCOUNTER 2020-12-17 14:05 | Inpatient (IN) | payer OTHER ==
[2020-12-17 15:08] VITALS: BMI 19.5
[2020-12-17] MEDS ORDERED: cloNIDine HCL 0.1 MG TABLET PO PRN (16:30)
[2020-12-17] MEDS ORDERED: NICOTINE POLACRILEX 2 MG GUM BUC PRN (16:30)
[2020-12-17] MEDS ORDERED: BISMUTH SUBSALICYLATE 524 MG/30 ML UD PO PRN (16:30)
[2020-12-17] MEDS ORDERED: ONDANSETRON *ODT* 4 MG TABLET SL PRN (16:30)
[2020-12-17] MEDS ORDERED: MENTHOL/PHENOL 1 EACH UD MM PRN (16:30)
[2020-12-17] MEDS ORDERED: METHADONE HCL 10 MG TABLET (FOR DETOX USE ONLY) PO ONE (16:30)
[2020-12-17] MEDS ORDERED: NALOXONE (NARCAN) HCL 4 MG/0.1 ML SPRAY NS PRN (16:30)
[2020-12-17] MEDS ORDERED: ACETAMINOPHEN 325 MG TABLET (FP) PO PRN (16:30)
[2020-12-17] MEDS ORDERED: MAGNESIUM HYDROX 2400MG/30ML ORAL SUSPENSION 30 ML CUP PO PRN (16:30)
[2020-12-17] MEDS ORDERED: MAGNESIUM CITRATE 300 ML BOTTLE PO PRN (16:30)
[2020-12-17] MEDS ORDERED: ALBUTEROL SO4 HFA INHALER IH PRN (17:04)
[2020-12-17] MEDS ORDERED: TUBERCULIN PPD 5 TU/0.1ML VIAL ID ONE (21:55)
[2020-12-17] MEDS: THIAMINE HCL 100 MG TABLET (FP) PO SCH (21:58)
[2020-12-17] MEDS: MELATONIN 5 MG TABLETS PO SCH (21:58)
[2020-12-17] MEDS: SULFAMETHOXAZOLE/TRIMETHOPRIM 800MG/160MG D.S. TABLET PO SCH (21:58)
[2020-12-17] MEDS: METHOCARBAMOL 500 MG TABLET PO PRN (21:58)
[2020-12-17] MEDS: hydrOXYzine PAMOATE 25 MG CAPSULE (FP) PO SCH ×2 (22:04)
[2020-12-17] MEDS: BUDESONIDE/FORMETEROL FUMARATE 80/4.5 mcg INHALER IH SCH (22:04)
[2020-12-17] MEDS ORDERED: MASKS NR ONE (22:08)
[2020-12-18] MEDS: hydrOXYzine PAMOATE 25 MG CAPSULE (FP) PO SCH ×3 (06:48→13:56)
[2020-12-18] MEDS ORDERED: METHADONE HCL 10 MG TABLET PO ONE (08:31)
[2020-12-18] MEDS ORDERED: METHADONE HCL 10 MG TABLET ONE (08:43)
[2020-12-18] MEDS ORDERED: METHADONE HCL 40 MG DISPERSABLE TABLET ONE (08:44)
[2020-12-18] MEDS ORDERED: METHADONE 40 MG, METHADONE 10 MG PO ONE (08:45)
[2020-12-18] MEDS: SULFAMETHOXAZOLE/TRIMETHOPRIM 800MG/160MG D.S. TABLET PO SCH ×2 (09:03→22:11)
[2020-12-18] MEDS: BUDESONIDE/FORMETEROL FUMARATE 80/4.5 mcg INHALER IH SCH ×2 (09:03→22:15)
[2020-12-18] MEDS: PRENATAL VITAMINS W/ FOLIC ACID TABLET (FP) PO SCH (09:03)
[2020-12-18] MEDS: METHOCARBAMOL 500 MG TABLET PO PRN (09:05)
[2020-12-18] MEDS ORDERED: METHADONE (DETOX) 20 MG, METHADONE (DETOX) 5 MG PO ONE (10:00)
[2020-12-18] MEDS: IBUPROFEN 400 MG TABLET (FP) PO PRN (10:31)
[2020-12-18 12:17] LABS: HEMATOCRIT 41.5 % (35.4-49); MCH 29.4 pg (25.7-33.7); MCHC 33.8 g/dl (32.0-35.9); MEAN CELL VOLUME 87.2 fl (80-96); MEAN PLT VOLUME 8.3 fl (7.5-11.1); PLATELET COUNT 347 K/MM3 (134-434); RBC 4.76 M/mm3 (4.00-5.60); RDW 16.3 % (11.9-15.9); WHITE BLOOD COUNT 6.9 K/mm3 (4.0-10.0)
[2020-12-18 12:29] LABS: CREATININE 0.8 mg/dL (0.55-1.3)
[2020-12-18 12:33] LABS: ALBUMIN 3.6 g/dl (3.4-5.0); BLOOD UREA NITROGEN 13.2 mg/dL (7-18); CALCIUM 9.3 mg/dL (8.5-10.1)
[2020-12-18 12:34] LABS: BILIRUBIN,TOTAL 0.3 mg/dL (0.2-1); TOT PROT 7.2 g/dl (6.4-8.2)
[2020-12-18] MEDS: ACETAMINOPHEN 325 MG TABLET (FP) PO PRN (13:54)
[2020-12-18] MEDS ORDERED: LIDOCAINE 5% TOPICAL PATCH TP ONE (14:33)
[2020-12-18] MEDS ORDERED: LIDOCAINE PATCH REMOVAL MC SCH (22:00)
[2020-12-18] MEDS: QUEtiapine FUMARATE 50 MG TABLET PO SCH (22:10)
[2020-12-18] MEDS: MELATONIN 5 MG TABLETS PO SCH (22:10)
[2020-12-18] MEDS: THIAMINE HCL 100 MG TABLET (FP) PO SCH (22:11)
[2020-12-18] MEDS: LIDOCAINE PATCH REMOVAL MC SCH (22:14)
[2020-12-19] MEDS ORDERED: METHADONE HCL 10 MG TABLET ONE (04:05)
[2020-12-19] MEDS ORDERED: METHADONE HCL 40 MG DISPERSABLE TABLET ONE (04:05)
[2020-12-19] MEDS ORDERED: METHADONE HCL 10 MG TABLET PO SCH (06:00)
[2020-12-19] MEDS: METHADONE 40 MG, METHADONE 10 MG PO SCH (06:54)
[2020-12-19] MEDS: PRENATAL VITAMINS W/ FOLIC ACID TABLET (FP) PO SCH (09:10)
[2020-12-19] MEDS: METHOCARBAMOL 500 MG TABLET PO PRN ×2 (09:11→21:50)
[2020-12-19] MEDS: LIDOCAINE 5% TOPICAL PATCH TP SCH (09:11)
[2020-12-19] MEDS: SULFAMETHOXAZOLE/TRIMETHOPRIM 800MG/160MG D.S. TABLET PO SCH ×2 (09:11→21:50)
[2020-12-19] MEDS: hydrOXYzine PAMOATE 25 MG CAPSULE (FP) PO PRN (09:11)
[2020-12-19] MEDS: BUDESONIDE/FORMETEROL FUMARATE 80/4.5 mcg INHALER IH SCH ×2 (09:11→21:50)
[2020-12-19] MEDS: IBUPROFEN 400 MG TABLET (FP) PO PRN (09:12)
[2020-12-19] MEDS ORDERED: METHADONE HCL 10 MG TABLET (FOR DETOX USE ONLY) PO ONE (10:00)
[2020-12-19] MEDS: ACETAMINOPHEN 325 MG TABLET (FP) PO PRN (12:35)
[2020-12-19] MEDS: MAG HYDROX/AL HYDROX/SIMETH 30 ML UNIT-DOSE CUP PO PRN (14:32)
[2020-12-19] MEDS: THIAMINE HCL 100 MG TABLET (FP) PO SCH (21:50)
[2020-12-19] MEDS: QUEtiapine FUMARATE 50 MG TABLET PO SCH (21:50)
[2020-12-19] MEDS: MELATONIN 5 MG TABLETS PO SCH (21:51)
[2020-12-19] MEDS: LIDOCAINE PATCH REMOVAL MC SCH (21:51)
[2020-12-20] MEDS ORDERED: METHADONE HCL 10 MG TABLET ONE (03:51)
[2020-12-20] MEDS ORDERED: METHADONE HCL 40 MG DISPERSABLE TABLET ONE (03:51)
[2020-12-20] MEDS: METHADONE 40 MG, METHADONE 10 MG PO SCH (07:01)
[2020-12-20] MEDS: METHOCARBAMOL 500 MG TABLET PO PRN ×3 (07:02→21:09)
[2020-12-20] MEDS: IBUPROFEN 400 MG TABLET (FP) PO PRN (07:02)
[2020-12-20] MEDS: SULFAMETHOXAZOLE/TRIMETHOPRIM 800MG/160MG D.S. TABLET PO SCH ×2 (09:41→21:09)
[2020-12-20] MEDS: PRENATAL VITAMINS W/ FOLIC ACID TABLET (FP) PO SCH (09:41)
[2020-12-20] MEDS: LIDOCAINE 5% TOPICAL PATCH TP SCH (09:41)
[2020-12-20] MEDS: BUDESONIDE/FORMETEROL FUMARATE 80/4.5 mcg INHALER IH SCH ×2 (09:44→21:10)
[2020-12-20] MEDS ORDERED: METHADONE (DETOX) 10 MG, METHADONE (DETOX) 5 MG PO ONE (10:00)
[2020-12-20] MEDS: hydrOXYzine PAMOATE 25 MG CAPSULE (FP) PO PRN ×2 (11:26→21:09)
[2020-12-20] MEDS: ACETAMINOPHEN 325 MG TABLET (FP) PO PRN (11:27)
[2020-12-20] MEDS: MAG HYDROX/AL HYDROX/SIMETH 30 ML UNIT-DOSE CUP PO PRN ×2 (12:07→18:45)
[2020-12-20] MEDS: QUEtiapine FUMARATE 50 MG TABLET PO SCH (21:09)
[2020-12-20] MEDS: THIAMINE HCL 100 MG TABLET (FP) PO SCH (21:09)
[2020-12-20] MEDS: MELATONIN 5 MG TABLETS PO SCH (21:09)
[2020-12-20] MEDS: LIDOCAINE PATCH REMOVAL MC SCH (22:06)
[2020-12-21] MEDS: ACETAMINOPHEN 325 MG TABLET (FP) PO PRN ×2 (02:24→09:54)
[2020-12-21] MEDS ORDERED: METHADONE HCL 10 MG TABLET ONE (03:10)
[2020-12-21] MEDS ORDERED: METHADONE HCL 40 MG DISPERSABLE TABLET ONE (03:11)
[2020-12-21] MEDS: METHADONE 40 MG, METHADONE 10 MG PO SCH (07:15)
[2020-12-21 08:06] LABS: SARS-CoV-2 NAA Not Detected (Not Detected)
[2020-12-21] MEDS: PRENATAL VITAMINS W/ FOLIC ACID TABLET (FP) PO SCH (09:51)
[2020-12-21] MEDS: SULFAMETHOXAZOLE/TRIMETHOPRIM 800MG/160MG D.S. TABLET PO SCH ×2 (09:51→21:32)
[2020-12-21] MEDS: LIDOCAINE 5% TOPICAL PATCH TP SCH (09:52)
[2020-12-21] MEDS: hydrOXYzine PAMOATE 25 MG CAPSULE (FP) PO PRN (09:56)
[2020-12-21] MEDS ORDERED: METHADONE HCL 10 MG TABLET (FOR DETOX USE ONLY) PO ONE (10:00)
[2020-12-21] MEDS: BUDESONIDE/FORMETEROL FUMARATE 80/4.5 mcg INHALER IH SCH ×2 (10:35→21:31)
[2020-12-21] MEDS: MAG HYDROX/AL HYDROX/SIMETH 30 ML UNIT-DOSE CUP PO PRN (16:05)
[2020-12-21] MEDS ORDERED: PANTOPRAZOLE 20 MG TABLET PO ONE (18:27)
[2020-12-21] MEDS: METHOCARBAMOL 500 MG TABLET PO PRN (21:32)
[2020-12-21] MEDS: LIDOCAINE PATCH REMOVAL MC SCH (21:32)
[2020-12-21] MEDS: MELATONIN 5 MG TABLETS PO SCH (21:32)
[2020-12-21] MEDS: THIAMINE HCL 100 MG TABLET (FP) PO SCH (21:32)
[2020-12-21] MEDS: QUEtiapine FUMARATE 50 MG TABLET PO SCH (21:32)
[2020-12-21] MEDS: METHYL SALICYLATE/MENTHOL OINT 30 GM TUBE TP SCH (21:33)
[2020-12-21] MEDS ORDERED: METHYL SALICYLATE/MENTHOL OINT 30 GM TUBE TP SCH (22:00)
[2020-12-22] MEDS ORDERED: METHADONE HCL 40 MG DISPERSABLE TABLET ONE (03:28)
[2020-12-22] MEDS ORDERED: METHADONE HCL 10 MG TABLET ONE (03:28)
[2020-12-22] MEDS ORDERED: METHADONE HCL 5 MG TABLET (FOR DETOX USE ONLY) PO ONE (06:00)
[2020-12-22] MEDS: METHADONE 40 MG, METHADONE 10 MG PO SCH (06:45)
[2020-12-22] MEDS: SULFAMETHOXAZOLE/TRIMETHOPRIM 800MG/160MG D.S. TABLET PO SCH ×2 (09:52→21:29)
[2020-12-22] MEDS: PRENATAL VITAMINS W/ FOLIC ACID TABLET (FP) PO SCH (09:52)
[2020-12-22] MEDS: hydrOXYzine PAMOATE 25 MG CAPSULE (FP) PO PRN (09:52)
[2020-12-22] MEDS: BUDESONIDE/FORMETEROL FUMARATE 80/4.5 mcg INHALER IH SCH ×2 (09:52→21:30)
[2020-12-22] MEDS: LIDOCAINE 5% TOPICAL PATCH TP SCH (09:53)
[2020-12-22] MEDS ORDERED: PT OWN MED DRAWER 7, Y5N ONE ×3 (09:55→20:42)
[2020-12-22] MEDS: METHOCARBAMOL 500 MG TABLET PO PRN (09:55)
[2020-12-22] MEDS: ACETAMINOPHEN 325 MG TABLET (FP) PO PRN (09:55)
[2020-12-22] MEDS: METHYL SALICYLATE/MENTHOL OINT 30 GM TUBE TP SCH ×2 (10:35→21:30)
[2020-12-22] MEDS ORDERED: PANTOPRAZOLE 40 MG TABLET PO ONE (12:26)
[2020-12-22] MEDS: SIMETHICONE 80 MG TAB.CHEW (FP) PO PRN (18:39)
[2020-12-22] MEDS: QUEtiapine FUMARATE 50 MG TABLET PO SCH (21:29)
[2020-12-22] MEDS: THIAMINE HCL 100 MG TABLET (FP) PO SCH (21:29)
[2020-12-22] MEDS: MELATONIN 5 MG TABLETS PO SCH (21:29)
[2020-12-23] MEDS: LIDOCAINE PATCH REMOVAL MC SCH ×2 (00:01→21:11)
[2020-12-23] MEDS: ACETAMINOPHEN 325 MG TABLET (FP) PO PRN (04:29)
[2020-12-23] MEDS ORDERED: METHADONE HCL 40 MG DISPERSABLE TABLET ONE (04:32)
[2020-12-23] MEDS ORDERED: METHADONE HCL 10 MG TABLET ONE (04:32)
[2020-12-23] MEDS: PANTOPRAZOLE 40 MG TABLET PO SCH (06:09)
[2020-12-23] MEDS: METHADONE 40 MG, METHADONE 10 MG PO SCH (06:09)
[2020-12-23] MEDS: PRENATAL VITAMINS W/ FOLIC ACID TABLET (FP) PO SCH (09:57)
[2020-12-23] MEDS: BUDESONIDE/FORMETEROL FUMARATE 80/4.5 mcg INHALER IH SCH ×2 (09:57→21:11)
[2020-12-23] MEDS: LIDOCAINE 5% TOPICAL PATCH TP SCH (09:59)
[2020-12-23] MEDS: SULFAMETHOXAZOLE/TRIMETHOPRIM 800MG/160MG D.S. TABLET PO SCH ×2 (09:59→21:11)
[2020-12-23] MEDS: METHYL SALICYLATE/MENTHOL OINT 30 GM TUBE TP SCH ×2 (10:03→21:11)
[2020-12-23] MEDS: CYCLOBENZAPRINE HCL 10 MG TABLET (FP) PO SCH ×2 (14:16→21:11)
[2020-12-23] MEDS: QUEtiapine FUMARATE 50 MG TABLET PO SCH (21:10)
[2020-12-23] MEDS: MELATONIN 5 MG TABLETS PO SCH (21:11)
[2020-12-23] MEDS: THIAMINE HCL 100 MG TABLET (FP) PO SCH (21:12)
[2020-12-24] MEDS ORDERED: METHADONE HCL 10 MG TABLET ONE (04:45)
[2020-12-24] MEDS ORDERED: METHADONE HCL 40 MG DISPERSABLE TABLET ONE (04:46)
[2020-12-24] MEDS: METHADONE 40 MG, METHADONE 10 MG PO SCH (06:03)
[2020-12-24] MEDS: CYCLOBENZAPRINE HCL 10 MG TABLET (FP) PO SCH ×3 (06:04→21:15)
[2020-12-24] MEDS: PANTOPRAZOLE 40 MG TABLET PO SCH (06:04)
[2020-12-24] MEDS: PRENATAL VITAMINS W/ FOLIC ACID TABLET (FP) PO SCH (09:56)
[2020-12-24] MEDS: SULFAMETHOXAZOLE/TRIMETHOPRIM 800MG/160MG D.S. TABLET PO SCH (09:56)
[2020-12-24] MEDS: LIDOCAINE 5% TOPICAL PATCH TP SCH (09:57)
[2020-12-24] MEDS: BUDESONIDE/FORMETEROL FUMARATE 80/4.5 mcg INHALER IH SCH ×2 (09:57→21:15)
[2020-12-24] MEDS ORDERED: PT OWN MED DRAWER 7, Y5N ONE ×2 (19:01→21:04)
[2020-12-24] MEDS: SIMETHICONE 80 MG TAB.CHEW (FP) PO PRN (19:01)
[2020-12-24] MEDS: MELATONIN 5 MG TABLETS PO SCH (21:15)
[2020-12-24] MEDS: THIAMINE HCL 100 MG TABLET (FP) PO SCH (21:15)
[2020-12-24] MEDS: QUEtiapine FUMARATE 50 MG TABLET PO SCH (21:15)
[2020-12-24] MEDS: METHYL SALICYLATE/MENTHOL OINT 30 GM TUBE TP SCH (21:16)
[2020-12-24] MEDS: LIDOCAINE PATCH REMOVAL MC SCH (21:16)
[2020-12-25] MEDS ORDERED: METHADONE HCL 10 MG TABLET ONE (05:18)
[2020-12-25] MEDS ORDERED: PT OWN MED DRAWER 7, Y5N ONE (05:19)
[2020-12-25] MEDS ORDERED: METHADONE HCL 40 MG DISPERSABLE TABLET ONE (05:19)
[2020-12-25] MEDS: CYCLOBENZAPRINE HCL 10 MG TABLET (FP) PO SCH (06:10)
[2020-12-25] MEDS: METHADONE 40 MG, METHADONE 10 MG PO SCH (06:10)
[2020-12-25] MEDS: PANTOPRAZOLE 40 MG TABLET PO SCH (06:10)
[2020-12-25 06:53] VITALS: BP 93/67; PULSE 90; TEMP 97.8
[2020-12-25] MEDS: LIDOCAINE 5% TOPICAL PATCH TP SCH (09:45)
[2020-12-25] MEDS: PRENATAL VITAMINS W/ FOLIC ACID TABLET (FP) PO SCH (09:45)
[2020-12-25] MEDS: BUDESONIDE/FORMETEROL FUMARATE 80/4.5 mcg INHALER IH SCH (09:46)
[2020-12-26] MEDS ORDERED: METHADONE 40 MG, METHADONE 10 MG PO SCH (06:00)
== END 2020-12-25 12:30 | disposition home or self-care (01) | DRG 772 ==
LOC: YASAS 14:05 → Y5N 20:17
PROVIDERS: ADMIT Allergy & Immunology; ATTEND Allergy & Immunology
PROC: HZ42ZZZ Group Counseling for Substance Abuse Treatment, Cognitive-Behavioral (ICD-10-PCS; principal; 2020-12-17)
DX: F11.20 Opioid dependence, uncomplicated (principal); F10.20 Alcohol dependence, uncomplicated; F14.20 Cocaine dependence, uncomplicated; F17.210 Nicotine dependence, cigarettes, uncomplicated; F19.282 Other psychoactive substance dependence with psychoactive substance-induced sleep disorder; F19.24 Other psychoactive substance dependence with psychoactive substance-induced mood disorder; F25.9 Schizoaffective disorder, unspecified; F31.9 Bipolar disorder, unspecified; F41.8 Other specified anxiety disorders; F39 Unspecified mood [affective] disorder; E86.0 Dehydration; J40 Bronchitis, not specified as acute or chronic; J44.9 Chronic obstructive pulmonary disease, unspecified; G47.00 Insomnia, unspecified; M25.512 Pain in left shoulder; R12 Heartburn; R63.4 Abnormal weight loss; Z68.1 Body mass index [BMI] 19.9 or less, adult; Z91.19 Patient's noncompliance with other medical treatment and regimen
CPT/HCPCS: 36415; 71046-TC-FY; 73030-TC-LT-FY; 80053; 85027; 86780; 93005; 93010; C9803; U0003; U0005

== ENCOUNTER 2021-04-22 14:07 | Inpatient (IN) | payer OTHER ==
[2021-04-22 18:09] VITALS: BMI 24.5
[2021-04-22] MEDS ORDERED: diazePAM 5 MG TABLET PO PRN (18:35)
[2021-04-22] MEDS ORDERED: ALBUTEROL SO4 HFA INHALER IH PRN (18:35)
[2021-04-22] MEDS ORDERED: ACETAMINOPHEN 325 MG TABLET (FP) PO PRN ×2 (18:35)
[2021-04-22] MEDS ORDERED: cloNIDine HCL 0.1 MG TABLET PO PRN (18:35)
[2021-04-22] MEDS ORDERED: MENTHOL/PHENOL 1 EACH UD MM PRN (18:35)
[2021-04-22] MEDS ORDERED: NICOTINE 10 MG CARTRIDGE (INHALER) IH PRN (18:35)
[2021-04-22] MEDS ORDERED: IBUPROFEN 400 MG TABLET (FP) PO PRN (18:35)
[2021-04-22] MEDS ORDERED: MAGNESIUM CITRATE 300 ML BOTTLE PO PRN (18:35)
[2021-04-22] MEDS ORDERED: BISMUTH SUBSALICYLATE 524 MG/30 ML PO PRN (18:35)
[2021-04-22] MEDS ORDERED: clonazePAM 0.5 MG ODT TABLETS SL PRN (18:35)
[2021-04-22] MEDS ORDERED: methaDONE HCL 10 MG TABLET (FOR DETOX USE ONLY) PO ONE (20:00)
[2021-04-22] MEDS: diazePAM 5 MG TABLET PO SCH ×2 (20:09→22:19)
[2021-04-22] MEDS: ONDANSETRON *ODT* 4 MG TABLET SL PRN (20:17)
[2021-04-22] MEDS: hydrOXYzine PAMOATE 25 MG CAPSULE (FP) PO SCH (22:18)
[2021-04-22] MEDS: BUDESONIDE/FORMETEROL FUMARATE 80/4.5 mcg INHALER IH SCH (22:19)
[2021-04-22] MEDS: MELATONIN 5 MG TABLETS PO SCH (22:19)
[2021-04-22] MEDS: THIAMINE HCL 100 MG TABLET (FP) PO SCH (22:19)
[2021-04-23] MEDS: diazePAM 5 MG TABLET PO SCH ×4 (06:35→22:39)
[2021-04-23] MEDS: hydrOXYzine PAMOATE 25 MG CAPSULE (FP) PO SCH ×5 (06:36→22:41)
[2021-04-23] MEDS ORDERED: methaDONE HCL 10 MG TABLET (FOR DETOX USE ONLY) ONE (09:15)
[2021-04-23] MEDS: PRENATAL VITAMINS W/ FOLIC ACID TABLET (FP) PO SCH (10:35)
[2021-04-23] MEDS: BUDESONIDE/FORMETEROL FUMARATE 80/4.5 mcg INHALER IH SCH ×2 (10:36→22:42)
[2021-04-23] MEDS: MAGNESIUM HYDROX 2400MG/30ML ORAL SUSPENSION 30 ML CUP PO PRN ×2 (10:37→15:08)
[2021-04-23 11:15] LABS: HEMATOCRIT 35.2 % (35.4-49); HEMOGLOBIN 12.3 GM/dL (11.7-16.9); MCH 31.6 pg (25.7-33.7); MEAN CELL VOLUME 90.3 fl (80-96); MEAN PLT VOLUME 7.4 fl (7.5-11.1); PLATELET COUNT 288 10^3/uL (134-434); RDW 13.9 % (11.9-15.9); WHITE BLOOD COUNT 8.7 K/mm3 (4.0-10.0)
[2021-04-23 11:19] LABS: CALCIUM 8.6 mg/dL (8.5-10.1)
[2021-04-23 11:20] LABS: ALBUMIN 3.7 g/dl (3.4-5.0); BLOOD UREA NITROGEN 13.7 mg/dL (7-18)
[2021-04-23 11:23] LABS: CREATININE 0.7 mg/dL (0.55-1.3)
[2021-04-23 11:24] LABS: TOT PROT 6.4 g/dl (6.4-8.2)
[2021-04-23 11:27] LABS: BILIRUBIN,TOTAL 0.4 mg/dL (0.2-1)
[2021-04-23 12:14] LABS: HIV INTERPRETATION NEGATIVE (NEGATIVE)
[2021-04-23] MEDS ORDERED: DIVALPROEX SODIUM 250 MG TABLET E.C. PO SCH (13:00)
[2021-04-23] MEDS: ESCITALOPRAM OXALATE 10 MG TABLET PO SCH (13:54)
[2021-04-23] MEDS: ONDANSETRON *ODT* 4 MG TABLET SL PRN (17:54)
[2021-04-23] MEDS ORDERED: DIVALPROEX SODIUM 500 MG TABLET E.C. PO SCH (22:00)
[2021-04-23] MEDS ORDERED: DIVALPROEX NA *ER* EXTEND REL 500 MG TABLET.SA (FP) PO SCH (22:00)
[2021-04-23] MEDS: DIVALPROEX *ER* 250 MG, DIVALPROEX *ER* 500 MG PO SCH (22:38)
[2021-04-23] MEDS: THIAMINE HCL 100 MG TABLET (FP) PO SCH (22:39)
[2021-04-23] MEDS: QUEtiapine FUMARATE 200 MG TABLET PO SCH (22:39)
[2021-04-23] MEDS: GABAPENTIN 400 MG CAPSULE PO SCH (22:39)
[2021-04-23] MEDS: MELATONIN 5 MG TABLETS PO SCH (22:42)
[2021-04-24] MEDS: diazePAM 5 MG TABLET PO SCH ×3 (06:31→21:38)
[2021-04-24] MEDS: hydrOXYzine PAMOATE 25 MG CAPSULE (FP) PO SCH ×5 (06:31→21:38)
[2021-04-24] MEDS ORDERED: methaDONE HCL 10 MG TABLET (FOR DETOX USE ONLY) PO ONE (10:00)
[2021-04-24] MEDS: ESCITALOPRAM OXALATE 10 MG TABLET PO SCH (10:37)
[2021-04-24] MEDS: BUDESONIDE/FORMETEROL FUMARATE 80/4.5 mcg INHALER IH SCH ×2 (10:37→21:38)
[2021-04-24] MEDS: PRENATAL VITAMINS W/ FOLIC ACID TABLET (FP) PO SCH (10:37)
[2021-04-24] MEDS: DIVALPROEX *ER* 250 MG, DIVALPROEX *ER* 500 MG PO SCH (21:37)
[2021-04-24] MEDS: THIAMINE HCL 100 MG TABLET (FP) PO SCH (21:38)
[2021-04-24] MEDS: GABAPENTIN 400 MG CAPSULE PO SCH (21:38)
[2021-04-24] MEDS: QUEtiapine FUMARATE 200 MG TABLET PO SCH (21:38)
[2021-04-24] MEDS: MELATONIN 5 MG TABLETS PO SCH (21:41)
[2021-04-25] MEDS: hydrOXYzine PAMOATE 25 MG CAPSULE (FP) PO SCH ×5 (05:43→22:28)
[2021-04-25] MEDS: diazePAM 5 MG TABLET PO SCH ×2 (05:44→18:17)
[2021-04-25] MEDS: MAG HYDROX/AL HYDROX/SIMETH 30 ML UNIT-DOSE CUP PO PRN (07:58)
[2021-04-25] MEDS ORDERED: methaDONE HCL 10 MG TABLET (FOR DETOX USE ONLY) ONE (11:41)
[2021-04-25] MEDS: BUDESONIDE/FORMETEROL FUMARATE 80/4.5 mcg INHALER IH SCH ×2 (11:42→22:28)
[2021-04-25] MEDS: FAMOTIDINE 20 MG TABLET PO SCH ×2 (11:43→22:27)
[2021-04-25] MEDS: PRENATAL VITAMINS W/ FOLIC ACID TABLET (FP) PO SCH (11:44)
[2021-04-25] MEDS: METHOCARBAMOL 500 MG TABLET PO PRN (11:44)
[2021-04-25] MEDS: ESCITALOPRAM OXALATE 10 MG TABLET PO SCH (11:44)
[2021-04-25] MEDS: DIVALPROEX *ER* 250 MG, DIVALPROEX *ER* 500 MG PO SCH (22:26)
[2021-04-25] MEDS: GABAPENTIN 400 MG CAPSULE PO SCH (22:27)
[2021-04-25] MEDS: THIAMINE HCL 100 MG TABLET (FP) PO SCH (22:27)
[2021-04-25] MEDS: QUEtiapine FUMARATE 200 MG TABLET PO SCH (22:27)
[2021-04-25] MEDS: MELATONIN 5 MG TABLETS PO SCH (23:13)
[2021-04-26] MEDS ORDERED: diazePAM 5 MG TABLET PO ONE (06:00)
[2021-04-26] MEDS: hydrOXYzine PAMOATE 25 MG CAPSULE (FP) PO SCH ×5 (06:22→23:12)
[2021-04-26] MEDS: PRENATAL VITAMINS W/ FOLIC ACID TABLET (FP) PO SCH (09:41)
[2021-04-26] MEDS: ESCITALOPRAM OXALATE 10 MG TABLET PO SCH (09:41)
[2021-04-26] MEDS: FAMOTIDINE 20 MG TABLET PO SCH ×2 (09:41→22:31)
[2021-04-26] MEDS: METHOCARBAMOL 500 MG TABLET PO PRN (09:41)
[2021-04-26] MEDS: BUDESONIDE/FORMETEROL FUMARATE 80/4.5 mcg INHALER IH SCH ×2 (09:42→23:12)
[2021-04-26] MEDS ORDERED: methaDONE HCL 10 MG TABLET (FOR DETOX USE ONLY) PO ONE (10:00)
[2021-04-26] MEDS: MAG HYDROX/AL HYDROX/SIMETH 30 ML UNIT-DOSE CUP PO PRN (11:26)
[2021-04-26] MEDS: MAGNESIUM HYDROX 2400MG/30ML ORAL SUSPENSION 30 ML CUP PO PRN (17:32)
[2021-04-26] MEDS: MELATONIN 5 MG TABLETS PO SCH (22:31)
[2021-04-26] MEDS: QUEtiapine FUMARATE 200 MG TABLET PO SCH (22:31)
[2021-04-26] MEDS: GABAPENTIN 400 MG CAPSULE PO SCH (22:32)
[2021-04-26] MEDS: THIAMINE HCL 100 MG TABLET (FP) PO SCH (22:32)
[2021-04-26] MEDS: DIVALPROEX *ER* 250 MG, DIVALPROEX *ER* 500 MG PO SCH (22:34)
[2021-04-27] MEDS: hydrOXYzine PAMOATE 25 MG CAPSULE (FP) PO SCH (05:58)
[2021-04-27 09:41] VITALS: BP 129/75; PULSE 108; TEMP 98.4
== END 2021-04-27 09:20 | disposition other institution (70) | DRG 773 ==
LOC: YASAS 14:07 → Y6N 18:36
PROVIDERS: ADMIT Allergy & Immunology; ATTEND Allergy & Immunology
PROC: HZ2ZZZZ Detoxification Services for Substance Abuse Treatment (ICD-10-PCS; principal; 2021-04-22)
DX: F11.23 Opioid dependence with withdrawal (principal); F10.230 Alcohol dependence with withdrawal, uncomplicated; F14.20 Cocaine dependence, uncomplicated; F17.210 Nicotine dependence, cigarettes, uncomplicated; F31.81 Bipolar II disorder; F19.282 Other psychoactive substance dependence with psychoactive substance-induced sleep disorder; F19.24 Other psychoactive substance dependence with psychoactive substance-induced mood disorder; D64.9 Anemia, unspecified; J44.9 Chronic obstructive pulmonary disease, unspecified; K21.9 Gastro-esophageal reflux disease without esophagitis; Z62.810 Personal history of physical and sexual abuse in childhood; Z86.19 Personal history of other infectious and parasitic diseases
CPT/HCPCS: 36415; 80053; 85027; 86780; 87389; C9803; Q0162; U0003; U0005

== ENCOUNTER 2021-11-25 11:14 | Inpatient (IN) | payer OTHER ==
[2021-11-25] MEDS ORDERED: cloNIDine HCL 0.1 MG TABLET PO PRN (12:03)
[2021-11-25] MEDS ORDERED: MAG HYDROX/AL HYDROX/SIMETH 30 ML UNIT-DOSE CUP PO PRN (12:03)
[2021-11-25] MEDS ORDERED: METHOCARBAMOL 500 MG TABLET PO PRN (12:03)
[2021-11-25] MEDS ORDERED: MENTHOL/PHENOL 1 EACH UD MM PRN (12:03)
[2021-11-25] MEDS ORDERED: ACETAMINOPHEN 325 MG TABLET (FP) PO PRN ×2 (12:03)
[2021-11-25] MEDS ORDERED: methaDONE HCL 10 MG TABLET (FOR DETOX USE ONLY) PO ONE (12:03)
[2021-11-25] MEDS ORDERED: LOPERAMIDE HCL 2 MG CAPSULE PO PRN (12:03)
[2021-11-25] MEDS ORDERED: MAGNESIUM HYDROX 2400MG/30ML ORAL SUSPENSION 30 ML CUP PO PRN (12:03)
[2021-11-25] MEDS ORDERED: NICOTINE 10 MG CARTRIDGE (INHALER) IH PRN (12:03)
[2021-11-25] MEDS ORDERED: BISMUTH SUBSALICYLATE 262 MG/15 ML BTL PO PRN (12:03)
[2021-11-25] MEDS ORDERED: ONDANSETRON *ODT* 4 MG TABLET SL PRN (12:03)
[2021-11-25] MEDS ORDERED: MAGNESIUM CITRATE 300 ML BOTTLE PO PRN (12:03)
[2021-11-25] MEDS ORDERED: IBUPROFEN 400 MG TABLET (FP) PO PRN (12:03)
[2021-11-25] MEDS ORDERED: ALBUTEROL SO4 HFA INHALER IH PRN (12:08)
[2021-11-25] MEDS: hydrOXYzine PAMOATE 25 MG CAPSULE (FP) PO SCH ×3 (14:45→22:41)
[2021-11-25] MEDS: chlordiazePOXIDE HCL 25 MG CAPSULE PO PRN (14:45)
[2021-11-25 15:30] LABS: HEMOGLOBIN 13.6 GM/dL (11.7-16.9); MCH 29.6 pg (25.7-33.7); MCHC 33.2 g/dl (32.0-35.9); MEAN CELL VOLUME 89.1 fl (80-96); MEAN PLT VOLUME 7.4 fl (7.5-11.1); PLATELET COUNT 328 10^3/uL (134-434); RDW 14.3 % (11.9-15.9)
[2021-11-25 15:39] LABS: CALCIUM 9.2 mg/dL (8.5-10.1)
[2021-11-25 15:41] LABS: BLOOD UREA NITROGEN 16.7 mg/dL (7-18)
[2021-11-25 15:43] LABS: CREATININE 0.9 mg/dL (0.55-1.3)
[2021-11-25 15:44] LABS: TOT PROT 7.3 g/dl (6.4-8.2)
[2021-11-25] MEDS: chlordiazePOXIDE HCL 25 MG CAPSULE PO SCH ×2 (19:07→22:41)
[2021-11-25] MEDS: FAMOTIDINE 20 MG TABLET PO SCH (22:41)
[2021-11-25] MEDS: THIAMINE HCL 100 MG TABLET (FP) PO SCH (22:41)
[2021-11-25] MEDS: MELATONIN 5 MG TABLETS PO SCH (22:41)
[2021-11-26] MEDS: chlordiazePOXIDE HCL 25 MG CAPSULE PO SCH ×4 (06:28→22:55)
[2021-11-26] MEDS: hydrOXYzine PAMOATE 25 MG CAPSULE (FP) PO SCH ×5 (06:29→22:55)
[2021-11-26] MEDS: BUDESONIDE/FORMETEROL FUMARATE 160/4.5 mcg INHALER IH SCH ×4 (08:33→22:57)
[2021-11-26] MEDS ORDERED: methaDONE HCL 10 MG TABLET (FOR DETOX USE ONLY) ONE (10:01)
[2021-11-26] MEDS: PRENATAL VITAMINS W/ FOLIC ACID TABLET (FP) PO SCH (10:32)
[2021-11-26] MEDS: FAMOTIDINE 20 MG TABLET PO SCH ×2 (10:32→22:55)
[2021-11-26] MEDS: chlordiazePOXIDE HCL 25 MG CAPSULE PO PRN (14:13)
[2021-11-26] MEDS: MELATONIN 5 MG TABLETS PO SCH (22:55)
[2021-11-26] MEDS: THIAMINE HCL 100 MG TABLET (FP) PO SCH (22:55)
[2021-11-27 06:10] LABS: SARS-CoV-2 NAA Not Detected (Not Detected)
[2021-11-27] MEDS: hydrOXYzine PAMOATE 25 MG CAPSULE (FP) PO SCH ×5 (06:26→23:28)
[2021-11-27] MEDS: chlordiazePOXIDE HCL 25 MG CAPSULE PO SCH ×4 (06:27→23:27)
[2021-11-27] MEDS ORDERED: methaDONE HCL 10 MG TABLET (FOR DETOX USE ONLY) PO ONE (10:00)
[2021-11-27] MEDS: PRENATAL VITAMINS W/ FOLIC ACID TABLET (FP) PO SCH (10:45)
[2021-11-27] MEDS: FAMOTIDINE 20 MG TABLET PO SCH ×2 (10:45→23:27)
[2021-11-27] MEDS: BUDESONIDE/FORMETEROL FUMARATE 160/4.5 mcg INHALER IH SCH ×2 (10:47→23:28)
[2021-11-27] MEDS: THIAMINE HCL 100 MG TABLET (FP) PO SCH (23:28)
[2021-11-27] MEDS: MELATONIN 5 MG TABLETS PO SCH (23:28)
[2021-11-28] MEDS ORDERED: chlordiazePOXIDE HCL 10 MG CAPSULE PO PRN
[2021-11-28] MEDS: chlordiazePOXIDE HCL 10 MG CAPSULE PO SCH ×2 (05:48→10:44)
[2021-11-28] MEDS: hydrOXYzine PAMOATE 25 MG CAPSULE (FP) PO SCH ×2 (05:49→10:43)
[2021-11-28 07:23] VITALS: BP 102/59; TEMP 97.5
[2021-11-28 07:24] VITALS: PULSE 79
[2021-11-28] MEDS: PRENATAL VITAMINS W/ FOLIC ACID TABLET (FP) PO SCH (10:43)
[2021-11-28] MEDS: FAMOTIDINE 20 MG TABLET PO SCH (10:43)
[2021-11-28] MEDS: BUDESONIDE/FORMETEROL FUMARATE 160/4.5 mcg INHALER IH SCH (10:43)
[2021-11-29] MEDS ORDERED: chlordiazePOXIDE HCL 10 MG CAPSULE PO SCH (05:00)
[2021-11-29] MEDS ORDERED: methaDONE HCL 10 MG TABLET (FOR DETOX USE ONLY) PO ONE (10:00)
[2021-11-30] MEDS ORDERED: chlordiazePOXIDE HCL 10 MG CAPSULE PO ONE (05:00)
== END 2021-11-28 08:53 | disposition left against medical advice (07) | DRG 770 ==
LOC: YASAS 11:14 → Y6N 13:01 → Y3N 13:41
PROVIDERS: ADMIT Allergy & Immunology; ATTEND Allergy & Immunology
PROC: HZ2ZZZZ Detoxification Services for Substance Abuse Treatment (ICD-10-PCS; principal; 2021-11-25)
DX: F11.23 Opioid dependence with withdrawal (principal); F10.230 Alcohol dependence with withdrawal, uncomplicated; F14.20 Cocaine dependence, uncomplicated; F17.210 Nicotine dependence, cigarettes, uncomplicated; R73.9 Hyperglycemia, unspecified
CPT/HCPCS: 36415; 80053; 85027; 86780; 87811; C9803-CS; U0003; U0005

== ENCOUNTER 2022-06-27 12:32 | Inpatient (IN) | payer OTHER ==
[2022-06-27 13:53] VITALS: BMI 23.5
[2022-06-27] MEDS ORDERED: IBUPROFEN 400 MG TABLET (FP) PO PRN (18:51)
[2022-06-27] MEDS ORDERED: NICOTINE 10 MG CARTRIDGE (INHALER) IH PRN (18:51)
[2022-06-27] MEDS ORDERED: BISMUTH SUBSALICYLATE 524 MG/30 ML PO PRN (18:51)
[2022-06-27] MEDS ORDERED: methaDONE HCL 10 MG TABLET (FOR DETOX USE ONLY) PO ONE (18:51)
[2022-06-27] MEDS ORDERED: LOPERAMIDE HCL 2 MG CAPSULE PO PRN (18:51)
[2022-06-27] MEDS ORDERED: cloNIDine HCL 0.1 MG TABLET PO PRN (18:51)
[2022-06-27] MEDS ORDERED: ONDANSETRON *ODT* 4 MG TABLET SL PRN (18:51)
[2022-06-27] MEDS ORDERED: BENZOCAINE/MENTHOL (CHLORASEPTIC ) LOZENGE MM PRN (18:51)
[2022-06-27] MEDS ORDERED: MAGNESIUM HYDROX 2400MG/30ML ORAL SUSPENSION 30 ML CUP PO PRN (18:51)
[2022-06-27] MEDS ORDERED: MAGNESIUM CITRATE 300 ML BOTTLE PO PRN (18:51)
[2022-06-27] MEDS ORDERED: ACETAMINOPHEN 325 MG TABLET (FP) PO PRN ×2 (18:51)
[2022-06-27] MEDS ORDERED: IBUPROFEN 600 MG TABLET (FP) PO PRN (18:51)
[2022-06-27] MEDS ORDERED: NALOXONE HCL (KLOXXADO) 8 MG SPRAY NS PRN (18:51)
[2022-06-27] MEDS ORDERED: DICYCLOMINE HCL 10 MG CAPSULE PO PRN (18:51)
[2022-06-27] MEDS ORDERED: HYDROCORTISONE 0.5% TOPICAL CREAM 30 GM TUBE TP PRN (18:57)
[2022-06-27] MEDS ORDERED: ALBUTEROL SO4 HFA INHALER IH PRN (18:57)
[2022-06-27] MEDS: PRENATAL VITAMINS W/ FOLIC ACID TABLET (FP) PO SCH (19:23)
[2022-06-27] MEDS: NICOTINE 14 MG/24 HOURS TOPICAL PATCH TD SCH (20:17)
[2022-06-27] MEDS: THIAMINE HCL 100 MG TABLET (FP) PO SCH (22:13)
[2022-06-27] MEDS: MELATONIN 5 MG TABLETS PO SCH (22:13)
[2022-06-27] MEDS: chlordiazePOXIDE HCL 25 MG CAPSULE PO SCH (22:13)
[2022-06-27] MEDS: METHOCARBAMOL 500 MG TABLET PO PRN (22:13)
[2022-06-27] MEDS: BUDESONIDE/FORMETEROL FUMARATE 160/4.5 mcg INHALER IH SCH (23:07)
[2022-06-28] MEDS: MAG HYDROX/AL HYDROX/SIMETH 30 ML UNIT-DOSE CUP PO PRN ×2 (01:12→15:07)
[2022-06-28] MEDS: chlordiazePOXIDE HCL 25 MG CAPSULE PO SCH ×4 (05:04→22:01)
[2022-06-28] MEDS: BUDESONIDE/FORMETEROL FUMARATE 160/4.5 mcg INHALER IH SCH ×2 (10:08→22:01)
[2022-06-28] MEDS: METHOCARBAMOL 500 MG TABLET PO PRN (10:09)
[2022-06-28] MEDS: NICOTINE 14 MG/24 HOURS TOPICAL PATCH TD SCH (10:11)
[2022-06-28] MEDS: PRENATAL VITAMINS W/ FOLIC ACID TABLET (FP) PO SCH (10:11)
[2022-06-28 10:50] LABS: HEMATOCRIT 36.9 % (35.4-49); HEMOGLOBIN 12.3 GM/dL (11.7-16.9); MCH 29.5 pg (25.7-33.7); MCHC 33.5 g/dl (32.0-35.9); MEAN CELL VOLUME 88.2 fl (80-96); MEAN PLT VOLUME 7.9 fl (7.5-11.1); PLATELET COUNT 279 10^3/uL (134-434); RBC 4.18 M/mm3 (4.00-5.60); RDW 13.5 % (11.9-15.9); WHITE BLOOD COUNT 7.9 K/mm3 (4.0-10.0)
[2022-06-28 10:53] LABS: ALBUMIN 3.5 g/dl (3.4-5.0); BLOOD UREA NITROGEN 17.3 mg/dL (7-18); CALCIUM 8.8 mg/dL (8.5-10.1)
[2022-06-28 10:56] LABS: CREATININE 0.8 mg/dL (0.55-1.3)
[2022-06-28 10:58] LABS: BILIRUBIN,TOTAL 0.5 mg/dL (0.2-1)
[2022-06-28] MEDS: QUEtiapine FUMARATE 100 MG TABLET (FP) PO SCH (22:00)
[2022-06-28] MEDS: THIAMINE HCL 100 MG TABLET (FP) PO SCH (22:01)
[2022-06-28] MEDS: MELATONIN 5 MG TABLETS PO SCH (22:01)
[2022-06-29] MEDS: chlordiazePOXIDE HCL 25 MG CAPSULE PO SCH ×4 (05:53→22:21)
[2022-06-29] MEDS ORDERED: methaDONE HCL 10 MG TABLET (FOR DETOX USE ONLY) PO ONE (10:00)
[2022-06-29] MEDS: NICOTINE 14 MG/24 HOURS TOPICAL PATCH TD SCH (10:07)
[2022-06-29] MEDS: PRENATAL VITAMINS W/ FOLIC ACID TABLET (FP) PO SCH (10:08)
[2022-06-29] MEDS: BUDESONIDE/FORMETEROL FUMARATE 160/4.5 mcg INHALER IH SCH ×2 (10:09→22:21)
[2022-06-29] MEDS: MAG HYDROX/AL HYDROX/SIMETH 30 ML UNIT-DOSE CUP PO PRN (15:28)
[2022-06-29] MEDS: THIAMINE HCL 100 MG TABLET (FP) PO SCH (22:21)
[2022-06-29] MEDS: QUEtiapine FUMARATE 100 MG TABLET (FP) PO SCH (22:21)
[2022-06-29] MEDS: MELATONIN 5 MG TABLETS PO SCH (22:21)
[2022-06-30] MEDS: chlordiazePOXIDE HCL 10 MG CAPSULE PO SCH ×4 (05:43→22:14)
[2022-06-30] MEDS: BUDESONIDE/FORMETEROL FUMARATE 160/4.5 mcg INHALER IH SCH ×2 (10:38→22:13)
[2022-06-30] MEDS: METHOCARBAMOL 500 MG TABLET PO PRN (10:40)
[2022-06-30] MEDS: NICOTINE 14 MG/24 HOURS TOPICAL PATCH TD SCH (10:42)
[2022-06-30] MEDS: PRENATAL VITAMINS W/ FOLIC ACID TABLET (FP) PO SCH (10:42)
[2022-06-30] MEDS: MAG HYDROX/AL HYDROX/SIMETH 30 ML UNIT-DOSE CUP PO PRN ×2 (14:48→22:18)
[2022-06-30] MEDS ORDERED: FAMOTIDINE 20 MG TABLET PO ONE (15:30)
[2022-06-30] MEDS: FAMOTIDINE 20 MG TABLET PO SCH ×2 (16:52→22:14)
[2022-06-30] MEDS: QUEtiapine FUMARATE 100 MG TABLET (FP) PO SCH (22:13)
[2022-06-30] MEDS: MELATONIN 5 MG TABLETS PO SCH (22:14)
[2022-06-30] MEDS: THIAMINE HCL 100 MG TABLET (FP) PO SCH (22:14)
[2022-07-01] MEDS: chlordiazePOXIDE HCL 10 MG CAPSULE PO SCH ×2 (05:44→17:09)
[2022-07-01] MEDS ORDERED: methaDONE HCL 10 MG TABLET (FOR DETOX USE ONLY) PO ONE (10:00)
[2022-07-01] MEDS: NICOTINE 14 MG/24 HOURS TOPICAL PATCH TD SCH (10:14)
[2022-07-01] MEDS: PRENATAL VITAMINS W/ FOLIC ACID TABLET (FP) PO SCH (10:15)
[2022-07-01] MEDS: BUDESONIDE/FORMETEROL FUMARATE 160/4.5 mcg INHALER IH SCH ×2 (10:15→22:12)
[2022-07-01] MEDS: FAMOTIDINE 20 MG TABLET PO SCH ×2 (10:15→22:11)
[2022-07-01] MEDS: QUEtiapine FUMARATE 100 MG TABLET (FP) PO SCH (22:11)
[2022-07-01] MEDS: THIAMINE HCL 100 MG TABLET (FP) PO SCH (22:11)
[2022-07-01] MEDS: MELATONIN 5 MG TABLETS PO SCH (22:11)
[2022-07-01] MEDS: METHOCARBAMOL 500 MG TABLET PO PRN (22:11)
[2022-07-01] MEDS: MAG HYDROX/AL HYDROX/SIMETH 30 ML UNIT-DOSE CUP PO PRN (22:11)
[2022-07-02] MEDS ORDERED: chlordiazePOXIDE HCL 10 MG CAPSULE PO ONE (05:00)
[2022-07-02 06:14] VITALS: BP 119/65; PULSE 98; RESP 18; TEMP 97.7
[2022-07-02] MEDS: BUDESONIDE/FORMETEROL FUMARATE 160/4.5 mcg INHALER IH SCH (10:01)
[2022-07-02] MEDS: FAMOTIDINE 20 MG TABLET PO SCH (10:01)
[2022-07-02] MEDS: NICOTINE 14 MG/24 HOURS TOPICAL PATCH TD SCH (10:01)
[2022-07-02] MEDS: PRENATAL VITAMINS W/ FOLIC ACID TABLET (FP) PO SCH (10:01)
== END 2022-07-02 10:25 | disposition home or self-care (01) | DRG 773 ==
LOC: YASAS 12:32 → Y6N 18:53
PROVIDERS: ADMIT Allergy & Immunology; ATTEND Surgery
PROC: HZ2ZZZZ Detoxification Services for Substance Abuse Treatment (ICD-10-PCS; principal; 2022-06-27)
DX: F11.23 Opioid dependence with withdrawal (principal); F10.230 Alcohol dependence with withdrawal, uncomplicated; F14.20 Cocaine dependence, uncomplicated; F13.20 Sedative, hypnotic or anxiolytic dependence, uncomplicated; F17.210 Nicotine dependence, cigarettes, uncomplicated; F31.9 Bipolar disorder, unspecified; F19.282 Other psychoactive substance dependence with psychoactive substance-induced sleep disorder; F19.24 Other psychoactive substance dependence with psychoactive substance-induced mood disorder; J44.9 Chronic obstructive pulmonary disease, unspecified; K21.9 Gastro-esophageal reflux disease without esophagitis; Z86.19 Personal history of other infectious and parasitic diseases; Z56.0 Unemployment, unspecified; Z59.00 Homelessness unspecified
CPT/HCPCS: 36415; 80053; 85027; 86780; C9803-CS; U0003; U0005

== ENCOUNTER 2022-08-20 12:15 | Inpatient (IN) | payer OTHER ==
[2022-08-20 13:12] VITALS: BMI 24.1
[2022-08-20] MEDS ORDERED: IBUPROFEN 400 MG TABLET (FP) PO PRN (17:23)
[2022-08-20] MEDS ORDERED: LOPERAMIDE HCL 2 MG CAPSULE PO PRN (17:23)
[2022-08-20] MEDS ORDERED: ONDANSETRON *ODT* 4 MG TABLET SL PRN (17:23)
[2022-08-20] MEDS ORDERED: cloNIDine HCL 0.1 MG TABLET PO PRN (17:23)
[2022-08-20] MEDS ORDERED: methaDONE HCL 10 MG TABLET (FOR DETOX USE ONLY) PO ONE ×2 (17:23→18:30)
[2022-08-20] MEDS ORDERED: DICYCLOMINE HCL 10 MG CAPSULE PO PRN (17:23)
[2022-08-20] MEDS ORDERED: IBUPROFEN 600 MG TABLET (FP) PO PRN (17:23)
[2022-08-20] MEDS ORDERED: chlordiazePOXIDE HCL 25 MG CAPSULE PO PRN (17:23)
[2022-08-20] MEDS ORDERED: ACETAMINOPHEN 325 MG TABLET (FP) PO PRN ×2 (17:23)
[2022-08-20] MEDS ORDERED: NALOXONE HCL (KLOXXADO) 8 MG SPRAY NS PRN (17:23)
[2022-08-20] MEDS ORDERED: BENZOCAINE/MENTHOL (CHLORASEPTIC ) LOZENGE MM PRN (17:23)
[2022-08-20] MEDS ORDERED: POLYETHYLENE GLYCOL (HEALTHYLAX) 3350 17 GM PACKET PO PRN (17:23)
[2022-08-20] MEDS ORDERED: BISMUTH SUBSALICYLATE 524 MG/30 ML PO PRN (17:23)
[2022-08-20] MEDS ORDERED: NICOTINE 10 MG CARTRIDGE (INHALER) IH PRN (17:23)
[2022-08-20] MEDS: chlordiazePOXIDE HCL 25 MG CAPSULE PO SCH (22:13)
[2022-08-20] MEDS: MELATONIN 5 MG TABLETS PO SCH (22:13)
[2022-08-20] MEDS: THIAMINE HCL 100 MG TABLET (FP) PO SCH (22:13)
[2022-08-20] MEDS: METHOCARBAMOL 500 MG TABLET PO PRN (22:13)
[2022-08-21] MEDS: chlordiazePOXIDE HCL 25 MG CAPSULE PO SCH ×4 (06:06→22:13)
[2022-08-21] MEDS: PRENATAL VITAMINS W/ FOLIC ACID TABLET (FP) PO SCH (10:09)
[2022-08-21] MEDS: METHOCARBAMOL 500 MG TABLET PO PRN (10:10)
[2022-08-21] MEDS ORDERED: ALBUTEROL SO4 HFA INHALER IH PRN (10:10)
[2022-08-21] MEDS: NICOTINE 14 MG/24 HOURS TOPICAL PATCH TD SCH (10:13)
[2022-08-21 12:25] LABS: HEMATOCRIT 36.8 % (35.4-49); HEMOGLOBIN 12.3 GM/dL (11.7-16.9); MCH 29.6 pg (25.7-33.7); MCHC 33.3 g/dl (32.0-35.9); MEAN CELL VOLUME 88.9 fl (80-96); MEAN PLT VOLUME 7.2 fl (7.5-11.1); PLATELET COUNT 421 10^3/uL (134-434); RBC 4.14 M/mm3 (4.00-5.60); RDW 13.9 % (11.9-15.9); WHITE BLOOD COUNT 10.5 K/mm3 (4.0-10.0)
[2022-08-21 12:46] LABS: CALCIUM 8.9 mg/dL (8.5-10.1)
[2022-08-21 12:47] LABS: ALBUMIN 3.3 g/dl (3.4-5.0)
[2022-08-21 12:48] LABS: BLOOD UREA NITROGEN 11.8 mg/dL (7-18)
[2022-08-21 12:50] LABS: CREATININE 0.8 mg/dL (0.55-1.3)
[2022-08-21 12:52] LABS: BILIRUBIN,TOTAL 0.8 mg/dL (0.2-1); TOT PROT 6.1 g/dl (6.4-8.2)
[2022-08-21] MEDS: MAGNESIUM HYDROX 2400MG/30ML ORAL SUSPENSION 30 ML CUP PO PRN (18:10)
[2022-08-21] MEDS ORDERED: QUEtiapine FUMARATE 100 MG TABLET (FP) PO SCH (22:00)
[2022-08-21] MEDS: THIAMINE HCL 100 MG TABLET (FP) PO SCH (22:13)
[2022-08-21] MEDS: MELATONIN 5 MG TABLETS PO SCH (22:13)
[2022-08-21] MEDS: BUDESONIDE/FORMETEROL FUMARATE 160/4.5 mcg INHALER IH SCH (22:15)
[2022-08-22] MEDS: chlordiazePOXIDE HCL 25 MG CAPSULE PO SCH ×4 (05:57→22:17)
[2022-08-22] MEDS: METHOCARBAMOL 500 MG TABLET PO PRN (05:57)
[2022-08-22] MEDS ORDERED: methaDONE HCL 10 MG TABLET (FOR DETOX USE ONLY) PO ONE (10:00)
[2022-08-22] MEDS: PRENATAL VITAMINS W/ FOLIC ACID TABLET (FP) PO SCH (10:48)
[2022-08-22] MEDS: BUDESONIDE/FORMETEROL FUMARATE 160/4.5 mcg INHALER IH SCH ×2 (10:50→22:18)
[2022-08-22] MEDS: NICOTINE 14 MG/24 HOURS TOPICAL PATCH TD SCH (10:52)
[2022-08-22] MEDS: MAGNESIUM HYDROX 2400MG/30ML ORAL SUSPENSION 30 ML CUP PO PRN (14:57)
[2022-08-22] MEDS: traZODone HCL 50 MG TABLET (FP) PO SCH (22:13)
[2022-08-22] MEDS: THIAMINE HCL 100 MG TABLET (FP) PO SCH (22:14)
[2022-08-22] MEDS: MELATONIN 5 MG TABLETS PO SCH (22:14)
[2022-08-23] MEDS ORDERED: chlordiazePOXIDE HCL 10 MG CAPSULE PO PRN
[2022-08-23] MEDS: METHOCARBAMOL 500 MG TABLET PO PRN (01:51)
[2022-08-23] MEDS: chlordiazePOXIDE HCL 10 MG CAPSULE PO SCH ×4 (05:50→22:04)
[2022-08-23] MEDS: MAGNESIUM HYDROX 2400MG/30ML ORAL SUSPENSION 30 ML CUP PO PRN (07:08)
[2022-08-23] MEDS: NICOTINE 14 MG/24 HOURS TOPICAL PATCH TD SCH (10:20)
[2022-08-23] MEDS: PRENATAL VITAMINS W/ FOLIC ACID TABLET (FP) PO SCH (10:23)
[2022-08-23] MEDS: BUDESONIDE/FORMETEROL FUMARATE 160/4.5 mcg INHALER IH SCH ×2 (10:25→22:05)
[2022-08-23] MEDS: MAG HYDROX/AL HYDROX/SIMETH 30 ML UNIT-DOSE CUP PO PRN ×2 (10:26→18:26)
[2022-08-23] MEDS: traZODone HCL 50 MG TABLET (FP) PO SCH (21:56)
[2022-08-23] MEDS: THIAMINE HCL 100 MG TABLET (FP) PO SCH (21:56)
[2022-08-23] MEDS: MELATONIN 5 MG TABLETS PO SCH (22:05)
[2022-08-23] MEDS: SUVOREXANT 10 MG TABLET PO PRN (22:05)
[2022-08-24] MEDS: chlordiazePOXIDE HCL 10 MG CAPSULE PO SCH ×2 (06:08→17:10)
[2022-08-24] MEDS ORDERED: methaDONE HCL 10 MG TABLET (FOR DETOX USE ONLY) PO ONE (10:00)
[2022-08-24] MEDS: PRENATAL VITAMINS W/ FOLIC ACID TABLET (FP) PO SCH (10:30)
[2022-08-24] MEDS: METHOCARBAMOL 500 MG TABLET PO PRN (10:30)
[2022-08-24] MEDS: NICOTINE 14 MG/24 HOURS TOPICAL PATCH TD SCH (10:31)
[2022-08-24] MEDS: BUDESONIDE/FORMETEROL FUMARATE 160/4.5 mcg INHALER IH SCH ×2 (10:50→21:47)
[2022-08-24] MEDS: traZODone HCL 50 MG TABLET (FP) PO SCH (21:46)
[2022-08-24] MEDS: SUVOREXANT 10 MG TABLET PO PRN (21:46)
[2022-08-24] MEDS: THIAMINE HCL 100 MG TABLET (FP) PO SCH (21:47)
[2022-08-24] MEDS: MAG HYDROX/AL HYDROX/SIMETH 30 ML UNIT-DOSE CUP PO PRN (21:52)
[2022-08-24] MEDS: MELATONIN 5 MG TABLETS PO SCH (23:34)
[2022-08-25] MEDS ORDERED: chlordiazePOXIDE HCL 10 MG CAPSULE PO ONE (05:00)
[2022-08-25 10:00] VITALS: RESP 18; TEMP 97.3
[2022-08-25] MEDS: NICOTINE 14 MG/24 HOURS TOPICAL PATCH TD SCH (11:08)
[2022-08-25] MEDS: PRENATAL VITAMINS W/ FOLIC ACID TABLET (FP) PO SCH (11:08)
[2022-08-25] MEDS: BUDESONIDE/FORMETEROL FUMARATE 160/4.5 mcg INHALER IH SCH (11:09)
[2022-08-25 13:51] VITALS: BP 90/56; PULSE 81
== END 2022-08-25 13:25 | disposition home or self-care (01) | DRG 773 ==
LOC: YASAS 12:15 → Y6N 17:53
PROVIDERS: ADMIT Allergy & Immunology; ATTEND Surgery
PROC: HZ2ZZZZ Detoxification Services for Substance Abuse Treatment (ICD-10-PCS; principal; 2022-08-20)
DX: F11.23 Opioid dependence with withdrawal (principal); F10.230 Alcohol dependence with withdrawal, uncomplicated; F14.20 Cocaine dependence, uncomplicated; F17.210 Nicotine dependence, cigarettes, uncomplicated; F19.24 Other psychoactive substance dependence with psychoactive substance-induced mood disorder; F19.282 Other psychoactive substance dependence with psychoactive substance-induced sleep disorder; F31.81 Bipolar II disorder; J43.9 Emphysema, unspecified; K21.9 Gastro-esophageal reflux disease without esophagitis; R73.9 Hyperglycemia, unspecified; B18.2 Chronic viral hepatitis C; Z91.51 Personal history of suicidal behavior; Z56.0 Unemployment, unspecified
CPT/HCPCS: 36415; 80053; 85027; 86780; 93005; 93010; C9803-CS; U0003; U0005

== ENCOUNTER 2022-10-10 10:22 | Inpatient (IN) | payer OTHER ==
[2022-10-10 10:47] VITALS: BMI 26.1
[2022-10-10] MEDS ORDERED: LOPERAMIDE HCL 2 MG CAPSULE PO PRN (11:41)
[2022-10-10] MEDS ORDERED: ACETAMINOPHEN 325 MG TABLET (FP) PO PRN ×2 (11:41)
[2022-10-10] MEDS ORDERED: chlordiazePOXIDE HCL 25 MG CAPSULE PO ONE (11:41)
[2022-10-10] MEDS ORDERED: hydrOXYzine PAMOATE 25 MG CAPSULE (FP) PO PRN (11:41)
[2022-10-10] MEDS ORDERED: IBUPROFEN 600 MG TABLET (FP) PO PRN (11:41)
[2022-10-10] MEDS ORDERED: BISMUTH SUBSALICYLATE 262 MG/15 ML BTL PO PRN (11:41)
[2022-10-10] MEDS ORDERED: BENZOCAINE/MENTHOL (CHLORASEPTIC ) LOZENGE MM PRN (11:41)
[2022-10-10] MEDS ORDERED: IBUPROFEN 400 MG TABLET (FP) PO PRN (11:41)
[2022-10-10] MEDS ORDERED: POLYETHYLENE GLYCOL (HEALTHYLAX) 3350 17 GM PACKET PO PRN (11:41)
[2022-10-10] MEDS ORDERED: NALOXONE HCL (KLOXXADO) 8 MG SPRAY NS PRN (11:41)
[2022-10-10] MEDS ORDERED: MAG HYDROX/AL HYDROX/SIMETH 30 ML UNIT-DOSE CUP PO PRN (11:41)
[2022-10-10] MEDS ORDERED: ONDANSETRON *ODT* 4 MG TABLET SL PRN (11:41)
[2022-10-10] MEDS ORDERED: NICOTINE 10 MG CARTRIDGE (INHALER) IH PRN (11:41)
[2022-10-10] MEDS ORDERED: DICYCLOMINE HCL 10 MG CAPSULE PO PRN (11:41)
[2022-10-10] MEDS ORDERED: cloNIDine HCL 0.1 MG TABLET PO PRN (11:41)
[2022-10-10] MEDS ORDERED: methaDONE HCL 10 MG TABLET (FOR DETOX USE ONLY) PO ONE (12:00)
[2022-10-10] MEDS: NICOTINE 7 MG/24 HOURS TOPICAL PATCH TD SCH (12:43)
[2022-10-10] MEDS: PRENATAL VITAMINS W/ FOLIC ACID TABLET (FP) PO SCH (12:43)
[2022-10-10] MEDS ORDERED: chlordiazePOXIDE HCL 25 MG CAPSULE ONE ×2 (12:49→12:52)
[2022-10-10] MEDS ORDERED: NICOTINE 7 MG/24 HOURS TOPICAL PATCH TD ONE (12:50)
[2022-10-10] MEDS ORDERED: methaDONE HCL 10 MG TABLET (FOR DETOX USE ONLY) ONE (12:50)
[2022-10-10] MEDS ORDERED: PRENATAL VITAMINS W/ FOLIC ACID TABLET (FP) PO ONE (12:54)
[2022-10-10] MEDS: chlordiazePOXIDE HCL 25 MG CAPSULE PO SCH ×2 (17:28→22:10)
[2022-10-10 17:55] LABS: HEMOGLOBIN 13.1 GM/dL (11.7-16.9); MCH 30.6 pg (25.7-33.7); MCHC 34.4 g/dl (32.0-35.9); MEAN PLT VOLUME 7.3 fl (7.5-11.1); PLATELET COUNT 425 10^3/uL (134-434); RBC 4.27 M/mm3 (4.00-5.60); RDW 13.9 % (11.9-15.9); WHITE BLOOD COUNT 13.4 K/mm3 (4.0-10.0)
[2022-10-10 18:05] LABS: ALBUMIN 3.7 g/dl (3.4-5.0); BLOOD UREA NITROGEN 10.8 mg/dL (7-18); CALCIUM 9.2 mg/dL (8.5-10.1)
[2022-10-10 18:06] LABS: CREATININE 0.8 mg/dL (0.55-1.3)
[2022-10-10 18:07] LABS: TOT PROT 6.6 g/dl (6.4-8.2)
[2022-10-10 18:08] LABS: BILIRUBIN,TOTAL 0.7 mg/dL (0.2-1)
[2022-10-10] MEDS: THIAMINE HCL 100 MG TABLET (FP) PO SCH (21:55)
[2022-10-10] MEDS: MELATONIN 5 MG TABLETS PO SCH (21:55)
[2022-10-11] MEDS: chlordiazePOXIDE HCL 25 MG CAPSULE PO SCH ×4 (05:11→22:48)
[2022-10-11] MEDS: MAGNESIUM HYDROX 2400MG/30ML ORAL SUSPENSION 30 ML CUP PO PRN ×2 (10:16→17:48)
[2022-10-11] MEDS: METHOCARBAMOL 500 MG TABLET PO PRN (10:18)
[2022-10-11] MEDS: PRENATAL VITAMINS W/ FOLIC ACID TABLET (FP) PO SCH (10:18)
[2022-10-11] MEDS: NICOTINE 7 MG/24 HOURS TOPICAL PATCH TD SCH (10:18)
[2022-10-11] MEDS: chlordiazePOXIDE HCL 25 MG CAPSULE PO PRN (19:05)
[2022-10-11] MEDS: THIAMINE HCL 100 MG TABLET (FP) PO SCH (22:48)
[2022-10-11] MEDS: MELATONIN 5 MG TABLETS PO SCH (22:48)
[2022-10-11] MEDS: traZODone HCL 50 MG TABLET (FP) PO SCH (22:48)
[2022-10-12] MEDS: chlordiazePOXIDE HCL 25 MG CAPSULE PO SCH ×4 (05:48→22:18)
[2022-10-12] MEDS ORDERED: methaDONE HCL 10 MG TABLET (FOR DETOX USE ONLY) PO ONE (10:00)
[2022-10-12] MEDS: PRENATAL VITAMINS W/ FOLIC ACID TABLET (FP) PO SCH (10:16)
[2022-10-12] MEDS: NICOTINE 7 MG/24 HOURS TOPICAL PATCH TD SCH (10:18)
[2022-10-12] MEDS: chlordiazePOXIDE HCL 25 MG CAPSULE PO PRN (12:26)
[2022-10-12] MEDS: METHOCARBAMOL 500 MG TABLET PO PRN (12:27)
[2022-10-12] MEDS ORDERED: ALBUTEROL SO4 HFA INHALER IH PRN (12:30)
[2022-10-12] MEDS: MAGNESIUM HYDROX 2400MG/30ML ORAL SUSPENSION 30 ML CUP PO PRN (17:31)
[2022-10-12] MEDS: BUDESONIDE/FORMETEROL FUMARATE 160/4.5 mcg INHALER IH SCH (22:17)
[2022-10-12] MEDS: THIAMINE HCL 100 MG TABLET (FP) PO SCH (22:17)
[2022-10-12] MEDS: traZODone HCL 50 MG TABLET (FP) PO SCH (22:17)
[2022-10-12] MEDS: MELATONIN 5 MG TABLETS PO SCH (22:17)
[2022-10-13] MEDS ORDERED: chlordiazePOXIDE HCL 10 MG CAPSULE PO PRN
[2022-10-13] MEDS: chlordiazePOXIDE HCL 10 MG CAPSULE PO SCH ×4 (05:47→22:31)
[2022-10-13] MEDS: PRENATAL VITAMINS W/ FOLIC ACID TABLET (FP) PO SCH (10:11)
[2022-10-13] MEDS: NICOTINE 7 MG/24 HOURS TOPICAL PATCH TD SCH (10:16)
[2022-10-13] MEDS: BUDESONIDE/FORMETEROL FUMARATE 160/4.5 mcg INHALER IH SCH ×2 (11:03→22:34)
[2022-10-13] MEDS ORDERED: DOCUSATE SODIUM 100 MG CAPSULE (FP) PO PRN (21:59)
[2022-10-13] MEDS ORDERED: LACTULOSE 20 GM/30 ML UDC (FOR ORAL USE ONLY) PO ONE (21:59)
[2022-10-13] MEDS: MELATONIN 5 MG TABLETS PO SCH (22:30)
[2022-10-13] MEDS: traZODone HCL 50 MG TABLET (FP) PO SCH (22:30)
[2022-10-13] MEDS: THIAMINE HCL 100 MG TABLET (FP) PO SCH (22:30)
[2022-10-14] MEDS: chlordiazePOXIDE HCL 10 MG CAPSULE PO SCH ×2 (05:44→17:20)
[2022-10-14] MEDS ORDERED: methaDONE HCL 10 MG TABLET (FOR DETOX USE ONLY) PO ONE (10:00)
[2022-10-14] MEDS: PRENATAL VITAMINS W/ FOLIC ACID TABLET (FP) PO SCH (10:06)
[2022-10-14] MEDS: BUDESONIDE/FORMETEROL FUMARATE 160/4.5 mcg INHALER IH SCH ×2 (10:06→22:24)
[2022-10-14] MEDS: NICOTINE 7 MG/24 HOURS TOPICAL PATCH TD SCH (10:08)
[2022-10-14] MEDS: MAGNESIUM HYDROX 2400MG/30ML ORAL SUSPENSION 30 ML CUP PO PRN (11:23)
[2022-10-14 19:00] LABS: BASO % 0.7 % (0-2.0); EOS % 1.7 % (0-4.5); HEMATOCRIT 37.9 % (35.4-49); HEMOGLOBIN 12.8 GM/dL (11.7-16.9); LYMPH % 17.2 % (8-40); MCH 30.6 pg (25.7-33.7); MCHC 33.8 g/dl (32.0-35.9); MEAN CELL VOLUME 90.4 fl (80-96); MEAN PLT VOLUME 7.3 fl (7.5-11.1); MONO % 8.3 % (3.8-10.2); NEUT % 72.1 % (42.8-82.8); PLATELET COUNT 415 10^3/uL (134-434); RBC 4.19 M/mm3 (4.00-5.60); RDW 14.4 % (11.9-15.9); WHITE BLOOD COUNT 13.5 K/mm3 (4.0-10.0)
[2022-10-14] MEDS: THIAMINE HCL 100 MG TABLET (FP) PO SCH (22:22)
[2022-10-14] MEDS: MELATONIN 5 MG TABLETS PO SCH (22:22)
[2022-10-14] MEDS: traZODone HCL 50 MG TABLET (FP) PO SCH (22:22)
[2022-10-15] MEDS ORDERED: chlordiazePOXIDE HCL 10 MG CAPSULE PO ONE (05:00)
[2022-10-15] MEDS: BUDESONIDE/FORMETEROL FUMARATE 160/4.5 mcg INHALER IH SCH (10:34)
[2022-10-15] MEDS: MAGNESIUM HYDROX 2400MG/30ML ORAL SUSPENSION 30 ML CUP PO PRN (10:46)
[2022-10-15] MEDS: PRENATAL VITAMINS W/ FOLIC ACID TABLET (FP) PO SCH (10:48)
[2022-10-15] MEDS: NICOTINE 7 MG/24 HOURS TOPICAL PATCH TD SCH (10:48)
[2022-10-15 13:09] VITALS: BP 105/60; PULSE 85; RESP 16; TEMP 97.5
== END 2022-10-15 15:43 | disposition other institution (70) | DRG 773 ==
LOC: YASAS 10:22 → Y3N 12:11
PROVIDERS: ADMIT Allergy & Immunology; ATTEND Family Medicine
PROC: HZ2ZZZZ Detoxification Services for Substance Abuse Treatment (ICD-10-PCS; principal; 2022-10-10)
DX: F11.23 Opioid dependence with withdrawal (principal); F10.230 Alcohol dependence with withdrawal, uncomplicated; F14.20 Cocaine dependence, uncomplicated; F17.210 Nicotine dependence, cigarettes, uncomplicated; F19.24 Other psychoactive substance dependence with psychoactive substance-induced mood disorder; F31.9 Bipolar disorder, unspecified; G47.00 Insomnia, unspecified; J44.9 Chronic obstructive pulmonary disease, unspecified; K21.9 Gastro-esophageal reflux disease without esophagitis; K59.00 Constipation, unspecified; Z91.199 Patient's noncompliance with other medical treatment and regimen due to unspecified reason
CPT/HCPCS: 36415; 80053; 85025; 85027; 86780; 87811; C9803-CS; U0003; U0005

== ENCOUNTER 2022-10-15 15:30 | Inpatient (IN) | payer OTHER ==
[2022-10-15] MEDS ORDERED: ACETAMINOPHEN 325 MG TABLET (FP) PO PRN (22:37)
[2022-10-15] MEDS ORDERED: BENZOCAINE/MENTHOL (CHLORASEPTIC ) LOZENGE MM PRN (22:37)
[2022-10-15] MEDS ORDERED: MAGNESIUM HYDROX 2400MG/30ML ORAL SUSPENSION 30 ML CUP PO PRN (22:37)
[2022-10-15] MEDS ORDERED: IBUPROFEN 400 MG TABLET (FP) PO PRN (22:37)
[2022-10-15] MEDS ORDERED: guaiFENesin 200 MG/10 ML 10 ML UNIT-DOSE CUPS PO PRN (22:37)
[2022-10-15] MEDS ORDERED: POLYETHYLENE GLYCOL (HEALTHYLAX) 3350 17 GM PACKET PO PRN (22:37)
[2022-10-15] MEDS ORDERED: P-EPHED 60MG/TRIPROLIDI 2.5MG TABLET PO PRN (22:37)
[2022-10-15] MEDS ORDERED: LOPERAMIDE HCL 2 MG CAPSULE PO PRN (22:37)
[2022-10-15] MEDS ORDERED: NICOTINE 10 MG CARTRIDGE (INHALER) IH PRN (22:37)
[2022-10-15] MEDS: MELATONIN 5 MG TABLETS PO SCH (23:10)
[2022-10-16] MEDS: ALBUTEROL SO4 HFA INHALER IH PRN ×2 (04:43→18:39)
[2022-10-16] MEDS: NICOTINE 7 MG/24 HOURS TOPICAL PATCH TD SCH (11:58)
[2022-10-16] MEDS: PRENATAL VITAMINS W/ FOLIC ACID TABLET (FP) PO SCH (11:58)
[2022-10-16] MEDS: BUDESONIDE/FORMETEROL FUMARATE 160/4.5 mcg INHALER IH SCH ×2 (11:59→22:31)
[2022-10-16] MEDS: MELATONIN 5 MG TABLETS PO SCH (21:07)
[2022-10-16] MEDS: traZODone HCL 50 MG TABLET (FP) PO SCH (21:07)
[2022-10-16] MEDS: THIAMINE HCL 100 MG TABLET (FP) PO SCH (21:07)
[2022-10-16] MEDS: DOCUSATE SODIUM 100 MG CAPSULE (FP) PO SCH (21:07)
[2022-10-16] MEDS ORDERED: traZODone HCL 50 MG TABLET (FP) PO SCH (22:00)
[2022-10-17] MEDS: NICOTINE 7 MG/24 HOURS TOPICAL PATCH TD SCH (10:16)
[2022-10-17] MEDS: PRENATAL VITAMINS W/ FOLIC ACID TABLET (FP) PO SCH (10:16)
[2022-10-17] MEDS: BUDESONIDE/FORMETEROL FUMARATE 160/4.5 mcg INHALER IH SCH ×2 (10:16→21:01)
[2022-10-17] MEDS: MAG HYDROX/AL HYDROX/SIMETH 30 ML UNIT-DOSE CUP PO PRN (18:33)
[2022-10-17] MEDS: MELATONIN 5 MG TABLETS PO SCH (20:59)
[2022-10-17] MEDS: traZODone HCL 50 MG TABLET (FP) PO SCH (20:59)
[2022-10-17] MEDS: DOCUSATE SODIUM 100 MG CAPSULE (FP) PO SCH (20:59)
[2022-10-17] MEDS: THIAMINE HCL 100 MG TABLET (FP) PO SCH (20:59)
[2022-10-18] MEDS: PRENATAL VITAMINS W/ FOLIC ACID TABLET (FP) PO SCH (10:27)
[2022-10-18] MEDS: BUDESONIDE/FORMETEROL FUMARATE 160/4.5 mcg INHALER IH SCH ×2 (10:27→21:10)
[2022-10-18] MEDS: NICOTINE 7 MG/24 HOURS TOPICAL PATCH TD SCH (10:27)
[2022-10-18] MEDS: THIAMINE HCL 100 MG TABLET (FP) PO SCH (21:08)
[2022-10-18] MEDS: MAG HYDROX/AL HYDROX/SIMETH 30 ML UNIT-DOSE CUP PO PRN (21:08)
[2022-10-18] MEDS: MELATONIN 5 MG TABLETS PO SCH (21:08)
[2022-10-18] MEDS: DOCUSATE SODIUM 100 MG CAPSULE (FP) PO SCH (21:08)
[2022-10-18] MEDS: traZODone HCL 50 MG TABLET (FP) PO SCH (21:09)
[2022-10-19 06:50] VITALS: RESP 20
[2022-10-19] MEDS: BUDESONIDE/FORMETEROL FUMARATE 160/4.5 mcg INHALER IH SCH ×2 (10:01→21:34)
[2022-10-19] MEDS: NICOTINE 7 MG/24 HOURS TOPICAL PATCH TD SCH (10:01)
[2022-10-19] MEDS: PRENATAL VITAMINS W/ FOLIC ACID TABLET (FP) PO SCH (10:01)
[2022-10-19] MEDS: THIAMINE HCL 100 MG TABLET (FP) PO SCH (21:34)
[2022-10-19] MEDS: traZODone HCL 50 MG TABLET (FP) PO SCH (21:34)
[2022-10-19] MEDS: MELATONIN 5 MG TABLETS PO SCH (21:34)
[2022-10-19] MEDS: DOCUSATE SODIUM 100 MG CAPSULE (FP) PO SCH (21:34)
[2022-10-20 06:50] VITALS: BP 109/71; PULSE 68; TEMP 97.9
[2022-10-20] MEDS: BUDESONIDE/FORMETEROL FUMARATE 160/4.5 mcg INHALER IH SCH (10:14)
[2022-10-20] MEDS: NICOTINE 7 MG/24 HOURS TOPICAL PATCH TD SCH (10:14)
[2022-10-20] MEDS: PRENATAL VITAMINS W/ FOLIC ACID TABLET (FP) PO SCH (10:14)
== END 2022-10-20 13:27 | disposition home or self-care (01) | DRG 772 ==
LOC: YASAS 15:30 → Y3E 15:32
PROVIDERS: ADMIT Allergy & Immunology; ATTEND Allergy & Immunology
PROC: HZ42ZZZ Group Counseling for Substance Abuse Treatment, Cognitive-Behavioral (ICD-10-PCS; principal; 2022-10-15)
DX: F11.20 Opioid dependence, uncomplicated (principal); F14.20 Cocaine dependence, uncomplicated; F17.210 Nicotine dependence, cigarettes, uncomplicated; F19.282 Other psychoactive substance dependence with psychoactive substance-induced sleep disorder; F19.24 Other psychoactive substance dependence with psychoactive substance-induced mood disorder; F31.9 Bipolar disorder, unspecified; G47.00 Insomnia, unspecified; J44.9 Chronic obstructive pulmonary disease, unspecified; K21.9 Gastro-esophageal reflux disease without esophagitis

== ENCOUNTER 2023-12-06 12:47 | Inpatient (IN) | payer OTHER ==
[2023-12-06 13:25] VITALS: BMI 21.6
[2023-12-06] MEDS ORDERED: POLYETHYLENE GLYCOL (HEALTHYLAX) 3350 17 GM PACKET PO PRN (14:22)
[2023-12-06] MEDS ORDERED: DICYCLOMINE HCL 10 MG CAPSULE PO PRN (14:22)
[2023-12-06] MEDS ORDERED: IBUPROFEN 600 MG TABLET (FP) PO PRN (14:22)
[2023-12-06] MEDS ORDERED: MAG HYDROX/AL HYDROX/SIMETH 30 ML UNIT-DOSE CUP PO PRN (14:22)
[2023-12-06] MEDS ORDERED: BENZONATATE 200 MG CAPSULE PO PRN (14:22)
[2023-12-06] MEDS ORDERED: ONDANSETRON *ODT* 4 MG TABLET SL PRN (14:22)
[2023-12-06] MEDS ORDERED: IBUPROFEN 400 MG TABLET (FP) PO PRN (14:22)
[2023-12-06] MEDS ORDERED: hydrOXYzine PAMOATE 25 MG CAPSULE (FP) PO PRN (14:22)
[2023-12-06] MEDS ORDERED: LOPERAMIDE HCL 2 MG CAPSULE PO PRN (14:22)
[2023-12-06] MEDS ORDERED: MAGNESIUM HYDROX 2400MG/30ML ORAL SUSPENSION 30 ML CUP PO PRN (14:22)
[2023-12-06] MEDS ORDERED: NALOXONE HCL (KLOXXADO) 8 MG SPRAY NS PRN (14:22)
[2023-12-06] MEDS ORDERED: NALOXONE HCL 0.4 MG/ML VIAL IM PRN (14:22)
[2023-12-06] MEDS ORDERED: ACETAMINOPHEN 325 MG TABLET (FP) PO PRN (14:22)
[2023-12-06] MEDS ORDERED: BENZOCAINE/MENTHOL (CHLORASEPTIC ) LOZENGE MM PRN (14:22)
[2023-12-06] MEDS ORDERED: guaiFENesin 600 MG TABLET.ER (FP) PO PRN (14:22)
[2023-12-06] MEDS ORDERED: BISMUTH SUBSALICYLATE 524 MG/30 ML PO PRN (14:22)
[2023-12-06] MEDS ORDERED: ALBUTEROL SO4 HFA INHALER IH PRN (14:39)
[2023-12-06] MEDS: BUPRENORPHINE/NALOXONE 0.5 MG/0.125 MG FILM SL ONE ×2 (15:23→22:34)
[2023-12-06] MEDS: methaDONE HCL 10 MG TABLET (FOR DETOX USE ONLY) PO ONE (15:24)
[2023-12-06] MEDS: LORazepam 1 MG TABLET PO PRN (17:24)
[2023-12-06] MEDS: LORazepam 2 MG TABLET PO SCH (17:30)
[2023-12-06] MEDS: cloNIDine HCL 0.1 MG TABLET PO SCH (17:30)
[2023-12-06] MEDS: THIAMINE HCL 100 MG TABLET (FP) PO SCH (22:31)
[2023-12-06] MEDS: LORazepam 1 MG TABLET PO SCH (22:31)
[2023-12-06] MEDS: traZODone HCL 50 MG TABLET (FP) PO SCH (22:31)
[2023-12-06] MEDS: MELATONIN 5 MG TABLETS PO SCH (22:32)
[2023-12-06] MEDS: BUDESONIDE/FORMETEROL FUMARATE 160/4.5 mcg INHALER IH SCH (22:48)
[2023-12-07] MEDS: PRENATAL VITAMINS W/ FOLIC ACID TABLET (FP) PO SCH (10:42)
[2023-12-07] MEDS: METHOCARBAMOL 500 MG TABLET PO PRN (10:42)
[2023-12-07] MEDS: BUPRENORPHINE/NALOXONE 0.5 MG/0.125 MG FILM SL SCH (10:42)
[2023-12-07 11:46] LABS: HEMATOCRIT 39.6 % (35.4-49); HEMOGLOBIN 13.5 GM/dL (11.7-16.9); MCH 30.6 pg (25.7-33.7); MCHC 34.2 g/dl (32.0-35.9); MEAN CELL VOLUME 89.4 fl (80-96); MEAN PLT VOLUME 8.1 fl (7.5-11.1); PLATELET COUNT 404 10^3/uL (134-434); RBC 4.43 M/mm3 (4.00-5.60); RDW 13.8 % (11.9-15.9)
[2023-12-07 11:52] LABS: POTASSIUM 4.1 mmol/L (3.5-5.1)
[2023-12-07 12:01] LABS: CALCIUM 9.3 mg/dL (8.5-10.1)
[2023-12-07 12:02] LABS: ALBUMIN 3.6 g/dl (3.4-5.0); BLOOD UREA NITROGEN 17.6 mg/dL (7-18)
[2023-12-07 12:05] LABS: CREATININE 0.8 mg/dL (0.55-1.3)
[2023-12-07 12:07] LABS: BILIRUBIN,TOTAL 0.5 mg/dL (0.2-1); TOT PROT 6.7 g/dl (6.4-8.2)
[2023-12-08] MEDS: LORazepam 1 MG TABLET PO SCH (06:00)
[2023-12-08] MEDS: methaDONE HCL 10 MG TABLET (FOR DETOX USE ONLY) PO ONE (10:01)
[2023-12-08] MEDS: BUPRENORPHINE/NALOXONE 2 MG/0.5 MG FILM PACKET SL SCH (10:02)
[2023-12-09] MEDS ORDERED: LORazepam 0.5 MG TABLET PO PRN
[2023-12-09] MEDS: LORazepam 0.5 MG TABLET PO SCH (06:00)
[2023-12-09 06:58] VITALS: RESP 18
[2023-12-09] MEDS: BUPRENORPHINE/NALOXONE 4 MG/1 MG FILM PACKET SL SCH (10:16)
[2023-12-09 13:42] VITALS: BP 110/62; PULSE 70; TEMP 97.7
[2023-12-10] MEDS ORDERED: LORazepam 0.5 MG TABLET PO ONE (05:00)
[2023-12-10] MEDS ORDERED: BUPRENORPHINE/NALOXONE 8 MG/2 MG FILM PACKET SL SCH (10:00)
[2023-12-10] MEDS ORDERED: methaDONE HCL 10 MG TABLET (FOR DETOX USE ONLY) PO ONE (10:00)
[2023-12-11] MEDS ORDERED: BUPRENORPHINE/NALOXONE 8 MG/2 MG FILM PACKET SL ONE (10:00)
== END 2023-12-09 16:03 | disposition left against medical advice (07) | DRG 770 ==
LOC: YASAS 12:47 → Y6N 14:14
PROVIDERS: ADMIT Allergy & Immunology; ATTEND Surgery
PROC: HZ2ZZZZ Detoxification Services for Substance Abuse Treatment (ICD-10-PCS; principal; 2023-12-06)
DX: F11.23 Opioid dependence with withdrawal (principal); F10.230 Alcohol dependence with withdrawal, uncomplicated; F14.20 Cocaine dependence, uncomplicated; F17.210 Nicotine dependence, cigarettes, uncomplicated; F31.9 Bipolar disorder, unspecified; F19.282 Other psychoactive substance dependence with psychoactive substance-induced sleep disorder; F19.24 Other psychoactive substance dependence with psychoactive substance-induced mood disorder; F41.9 Anxiety disorder, unspecified; J45.909 Unspecified asthma, uncomplicated; Z86.19 Personal history of other infectious and parasitic diseases
CPT/HCPCS: 36415; 80053; 80305; 80307; 85027; 86780; 93005; 93010

== ENCOUNTER 2024-04-23 13:18 | Inpatient (IN) | payer OTHER ==
[2024-04-23 14:28] VITALS: BMI 20.9
[2024-04-23] MEDS ORDERED: DICYCLOMINE HCL 10 MG CAPSULE PO PRN (15:42)
[2024-04-23] MEDS ORDERED: NALOXONE (NARCAN) HCL 4 MG/0.1 ML SPRAY NS PRN (15:42)
[2024-04-23] MEDS ORDERED: POLYETHYLENE GLYCOL (HEALTHYLAX) 3350 17 GM PACKET PO PRN (15:42)
[2024-04-23] MEDS ORDERED: NICOTINE POLACRILEX 2 MG GUM BUC PRN (15:42)
[2024-04-23] MEDS ORDERED: NALOXONE HCL 0.4 MG/ML VIAL IM PRN (15:42)
[2024-04-23] MEDS ORDERED: BISMUTH SUBSALICYLATE 262 MG/15 ML BTL PO PRN (15:42)
[2024-04-23] MEDS ORDERED: IBUPROFEN 600 MG TABLET (FP) PO PRN (15:42)
[2024-04-23] MEDS ORDERED: BENZONATATE 200 MG CAPSULE PO PRN (15:42)
[2024-04-23] MEDS ORDERED: ACETAMINOPHEN 325 MG TABLET (FP) PO PRN (15:42)
[2024-04-23] MEDS ORDERED: LOPERAMIDE HCL 2 MG CAPSULE PO PRN (15:42)
[2024-04-23] MEDS ORDERED: BENZOCAINE/MENTHOL (CHLORASEPTIC ) LOZENGE MM PRN (15:42)
[2024-04-23] MEDS ORDERED: guaiFENesin 600 MG TABLET.ER (FP) PO PRN (15:42)
[2024-04-23] MEDS ORDERED: MAGNESIUM HYDROX 2400MG/30ML ORAL SUSPENSION 30 ML CUP PO PRN (15:42)
[2024-04-23] MEDS ORDERED: MAG HYDROX/AL HYDROX/SIMETH 30 ML UNIT-DOSE CUP PO PRN (15:42)
[2024-04-23] MEDS ORDERED: IBUPROFEN 400 MG TABLET (FP) PO PRN (15:42)
[2024-04-23] MEDS: hydrOXYzine PAMOATE 25 MG CAPSULE (FP) PO PRN (22:30)
[2024-04-23] MEDS: METHOCARBAMOL 500 MG TABLET PO PRN (22:30)
[2024-04-23] MEDS: MELATONIN 5 MG TABLETS PO SCH (22:34)
[2024-04-23] MEDS: THIAMINE 100 MG TABLET PO SCH (22:34)
[2024-04-24] MEDS ORDERED: ALBUTEROL SO4 HFA INHALER IH PRN (07:11)
[2024-04-24] MEDS: PRENATAL VITAMINS W/ FOLIC ACID TABLET (FP) PO SCH (10:06)
[2024-04-24] MEDS: NICOTINE 14 MG/24 HOURS TOPICAL PATCH TD SCH (10:06)
[2024-04-24] MEDS: BUDESONIDE/FORMETEROL FUMARATE 160/4.5 mcg INHALER IH SCH (10:06)
[2024-04-24] MEDS: methaDONE HCL 10 MG TABLET (FOR DETOX USE ONLY) PO ONE (10:38)
[2024-04-24] MEDS: diazePAM 5 MG TABLET PO SCH (10:38)
[2024-04-24 17:39] LABS: HEMOGLOBIN 14.3 GM/dL (11.7-16.9); MCH 30.1 pg (25.7-33.7); MEAN CELL VOLUME 88.7 fl (80-96); MEAN PLT VOLUME 7.9 fl (7.5-11.1); PLATELET COUNT 365 10^3/uL (134-434); RBC 4.74 M/mm3 (4.00-5.60); RDW 14.1 % (11.9-15.9); WHITE BLOOD COUNT 8.6 K/mm3 (4.0-10.0)
[2024-04-24 17:42] LABS: CHLORIDE 104 mmol/L (98-107); POTASSIUM 4.5 mmol/L (3.5-5.1); SODIUM 138 mmol/L (136-145)
[2024-04-24 17:46] LABS: CALCIUM 9.2 mg/dL (8.5-10.1)
[2024-04-24 17:47] LABS: ALBUMIN 3.6 g/dl (3.4-5.0); ANION GAP 7 mmol/L (4-13); BLOOD UREA NITROGEN 15.2 mg/dL (7-18); CO2 27 mmol/L (21-32); GLUCOSE,RANDOM 73 mg/dL (74-106)
[2024-04-24 17:51] LABS: BILIRUBIN,TOTAL 0.6 mg/dL (0.2-1); CREATININE 0.7 mg/dL (0.55-1.3); SGOT/AST 22 U/L (15-37); SGPT/ALT 23 U/L (13-61)
[2024-04-24 17:52] LABS: TOT PROT 6.7 g/dl (6.4-8.2)
[2024-04-24 17:53] LABS: ALK PHOS 75 U/L (45-117)
[2024-04-25] MEDS: ONDANSETRON *ODT* 4 MG TABLET SL PRN (12:28)
[2024-04-25] MEDS: diazePAM 5 MG TABLET PO PRN (13:03)
[2024-04-25] MEDS: TRIMETHOBENZAMIDE HCL 200MG/2ML INJ IM ONE ×2 (17:24)
[2024-04-25] MEDS: cloNIDine HCL 0.1 MG TABLET PO PRN (18:10)
[2024-04-26] MEDS: diazePAM 5 MG TABLET PO SCH (05:56)
[2024-04-26] MEDS: methaDONE HCL 10 MG TABLET (FOR DETOX USE ONLY) PO ONE (09:46)
[2024-04-27] MEDS: diazePAM 5 MG TABLET PO SCH (06:15)
[2024-04-27 06:19] VITALS: RESP 16
[2024-04-27 09:37] VITALS: BP 142/75; PULSE 90; TEMP 98
[2024-04-28] MEDS ORDERED: diazePAM 5 MG TABLET PO ONE (06:00)
[2024-04-28] MEDS ORDERED: methaDONE HCL 10 MG TABLET (FOR DETOX USE ONLY) PO ONE (10:00)
== END 2024-04-27 09:25 | disposition home or self-care (01) | DRG 773 ==
LOC: YASAS 13:18 → Y3N 16:47
PROVIDERS: ADMIT Allergy & Immunology; ATTEND Surgery
PROC: HZ2ZZZZ Detoxification Services for Substance Abuse Treatment (ICD-10-PCS; principal; 2024-04-23)
DX: F11.23 Opioid dependence with withdrawal (principal); F10.230 Alcohol dependence with withdrawal, uncomplicated; F14.20 Cocaine dependence, uncomplicated; F12.20 Cannabis dependence, uncomplicated; F17.210 Nicotine dependence, cigarettes, uncomplicated; F31.9 Bipolar disorder, unspecified; F19.24 Other psychoactive substance dependence with psychoactive substance-induced mood disorder; F41.9 Anxiety disorder, unspecified; J44.9 Chronic obstructive pulmonary disease, unspecified; K21.9 Gastro-esophageal reflux disease without esophagitis; Z86.19 Personal history of other infectious and parasitic diseases
CPT/HCPCS: 36415; 80053; 80305; 80307; 85027; 86780; 93005; 93010; Q0162

== ENCOUNTER 2024-07-23 10:44 | Inpatient (IN) | payer OTHER ==
[2024-07-23 11:15] VITALS: BMI 22.2
[2024-07-23] MEDS ORDERED: P-EPHED 60MG/TRIPROLIDI 2.5MG TABLET PO PRN (12:47)
[2024-07-23] MEDS ORDERED: NICOTINE POLACRILEX 2 MG LOZENGE BC PRN (12:47)
[2024-07-23] MEDS ORDERED: BENZONATATE 200 MG CAPSULE PO PRN (12:47)
[2024-07-23] MEDS ORDERED: METHOCARBAMOL 500 MG TABLET PO PRN (12:47)
[2024-07-23] MEDS ORDERED: IBUPROFEN 400 MG TABLET (FP) PO PRN (12:47)
[2024-07-23] MEDS ORDERED: DICYCLOMINE HCL 10 MG CAPSULE PO PRN (12:47)
[2024-07-23] MEDS ORDERED: BISMUTH SUBSALICYLATE 524 MG/30 ML PO PRN (12:47)
[2024-07-23] MEDS ORDERED: NICOTINE POLACRILEX 2 MG GUM BUC PRN (12:47)
[2024-07-23] MEDS ORDERED: NALOXONE (NARCAN) HCL 4 MG/0.1 ML SPRAY NS PRN (12:47)
[2024-07-23] MEDS ORDERED: LOPERAMIDE HCL 2 MG CAPSULE PO PRN (12:47)
[2024-07-23] MEDS ORDERED: ONDANSETRON *ODT* 4 MG TABLET SL PRN (12:47)
[2024-07-23] MEDS ORDERED: guaiFENesin 600 MG TABLET.ER (FP) PO PRN (12:47)
[2024-07-23] MEDS ORDERED: BENZOCAINE/MENTHOL (CHLORASEPTIC ) LOZENGE MM PRN (12:47)
[2024-07-23] MEDS ORDERED: IBUPROFEN 600 MG TABLET (FP) PO PRN (12:47)
[2024-07-23] MEDS ORDERED: MAGNESIUM HYDROX 2400MG/30ML ORAL SUSPENSION 30 ML CUP PO PRN (12:47)
[2024-07-23] MEDS ORDERED: POLYETHYLENE GLYCOL (HEALTHYLAX) 3350 17 GM PACKET PO PRN (12:47)
[2024-07-23] MEDS ORDERED: ACETAMINOPHEN 325 MG TABLET (FP) PO PRN (12:47)
[2024-07-23] MEDS ORDERED: MAG HYDROX/AL HYDROX/SIMETH 30 ML UNIT-DOSE CUP PO PRN (12:47)
[2024-07-23] MEDS ORDERED: methaDONE HCL 10 MG TABLET (FOR DETOX USE ONLY) ONE (13:31)
[2024-07-23] MEDS ORDERED: ALBUTEROL SO4 2.5/IPRATROPIUM 0.5 INH SOL 3 ML VIAL.NEB. NEB ONE (13:31)
[2024-07-23] MEDS: methaDONE HCL 10 MG TABLET (FOR DETOX USE ONLY) PO ONE (13:58)
[2024-07-23] MEDS: ALBUTEROL SO4 2.5/IPRATROPIUM 0.5 INH SOL 3 ML VIAL.NEB. NEB ONE (13:59)
[2024-07-23] MEDS: MELATONIN 5 MG TABLETS PO SCH (22:47)
[2024-07-23] MEDS: BUPRENORPHINE/NALOXONE 0.5 MG/0.125 MG FILM SL ONE (22:47)
[2024-07-23] MEDS: BUDESONIDE/FORMETEROL FUMARATE 160/4.5 mcg INHALER IH SCH (22:47)
[2024-07-23] MEDS: THIAMINE 100 MG TABLET PO SCH (22:47)
[2024-07-24] MEDS: diazePAM 5 MG TABLET PO PRN (05:41)
[2024-07-24] MEDS: BUPRENORPHINE/NALOXONE 0.5 MG/0.125 MG FILM SL SCH (09:55)
[2024-07-24] MEDS: PRENATAL VITAMINS W/ FOLIC ACID TABLET (FP) PO SCH (09:59)
[2024-07-24] MEDS: FLU VACCINE (FLULAVAL) PF 45 MCG/0.5 ML SYRINGE 2024-2025 IM ONE (11:30)
[2024-07-24 11:49] LABS: POTASSIUM 3.5 mmol/L (3.5-5.1)
[2024-07-24 11:57] LABS: HEMATOCRIT 35.2 % (35.4-49); HEMOGLOBIN 12.1 GM/dL (11.7-16.9); MCH 30.3 pg (25.7-33.7); MCHC 34.4 g/dl (32.0-35.9); MEAN PLT VOLUME 7.8 fl (7.5-11.1); PLATELET COUNT 338 10^3/uL (134-434); RDW 13.4 % (11.9-15.9); WHITE BLOOD COUNT 5.3 K/mm3 (4.0-10.0)
[2024-07-24 12:05] LABS: ALBUMIN 3.3 g/dl (3.4-5.0); CALCIUM 8.9 mg/dL (8.5-10.1)
[2024-07-24 12:07] LABS: BLOOD UREA NITROGEN 13.7 mg/dL (7-18)
[2024-07-24 12:08] LABS: CREATININE 0.8 mg/dL (0.55-1.3)
[2024-07-24 12:10] LABS: TOT PROT 6.2 g/dl (6.4-8.2)
[2024-07-24 12:13] LABS: BILIRUBIN,TOTAL 0.3 mg/dL (0.2-1)
[2024-07-24] MEDS: traZODone HCL 50 MG TABLET (FP) PO SCH (23:25)
[2024-07-25] MEDS: BUPRENORPHINE/NALOXONE 2 MG/0.5 MG FILM PACKET SL SCH (09:45)
[2024-07-25] MEDS: methaDONE HCL 10 MG TABLET (FOR DETOX USE ONLY) PO ONE (09:45)
[2024-07-26] MEDS: ALBUTEROL SO4 HFA INHALER IH PRN (09:47)
[2024-07-26 09:56] VITALS: RESP 18
[2024-07-26] MEDS: BUPRENORPHINE/NALOXONE 4 MG/1 MG FILM PACKET SL SCH (10:16)
[2024-07-26 16:40] VITALS: TEMP 97.7
[2024-07-27 05:53] VITALS: BP 121/70; PULSE 77
[2024-07-27] MEDS: NALOXONE (NYS OPIOID OVERDOSE PROGRAM) 4 MG/0.1 ML SPRAY NS SCH (08:30)
[2024-07-27] MEDS ORDERED: BUPRENORPHINE/NALOXONE 8 MG/2 MG FILM PACKET SL SCH (10:00)
[2024-07-27] MEDS ORDERED: methaDONE HCL 10 MG TABLET (FOR DETOX USE ONLY) PO ONE (10:00)
[2024-07-28] MEDS ORDERED: BUPRENORPHINE/NALOXONE 8 MG/2 MG FILM PACKET SL SCH (10:00)
== END 2024-07-27 08:48 | disposition home or self-care (01) | DRG 773 ==
LOC: YASAS 10:44 → Y6N 13:17 → Y3N 07-25 22:07
PROVIDERS: ADMIT Allergy & Immunology; ATTEND Surgery
PROC: HZ2ZZZZ Detoxification Services for Substance Abuse Treatment (ICD-10-PCS; principal; 2024-07-23)
DX: F11.23 Opioid dependence with withdrawal (principal); F10.230 Alcohol dependence with withdrawal, uncomplicated; F14.20 Cocaine dependence, uncomplicated; F17.210 Nicotine dependence, cigarettes, uncomplicated; F31.9 Bipolar disorder, unspecified; F41.9 Anxiety disorder, unspecified; J44.9 Chronic obstructive pulmonary disease, unspecified; K21.9 Gastro-esophageal reflux disease without esophagitis; Z86.19 Personal history of other infectious and parasitic diseases
CPT/HCPCS: 0241U-QW; 36415; 80053; 80305; 80307; 82962; 85027; 90656; 94640; G0008

== ENCOUNTER 2024-11-28 11:20 | Inpatient (IN) | payer OTHER ==
[2024-11-28 11:37] VITALS: BMI 20.9
[2024-11-28] MEDS ORDERED: BENZONATATE 200 MG CAPSULE PO PRN (11:49)
[2024-11-28] MEDS ORDERED: LOPERAMIDE HCL 2 MG CAPSULE PO PRN (11:49)
[2024-11-28] MEDS ORDERED: methaDONE HCL 10 MG TABLET (FOR DETOX USE ONLY) PO PRN (11:49)
[2024-11-28] MEDS ORDERED: chlordiazePOXIDE HCL 25 MG CAPSULE PO PRN (11:49)
[2024-11-28] MEDS ORDERED: traZODone HCL 50 MG TABLET (FP) PO PRN (11:49)
[2024-11-28] MEDS ORDERED: DICYCLOMINE HCL 10 MG CAPSULE PO PRN (11:49)
[2024-11-28] MEDS ORDERED: ACETAMINOPHEN 325 MG TABLET (FP) PO PRN (11:49)
[2024-11-28] MEDS ORDERED: IBUPROFEN 400 MG TABLET (FP) PO PRN (11:49)
[2024-11-28] MEDS ORDERED: BENZOCAINE/MENTHOL (CHLORASEPTIC ) LOZENGE MM PRN (11:49)
[2024-11-28] MEDS ORDERED: hydrOXYzine PAMOATE 25 MG CAPSULE (FP) PO PRN (11:49)
[2024-11-28] MEDS ORDERED: IBUPROFEN 600 MG TABLET (FP) PO PRN (11:49)
[2024-11-28] MEDS ORDERED: BISMUTH SUBSALICYLATE 262 MG/15 ML BTL PO PRN (11:49)
[2024-11-28] MEDS ORDERED: ONDANSETRON *ODT* 4 MG TABLET SL PRN (11:49)
[2024-11-28] MEDS ORDERED: cloNIDine HCL 0.1 MG TABLET PO PRN (11:49)
[2024-11-28] MEDS ORDERED: NALOXONE (NARCAN) HCL 4 MG/0.1 ML SPRAY NS PRN (11:49)
[2024-11-28] MEDS ORDERED: guaiFENesin 600 MG TABLET.ER (FP) PO PRN (11:49)
[2024-11-28] MEDS ORDERED: methaDONE HCL 10 MG TABLET (FOR DETOX USE ONLY) ONE (12:25)
[2024-11-28] MEDS: methaDONE HCL 10 MG TABLET (FOR DETOX USE ONLY) PO ONE (12:35)
[2024-11-28] MEDS: BUDESONIDE/FORMETEROL FUMARATE 160/4.5 mcg INHALER IH SCH (12:55)
[2024-11-28] MEDS: chlordiazePOXIDE HCL 25 MG CAPSULE PO SCH (17:19)
[2024-11-28] MEDS: POLYETHYLENE GLYCOL (HEALTHYLAX) 3350 17 GM PACKET PO PRN (17:20)
[2024-11-28] MEDS: THIAMINE 100 MG TABLET PO SCH (22:10)
[2024-11-28] MEDS: traZODone HCL 100 MG TABLET (FP) PO SCH (22:10)
[2024-11-28] MEDS: MIRTAZAPINE 15 MG TABLET (FP) PO SCH (22:10)
[2024-11-28] MEDS: QUEtiapine FUMARATE 100 MG TABLET (FP) PO SCH (22:11)
[2024-11-28] MEDS: MELATONIN 5 MG TABLETS PO SCH (22:11)
[2024-11-29] MEDS: methaDONE HCL 10 MG TABLET (FOR DETOX USE ONLY) PO ONE (10:14)
[2024-11-29] MEDS: PRENATAL VITAMINS W/ FOLIC ACID TABLET (FP) PO SCH (10:18)
[2024-11-29 11:57] LABS: POTASSIUM 4.3 mmol/L (3.5-5.1)
[2024-11-29 12:03] LABS: HEMATOCRIT 42.8 % (40.1-51.0); HEMOGLOBIN 13.6 g/dL (13.7-17.5); MCHC 31.8 g/dl (32.3-36.5); MEAN CELL VOLUME 90.5 fl (79.0-92.2); MEAN PLT VOLUME 10.2 fl (9.4-12.4); PLATELET COUNT 414 x10^3/uL (163-337); RDW 13.9 % (12.2-16.1)
[2024-11-29 12:06] LABS: ALBUMIN 3.8 g/dl (3.4-5.0); BLOOD UREA NITROGEN 12.8 mg/dL (7-18); CALCIUM 9.1 mg/dL (8.5-10.1)
[2024-11-29 12:09] LABS: CREATININE 0.8 mg/dL (0.55-1.3)
[2024-11-30] MEDS: chlordiazePOXIDE HCL 25 MG CAPSULE PO SCH (05:18)
[2024-12-01] MEDS ORDERED: chlordiazePOXIDE HCL 10 MG CAPSULE PO PRN
[2024-12-01] MEDS: chlordiazePOXIDE HCL 10 MG CAPSULE PO SCH (05:17)
[2024-12-01] MEDS: methaDONE HCL 10 MG TABLET (FOR DETOX USE ONLY) PO ONE (10:04)
[2024-12-01] MEDS ORDERED: traZODone HCL 50 MG TABLET (FP) PO ONE (19:02)
[2024-12-01] MEDS: MELATONIN 5 MG TABLETS PO ONE (22:19)
[2024-12-01] MEDS: traZODone HCL 50 MG TABLET (FP) PO ONE (22:19)
[2024-12-02] MEDS: chlordiazePOXIDE HCL 10 MG CAPSULE PO SCH (05:50)
[2024-12-02] MEDS: MAG HYDROX/AL HYDROX/SIMETH 30 ML UNIT-DOSE CUP PO PRN (16:32)
[2024-12-02] MEDS: MAGNESIUM HYDROX 2400MG/30ML ORAL SUSPENSION 30 ML CUP PO PRN (19:54)
[2024-12-02] MEDS: METHOCARBAMOL 500 MG TABLET PO PRN (21:30)
[2024-12-02] MEDS: ALBUTEROL SO4 HFA INHALER IH PRN (21:33)
[2024-12-03] MEDS: chlordiazePOXIDE HCL 10 MG CAPSULE PO ONE (05:36)
[2024-12-03 06:17] VITALS: BP 121/67; PULSE 75; RESP 17; TEMP 98.4
[2024-12-03] MEDS ORDERED: methaDONE HCL 10 MG TABLET (FOR DETOX USE ONLY) PO ONE (10:00)
== END 2024-12-03 08:22 | disposition home or self-care (01) | DRG 773 ==
LOC: YASAS 11:20 → Y3N 12:13
PROVIDERS: ADMIT Allergy & Immunology; ATTEND Allergy & Immunology
PROC: HZ2ZZZZ Detoxification Services for Substance Abuse Treatment (ICD-10-PCS; principal; 2024-11-28)
DX: F11.23 Opioid dependence with withdrawal (principal); F10.230 Alcohol dependence with withdrawal, uncomplicated; F14.20 Cocaine dependence, uncomplicated; F17.210 Nicotine dependence, cigarettes, uncomplicated; F31.81 Bipolar II disorder; F19.282 Other psychoactive substance dependence with psychoactive substance-induced sleep disorder; F19.24 Other psychoactive substance dependence with psychoactive substance-induced mood disorder; G47.00 Insomnia, unspecified; J44.9 Chronic obstructive pulmonary disease, unspecified
CPT/HCPCS: 36415; 80053; 80305; 80307; 85027; 86780; 93005; 93010

== ENCOUNTER 2025-01-23 12:19 | Inpatient (IN) | payer OTHER ==
[2025-01-23 12:51] VITALS: BMI 22.4
[2025-01-23] MEDS ORDERED: BENZOCAINE/MENTHOL (CHLORASEPTIC ) LOZENGE MM PRN (13:28)
[2025-01-23] MEDS ORDERED: DICYCLOMINE HCL 10 MG CAPSULE PO PRN (13:28)
[2025-01-23] MEDS ORDERED: NALOXONE (NARCAN) HCL 4 MG/0.1 ML SPRAY NS PRN (13:28)
[2025-01-23] MEDS ORDERED: BISMUTH SUBSALICYLATE 262 MG/15 ML BTL PO PRN (13:28)
[2025-01-23] MEDS ORDERED: LOPERAMIDE HCL 2 MG CAPSULE PO PRN (13:28)
[2025-01-23] MEDS ORDERED: NICOTINE POLACRILEX 2 MG GUM BUC PRN (13:28)
[2025-01-23] MEDS ORDERED: guaiFENesin 600 MG TABLET.ER (FP) PO PRN (13:28)
[2025-01-23] MEDS ORDERED: POLYETHYLENE GLYCOL (HEALTHYLAX) 3350 17 GM PACKET PO PRN (13:28)
[2025-01-23] MEDS ORDERED: BENZONATATE 200 MG CAPSULE PO PRN (13:28)
[2025-01-23] MEDS ORDERED: ONDANSETRON *ODT* 4 MG TABLET SL PRN (13:28)
[2025-01-23] MEDS ORDERED: ACETAMINOPHEN 325 MG TABLET (FP) PO PRN (13:28)
[2025-01-23] MEDS ORDERED: NICOTINE POLACRILEX 2 MG LOZENGE BC PRN (13:28)
[2025-01-23] MEDS ORDERED: cloNIDine HCL 0.1 MG TABLET PO PRN (13:36)
[2025-01-23] MEDS ORDERED: methaDONE HCL 10 MG TABLET (FOR DETOX USE ONLY) ONE (14:10)
[2025-01-23] MEDS: methaDONE HCL 10 MG TABLET (FOR DETOX USE ONLY) PO ONE (14:13)
[2025-01-23] MEDS: diazePAM 5 MG TABLET PO PRN (17:44)
[2025-01-23] MEDS: THIAMINE 100 MG TABLET PO SCH (22:02)
[2025-01-23] MEDS: MELATONIN 5 MG TABLETS PO SCH (22:03)
[2025-01-23] MEDS: BUDESONIDE/FORMETEROL FUMARATE 160/4.5 mcg INHALER IH SCH (22:04)
[2025-01-24] MEDS: PRENATAL VITAMINS W/ FOLIC ACID TABLET (FP) PO SCH (10:28)
[2025-01-24 12:01] LABS: MCHC 31.8 g/dl (32.3-36.5); MEAN CELL VOLUME 90.7 fl (79.0-92.2); MEAN PLT VOLUME 9.8 fl (9.4-12.4); PLATELET COUNT 458 x10^3/uL (163-337); RDW 13.2 % (12.2-16.1)
[2025-01-24 12:57] LABS: POTASSIUM 4.7 mmol/L (3.5-5.1)
[2025-01-24 13:01] LABS: ALBUMIN 3.7 g/dl (3.4-5.0); BLOOD UREA NITROGEN 19.9 mg/dL (7-18); CALCIUM 9.4 mg/dL (8.5-10.1)
[2025-01-24 13:04] LABS: CREATININE 0.8 mg/dL (0.55-1.3)
[2025-01-24 13:05] LABS: BILIRUBIN,TOTAL 0.7 mg/dL (0.2-1)
[2025-01-24] MEDS: ALBUTEROL SO4 HFA INHALER IH PRN (13:28)
[2025-01-24] MEDS ORDERED: SUVOREXANT 10 MG TABLET PO PRN (22:00)
[2025-01-24] MEDS: SUVOREXANT 10 MG TABLET PO PRN (22:32)
[2025-01-25] MEDS: methaDONE HCL 10 MG TABLET (FOR DETOX USE ONLY) PO ONE (10:05)
[2025-01-25] MEDS: MAG HYDROX/AL HYDROX/SIMETH 30 ML UNIT-DOSE CUP PO PRN (12:25)
[2025-01-25] MEDS: IBUPROFEN 600 MG TABLET (FP) PO PRN (13:41)
[2025-01-25] MEDS: IBUPROFEN 400 MG TABLET (FP) PO PRN (21:21)
[2025-01-25] MEDS: traZODone HCL 50 MG TABLET (FP) PO SCH (22:30)
[2025-01-25] MEDS ORDERED: ALBUTEROL SO4 0.083% IH SOL 2.5 MG/3 ML VIAL.NEB. NEB PRN (23:14)
[2025-01-26] MEDS: ALBUTEROL SO4 2.5/IPRATROPIUM 0.5 INH SOL 3 ML VIAL.NEB. NEB ONE (00:18)
[2025-01-26] MEDS: predniSONE 20 MG TABLET (UD) PO ONE ×2 (00:19→03:13)
[2025-01-26 09:22] VITALS: RESP 16
[2025-01-26] MEDS: MAGNESIUM HYDROX 2400MG/30ML ORAL SUSPENSION 30 ML CUP PO PRN (15:21)
[2025-01-26 16:52] VITALS: BP 136/69; PULSE 76; TEMP 97.9
[2025-01-27] MEDS ORDERED: methaDONE HCL 10 MG TABLET (FOR DETOX USE ONLY) PO ONE (10:00)
== END 2025-01-26 18:30 | disposition left against medical advice (07) | DRG 770 ==
LOC: YASAS 12:19 → Y6N 14:14
PROVIDERS: ADMIT Allergy & Immunology; ATTEND Allergy & Immunology
PROC: HZ2ZZZZ Detoxification Services for Substance Abuse Treatment (ICD-10-PCS; principal; 2025-01-23)
DX: F11.23 Opioid dependence with withdrawal (principal); F10.230 Alcohol dependence with withdrawal, uncomplicated; F14.20 Cocaine dependence, uncomplicated; F17.210 Nicotine dependence, cigarettes, uncomplicated; F31.9 Bipolar disorder, unspecified; F19.282 Other psychoactive substance dependence with psychoactive substance-induced sleep disorder; F19.24 Other psychoactive substance dependence with psychoactive substance-induced mood disorder; J44.9 Chronic obstructive pulmonary disease, unspecified; K21.9 Gastro-esophageal reflux disease without esophagitis; Z86.19 Personal history of other infectious and parasitic diseases; Z62.810 Personal history of physical and sexual abuse in childhood
CPT/HCPCS: 36415; 80053; 80305; 80307; 85027; 86780; 93005; 93010